=== PATIENT | female | born 1955 | race Caucasian/White ===

== ENCOUNTER 2019-10-11 15:05 | Emergency (ER) | payer MEDICARE, MEDICAID, SELFPAY ==
[2019-10-11 15:30] VITALS: BP 130/70; PULSE 63; RESP 16; TEMP 36.6; O2SAT 97; BMI 33.3
== END 2019-10-11 15:39 | disposition left against medical advice (07) ==
LOC: ER 15:37
PROVIDERS: Emergency Provider Emergency Medicine; Family Provider Family Medicine; PCP Family Medicine
DX: Z53.21 Procedure and treatment not carried out due to patient leaving prior to being seen by health care provider (principal)
CPT/HCPCS: 99281

== ENCOUNTER 2019-10-11 17:39 | Emergency (ER) | payer MEDICARE, MEDICAID, SELFPAY ==
[2019-10-11 19:25] VITALS: BP 112/66; PULSE 66; RESP 18; TEMP 36.5; O2SAT 97; BMI 33.3
[2019-10-11 19:31] VITALS: BP 79/54
[2019-10-11 20:50] LABS: Basophils % 0.7 %; Eosinophils # 0.2 10^3/uL (0.0-0.8); Eosinophils % 3.5 %; Hematocrit 41.9 % (37.0-47.0); Hemoglobin 14.1 g/dL (11.5-15.3); Lymphocytes # 1.4 10^3/uL (0.8-4.8); Lymphocytes % 23.9 %; Mean Corpuscular HGB Conc 33.7 g/dL (30.0-36.0); Mean Corpuscular Hemoglobin 30.9 pg (28.0-34.0); Mean Corpuscular Volume 91.7 fL (81-99); Mean Platelet Volume 10.7 fL (7.4-10.4); Monocytes # 0.6 10^3/uL (0.2-0.9); Monocytes % 10.8 %; Neutrophils # 3.4 10^3/uL (1.8-7.7); Neutrophils % 60.6 %; Nucleated Red Blood Cells % 0 %; Platelet Count 109 10^3/cmm (130-400); Red Blood Count 4.57 10^6/uL (4.1-5.3); Red Cell Distribution Width 13.4 % (12.1-15.1); White Blood Count 5.7 10^3/uL (4.0-10.0)
[2019-10-11 21:32] LABS: Alanine Aminotransferase 30 U/L (0-33); Alkaline Phosphatase 126 IU/L (35-105); Anion Gap 15.5 (5-19); Aspartate Amino Transferase 49 U/L (0-32); Blood Urea Nitrogen 13 mg/dL (8-23); Calcium 9.8 mg/Dl (8.8-10.2); Carbon Dioxide 28 mmol/L (22-29); Chloride 98 mmol/L (98-107); Globulin 3.3 g/dL (1.3-4.6); Glucose 139 mg/dL (74-106); Potassium 3.5 mmol/L (3.5-5.1); Sodium 138 mmol/L (136-145); Total Bilirubin 0.3 mg/dL (0.15-1.2); Total Protein 7.3 g/dL (6.6-8.7)
--- NOTE | 2019-10-11 21:42 | W.ED.GENADLT ---
HPI - General Adult General: Chief complaint: General Medical Stated complaint: low bp Time Seen by Provider: 10/11/19 21:37 History of Present Illness: HPI narrative: Patient is a 64-year-old female comes into the ED with varying blood pressures throughout the day. She states that her physical therapist came to her house today and her blood pressure was around 80/40. She states she felt lightheaded during that time. She states her blood pressure then went up later that day and was back to normal. She called her doctor in the doctor told her to come into the ED to check blood pressure. Patient does describe feeling lightheaded and dizzy when she stands up. No symptoms at all while she is lying down. Patient states she drinks a lot of water throughout the day and states that this fluctuation in blood pressure is never in the past. Denies any chest pain, shortness of breath, headache, abdominal pain, dysuria, hematuria, nausea, vomiting, constipation, diarrhea, blood in the stool, numbness or tingling or weakness to extremities. Review of Systems General: Reports: 10 or more systems reviewed and unremarkable except in HPI and below PFSH ED PFSH: Statuses (acute, chronic, etc) shown below reflect problem list status as previously entered and may not be historically accurate Social History Smoking and tobacco status: former smoker Alcohol intake: never Physical Exam Narrative: EXAM NARRATIVE: Patient was sitting comfortably in bed upon examination and show no signs of acute pain or distress. Const: COMMON NORMALS: oriented x3 HENMT: COMMON NORMALS: normocephalic HEAD & SCALP: normocephalic MOUTH: oral and palatal mucosa normal THROAT: posterior oropharynx normal and uvula midline Neck/C-Spine: COMMON NORMALS: supple GENERAL: Yes normal visual inspection Resp: COMMON NORMALS: normal respiratory effort, no retractions, no use of accessory muscles and clear to auscultation bilaterally AUSCULTATION: clear to auscultation bilaterally Cardio: COMMON NORMALS: regular rate, regular rhythm, S1 normal heart sound, S2 normal heart sound, no gallops, no clicks, no murmurs and peripheral pulses 2+ throughout RATE: regular rate RHYTHM: regular rhythm HEART SOUNDS: S1 normal and S2 normal PERIPHERAL PULSES: pulses 2+ throughout GI: COMMON NORMALS: normal to inspection, nondistended, normoactive bowel sounds, soft to palpation, non-tender and no masses PALPATION: Yes soft : COMMON NORMALS: Yes no CVA tenderness BLADDER/KIDNEY EXAM: Yes no CVA tenderness Back/Pelvis: COMMON NORMALS: no CVA tenderness Extremity: NARRATIVE EXTREMITY EXAM: Patient was wearing an arm sling for her right arm. This was a previous problem that had been treated and is not a current or acute issue. Neuro: COMMON NORMALS: oriented x3 and moves all extremities Course ED course: Patient's vitals in triage showed showed a sitting bp of 112/66 with hr of 81bpm, standing bp of 79/54 and hr of 62 bpm. After IV fluids patient orthostatics improved- laying 131/97 70bpm, sitting 159/93 79 bpm, and standing bp 144/79 hr 75bpm. Vital Signs: Vital signs: Vital Signs Temperature 98.3 F 10/12/19 01:09 Pulse Rate 76 10/12/19 01:09 Respiratory Rate 16 10/12/19 01:09 Blood Pressure 138/71 10/12/19 01:09 Pulse Oximetry 97 10/12/19 01:09 [facility] - General Adult Lab Data: Attestation: I reviewed the patient's lab results. Labs: Lab Results 10/11/19 10/11/19 10/11/19 Range/Units 20:36 20:36 23:12 WBC 5.7 (4.0-10.0) 10^3/ uL RBC 4.57 (4.1-5.3) 10^6/u L Hgb 14.1 (11.5-15.3) g/dL Hct 41.9 (37.0-47.0) % MCV 91.7 (81-99) fL MCH 30.9 (28.0-34.0) pg MCHC 33.7 (30.0-36.0) g/dL RDW 13.4 (12.1-15.1) % Plt Count 109 L (130-400) 10^3/c mm MPV 10.7 H (7.4-10.4) fL Neut % (Auto) 60.6 % Lymph % (Auto) 23.9 % [place] % (Auto) 10.8 % Eos % (Auto) 3.5 % Baso % (Auto) 0.7 % Neut # (Auto) 3.4 (1.8-7.7) 10^3/u L Lymph # (Auto) 1.4 (0.8-4.8) 10^3/u L [place] # (Auto) 0.6 (0.2-0.9) 10^3/u L Eos # (Auto) 0.2 (0.0-0.8) 10^3/u L Baso # (Auto) 0.0 (0.0-0.1) 10^3/u L Nucleated RBC % (a uto) 0 % Nucleated RBCs # 0.0 /100WBC Sodium 138 (136-145) mmol/L Potassium 3.5 (3.5-5.1) mmol/L Chloride 98 (98-107) mmol/L Carbon Dioxide 28 (22-29) mmol/L Anion Gap 15.5 (5-19) BUN 13 (8-23) mg/dL Creatinine 0.9 (0.5-0.9) mg/dL GFR Calculation 63.0 L (90-130) mL/min Glucose 139 H (74-106) mg/dL Calcium 9.8 (8.8-10.2) mg/Dl Total Bilirubin 0.3 (0.15-1.2) mg/dL AST 49 H (0-32) U/L ALT 30 (0-33) U/L Alkaline Phosphata se 126 H (35-105) IU/L Total Protein 7.3 (6.6-8.7) g/dL Albumin 4.0 (3.5-5.2) g/dL Globulin 3.3 (1.3-4.6) g/dL Urine Color Yellow (Yellow) Urine Appearance Clear (CLEAR) Urine pH 6.5 (5-7) Ur Specific Gravit y 1.005 (1.005-1.030) Urine Protein Neg (Negative) Urine Glucose (UA) Norm (Normal) Urine Ketones Negative (Negative) Urine Occult Blood Neg (Negative) Urine Nitrate Negative (Negative) Urine Bilirubin Neg (NEGATIVE) Urine Urobilinogen Norm (Negative) mg/dL Ur Leukocyte Chasity ase Negative (Negative) EKG Data^: EKG 1: Attestation: I personally reviewed and interpreted this EKG as follows: EKG interpretation date: 10/12/19 Interpretation: Normal sinus rhythm with rate of 63 bpm. No signs of ST elevation or depression. Computer generated interpretation: Normal sinus rhythm Discharge Plan Discharge Patient Disposition: Home, Self-Care Clinical Impression: Orthostatic hypotension Condition: Stable Prescriptions: No Action tizanidine 4 mg capsule 4 mg PO Q8H PRN (Reason: Muscle Spasm) RF: 0 triamterene-hydrochlorothiazid 37.5-25 mg capsule 1 cap PO QAM RF: 0 atenolol 25 mg tablet 25 mg PO BID RF: 0 amitriptyline 25 mg tablet 25 mg PO ONCE RF: 0 tramadol 50 mg tablet 50 mg PO Q6H PRN (Reason: Pain) RF: 0 gabapentin 300 mg capsule 300 mg PO TID RF: 0 omeprazole 40 mg capsule,delayed release(DR/EC) 40 mg PO ONCE RF: 0 levothyroxine 50 mcg capsule 50 mcg PO ONCE RF: 0 lorazepam 0.5 mg tablet 0.5 mg PO TID PRN (Reason: Anxiety) RF: 0 allopurinol 300 mg tablet 150 mg PO ONCE RF: 0 amoxicillin-pot clavulanate [Augmentin] 875-125 mg tablet 1 tab PO BID 10 Days Qty: 20 RF: 0 benzonatate [Tessalon Perles] 100 mg capsule 100 mg PO TID PRN (Reason: cough) Qty: 15 RF: 0 Discharge Orders: Discharge Order (Routine); Ordered 10/12/19 Ordered By: Joshua Woods Referrals: Samantha Wylie MD [Primary Care Provider] - Discharge Diet: Regular Discharge Activity: Resume usual activity Activity Restrictions/Additional Instructions: Follow-up with her primary care doctor in 7 days for reevaluation. Patient to drink plenty of fluids daily. Also make sure we're getting from a sitting position or from laying to get up slowly and hold on to something initially when standing up. Discharge Date/Time: 10/12/19 01:10 Coding Level of Care Code ED Photo Cartographer for Heide Batista
--- NOTE | 2019-10-11 22:52 | ECG_ITS ---
Measurements Intervals [place] Rate: 63 P: 66 ID: [id number] QRS: 52 QRSD: 85 T: 44 QT: 405 QTc: 417 SINUS RHYTHM Compared to ECG 09/28/2017 05:20:01 Sinus bradycardia no longer present Electronically Signed On 10-12-2019 22:27:02 NET SOFTWARE DEVELOPER by Kristine Sommer M.D. [email or web address]
[2019-10-11 23:19] LABS: Add Urine Microscopic? NO
[2019-10-11 23:25] LABS: Bilirubin Urine Neg (NEGATIVE); Blood Urine Neg (Negative); Glucose Urine UA Norm (Normal); Ketones Urine Negative (Negative); Leukocyte Esterase Urine Negative (Negative); Nitrate Urine Negative (Negative); Protein Urine Neg (Negative); Specific Gravity, Urine 1.005 (1.005-1.030); Urine Appearance Clear (CLEAR); Urine Color Yellow (Yellow); Urobilinogen Urine Norm (Negative); pH Urine 6.5 (5-7)
[2019-10-11] MEDS: HYDROcodone-acetaminophen 5-325 mg Tablet 1 TAB PO (23:42)
[2019-10-11] MEDS: sodium chloride 0.9% 1,000 ML 999 ML IV (23:43)
[2019-10-12] VITALS: BP 127/89; PULSE 76; RESP 16; O2SAT 97
[2019-10-12 00:40] VITALS: BP 131/97; BP 144/79; BP 159/93; PULSE 70; PULSE 75; PULSE 79
[2019-10-12 01:09] VITALS: BP 138/71; PULSE 76; RESP 16; TEMP 36.8; O2SAT 97
== END 2019-10-12 01:10 | disposition home or self-care (01) ==
PROVIDERS: Emergency Medicine; Emergency Provider Physician Assistant; Family Provider Family Medicine; PCP Family Medicine
DX: I95.1 Orthostatic hypotension (principal); Z87.891 Personal history of nicotine dependence
CPT/HCPCS: 36415; 80053; 81003; 85025; 93005; 96360; 99283; J7030

== ENCOUNTER 2019-11-15 23:09 | Emergency (ER) | payer MEDICARE, MEDICAID, SELFPAY ==
[2019-11-15 23:13] VITALS: BP 164/99; PULSE 120; RESP 18; TEMP 36.4; O2SAT 97; BMI 33.3
--- NOTE | 2019-11-15 23:40 | ED_ITS ---
HPI - General Adult General: Chief complaint: General Medical Stated complaint: n/v, high hr and bp, fever Time Seen by Provider: 11/15/19 23:25 Source: patient Mode of arrival: ambulatory Limitations: no limitations History of Present Illness: HPI narrative: Patient comes in today with complaints of 24-hour history of nausea vomiting. Patient reports feeling unwell. Patient reports fever. Patient appears mildly unwell. Patient appears in no pain. Associated symptoms: Reports malaise, nausea and vomiting Review of Systems General: Reports: 10 or more systems reviewed and unremarkable except in HPI and below Const: Reports: fever and malaise GI: Reports: nausea and vomiting PFS ED PFSH: Social History Smoking and tobacco status: never smoked Alcohol intake: never Physical Exam Const: COMMON NORMALS: no apparent distress and oriented x3 GENERAL APPEARANCE: cooperative HENMT: COMMON NORMALS: normocephalic, external ears normal, EAC's normal and TM's normal bilaterally HEAD & SCALP: normal to inspection and normocephalic FACE & SINUS: normal facial exam NOSE: nasal discharge GENERAL EAR: hearing not grossly impaired EXTERNAL EAR: Yes external ears normal EXTERNAL AUDITORY CANAL: EAC's normal TYMPANIC MEMBRANE: TM's normal bilaterally MOUTH: oral and palatal mucosa normal THROAT: posterior oropharynx normal Eye: COMMON NORMALS: PERRL and EOMs intact bilaterally PUPIL: Yes PERRL Neck/C-Spine: COMMON NORMALS: full ROM and no lymphadenopathy Lymph: LYMPHATIC: no lymphedema noted Chest: COMMONS NORMALS: inspection of chest normal and palpation of chest normal Resp: COMMON NORMALS: normal respiratory effort and clear to auscultation bilaterally AUSCULTATION: clear to auscultation bilaterally Cardio: COMMON NORMALS: regular rate and regular rhythm RATE: regular rate RHYTHM: regular rhythm GI: COMMON NORMALS: normal to inspection, nondistended, normoactive bowel sounds and non-tender : COMMON NORMALS: Yes no CVA tenderness BLADDER/KIDNEY EXAM: Yes no CVA tenderness Back/Pelvis: COMMON NORMALS: no CVA tenderness and thoracic and lumbar spine normal to inspection Extremity: COMMON NORMALS: normal to inspection GENERAL: No edema Neuro: COMMON NORMALS: oriented x3, moves all extremities and no focal motor deficits Psych: COMMON NORMALS: mental status grossly normal and cooperative Skin: COMMON NORMALS: no rashes or lesions noted GENERAL SKIN EXAM: no rashes or lesions noted Course Vital Signs: Vital signs: Vital Signs Temperature 98.6 F 11/16/19 00:57 Pulse Rate 120 H 11/15/19 23:13 Respiratory Rate 18 11/15/19 23:13 Blood Pressure 164/99 11/15/19 23:13 Pulse Oximetry 97 11/15/19 23:13 MDM - General Adult MDM Narrative: Medical decision making narrative: Patient comes in today for complaints of nausea vomiting diarrhea since last night. Patient is also had some chills and possible fever. Patient appears mildly unwell. Exam notes abdomen soft nontender. Bowel sounds are hyperactive. Skin is warm and dry. [place] is mildly dry. Differential diagnosis includes gastroenteritis, cholecystitis, gastritis, colitis, esophageal reflux. Laboratory values worse significant for some mild elevation in liver enzymes but very similar to previous labs. White blood cell count was normal. Patient was given IV fluids with 1 L and medications for nausea. Patient had improvement in overall symptoms and felt better. Reviewed exam with patient recommended treatment for gastroenteritis with supportive care. Patient reported understanding agreed to plan. Lab Data: Labs: Lab Results 11/15/19 11/16/19 11/16/19 Range/Units 23:54 00:01 00:33 WBC 6.4 (4.0-10.0) 10^3/ uL RBC 5.00 (4.1-5.3) 10^6/u L Hgb 14.6 (11.5-15.3) g/dL Hct 43.6 (37.0-47.0) % MCV 87.2 (81-99) fL MCH 29.2 (28.0-34.0) pg MCHC 33.5 (30.0-36.0) g/dL RDW 13.3 (12.1-15.1) % Plt Count 80 L (130-400) 10^3/c mm MPV 10.8 H (7.4-10.4) fL Neut % (Auto) 83.7 % Lymph % (Auto) 9.4 % [place] % (Auto) 5.8 % Eos % (Auto) 0.6 % Baso % (Auto) 0.3 % Neut # (Auto) 5.3 (1.8-7.7) 10^3/u L Lymph # (Auto) 0.6 L (0.8-4.8) 10^3/u L [place] # (Auto) 0.4 (0.2-0.9) 10^3/u L Eos # (Auto) 0.0 (0.0-0.8) 10^3/u L Baso # (Auto) 0.0 (0.0-0.1) 10^3/u L Nucleated RBC % (a uto) 0 % Nucleated RBCs # 0.0 /100WBC Sodium 137 (136-145) mmol/L Potassium 4.2 (3.5-5.1) mmol/L Chloride 99 (98-107) mmol/L Carbon Dioxide 22 (22-29) mmol/L Anion Gap 20.2 H (5-19) BUN 15 (8-23) mg/dL Creatinine 0.7 (0.5-0.9) mg/dL GFR Calculation 84.2 L (90-130) mL/min Glucose 126 H (65-115) mg/dL Calcium 9.5 (8.5-10.5) mg/dL Total Bilirubin 1.0 (0.15-1.2) mg/dL AST 48 H (0-32) U/L ALT 29 (0-33) U/L Alkaline Phosphata se 113 H (35-105) IU/L Total Protein 7.9 (6.6-8.7) g/dL Albumin 3.9 (3.5-5.2) g/dL Globulin 4.0 (1.3-4.6) g/dL Urine Color Yellow (Yellow) Urine Appearance Clear (CLEAR) Urine pH 6 (5-7) Ur Specific Gravit y 1.010 (1.005-1.030) Urine Protein Neg (Negative) Urine Glucose (UA) Norm (Normal) Urine Ketones 1+ H (Negative) Urine Blood 2+ H (Negative) Urine Nitrate Negative (Negative) Urine Bilirubin Neg (NEGATIVE) Urine Urobilinogen Norm (Negative) mg/dL Ur Leukocyte Chasity ase Negative (Negative) Urine RBC 5-10 H (0-2) /hpf Urine WBC 0-4 H (0-5) /hpf Ur Squamous Epith Cells None (0-5) Urine Bacteria Trace (NONE) Urine Yeast None Influenza Type A A g (Negative) POC Influenza B Ag (Negative) 11/16/19 Range/Units 01:19 WBC (4.0-10.0) 10^3/ uL RBC (4.1-5.3) 10^6/u L Hgb (11.5-15.3) g/dL Hct (37.0-47.0) % MCV (81-99) fL MCH (28.0-34.0) pg MCHC (30.0-36.0) g/dL RDW (12.1-15.1) % Plt Count (130-400) 10^3/c mm MPV (7.4-10.4) fL Neut % (Auto) % Lymph % (Auto) % [place] % (Auto) % Eos % (Auto) % Baso % (Auto) % Neut # (Auto) (1.8-7.7) 10^3/u L Lymph # (Auto) (0.8-4.8) 10^3/u L [place] # (Auto) (0.2-0.9) 10^3/u L Eos # (Auto) (0.0-0.8) 10^3/u L Baso # (Auto) (0.0-0.1) 10^3/u L Nucleated RBC % (a uto) % Nucleated RBCs # /100WBC Sodium (136-145) mmol/L Potassium (3.5-5.1) mmol/L Chloride (98-107) mmol/L Carbon Dioxide (22-29) mmol/L Anion Gap (5-19) BUN (8-23) mg/dL Creatinine (0.5-0.9) mg/dL GFR Calculation (90-130) mL/min Glucose (65-115) mg/dL Calcium (8.5-10.5) mg/dL Total Bilirubin (0.15-1.2) mg/dL AST (0-32) U/L ALT (0-33) U/L Alkaline Phosphata se (35-105) IU/L Total Protein (6.6-8.7) g/dL Albumin (3.5-5.2) g/dL Globulin (1.3-4.6) g/dL Urine Color (Yellow) Urine Appearance (CLEAR) Urine pH (5-7) Ur Specific Gravit y (1.005-1.030) Urine Protein (Negative) Urine Glucose (UA) (Normal) Urine Ketones (Negative) Urine Blood (Negative) Urine Nitrate (Negative) Urine Bilirubin (NEGATIVE) Urine Urobilinogen (Negative) mg/dL Ur Leukocyte Chasity ase (Negative) Urine RBC (0-2) /hpf Urine WBC (0-5) /hpf Ur Squamous Epith Cells (0-5) Urine Bacteria (NONE) Urine Yeast Influenza Type A A g Negative (Negative) POC Influenza B Ag Negative (Negative) Discharge Plan Discharge Patient Disposition: Home, Self-Care Clinical Impression: Gastroenteritis Condition: Stable Prescriptions: New promethazine 12.5 mg tablet 12.5 mg PO Q6H PRN (Reason: nausea and vomiting) Qty: 20 RF: 0 No Action tizanidine 4 mg capsule 4 mg PO Q8H PRN (Reason: Muscle Spasm) RF: 0 triamterene-hydrochlorothiazid 37.5-25 mg capsule 1 cap PO QAM RF: 0 atenolol 25 mg tablet 25 mg PO BID RF: 0 amitriptyline 25 mg tablet 25 mg PO ONCE RF: 0 tramadol 50 mg tablet 50 mg PO Q6H PRN (Reason: Pain) RF: 0 gabapentin 300 mg capsule 300 mg PO TID RF: 0 omeprazole 40 mg capsule,delayed release(DR/EC) 40 mg PO ONCE RF: 0 levothyroxine 50 mcg capsule 50 mcg PO ONCE RF: 0 lorazepam 0.5 mg tablet 0.5 mg PO TID PRN (Reason: Anxiety) RF: 0 allopurinol 300 mg tablet 150 mg PO ONCE RF: 0 benzonatate [Tessalon Perles] 100 mg capsule 100 mg PO TID PRN (Reason: cough) Qty: 15 RF: 0 Discharge Orders: Discharge Order (Routine); Ordered 11/16/19 Ordered By: René Vora Referrals: Samantha Wylie MD [Primary Care Provider] - Discharge Diet: Clear Liquid Discharge Activity: Increase activity as tolerated Patient Instructions: Gastroenteritis (ED) Activity Restrictions/Additional Instructions: Drink plenty of fluids Start with clear liquid diet for the next 12-24 hours, then increase slowly to a bland diet of bananas, apples, toast, boiled chicken, and rice Return to ER for persistent vomiting, or blood in stool or vomit Follow-up with primary care in three days for persistent symptoms Coding Level of Care Code ED Diesel Trailer Mechanic for Chg Fwd Exam Comprehensive
[2019-11-16] MEDS: ondansetron 2 mg/ML SDV 2 mL 4 MG IVP (00:01)
[2019-11-16] MEDS: sodium chloride 0.9% 1,000 ML 999 ML IV (00:01)
[2019-11-16 00:02] LABS: Basophils % 0.3 %; Eosinophils % 0.6 %; Hematocrit 43.6 % (37.0-47.0); Hemoglobin 14.6 g/dL (11.5-15.3); Lymphocytes # 0.6 10^3/uL (0.8-4.8); Lymphocytes % 9.4 %; Mean Corpuscular HGB Conc 33.5 g/dL (30.0-36.0); Mean Corpuscular Hemoglobin 29.2 pg (28.0-34.0); Mean Corpuscular Volume 87.2 fL (81-99); Mean Platelet Volume 10.8 fL (7.4-10.4); Monocytes # 0.4 10^3/uL (0.2-0.9); Monocytes % 5.8 %; Neutrophils # 5.3 10^3/uL (1.8-7.7); Neutrophils % 83.7 %; Nucleated Red Blood Cells % 0 %; Platelet Count 80 10^3/cmm (130-400); Red Cell Distribution Width 13.3 % (12.1-15.1); White Blood Count 6.4 10^3/uL (4.0-10.0)
[2019-11-16 00:29] LABS: Alanine Aminotransferase 29 U/L (0-33); Albumin Level 3.9 g/dL (3.5-5.2); Alkaline Phosphatase 113 IU/L (35-105); Anion Gap 20.2 (5-19); Aspartate Amino Transferase 48 U/L (0-32); Blood Urea Nitrogen 15 mg/dL (8-23); Calcium 9.5 mg/dL (8.5-10.5); Carbon Dioxide 22 mmol/L (22-29); Chloride 99 mmol/L (98-107); Glomerular Filtration Rate 84.2 mL/min (90-130); Glucose 126 mg/dL (65-115); Potassium 4.2 mmol/L (3.5-5.1); Sodium 137 mmol/L (136-145); Total Protein 7.9 g/dL (6.6-8.7)
[2019-11-16 00:57] VITALS: TEMP 37
--- NOTE | 2019-11-16 01:22 | PC.NURSE ---
flu swab recollected at this time due to first collection in wrong color tube. MMorgan RN
[2019-11-16] MEDS: diphenhydrAMINE 50 mg/mL SDV 1mL 25 MG IVP (01:31)
[2019-11-16] MEDS: metoclopramide 5 mg/mL SDV 2 mL 10 MG IVP (01:31)
[2019-11-16 01:53] LABS: Influenza A by IFA Negative (Negative)
[2019-11-16 01:54] LABS: Influenza B by IFA Negative (Negative)
[2019-11-16 01:54] LABS: Add Urine Microscopic? YES; Bilirubin Urine Neg (NEGATIVE); Blood Urine 2+ (Negative); Glucose Urine UA Norm (Normal); Ketones Urine 1+ (Negative); Leukocyte Esterase Urine Negative (Negative); Nitrate Urine Negative (Negative); Protein Urine Neg (Negative); Urine Appearance Clear (CLEAR); Urine Color Yellow (Yellow); Urobilinogen Urine Norm (Negative); pH Urine 6 (5-7)
[2019-11-16 01:57] LABS: Add Urine Culture? Yes; Bacteria Urine TRACE; WBC Urine 0-4 /hpf (0-5)
[2019-11-16 02:25] VITALS: BP 152/96; PULSE 106; RESP 18; TEMP 37; O2SAT 98
== END 2019-11-16 02:37 | disposition home or self-care (01) ==
PROVIDERS: Emergency Provider Nurse Practitioner Family; Family Provider Family Medicine; PCP Family Medicine
DX: K52.9 Noninfective gastroenteritis and colitis, unspecified (principal)
CPT/HCPCS: 36415; 80053; 81001; 85025; 87086; 87804; 96361; 96374; 96375; 99283; A9270; J1200; J2405; J2765; J7030

== ENCOUNTER 2019-12-18 14:09 | Outpatient (CLI) | payer MEDICARE, MEDICAID, SELFPAY ==
--- NOTE | 2019-12-18 14:21 | XRR_ITS ---
PROCEDURE INFORMATION: Exam: XR Chest, 2 Views Exam date and time: 12/18/2019 2:29 PM Age: 64 years old Clinical indication: Cough TECHNIQUE: Imaging protocol: XR of the chest Views: Frontal and lateral upright views. COMPARISON: CR Chest 1 [place] [id number] 09/27/2017 9:02 PM FINDINGS: Lungs: The lungs are clear bilaterally. The pulmonary vasculature is normal. Pleural space: No pleural effusion. No pneumothorax. Heart/Mediastinum: The heart is normal in size and contour. Mediastinum: Stable. Bones/joints: . Mild rightward thoracolumbar spinal curvature, stable XR/XR chest 2V* [id number] IMPRESSION: No acute cardiopulmonary abnormality identified.
== END 2019-12-18 14:10 | disposition home or self-care (01) ==
LOC: RAD 14:15
PROVIDERS: Family Provider Family Medicine; PCP Family Medicine; Visit Provider Family Medicine
DX: R05 Cough (principal)
CPT/HCPCS: 71046

== ENCOUNTER 2020-02-06 14:30 | Outpatient (RCR) | payer MEDICARE, MEDICAID, SELFPAY | END 2020-02-25 23:59 | disposition home or self-care (01) | LOC: SPT 14:30 | PROVIDERS: PCP Family Medicine; Visit Provider Family Medicine | DX: Z47.89 Encounter for other orthopedic aftercare (principal) | CPT/HCPCS: 97110; 97162 ==

== ENCOUNTER 2020-02-11 22:37 | Emergency (ER) | payer MEDICARE, MEDICAID, SELFPAY ==
[2020-02-11 22:43] VITALS: BP 146/85; PULSE 107; RESP 16; TEMP 37.4; O2SAT 95; BMI 33.3
--- NOTE | 2020-02-11 22:55 | CTR_ITS ---
PROCEDURE INFORMATION: Exam: CT Abdomen And Pelvis Without And With Contrast Exam date and time: 02/11/2020 10:59 PM Age: 64 years old Clinical indication: Abdominal pain; Generalized; Additional info: Pain, fever TECHNIQUE: Imaging protocol: Computed tomography of the abdomen and pelvis without and with intravenous contrast. Radiation optimization: All CT scans at this facility use at least one of these dose optimization techniques: automated exposure control; mA and/or kV adjustment per patient size (includes targeted exams where dose is matched to clinical indication); or iterative reconstruction. Contrast material: OMNI 300; Contrast volume: 95 ml; Contrast route: IV; COMPARISON: No relevant prior studies available. RADIATION DOSE METRICS: Total DLP: 2451.53 mGy-cm FINDINGS: Liver: Normal. No mass. Gallbladder and bile ducts: Status post cholecystectomy. Pancreas: Normal. No ductal dilation. Spleen: The spleen is mildly prominent measuring 16.2 cm craniocaudal dimension. Adrenals: Normal. No mass. Kidneys and ureters: Some strandy opacities are seen in the perinephric fascia on the left. Mild inflammatory changes and pyelonephritis cannot be entirely excluded. Stomach and bowel: Unremarkable. No obstruction. No mucosal thickening. Appendix: The appendix is visualized and is normal in configuration. Intraperitoneal space: Unremarkable. No free air. No significant fluid collection. Vasculature: Unremarkable. No abdominal aortic aneurysm. Lymph nodes: Small retroperitoneal lymph nodes are seen that are below CT criteria for lymphadenopathy. Bladder: Unremarkable as visualized. Reproductive: There is a 2.1 x 2.6 x 2.6 cm hypoattenuation cystic mass seen within the left ovary compatible with a benign ovarian cyst. Status post hysterectomy. Bones/joints: Unremarkable. No acute fracture. Soft tissues: Unremarkable. CT/CT abdomen pelvis wo/w [id number] IMPRESSION: 1. Strandy opacities are seen in the left perinephric fascia possibly representing chronic scarring although mild inflammatory changes and pyelonephritis cannot be entirely excluded. 2. Probable benign left ovarian cyst measuring up to 2.6 cm. Follow-up with pelvic sonography is suggested. 3. Mild splenomegaly Radiation Dose CTDIVOL = (mGy): DLP = 2451.53 (mGy-cm)
--- NOTE | 2020-02-11 22:57 | W.ED.ABDPA2 ---
HPI - Abdominal Pain General: Chief Complaint: Abdominal Pain Stated Complaint: FEVER; ABD PAIN/CRAMPS Time Seen by Provider: 02/11/20 22:48 History of Present Illness: HPI narrative: Ana Paula is a 64-year-old female who comes in complaining of abdominal pain. She states that he has bilateral flank pain and she is had blood in her urine and she believes that she is passed a kidney stone. She also states that she has bilateral lower abdominal cramping and has had diarrhea. She is had a fever at home today's was as high as 103.6. She is nauseous but has not vomited. She denies cough, shortness of breath, chest pain or palpitations. Associated Symptoms: Reports dysuria, hematuria, nausea and vomiting; Denies chills, coffee ground emesis, constipation, GI cramping, diarrhea, fever(s), heartburn, hematochezia, hematemesis, melena and syncope Review of Systems Const: Denies: fever(s), chills, body aches, fatigue, malaise, night sweats or diaphoresis Eyes: Denies: change in vision, blurry vision or blind spots ENMT: Denies: throat pain, odynophagia, hoarseness, ear or mastoid pain, ear discharge, change in hearing or nasal discharge Card: Denies: chest pain, palpitations, irregular heart rhythm, lightheadedness, syncope, pre-syncope, dyspnea on exertion or orthopnea Resp: Denies: dyspnea, productive cough, non-productive cough, wheezing, hemoptysis or chest congestion GI: Reports: abdominal pain, nausea and vomiting; Denies: hematemesis, coffee ground emesis, heartburn, diarrhea, constipation, GI cramping, hematochezia or melena : Reports: flank pain, dysuria, urinary frequency, urinary urgency and hematuria; Denies: oliguria or urinary incontinence Musc: Denies: neck pain, back pain, extremity pain, extremity swelling, joint pain, joint swelling, joint redness, joint warmth or joint stiffness Skin/Breast: Denies: rash, pruritus, erythema, skin tenderness or jaundice Neuro: Denies: headache(s), numbness in extremities, weakness in extremities, sensory changes, lack of coordination, difficulty walking, dizziness, vertigo, confusion or Slurred speech present Endo: Denies: polyuria, polydipsia, tired all the time, cold intolerance, excessive sweating, flushing, hot flashes or heat intolerance Jackson/Lymph: Denies: easy bruising, easy bleeding, petechiae, purpura or enlarged lymph nodes All/Imm: Denies: urticaria, throat swelling, tongue swelling, facial swelling or acute wheezing PFSH ED PFSH: Medical History (Updated 02/12/20 @ 01:41 by Sarita Robbins) Chronic back pain COPD (chronic obstructive pulmonary disease) Hypertension Kidney stones Surgical History (Updated 02/11/20 @ 23:12 by Sarita Robbins) H/O right wrist surgery Previous back surgery Previous section S/P cholecystectomy Social History Smoking and tobacco status: never smoked Alcohol intake: never Physical Exam Const: COMMON NORMALS: no acute distress, patient oriented x3, no limitations, healthy appearing and well nourished EXAM LIMITATIONS: no altered mental status GENERAL APPEARANCE: cooperative, well kempt and well developed HENMT: COMMON NORMALS: normocephalic, atraumatic, hearing grossly normal bilaterally, external ears normal, EAC's normal, Normal external nose present and moist oral mucous membranes HEAD & SCALP: normal to inspection, normocephalic and atraumatic FACE & SINUS: normal facial exam and face symmetric NOSE: Normal external nose present and Normal nares present EXTERNAL EAR: Yes external ears normal EXTERNAL AUDITORY CANAL: EAC's normal MOUTH: Normal oral and palatal mucosa present, lip normal and tongue normal Eye: COMMON NORMALS: Equal, round and reactive pupils present, EOMs intact bilaterally, conjunctivae normal and no scleral icterus GENERAL EYE: appearance normal, both eyes and all related structures ALIGNMENT: Yes alignment normal PERIORBITAL: periorbital findings normal EYELID: eyelids normal CONJUNCTIVA: Yes conjunctivae normal SCLERA: sclerae normal PUPIL: Yes Equal, round and reactive pupils present Neck/C-Spine: COMMON NORMALS: full ROM, no lymphadenopathy, supple, no meningeal signs and no JVD GENERAL: Yes normal visual inspection and Yes trachea midline CERVICAL SPINE: Yes cervical ROM normal Chest: COMMONS NORMALS: normal inspection of the chest and normal palpation of entire chest wall Resp: COMMON NORMALS: normal respiratory effort, No retractions, No use of accessory muscles and clear to auscultation bilaterally EFFORT & INSPECTION: Yes able to speak in complete sentences AUSCULTATION: clear to auscultation bilaterally, no crackles, no rales, no rhonchi and no wheezes Cardio: COMMON NORMALS: no JVD, regular rate, regular rhythm, S1 normal heart sound present, S2 normal heart sound present, No gallops present (Cardio), No clicks present (Cardio), No murmurs present (Cardio) and No rub (Cardio) RATE: regular rate RHYTHM: regular rhythm HEART SOUNDS: S1 normal heart sound present, S2 normal heart sound present, no click, no gallops, no murmurs and no rubs GI: COMMON NORMALS: Soft to palpation, No hepatosplenomegaly present and no masses PALPATION: Yes Soft to palpation, Yes Tenderness to palpation present (GI) (Moderate diffusely), No Guarding due to palpation present (GI), No Rigid due to palpation, Yes No hepatosplenomegaly present, No Hernia present, No Palpable mass present and No Pulsatile mass present : BLADDER/KIDNEY EXAM: Yes CVA tenderness EXTERNAL FEMALE EXAM: No Hernia present Back/Pelvis: COMMON NORMALS: thoracic and lumbar spine normal to inspection, no thoracic nor lumbar tenderness and thoraco-lumbar ROM normal GENERAL BACK: Yes CVA tenderness CVA tenderness: bilateral Extremity: COMMON NORMALS: normal to inspection, full ROM, capillary refill normal, no joint enlargement, no clubbing, cyanosis or edema and no calf tenderness Neuro: COMMON NORMALS: patient oriented x3, CN's II-XII intact bilaterally, moves all extremities, no focal motor deficits and no sensory deficits noted MENINGEAL SIGNS: Yes no meningeal signs SPEECH: speech normal Psych: COMMON NORMALS: mental status grossly normal, Normal thought process present, cooperative, normal affect, speech normal and activity/motor behavior normal APPEARANCE: Yes well kempt SPEECH: Yes normal speech THOUGHT PROCESS: Normal thought process present Skin: COMMON NORMALS: no rashes or lesions noted, turgor normal, no jaundice, no petechiae and no mottling GENERAL SKIN EXAM: no rashes or lesions noted and turgor normal Course Vital Signs: Vital signs: Vital Signs Temperature 100.2 F H 02/12/20 01:56 Pulse Rate 88 02/12/20 01:56 Respiratory Rate 16 02/12/20 01:56 Blood Pressure 152/86 02/12/20 01:56 Pulse Oximetry 98 02/12/20 01:56 MDM - Abdominal Pain MDM Narrative: Medical decision making narrative: Ana Paula is a nice 64-year-old female who comes in complaining of flank pain left greater than right. CT scan is consistent with a pyelonephritis. I did discuss the CT with the radiologist he sees no evidence of kidney stone. The patient has been nauseated but not vomited. I have recommended and offered to place her in the hospital for IV fluids and further treatment but she declines. As she is able to keep down her medicines and her pain is controlled she would like to go home. She agrees to return should her symptoms change or worsen but at this time she is adamant she would like to go home. Lab Data: Attestation: I reviewed the patient's lab results. Labs: Lab Results 02/11/20 02/11/20 02/11/20 Range/Units 23:30 23:30 23:30 WBC 8.7 (4.0-10.0) 10^3/ uL RBC 4.72 (4.1-5.3) 10^6/u L Hgb 13.8 (11.5-15.3) g/dL Hct 42.4 (37.0-47.0) % MCV 89.8 (81-99) fL MCH 29.2 (28.0-34.0) pg MCHC 32.5 (30.0-36.0) g/dL RDW 14.1 (12.1-15.1) % Plt Count 98 L (130-400) 10^3/c mm MPV 11.4 H (7.4-10.4) fL Neut % (Auto) 77.8 % Lymph % (Auto) 15.1 % Mitchell % (Auto) 5.5 % Eos % (Auto) 0.9 % Baso % (Auto) 0.5 % Neut # (Auto) 6.8 (1.8-7.7) 10^3/u L Lymph # (Auto) 1.3 (0.8-4.8) 10^3/u L Mitchell # (Auto) 0.5 (0.2-0.9) 10^3/u L Eos # (Auto) 0.1 (0.0-0.8) 10^3/u L Baso # (Auto) 0.0 (0.0-0.1) 10^3/u L Nucleated RBC % (a uto) 0 % Nucleated RBCs # 0.0 /100WBC Sodium (136-145) mmol/L Potassium (3.5-5.1) mmol/L Chloride (98-107) mmol/L Carbon Dioxide (22-29) mmol/L Anion Gap (5-19) BUN (8-23) mg/dL Creatinine (0.5-0.9) mg/dL GFR Calculation (90-130) mL/min Glucose (65-115) mg/dL Calculated Osmolal ity (285-295) mOsm/k g Lactic Acid 1.4 (0.5-2.2) mmol/L Calcium (8.5-10.5) mg/dL Magnesium (1.7-2.3) mg/dL Total Bilirubin (0.15-1.2) mg/dL AST (0-32) U/L ALT (0-33) U/L Alkaline Phosphata se (35-105) IU/L Total Protein (6.6-8.7) g/dL Albumin (3.5-5.2) g/dL Globulin (1.3-4.6) g/dL Lipase (13-60) U/L Urine Color Straw (Yellow) Urine Appearance Hazy A (CLEAR) Urine pH 6 (5-7) Ur Specific Gravit y 1.000 L (1.005-1.030) Urine Protein 1+ H (Negative) Urine Glucose (UA) Norm (Normal) Urine Ketones Negative (Negative) Urine Blood 3+ H (Negative) Urine Nitrate Negative (Negative) Urine Bilirubin Neg (NEGATIVE) Urine Urobilinogen Norm (Negative) mg/dL Ur Leukocyte Chasity ase 2+ H (Negative) Urine RBC 5-10 H (0-2) /hpf Urine WBC >100 H (0-5) /hpf Ur Squamous Epith Cells 5-10 H (0-5) Urine Bacteria 1+ H (NONE) 05/17/20 Range/Units 23:50 WBC (4.0-10.0) 10^3/ uL RBC (4.1-5.3) 10^6/u L Hgb (11.5-15.3) g/dL Hct (37.0-47.0) % MCV (81-99) fL MCH (28.0-34.0) pg MCHC (30.0-36.0) g/dL RDW (12.1-15.1) % Plt Count (130-400) 10^3/c mm MPV (7.4-10.4) fL Neut % (Auto) % Lymph % (Auto) % Mitchell % (Auto) % Eos % (Auto) % Baso % (Auto) % Neut # (Auto) (1.8-7.7) 10^3/u L Lymph # (Auto) (0.8-4.8) 10^3/u L Mitchell # (Auto) (0.2-0.9) 10^3/u L Eos # (Auto) (0.0-0.8) 10^3/u L Baso # (Auto) (0.0-0.1) 10^3/u L Nucleated RBC % (a uto) % Nucleated RBCs # /100WBC Sodium 131 L (136-145) mmol/L Potassium 3.7 (3.5-5.1) mmol/L Chloride 92 L (98-107) mmol/L Carbon Dioxide 28 (22-29) mmol/L Anion Gap 14.7 (5-19) BUN 9 (8-23) mg/dL Creatinine 0.8 (0.5-0.9) mg/dL GFR Calculation 72.2 L (90-130) mL/min Glucose 127 H (65-115) mg/dL Calculated Osmolal ity 270 L (285-295) mOsm/k g Lactic Acid (0.5-2.2) mmol/L Calcium 9.6 (8.5-10.5) mg/dL Magnesium 1.8 (1.7-2.3) mg/dL Total Bilirubin 1.0 (0.15-1.2) mg/dL AST 40 H (0-32) U/L ALT 32 (0-33) U/L Alkaline Phosphata se 123 H (35-105) IU/L Total Protein 8.1 (6.6-8.7) g/dL Albumin 3.9 (3.5-5.2) g/dL Globulin 4.2 (1.3-4.6) g/dL Lipase 24 (13-60) U/L Urine Color (Yellow) Urine Appearance (CLEAR) Urine pH (5-7) Ur Specific Gravit y (1.005-1.030) Urine Protein (Negative) Urine Glucose (UA) (Normal) Urine Ketones (Negative) Urine Blood (Negative) Urine Nitrate (Negative) Urine Bilirubin (NEGATIVE) Urine Urobilinogen (Negative) mg/dL Ur Leukocyte Chasity ase (Negative) Urine RBC (0-2) /hpf Urine WBC (0-5) /hpf Ur Squamous Epith Cells (0-5) Urine Bacteria (NONE) Discharge Plan Discharge Patient Disposition: Home, Self-Care Clinical Impression: Pyelonephritis Condition: Stable Prescriptions: [place] 5-325 mg tablet 1 tab PO Q6H PRN (Reason: pain) 5 Days Qty: 12 RF: 0 promethazine 25 mg tablet 25 mg PO Q4H PRN (Reason: nausea and vomiting) Qty: 20 RF: 0 Levaquin 750 mg tablet 750 mg PO DAILY 7 Days RF: 0 No Action tizanidine 4 mg capsule 4 mg PO Q8H PRN (Reason: Muscle Spasm) RF: 0 triamterene-hydrochlorothiazid 37.5-25 mg capsule 1 cap PO QAM RF: 0 atenolol 25 mg tablet 25 mg PO BID RF: 0 amitriptyline 25 mg tablet 25 mg PO ONCE RF: 0 tramadol 50 mg tablet 50 mg PO Q6H PRN (Reason: Pain) RF: 0 gabapentin 300 mg capsule 300 mg PO TID RF: 0 omeprazole 40 mg capsule,delayed release(DR/EC) 40 mg PO ONCE RF: 0 levothyroxine 50 mcg capsule 50 mcg PO ONCE RF: 0 lorazepam 0.5 mg tablet 0.5 mg PO TID PRN (Reason: Anxiety) RF: 0 allopurinol 300 mg tablet 150 mg PO ONCE RF: 0 benzonatate [Tessalon Perles] 100 mg capsule 100 mg PO TID PRN (Reason: cough) Qty: 15 RF: 0 promethazine 12.5 mg tablet 12.5 mg PO Q6H PRN (Reason: nausea and vomiting) Qty: 20 RF: 0 Discharge Orders: Discharge Order (Routine); Ordered 02/12/20 Ordered By: Sarita Robbins Referrals: Samantha Wylie MD [Primary Care Provider] - 1-3 days Discharge Diet: Advance as tolerated Discharge Activity: Increase activity as tolerated Patient Instructions: Acute Pyelonephritis (ED) Activity Restrictions/Additional Instructions: Please return to the ER immediately for any of the signs or symptoms listed on your discharge instruction sheets, worsening/changing of your symptoms, you are not getting better as quickly as expected, or for ANY other cause or concerns. Return to the ER for uncontrolled fever, vomiting, uncontrolled pain, or for any other cause for concern. 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
[2020-02-11 23:11] VITALS: BP 146/84; PULSE 92; RESP 16; O2SAT 98
[2020-02-11 23:43] LABS: Basophils % 0.5 %; Eosinophils # 0.1 10^3/uL (0.0-0.8); Eosinophils % 0.9 %; Hematocrit 42.4 % (37.0-47.0); Hemoglobin 13.8 g/dL (11.5-15.3); Lymphocytes # 1.3 10^3/uL (0.8-4.8); Lymphocytes % 15.1 %; Mean Corpuscular HGB Conc 32.5 g/dL (30.0-36.0); Mean Corpuscular Hemoglobin 29.2 pg (28.0-34.0); Mean Corpuscular Volume 89.8 fL (81-99); Mean Platelet Volume 11.4 fL (7.4-10.4); Monocytes # 0.5 10^3/uL (0.2-0.9); Monocytes % 5.5 %; Neutrophils # 6.8 10^3/uL (1.8-7.7); Neutrophils % 77.8 %; Nucleated Red Blood Cells % 0 %; Platelet Count 98 10^3/cmm (130-400); Red Blood Count 4.72 10^6/uL (4.1-5.3); Red Cell Distribution Width 14.1 % (12.1-15.1); White Blood Count 8.7 10^3/uL (4.0-10.0)
[2020-02-11] MEDS: sodium chloride 0.9% 1,000 ML 999 ML IV (23:43)
[2020-02-11] MEDS: ondansetron 2 mg/ML SDV 2 mL 4 MG IVP (23:43)
[2020-02-11] MEDS: morphine 4 mg/mL SDV 1 mL IVP (23:43)
[2020-02-11 23:58] LABS: Blood Urine 3+ (Negative); Glucose Urine UA Norm (Normal); Ketones Urine Negative (Negative); Nitrate Urine Negative (Negative); Protein Urine 1+ (Negative); Urine Appearance Hazy (CLEAR); Urine Color Straw (Yellow); pH Urine 6 (5-7)
[2020-02-11 23:59] LABS: Bilirubin Urine Neg (NEGATIVE); Leukocyte Esterase Urine 2+ (Negative); Urobilinogen Urine Norm (Negative)
[2020-02-12 00:01] LABS: WBC Urine >100 /hpf (0-5)
[2020-02-12 00:02] LABS: Add Urine Culture? Yes; Bacteria Urine 1+
[2020-02-12 00:12] LABS: Alanine Aminotransferase 32 U/L (0-33); Albumin Level 3.9 g/dL (3.5-5.2); Alkaline Phosphatase 123 IU/L (35-105); Anion Gap 14.7 (5-19); Aspartate Amino Transferase 40 U/L (0-32); Blood Urea Nitrogen 9 mg/dL (8-23); Calcium 9.6 mg/dL (8.5-10.5); Carbon Dioxide 28 mmol/L (22-29); Chloride 92 mmol/L (98-107); Globulin 4.2 g/dL (1.3-4.6); Glomerular Filtration Rate 72.2 mL/min (90-130); Glucose 127 mg/dL (65-115); Lipase 24 U/L (13-60); Magnesium 1.8 mg/dL (1.7-2.3); Osmolality Calculated 270 mOsm/kg (285-295); Potassium 3.7 mmol/L (3.5-5.1); Sodium 131 mmol/L (136-145); Total Protein 8.1 g/dL (6.6-8.7)
[2020-02-12] MEDS: cefTRIAXone 1,000 MG in sodium chloride 0.9% (plus) 50 ML 100 MG IV (00:35)
[2020-02-12 00:41] VITALS: BP 152/86; PULSE 84; RESP 16; TEMP 39.5; O2SAT 96
--- NOTE | 2020-02-12 00:47 | PC.NURSE ---
Patient to ct in stable condition.
[2020-02-12] MEDS: iohexol 300 mg/mL 100 mL Btl IV (00:48)
[2020-02-12 01:16] LABS: Lactic Sepsis W/Reflex 1.4 mmol/L (0.5-2.2)
[2020-02-12 01:56] VITALS: BP 152/86; PULSE 88; RESP 16; TEMP 37.9; O2SAT 98
== END 2020-02-12 01:59 | disposition home or self-care (01) ==
PROVIDERS: Emergency Provider Emergency Medicine; PCP Family Medicine
DX: N12 Tubulo-interstitial nephritis, not specified as acute or chronic (principal); J44.9 Chronic obstructive pulmonary disease, unspecified; I10 Essential (primary) hypertension
CPT/HCPCS: 12345; 74178; 80053; 81001; 83605; 83690; 83735; 85025; 87040; 87077; 87086; 87186; 87205; 96361; 96365; 96375; 99282; 99284; J0131; J0696; J2270; J2405; J7030; Q9967

== ENCOUNTER 2020-02-26 06:00 | Outpatient (RCR) | payer MEDICARE, MEDICAID, SELFPAY | END 2020-03-26 23:59 | disposition home or self-care (01) | LOC: SPT 06:00 | PROVIDERS: PCP Family Medicine; Visit Provider Family Medicine | DX: Z47.89 Encounter for other orthopedic aftercare (principal) | CPT/HCPCS: 97110 ==

== ENCOUNTER 2020-05-31 20:32 | Emergency (ER) | payer MEDICARE, MEDICAID, SELFPAY ==
[2020-05-31 20:52] VITALS: BP 118/65; PULSE 76; RESP 20; TEMP 36.5; O2SAT 95
--- NOTE | 2020-05-31 20:56 | PC.NURSE ---
right thoracic pain 10/10 worse with breathing and movement
--- NOTE | 2020-05-31 21:02 | ED_ITS ---
HPI - Fall General: Chief Complaint: Fall Stated Complaint: side pain/scuff knee/ prev hip and back inj Time Seen by Provider: 05/31/20 21:02 Source: patient Mode of arrival: ambulatory Limitations: no limitations History of Present Illness: HPI Narrative: 65-year-old female tripped over a basket at home landing on her right side. Patient reports anterior right rib pain. Patient appears in moderate pain holding her right anterior ribs. Abdomen soft nontender. Patient also has an abrasion to the right knee that she manipulates and bends without difficulty. Patient denies loss of consciousness or hitting her head. Review of Systems General: Reports: 10 or more systems reviewed and unremarkable except in HPI and below Musc: Reports: other (right rib pain, right knee abrasion) PFSH ED PFSH: Medical History (Updated 05/31/20 @ 21:46 by JAYNE Russell) Chronic back pain COPD (chronic obstructive pulmonary disease) Hypertension Kidney stones Surgical History H/O right wrist surgery Previous back surgery Previous section S/P cholecystectomy Social History Smoking and tobacco status: former smoker Alcohol intake: never Physical Exam Const: COMMON NORMALS: no acute distress and patient oriented x3 GENERAL APPEARANCE: cooperative HENMT: COMMON NORMALS: normocephalic, TM's normal bilaterally and Normal external nose present HEAD & SCALP: normal to inspection and normocephalic NOSE: Normal external nose present TYMPANIC MEMBRANE: TM's normal bilaterally MOUTH: Normal oral and palatal mucosa present THROAT: posterior oropharynx normal Eye: GENERAL EYE: appearance normal, both eyes and all related structures Neck/C-Spine: COMMON NORMALS: full ROM Chest: CHEST: Yes tenderness (right anterior ribs, no crepitus noted or s ubcut. emphysema) Resp: COMMON NORMALS: normal respiratory effort EFFORT & INSPECTION: Yes able to speak in complete sentences Cardio: COMMON NORMALS: regular rate and regular rhythm RATE: regular rate RHYTHM: regular rhythm GI: COMMON NORMALS: non-tender : COMMON NORMALS: Yes no CVA tenderness BLADDER/KIDNEY EXAM: Yes no CVA tenderness Back/Pelvis: COMMON NORMALS: no CVA tenderness and thoracic and lumbar spine normal to inspection Extremity: COMMON NORMALS: normal to inspection Neuro: COMMON NORMALS: patient oriented x3 and moves all extremities Psych: COMMON NORMALS: mental status grossly normal and cooperative Skin: COMMON NORMALS: no rashes or lesions noted GENERAL SKIN EXAM: no rashes or lesions noted Course Vital Signs: Vital signs: Vital Signs Temperature 97.7 F 05/31/20 20:52 Pulse Rate 96 05/31/20 22:05 Respiratory Rate 18 05/31/20 22:05 Blood Pressure 105/54 05/31/20 22:05 Pulse Oximetry 96 05/31/20 22:05 MDM - Fall MDM Narrative: Medical decision making narrative: 65-year-old female comes in today with injury to the right anterior ribs and the right knee after falling over a basket at home. On exam tenderness was noted in the right anterior rib area on palpation. No crepitus or subcutaneous emphysema is noted to the area. Abdomen soft nontender. Respirations were even lungs were clear to auscultation. Knee had an abrasion to the patella region. Differential diagnosis includes but not limited to contusion, abrasion, fracture, dislocation. X-rays of the rib, chest, and knee noted no acute fracture or dislocation. Lung bender are clear. Reviewed exam with patient with recommendations for treatment and follow-up. Patient reported understanding and agreed to plan. Discharge Plan Discharge Patient Disposition: Home Clinical Impression: Rib pain on right side Contusion of knee, right Qualifiers: Encounter type: initial encounter Qualified Code(s): S80.01XA - Contusion of right knee, initial encounter Condition: Stable Prescriptions: New hydrocodone-acetaminophen 5-325 mg tablet 1 tab PO Q6H PRN (Reason: pain (scale score 7-10)) Qty: 7 RF: 0 No Action methylprednisolone [Medrol (Dylon)] 4 mg tablets,dose pack See Rx Instructions PO PER PKG DIR Qty: 21 RF: 0 tizanidine 4 mg capsule 4 mg PO Q8H PRN (Reason: Muscle Spasm) RF: 0 triamterene-hydrochlorothiazid 37.5-25 mg capsule 1 cap PO QAM RF: 0 atenolol 25 mg tablet 25 mg PO BID RF: 0 amitriptyline 25 mg tablet 25 mg PO ONCE RF: 0 tramadol 50 mg tablet 50 mg PO Q6H PRN (Reason: Pain) RF: 0 gabapentin 300 mg capsule 300 mg PO TID RF: 0 omeprazole 40 mg capsule,delayed release(DR/EC) 40 mg PO ONCE RF: 0 levothyroxine 50 mcg capsule 50 mcg PO ONCE RF: 0 lorazepam 0.5 mg tablet 0.5 mg PO TID PRN (Reason: Anxiety) RF: 0 allopurinol 300 mg tablet 150 mg PO ONCE RF: 0 benzonatate [Tessalon Perles] 100 mg capsule 100 mg PO TID PRN (Reason: cough) Qty: 15 RF: 0 promethazine 12.5 mg tablet 12.5 mg PO Q6H PRN (Reason: nausea and vomiting) Qty: 20 RF: 0 promethazine 25 mg tablet 25 mg PO Q4H PRN (Reason: nausea and vomiting) Qty: 20 RF: 0 Discharge Orders: Discharge Order (Routine); Ordered 05/31/20 Ordered By: René Vora Referrals: Samantha Wylie MD [Primary Care Provider] - Discharge Diet: Usual diet Patient Instructions: Contusion in Adults (ED) Activity Restrictions/Additional Instructions: Home and rest. Activity as tolerated. Gentle stretching and range of motion exercises. Use acetaminophen and ibuprofen as needed to control pain. Use hydrocodone for breakthrough pain. Use ice and heat for further pain relief. Follow-up with primary care as needed. 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
--- NOTE | 2020-05-31 21:05 | XRR_ITS ---
PROCEDURE INFORMATION: Exam: XR Right Knee Exam date and time: 05/31/2020 9:29 PM Age: 65 years old Clinical indication: Injury or trauma; Fall; Initial encounter; Blunt trauma; Knee; Bilateral TECHNIQUE: Imaging protocol: XR Right knee. Views: 3 views. COMPARISON: No relevant prior studies available. FINDINGS: Bones/joints: Normal. Soft tissues: Normal. XR/XR knee RT 3V* [id number] IMPRESSION: No acute findings.
--- NOTE | 2020-05-31 21:05 | XRR_ITS ---
PROCEDURE INFORMATION: Exam: XR Right Ribs with PA Chest, 3 Views Exam date and time: 05/31/2020 9:38 PM Age: 65 years old Clinical indication: Injury or trauma; Fall; Initial encounter; Rib area; Blunt trauma (contusions or hematomas); Additional info: Chest pain TECHNIQUE: Imaging protocol: XR Right ribs 3 views with PA chest. COMPARISON: CR XR chest 2V* [id number] 12/18/2019 2:27 PM FINDINGS: Lungs: Unremarkable. No consolidation. Pleural space: Unremarkable. No pleural effusion. No pneumothorax. Heart/Mediastinum: Unremarkable. No cardiomegaly. Bones/joints: Unremarkable. XR/XR ribs RT mn 3V w CXR1V [id number] IMPRESSION: No acute findings.
[2020-05-31 21:20] VITALS: RESP 22; O2SAT 97
[2020-05-31] MEDS: morphine 4 mg/mL SDV 1 mL IM (21:20)
[2020-05-31] MEDS: ketorolac 30 mg/mL INJ IM (21:25)
[2020-05-31 22:05] VITALS: BP 105/54; PULSE 96; RESP 18; O2SAT 96
== END 2020-05-31 22:06 | disposition home or self-care (01) ==
PROVIDERS: Emergency Provider Nurse Practitioner Family; PCP Family Medicine
DX: R07.81 Pleurodynia (principal); S80.01XA Contusion of right knee, initial encounter; W18.09XA Striking against other object with subsequent fall, initial encounter; J44.9 Chronic obstructive pulmonary disease, unspecified; I10 Essential (primary) hypertension; Z87.891 Personal history of nicotine dependence
CPT/HCPCS: 12345; 71101; 73562; 96372; 99282; 99283; J1885; J2270

== ENCOUNTER 2020-07-13 21:37 | Emergency (ER) | payer MEDICARE, MEDICAID, SELFPAY ==
[2020-07-13 21:46] VITALS: BP 125/63; PULSE 69; RESP 18; TEMP 36.3; O2SAT 96; BMI 33.3
--- NOTE | 2020-07-13 21:54 | ECG_ITS ---
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 Measurements Intervals [place] Rate: 65 P: 68 NV: 171 QRS: 62 QRSD: 81 T: 57 QT: 408 QTc: 425 Interpretive Statements SINUS RHYTHM Compared to ECG 10/12/2019 00:53:06 No significant changes Electronically Signed On 07-14-2020 19:42:36 CDT by Kristine Sommer M.D. [id number]
--- NOTE | 2020-07-13 22:00 | W.ED.NAVMDI ---
Documented by User: Sarita Robbins 07/13/20 22:34 HPI - Nausea/Vomiting/Diarrhea General: Chief complaint: Nausea/Vomiting/Diarrhea Stated complaint: N/V/D Time Seen by Provider: 07/13/20 21:49 Source: patient Mode of arrival: ambulatory Limitations: no limitations History of Present Illness: HPI Narrative: Ana Paula is a nice 65-year-old female who comes in complaining of nausea, vomiting and diarrhea for the past 7 days. She also complains of chest discomfort and left-sided neck pain. She has abdominal cramping as well. She had a subjective fever but nothing ever measured that was above 100.0. Patient states that she has no appetite and eating and drinking make her symptoms worse. Her symptoms have waxed and waned over the past 7 days. She had no known ill exposure. She denies any blood in her stools or blood in her vomit. She is unaware of any other exacerbating or alleviating factors. Associated nausea: Yes Associated symtoms: Reports chest pain, fatigue, malaise and nausea; Denies change in vision, diaphoresis, dizziness, dysuria, headache(s), palpitations or syncope Review of Systems Const: Reports: fever(s), chills, body aches, fatigue and malaise; Denies: diaphoresis Eyes: Denies: change in vision, blurry vision, photophobia, eye discomfort, eye discharge, eye redness or yellow eyes ENMT: Denies: throat pain, odynophagia, hoarseness, swelling of lips/tongue, ear or mastoid pain, ear discharge, change in hearing or nasal discharge Card: Reports: chest pain; Denies: palpitations, irregular heart rhythm, edema, lightheadedness, syncope, pre-syncope, dyspnea on exertion or orthopnea Resp: Denies: dyspnea, productive cough, non-productive cough, wheezing, hemoptysis or chest congestion GI: Reports: abdominal pain, nausea and vomiting; Denies: hematemesis, coffee ground emesis, heartburn, constipation, GI cramping, hematochezia or melena : Denies: flank pain, dysuria, urinary frequency, urinary urgency or hematuria Musc: Denies: neck pain, back pain, extremity pain, extremity swelling, joint pain, joint swelling, joint redness, joint warmth or joint stiffness Skin/Breast: Denies: rash, pruritus, erythema, skin pain or skin tenderness Neuro: Denies: headache(s), numbness in extremities, weakness in extremities, sensory changes, lack of coordination, difficulty walking, dizziness, vertigo, confusion, Slurred speech present or seizure-like activity Jackson/Lymph: Denies: easy bruising, easy bleeding, petechiae, purpura or enlarged lymph nodes All/Imm: Denies: urticaria, throat swelling, tongue swelling, facial swelling or acute wheezing PFSH ED PFSH: Medical History (Updated 07/14/20 @ 01:34 by Alan Cheung DO) Chronic back pain COPD (chronic obstructive pulmonary disease) Hypertension Kidney stones Surgical History H/O right wrist surgery Previous back surgery Previous section S/P cholecystectomy Social History Smoking and tobacco status: former smoker Alcohol intake: never Physical Exam Const: COMMON NORMALS: no acute distress, patient oriented x3, no limitations and alert GENERAL APPEARANCE: cooperative HENMT: COMMON NORMALS: normocephalic, atraumatic, external ears normal, EAC's normal and Normal external nose present HEAD & SCALP: normal to inspection, normocephalic and atraumatic FACE & SINUS: normal facial exam and face symmetric NOSE: Normal external nose present and Normal nares present EXTERNAL EAR: Yes external ears normal EXTERNAL AUDITORY CANAL: EAC's normal MOUTH: Normal oral and palatal mucosa present, lip normal and tongue normal Eye: COMMON NORMALS: Equal, round and reactive pupils present and conjunctivae normal GENERAL EYE: appearance normal, both eyes and all related structures ALIGNMENT: Yes alignment normal PERIORBITAL: periorbital findings normal EYELID: eyelids normal CONJUNCTIVA: Yes conjunctivae normal SCLERA: sclerae normal PUPIL: Yes Equal, round and reactive pupils present Neck/C-Spine: COMMON NORMALS: full ROM, no lymphadenopathy, supple, no meningeal signs and no JVD GENERAL: Yes normal visual inspection and Yes trachea midline Chest: COMMONS NORMALS: normal inspection of the chest and normal palpation of entire chest wall Resp: COMMON NORMALS: normal respiratory effort, No retractions, No use of accessory muscles and clear to auscultation bilaterally EFFORT & INSPECTION: Yes able to speak in complete sentences and Yes symmetric chest movement AUSCULTATION: clear to auscultation bilaterally, no crackles, no rales, no rhonchi and no wheezes Cardio: COMMON NORMALS: no JVD, regular rate, regular rhythm, S1 normal heart sound present and S2 normal heart sound present RATE: regular rate RHYTHM: regular rhythm HEART SOUNDS: S1 normal heart sound present, S2 normal heart sound present, no click, no gallops, no murmurs and no rubs GI: COMMON NORMALS: Soft to palpation and No hepatosplenomegaly present PALPATION: Yes Soft to palpation, No Tenderness to palpation present (GI), No Guarding due to palpation present (GI), No Rigid due to palpation, Yes No hepatosplenomegaly present, No Hernia present, No Palpable mass present and No Pulsatile mass present : COMMON NORMALS: Yes no CVA tenderness BLADDER/KIDNEY EXAM: Yes no CVA tenderness EXTERNAL FEMALE EXAM: No Hernia present Back/Pelvis: COMMON NORMALS: no CVA tenderness, thoracic and lumbar spine normal to inspection, no thoracic nor lumbar tenderness and thoraco-lumbar ROM normal Extremity: COMMON NORMALS: normal to inspection, full ROM, capillary refill normal, no joint enlargement, no clubbing, cyanosis or edema and no calf tenderness Neuro: COMMON NORMALS: patient oriented x3, CN's II-XII intact bilaterally, moves all extremities, no focal motor deficits and no sensory deficits noted SENSORIUM/ORIENTATION: Yes alert MENINGEAL SIGNS: Yes no meningeal signs SPEECH: speech normal Psych: COMMON NORMALS: mental status grossly normal, Normal thought process present, cooperative, normal affect, speech normal and activity/motor behavior normal SPEECH: Yes normal speech THOUGHT PROCESS: Normal thought process present Skin: COMMON NORMALS: no rashes or lesions noted, turgor normal, no jaundice, no petechiae and no mottling GENERAL SKIN EXAM: no rashes or lesions noted and turgor normal Course Vital Signs: Vital signs: Vital Signs Temperature 97.3 F L 07/13/20 21:46 Pulse Rate 64 07/14/20 01:40 Respiratory Rate 17 07/14/20 01:40 Blood Pressure 138/78 07/14/20 01:40 Pulse Oximetry 96 07/14/20 01:40 MDM - Nausea/Vomiting/Diarrhea Lab Data: Labs: Lab Results 07/13/20 07/13/2020 Range/Units 22:00 22:00 22:00 WBC 6.2 (4.0-10.0) 10^3/ uL RBC 4.61 (4.1-5.3) 10^6/u L Hgb 14.4 (11.5-15.3) g/dL Hct 42.8 (37.0-47.0) % MCV 92.8 (81-99) fL MCH 31.2 (28.0-34.0) pg MCHC 33.6 (30.0-36.0) g/dL RDW 14.5 (12.1-15.1) % Plt Count 98 L (130-400) 10^3/c mm MPV 10.5 H (7.4-10.4) fL Neut % (Auto) 61.9 % Lymph % (Auto) 25.3 % Ramsey % (Auto) 9.0 % Eos % (Auto) 3.1 % Baso % (Auto) 0.5 % Neut # (Auto) 3.85 (1.8-7.7) 10^3/u L Lymph # (Auto) 1.6 (0.8-4.8) 10^3/u L Ramsey # (Auto) 0.6 (0.2-0.9) 10^3/u L Eos # (Auto) 0.2 (0.0-0.8) 10^3/u L Baso # (Auto) 0.0 (0.0-0.1) 10^3/u L Nucleated RBC % (a uto) 0 % Nucleated RBCs # 0.0 /100WBC Sodium 135 L (136-145) mmol/L Potassium 3.7 (3.5-5.1) mmol/L Chloride 100 (98-107) mmol/L Carbon Dioxide 25 (22-29) mmol/L Anion Gap 13.7 (5-19) BUN 12 (8-23) mg/dL Creatinine 0.7 (0.5-0.9) mg/dL GFR Calculation 84.0 L (90-130) mL/min Glucose 132 H (65-115) mg/dL Calculated Osmolal ity 282 L (285-295) mOsm/k g Calcium 9.2 (8.5-10.5) mg/dL Total Bilirubin 0.7 (0.15-1.2) mg/dL AST 78 H (0-32) U/L ALT 54 H (0-33) U/L Alkaline Phosphata se 128 H (35-105) IU/L Troponin T Baselin e 6 (0-10) ng/L Troponin T 120 [address] [place] (0-10) ng/L Delta Troponin T (0-10) ABS# Total Protein 6.8 (6.6-8.7) g/dL Albumin 3.8 (3.5-5.2) g/dL Globulin 3.0 (1.3-4.6) g/dL Lipase 39 (13-60) U/L Urine Color (Yellow) Urine Appearance (CLEAR) Urine pH (5-7) Ur Specific Gravit y (1.005-1.030) Urine Protein (Negative) Urine Glucose (UA) (Normal) Urine Ketones (Negative) Urine Blood (Negative) Urine Nitrate (Negative) Urine Bilirubin (Negative) Urine Urobilinogen (Negative) mg/dL Ur Leukocyte Chasity ase (Negative) SARS-CoV-2 Ag (Rap id) (Negative) 07/13/20 07/13/20 07/13/20 Range/Units 22:04 22:12 23:53 WBC (4.0-10.0) 10^3/ uL RBC (4.1-5.3) 10^6/u L Hgb (11.5-15.3) g/dL Hct (37.0-47.0) % MCV (81-99) fL MCH (28.0-34.0) pg MCHC (30.0-36.0) g/dL RDW (12.1-15.1) % Plt Count (130-400) 10^3/c mm MPV (7.4-10.4) fL Neut % (Auto) % Lymph % (Auto) % Ramsey % (Auto) % Eos % (Auto) % Baso % (Auto) % Neut # (Auto) (1.8-7.7) 10^3/u L Lymph # (Auto) (0.8-4.8) 10^3/u L Ramsey # (Auto) (0.2-0.9) 10^3/u L Eos # (Auto) (0.0-0.8) 10^3/u L Baso # (Auto) (0.0-0.1) 10^3/u L Nucleated RBC % (a uto) % Nucleated RBCs # /100WBC Sodium (136-145) mmol/L Potassium (3.5-5.1) mmol/L Chloride (98-107) mmol/L Carbon Dioxide (22-29) mmol/L Anion Gap (5-19) BUN (8-23) mg/dL Creatinine (0.5-0.9) mg/dL GFR Calculation (90-130) mL/min Glucose (65-115) mg/dL Calculated Osmolal ity (285-295) mOsm/k g Calcium (8.5-10.5) mg/dL Total Bilirubin (0.15-1.2) mg/dL AST (0-32) U/L ALT (0-33) U/L Alkaline Phosphata se (35-105) IU/L Troponin T Baselin e (0-10) ng/L Troponin T 120 [address] [place] 6.00 (0-10) ng/L Delta Troponin T 0 (0-10) ABS# Total Protein (6.6-8.7) g/dL Albumin (3.5-5.2) g/dL Globulin (1.3-4.6) g/dL Lipase (13-60) U/L Urine Color Yellow (Yellow) Urine Appearance Clear (CLEAR) Urine pH 7 (5-7) Ur Specific Gravit y 1.005 (1.005-1.030) Urine Protein Neg (Negative) Urine Glucose (UA) Norm (Normal) Urine Ketones Negative (Negative) Urine Blood Neg (Negative) Urine Nitrate Negative (Negative) Urine Bilirubin Neg (Negative) Urine Urobilinogen 1 H (Negative) mg/dL Ur Leukocyte Chasity ase Negative (Negative) SARS-CoV-2 Ag (Rap id) Negative (Negative) EKG Data^: EKG 1: Attestation: I personally reviewed and interpreted this EKG as follows: EKG interpretation date: 07/13/20 EKG interpretation time: 22:09 Interpretation: Normal sinus rhythm at 65 beats a minute, normal axis, no blocks, normal intervals, no other acute ST-T wave changes. Discharge Plan Discharge Patient Disposition: Home Clinical Impression: Gastroenteritis Condition: Stable Prescriptions: New Zofran 4 mg tablet 4 mg PO Q6H PRN (Reason: nausea and vomiting) Qty: 10 RF: 0 No Action methylprednisolone [Medrol (Dylon)] 4 mg tablets,dose pack See Rx Instructions PO PER PKG DIR Qty: 21 RF: 0 tizanidine 4 mg capsule 4 mg PO Q8H PRN (Reason: Muscle Spasm) RF: 0 triamterene-hydrochlorothiazid 37.5-25 mg capsule 1 cap PO QAM RF: 0 atenolol 25 mg tablet 25 mg PO BID RF: 0 amitriptyline 25 mg tablet 25 mg PO ONCE RF: 0 tramadol 50 mg tablet 50 mg PO Q6H PRN (Reason: Pain) RF: 0 gabapentin 300 mg capsule 300 mg PO TID RF: 0 omeprazole 40 mg capsule,delayed release(DR/EC) 40 mg PO ONCE RF: 0 levothyroxine 50 mcg capsule 50 mcg PO ONCE RF: 0 lorazepam 0.5 mg tablet 0.5 mg PO TID PRN (Reason: Anxiety) RF: 0 allopurinol 300 mg tablet 150 mg PO ONCE RF: 0 benzonatate [Tessalon Perles] 100 mg capsule 100 mg PO TID PRN (Reason: cough) Qty: 15 RF: 0 hydrocodone-acetaminophen 5-325 mg tablet 1 tab PO Q6H PRN (Reason: pain (scale score 7-10)) Qty: 7 RF: 0 promethazine 12.5 mg tablet 12.5 mg PO Q6H PRN (Reason: nausea and vomiting) Qty: 20 RF: 0 promethazine 25 mg tablet 25 mg PO Q4H PRN (Reason: nausea and vomiting) Qty: 20 RF: 0 Discharge Orders: Discharge Order (Routine); Ordered 07/14/20 Ordered By: Alan Cheung Referrals: Samantha Wylie MD [Primary Care Provider] - 4-7 days Discharge Diet: Advance as tolerated Discharge Activity: Increase activity as tolerated Patient Instructions: Gastroenteritis (ED) Activity Restrictions/Additional Instructions: Take the medication scheduled for the next 24 hours, then as needed for nausea, vomiting, and diarrhea. You may also take an antidiarrheal agent such as Imodium at appropriate doses. 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 Comprehensive Documented by User: Alan Cheung DO 07/14/20 03:39 HPI - Nausea/Vomiting/Diarrhea General: Chief complaint: Nausea/Vomiting/Diarrhea Stated complaint: N/V/D Time Seen by Provider: 07/13/20 21:49 PFSH ED PFSH: Medical History (Updated 07/14/20 @ 01:34 by Alan Cheung DO) Chronic back pain COPD (chronic obstructive pulmonary disease) Hypertension Kidney stones Surgical History H/O right wrist surgery Previous back surgery Previous section S/P cholecystectomy Social History Smoking and tobacco status: former smoker Alcohol intake: never Course Vital Signs: Vital signs: Vital Signs Temperature 97.3 F L 07/13/20 21:46 Pulse Rate 64 07/14/20 01:40 Respiratory Rate 17 07/14/20 01:40 Blood Pressure 138/78 07/14/20 01:40 Pulse Oximetry 96 07/14/20 01:40 MDM - Nausea/Vomiting/Diarrhea Lab Data: Labs: Lab Results 07/13/20 07/13/20 07/13/20 Range/Units 22:00 22:00 22:00 WBC 6.2 (4.0-10.0) 10^3/ uL RBC 4.61 (4.1-5.3) 10^6/u L Hgb 14.4 (11.5-15.3) g/dL Hct 42.8 (37.0-47.0) % MCV 92.8 (81-99) fL MCH 31.2 (28.0-34.0) pg MCHC 33.6 (30.0-36.0) g/dL RDW 14.5 (12.1-15.1) % Plt Count 98 L (130-400) 10^3/c mm MPV 10.5 H (7.4-10.4) fL Neut % (Auto) 61.9 % Lymph % (Auto) 25.3 % Ramsey % (Auto) 9.0 % Eos % (Auto) 3.1 % Baso % (Auto) 0.5 % Neut # (Auto) 3.85 (1.8-7.7) 10^3/u L Lymph # (Auto) 1.6 (0.8-4.8) 10^3/u L Ramsey # (Auto) 0.6 (0.2-0.9) 10^3/u L Eos # (Auto) 0.2 (0.0-0.8) 10^3/u L Baso # (Auto) 0.0 (0.0-0.1) 10^3/u L Nucleated RBC % (a uto) 0 % Nucleated RBCs # 0.0 /100WBC Sodium 135 L (136-145) mmol/L Potassium 3.7 (3.5-5.1) mmol/L Chloride 100 (98-107) mmol/L Carbon Dioxide 25 (22-29) mmol/L Anion Gap 13.7 (5-19) BUN 12 (8-23) mg/dL Creatinine 0.7 (0.5-0.9) mg/dL GFR Calculation 84.0 L (90-130) mL/min Glucose 132 H (65-115) mg/dL Calculated Osmolal ity 282 L (285-295) mOsm/k g Calcium 9.2 (8.5-10.5) mg/dL Total Bilirubin 0.7 (0.15-1.2) mg/dL AST 78 H (0-32) U/L ALT 54 H (0-33) U/L Alkaline Phosphata se 128 H (35-105) IU/L Troponin T Baselin e 6 (0-10) ng/L Troponin T 120 [address] [place] (0-10) ng/L Delta Troponin T (0-10) ABS# Total Protein 6.8 (6.6-8.7) g/dL Albumin 3.8 (3.5-5.2) g/dL Globulin 3.0 (1.3-4.6) g/dL Lipase 39 (13-60) U/L Urine Color (Yellow) Urine Appearance (CLEAR) Urine pH (5-7) Ur Specific Gravit y (1.005-1.030) Urine Protein (Negative) Urine Glucose (UA) (Normal) Urine Ketones (Negative) Urine Blood (Negative) Urine Nitrate (Negative) Urine Bilirubin (Negative) Urine Urobilinogen (Negative) mg/dL Ur Leukocyte Chasity ase (Negative) SARS-CoV-2 Ag (Rap id) (Negative) 07/13/20 07/13/20 07/13/20 Range/Units 22:04 22:12 23:53 WBC (4.0-10.0) 10^3/ uL RBC (4.1-5.3) 10^6/u L Hgb (11.5-15.3) g/dL Hct (37.0-47.0) % MCV (81-99) fL MCH (28.0-34.0) pg MCHC (30.0-36.0) g/dL RDW (12.1-15.1) % Plt Count (130-400) 10^3/c mm MPV (7.4-10.4) fL Neut % (Auto) % Lymph % (Auto) % Ramsey % (Auto) % Eos % (Auto) % Baso % (Auto) % Neut # (Auto) (1.8-7.7) 10^3/u L Lymph # (Auto) (0.8-4.8) 10^3/u L Ramsey # (Auto) (0.2-0.9) 10^3/u L Eos # (Auto) (0.0-0.8) 10^3/u L Baso # (Auto) (0.0-0.1) 10^3/u L Nucleated RBC % (a uto) % Nucleated RBCs # /100WBC Sodium (136-145) mmol/L Potassium (3.5-5.1) mmol/L Chloride (98-107) mmol/L Carbon Dioxide (22-29) mmol/L Anion Gap (5-19) BUN (8-23) mg/dL Creatinine (0.5-0.9) mg/dL GFR Calculation (90-130) mL/min Glucose (65-115) mg/dL Calculated Osmolal ity (285-295) mOsm/k g Calcium (8.5-10.5) mg/dL Total Bilirubin (0.15-1.2) mg/dL AST (0-32) U/L ALT (0-33) U/L Alkaline Phosphata se (35-105) IU/L Troponin T Baselin e (0-10) ng/L Troponin T [address] [place] 6.00 (0-10) ng/L Delta Troponin T 0 (0-10) ABS# Total Protein (6.6-8.7) g/dL Albumin (3.5-5.2) g/dL Globulin (1.3-4.6) g/dL Lipase (13-60) U/L Urine Color Yellow (Yellow) Urine Appearance Clear (CLEAR) Urine pH 7 (5-7) Ur Specific Gravit y 1.005 (1.005-1.030) Urine Protein Neg (Negative) Urine Glucose (UA) Norm (Normal) Urine Ketones Negative (Negative) Urine Blood Neg (Negative) Urine Nitrate Negative (Negative) Urine Bilirubin Neg (Negative) Urine Urobilinogen 1 H (Negative) mg/dL Ur Leukocyte Chasity ase Negative (Negative) SARS-CoV-2 Ag (Rap id) Negative (Negative) Discharge Plan Discharge Patient Disposition: Home Clinical Impression: Gastroenteritis Condition: Stable Prescriptions: New Zofran 4 mg tablet 4 mg PO Q6H PRN (Reason: nausea and vomiting) Qty: 10 RF: 0 No Action methylprednisolone [Medrol (Dylon)] 4 mg tablets,dose pack See Rx Instructions PO PER PKG DIR Qty: 21 RF: 0 tizanidine 4 mg capsule 4 mg PO Q8H PRN (Reason: Muscle Spasm) RF: 0 triamterene-hydrochlorothiazid 37.5-25 mg capsule 1 cap PO QAM RF: 0 atenolol 25 mg tablet 25 mg PO BID RF: 0 amitriptyline 25 mg tablet 25 mg PO ONCE RF: 0 tramadol 50 mg tablet 50 mg PO Q6H PRN (Reason: Pain) RF: 0 gabapentin 300 mg capsule 300 mg PO TID RF: 0 omeprazole 40 mg capsule,delayed release(DR/EC) 40 mg PO ONCE RF: 0 levothyroxine 50 mcg capsule 50 mcg PO ONCE RF: 0 lorazepam 0.5 mg tablet 0.5 mg PO TID PRN (Reason: Anxiety) RF: 0 allopurinol 300 mg tablet 150 mg PO ONCE RF: 0 benzonatate [Tessalon Perles] 100 mg capsule 100 mg PO TID PRN (Reason: cough) Qty: 15 RF: 0 hydrocodone-acetaminophen 5-325 mg tablet 1 tab PO Q6H PRN (Reason: pain (scale score 7-10)) Qty: 7 RF: 0 promethazine 12.5 mg tablet 12.5 mg PO Q6H PRN (Reason: nausea and vomiting) Qty: 20 RF: 0 promethazine 25 mg tablet 25 mg PO Q4H PRN (Reason: nausea and vomiting) Qty: 20 RF: 0 Discharge Orders: Discharge Order (Routine); Ordered 07/14/20 Ordered By: Alan Cheung Referrals: Samantha Wylie MD [Primary Care Provider] - 4-7 days Discharge Diet: Advance as tolerated Discharge Activity: Increase activity as tolerated Patient Instructions: Gastroenteritis (ED) Activity Restrictions/Additional Instructions: Take the medication scheduled for the next 24 hours, then as needed for nausea, vomiting, and diarrhea. You may also take an antidiarrheal agent such as Imodium at appropriate doses. 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 Operator for Heide Fwd Exam Comprehensive
[2020-07-13 22:08] LABS: Basophils % 0.5 %; Eosinophils # 0.2 10^3/uL (0.0-0.8); Eosinophils % 3.1 %; Hematocrit 42.8 % (37.0-47.0); Hemoglobin 14.4 g/dL (11.5-15.3); Lymphocytes # 1.6 10^3/uL (0.8-4.8); Lymphocytes % 25.3 %; Mean Corpuscular HGB Conc 33.6 g/dL (30.0-36.0); Mean Corpuscular Hemoglobin 31.2 pg (28.0-34.0); Mean Corpuscular Volume 92.8 fL (81-99); Mean Platelet Volume 10.5 fL (7.4-10.4); Monocytes # 0.6 10^3/uL (0.2-0.9); Neutrophils # 3.85 10^3/uL (1.8-7.7); Neutrophils % 61.9 %; Nucleated Red Blood Cells % 0 %; Platelet Count 98 10^3/cmm (130-400); Red Blood Count 4.61 10^6/uL (4.1-5.3); Red Cell Distribution Width 14.5 % (12.1-15.1); White Blood Count 6.2 10^3/uL (4.0-10.0)
[2020-07-13] MEDS: ondansetron 2 mg/ML SDV 2 mL 4 MG IVP (22:08)
[2020-07-13] MEDS: sodium chloride 0.9% 1,000 ML 999 ML IV (22:09)
[2020-07-13 22:19] VITALS: RESP 18; O2SAT 95
[2020-07-13] MEDS: morphine 4 mg/mL SDV 1 mL IVP (22:19)
[2020-07-13 22:23] LABS: Add Urine Microscopic? NO
[2020-07-13 22:24] LABS: Alanine Aminotransferase 54 U/L (0-33); Albumin Level 3.8 g/dL (3.5-5.2); Alkaline Phosphatase 128 IU/L (35-105); Anion Gap 13.7 (5-19); Aspartate Amino Transferase 78 U/L (0-32); Blood Urea Nitrogen 12 mg/dL (8-23); Calcium 9.2 mg/dL (8.5-10.5); Carbon Dioxide 25 mmol/L (22-29); Chloride 100 mmol/L (98-107); Creatinine Clr Calc Pharmacy 78.0132; Glucose 132 mg/dL (65-115); Lipase 39 U/L (13-60); Osmolality Calculated 282 mOsm/kg (285-295); Potassium 3.7 mmol/L (3.5-5.1); Sodium 135 mmol/L (136-145); Total Bilirubin 0.7 mg/dL (0.15-1.2); Total Protein 6.8 g/dL (6.6-8.7)
[2020-07-13 22:26] LABS: Troponin(5th) Baseline 6 ng/L (0-10)
[2020-07-13 22:38] LABS: Bilirubin Urine Neg (Negative); Blood Urine Neg (Negative); Glucose Urine UA Norm (Normal); Ketones Urine Negative (Negative); Leukocyte Esterase Urine Negative (Negative); Nitrate Urine Negative (Negative); Protein Urine Neg (Negative); Specific Gravity, Urine 1.005 (1.005-1.030); Urine Appearance Clear (CLEAR); Urine Color Yellow (Yellow); Urobilinogen Urine 1 mg/dL (Negative); pH Urine 7 (5-7)
[2020-07-13 22:45] LABS: SARS Covid-2 Antigen Negative (Negative)
--- NOTE | 2020-07-13 23:00 | CTR_ITS ---
PROCEDURE INFORMATION: Exam: CT Abdomen And Pelvis With Contrast Exam date and time: 07/13/2020 11:12 PM Age: 65 years old Clinical indication: Abdominal pain; Generalized; Prior surgery; Surgery date: 6+ months; Surgery type: Back, gb, c-sect; Patient HX: C/O abd cramping w v/v/d and fever x 1 week TECHNIQUE: Imaging protocol: Computed tomography of the abdomen and pelvis with intravenous contrast. Radiation optimization: All CT scans at this facility use at least one of these dose optimization techniques: automated exposure control; mA and/or kV adjustment per patient size (includes targeted exams where dose is matched to clinical indication); or iterative reconstruction. Contrast material: OMNI 300; Contrast volume: 95 ml; Contrast route: INTRAVENOUS (IV); COMPARISON: CT abdomen pelvis wo/w [id number] 02/12/2020 12:40 AM RADIATION DOSE METRICS: Total DLP (mGy-cm): 1274.48 FINDINGS: Liver: Normal. No mass. Gallbladder and bile ducts: Status post cholecystectomy. The common bile duct is prominent measuring 10.9 mm in its midportion tapering to normal caliber within the pancreas. Pancreas: Normal. No ductal dilation. Spleen: The spleen is mildly prominent measuring 14.9 cm craniocaudal dimension. Adrenals: Normal. No mass. Kidneys and ureters: Normal. No hydronephrosis. Stomach and bowel: Unremarkable. No obstruction. No mucosal thickening. Appendix: See Reproductive finding. Intraperitoneal space: Unremarkable. No free air. No significant fluid collection. Vasculature: Unremarkable. No abdominal aortic aneurysm. Lymph nodes: Unremarkable. No enlarged lymph nodes. Urinary bladder: Unremarkable as visualized. Reproductive: Status post hysterectomy. There is a cystic mass again seen within the left ovary, today measuring 2.9 x 2.9 x 2.2 cm representing a slight increase in size compared with 02/12/2020. The appendix is visualized and is normal in configuration. Bones/joints: Unremarkable. No acute fracture. Soft tissues: Unremarkable. CT/CT abdomen pelvis w con* [id number] IMPRESSION: 1. The left ovarian cyst has enlarged slightly compared with 02/12/2020 now measuring up to 2.9 cm. No further imaging is recommended. (Reference: Laith) 2. Mild splenomegaly REFERENCES: Laith et al. Management of Incidental Adnexal Findings on CT and MRI: A White Paper of the ACR Incidental Findings Committee, J Am Fiordaliza Radiol. 2019;17(2):248-254. Radiation Dose CTDIVOL = (mGy): DLP = 1274.48 (mGy-cm)
[2020-07-13] MEDS: iohexol 300 mg/mL 100 mL Btl IV (23:23)
[2020-07-13 23:45] VITALS: BP 136/61; RESP 18; O2SAT 95
--- NOTE | 2020-07-13 23:54 | ECG_ITS ---
[facility] Test Date: 2020-07-14 Pat Name: Ana Paula Higuera Department: Room: Gender: Female [employer]: : 1955 Requested By: Sarita Holly Order Number: [id number] Mac MD: Kristine Sommer M.D. Measurements Intervals [place] Rate: 57 P: 63 LA: 188 QRS: 45 QRSD: 90 T: 46 QT: 441 QTc: 431 Interpretive Statements SINUS BRADYCARDIA Compared to ECG 07/13/2020 22:09:07 Sinus rhythm no longer present Electronically Signed On 07-14-2020 19:53:40 CDT by Kristine Sommer M.D. [id number]
[2020-07-14 00:14] VITALS: BP 143/74; PULSE 63; O2SAT 97
[2020-07-14 00:24] LABS: Troponin 5 2HR Delta 0 ABS# (0-10)
[2020-07-14 01:09] VITALS: BP 134/64; PULSE 58; RESP 17; O2SAT 96
[2020-07-14 01:40] VITALS: BP 138/78; PULSE 64; RESP 17; O2SAT 96
== END 2020-07-14 01:44 | disposition home or self-care (01) ==
PROVIDERS: Emergency Medicine; Emergency Provider Emergency Medicine; PCP Family Medicine
DX: K52.9 Noninfective gastroenteritis and colitis, unspecified (principal); J44.9 Chronic obstructive pulmonary disease, unspecified; I10 Essential (primary) hypertension; Z87.891 Personal history of nicotine dependence
CPT/HCPCS: 12345; 74177; 80053; 81003; 83690; 84484; 85025; 87426; 93005; 96361; 96374; 96375; 99284; J2270; J2405; J7030; Q9967

== ENCOUNTER 2020-09-09 07:30 | Emergency (ER) | payer MEDICARE, MEDICAID, SELFPAY ==
[2020-09-09 07:34] VITALS: BP 137/88; PULSE 64; RESP 16; TEMP 36.8; O2SAT 97; BMI 33.3
--- NOTE | 2020-09-09 07:36 | CT_ITS ---
WS: [id number] CT cervical spin wo con* [id number] REASON FOR EXAM: fall IV CONTRAST ADMINISTERED: Noncontrast TOTAL EXAM DLP: 723.[address] scans at [facility] use at least one of these dose optimization techniques: automat ed exposure control; mA and/or kV adjustment per patient size (includes targeted exams where dose is matched to clinical indication); or iterative reconstruction. FINDINGS: Straightening of the normal lordosis of the cervical spine. Normal odontoid. No significant vertebral body compression deformity or focal lesion. Narrowing of the intervertebral disc spaces C4-C7. Large osteophytes C5-C6 and C6-C7. Normal alignment of the facet joints with minimal degenerative change C4-C7. No soft tissue abnormality. CT/CT cervical spin wo con* [id number] IMPRESSION: No acute abnormality of the cervical spine. Degenerative spondylosis as above.
--- NOTE | 2020-09-09 07:36 | XR_ITS ---
WS: [id number] XR knee RT 3V* [id number] REASON FOR EXAM: pain FINDINGS: Joint spaces of the right knee are intact. No fracture or other focal bony abnormality No soft tissue abnormality Enthesophyte at the insertion of the quadriceps tendon on the patella. XR/XR knee RT 3V* [id number] IMPRESSION: No acute abnormality.
--- NOTE | 2020-09-09 07:36 | CT_ITS ---
WS: [id number] CT head wo con* [id number] REASON FOR EXAM: fall IV CONTRAST ADMINISTERED: Noncontrast TOTAL EXAM DLP: 850.[address] scans at [facility] use at least one of these dose optimization techniques: automat ed exposure control; mA and/or kV adjustment per patient size (includes targeted exams where dose is matched to clinical indication); or iterative reconstruction. FINDINGS: The bony calvarium is intact. There is no midline shift or other significant mass effect. No findings of intracranial hemorrhage. No extra-axial fluid collection. No focal brain parenchymal abnormality. CT/CT head wo con* [id number] IMPRESSION: No acute calvarial or intracranial abnormality.
--- NOTE | 2020-09-09 07:37 | XR_ITS ---
WS: [id number] XR elbow LT min 3V* [id number] REASON FOR EXAM: pain FINDINGS: The frontal views of the left elbow appear relatively normal. Normal radial head and radial humeral a rticulation. On the lateral view there is significant deformity of the humerus, presumably the trochlear region. T here is bony overgrowth of the olecranon. XR/XR elbow LT min 3V* [id number] IMPRESSION: Lateral view of the left elbow is distinctive from the frontal views. Presumabl y the deformity that is identified on the lateral view relates to previous old healed fracture of the trochlear region on the humerus and the olecranon proce ss of the ulna.
--- NOTE | 2020-09-09 07:38 | ED_ITS ---
HPI - Fall General: Chief Complaint: Fall Stated Complaint: PAIN AFTER FALL Time Seen by Provider: 09/09/20 07:31 History of Present Illness: HPI Narrative: 65-year-old female presents emergency room via EMS from home with complaint of a fall at home. History of head neck pain as well as some pain on her right elbow where she has a significant abrasion. There is no loss of consciousness. MD complaint: fall Onset (ago): minute(s) Fall from: standing and down stairs (#) Fall witnessed: yes, by family Place fall occurred: home Loss of consciousness: None Prolonged down time: no Symptoms prior to fall: none Context: tripped/slipped Location of injury: neck Location of injury - extremities: Left: elbow Severity: moderate Quality: sharp Associated symptoms-after fall: Denies abdominal pain, chest pain, confusion, difficulty walking, headache(s), hematuria, lightheadedness, neck pain, numbness, short of breath, vertigo or weakness Review of Systems Const: Denies: fever(s), chills, body aches, change in appetite, fatigue or malaise ENMT: Denies: throat pain, ear or mastoid pain, nasal discharge or nasal congestion Card: Denies: chest pain or lightheadedness Resp: Denies: dyspnea, productive cough or non-productive cough GI: Denies: abdominal pain : Denies: hematuria Musc: Denies: neck pain Skin/Breast: Denies: rash or pruritus Neuro: Denies: headache(s), difficulty walking, vertigo or confusion PFSH ED PFSH: Medical History (Updated 09/09/20 @ 09:24 by Charles Kaufman DO) Chronic back pain COPD (chronic obstructive pulmonary disease) Hypertension Kidney stones Surgical History (Updated 09/09/20 @ 09:24 by Charles Kaufman DO) H/O right wrist surgery Previous back surgery Previous section S/P cholecystectomy Social History Smoking and tobacco status: former smoker Alcohol intake: never Physical Exam Const: COMMON NORMALS: no acute distress GENERAL APPEARANCE: cooperative and comfortable ORIENTATION/CONSCIOUSNESS: Yes awake, Yes oriented to person, Yes oriented to place and Yes oriented to time HENMT: COMMON NORMALS: normocephalic, atraumatic and hearing grossly normal bilaterally HEAD & SCALP: normocephalic and atraumatic Eye: COMMON NORMALS: Equal, round and reactive pupils present, EOMs intact bilaterally, conjunctivae normal and no scleral icterus CONJUNCTIVA: Yes conjunctivae normal PUPIL: Yes Equal, round and reactive pupils present Neck/C-Spine: COMMON NORMALS: full ROM, no lymphadenopathy, supple and no JVD Resp: COMMON NORMALS: normal respiratory effort, No retractions, No use of accessory muscles and clear to auscultation bilaterally AUSCULTATION: clear to auscultation bilaterally Cardio: COMMON NORMALS: no JVD, regular rate, regular rhythm and No murmurs present (Cardio) RATE: regular rate RHYTHM: regular rhythm GI: COMMON NORMALS: Soft to palpation and No hepatosplenomegaly present AUSCULTATION: Yes normoactive bowel sounds PALPATION: Yes Soft to palpation, No Tenderness to palpation present (GI), No Guarding due to palpation present (GI) and Yes No hepatosplenomegaly present Extremity: COMMON NORMALS: normal to inspection, capillary refill normal, no clubbing, cyanosis or edema, no calf tenderness and no pedal edema NARRATIVE EXTREMITY EXAM: Superficial abrasion over the olecranon of the left elbow Neuro: SENSORIUM/ORIENTATION: Yes oriented to person, Yes oriented to place and Yes oriented to time Skin: COMMON NORMALS: no rashes or lesions noted GENERAL SKIN EXAM: no rashes or lesions noted Course Vital Signs: Vital signs: Vital Signs Temperature 98.2 F 09/09/20 07:34 Pulse Rate 70 09/09/20 09:45 Respiratory Rate 15 09/09/20 09:45 Blood Pressure 128/74 09/09/20 09:45 Pulse Oximetry 97 09/09/20 09:45 MDM - Fall MDM Narrative: Medical decision making narrative: Labs and imaging unremarkable discussed with the patient. We will discharge her home topical antibiotic for the abrasion on the left elbow follow-up as needed Lab Data: Labs: Lab Results 09/09/20 09/09/20 09/09/20 Range/Units 06:55 06:55 08:21 WBC 3.8 L (4.0-10.0) 10^3/ uL RBC 4.67 (4.1-5.3) 10^6/u L Hgb 14.9 (11.5-15.3) g/dL Hct 44.9 (37.0-47.0) % MCV 96.1 (81-99) fL MCH 31.9 (28.0-34.0) pg MCHC 33.2 (30.0-36.0) g/dL RDW 14.2 (12.1-15.1) % Plt Count 99 L (130-400) 10^3/c mm MPV 12.2 H (7.4-10.4) fL Neut % (Auto) 44.0 % Lymph % (Auto) 41.2 % Hart % (Auto) 11.1 % Eos % (Auto) 2.6 % Baso % (Auto) 0.8 % Neut # (Auto) 1.67 L (1.8-7.7) 10^3/u L Lymph # (Auto) 1.6 (0.8-4.8) 10^3/u L Hart # (Auto) 0.4 (0.2-0.9) 10^3/u L Eos # (Auto) 0.1 (0.0-0.8) 10^3/u L Baso # (Auto) 0.0 (0.0-0.1) 10^3/u L Nucleated RBC % (a uto) 0 % Nucleated RBCs # 0.0 /100WBC Sodium Cancelled 137 Potassium Cancelled 3.9 Chloride Cancelled 103 Carbon Dioxide Cancelled 27 Anion Gap Cancelled 10.9 BUN Cancelled 12 Creatinine Cancelled 0.6 GFR Calculation Cancelled 100.3 Glucose Cancelled 106 Calculated Osmolal ity Cancelled 284 L Calcium Cancelled 8.5 Discharge Plan Discharge Patient Disposition: Home Clinical Impression: Fall, Chronic back pain, Hypertension, COPD (chronic obstructive pulmonary disease), Previous back surgery Condition: Stable Prescriptions: New tizanidine 4 mg capsule 2 - 4 mg PO Q8H PRN (Reason: muscle spasticity) Qty: 20 RF: 0 No Action methylprednisolone [Medrol (Dylon)] 4 mg tablets,dose pack See Rx Instructions PO PER PKG DIR Qty: 21 RF: 0 tizanidine 4 mg capsule 4 mg PO Q8H PRN (Reason: Muscle Spasm) RF: 0 triamterene-hydrochlorothiazid 37.5-25 mg capsule 1 cap PO QAM RF: 0 atenolol 25 mg tablet 25 mg PO BID RF: 0 amitriptyline 25 mg tablet 25 mg PO ONCE RF: 0 tramadol 50 mg tablet 50 mg PO Q6H PRN (Reason: Pain) RF: 0 gabapentin 300 mg capsule 300 mg PO TID RF: 0 omeprazole 40 mg capsule,delayed release(DR/EC) 40 mg PO ONCE RF: 0 levothyroxine 50 mcg capsule 50 mcg PO ONCE RF: 0 lorazepam 0.5 mg tablet 0.5 mg PO TID PRN (Reason: Anxiety) RF: 0 allopurinol 300 mg tablet 150 mg PO ONCE RF: 0 benzonatate [Tessalon Perles] 100 mg capsule 100 mg PO TID PRN (Reason: cough) Qty: 15 RF: 0 hydrocodone-acetaminophen 5-325 mg tablet 1 tab PO Q6H PRN (Reason: pain (scale score 7-10)) Qty: 7 RF: 0 Zofran 4 mg tablet 4 mg PO Q6H PRN (Reason: nausea and vomiting) Qty: 10 RF: 0 promethazine 12.5 mg tablet 12.5 mg PO Q6H PRN (Reason: nausea and vomiting) Qty: 20 RF: 0 promethazine 25 mg tablet 25 mg PO Q4H PRN (Reason: nausea and vomiting) Qty: 20 RF: 0 Discharge Orders: Discharge ED (Routine); Ordered 09/09/20 Ordered By: Charles Kaufman Referrals: Samantha Wylie MD [Primary Care Provider] - Discharge Diet: Usual diet Discharge Activity: Increase activity as tolerated Activity Restrictions/Additional Instructions: Use previously prescribed pain medications as needed as well as the tizanidine given today for muscle tension you can also use ibuprofen or Aleve as tolerated. Follow-up with primary care doctor. 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
[2020-09-09 08:10] LABS: Basophils % 0.8 %; Eosinophils # 0.1 10^3/uL (0.0-0.8); Eosinophils % 2.6 %; Hematocrit 44.9 % (37.0-47.0); Hemoglobin 14.9 g/dL (11.5-15.3); Lymphocytes # 1.6 10^3/uL (0.8-4.8); Lymphocytes % 41.2 %; Mean Corpuscular HGB Conc 33.2 g/dL (30.0-36.0); Mean Corpuscular Hemoglobin 31.9 pg (28.0-34.0); Mean Corpuscular Volume 96.1 fL (81-99); Mean Platelet Volume 12.2 fL (7.4-10.4); Monocytes # 0.4 10^3/uL (0.2-0.9); Monocytes % 11.1 %; Neutrophils # 1.67 10^3/uL (1.8-7.7); Nucleated Red Blood Cells % 0 %; Platelet Count 99 10^3/cmm (130-400); Red Blood Count 4.67 10^6/uL (4.1-5.3); Red Cell Distribution Width 14.2 % (12.1-15.1); White Blood Count 3.8 10^3/uL (4.0-10.0)
--- NOTE | 2020-09-09 08:23 | PC.NURSE ---
Lab has called and reported the blood samples collected by EMS have hemolyzed. Blood recollected.
[2020-09-09 08:52] LABS: Blood Urea Nitrogen 12 mg/dL (8-23); Calcium 8.5 mg/dL (8.5-10.5); Carbon Dioxide 27 mmol/L (22-29); Chloride 103 mmol/L (98-107); Creatinine Clr Calc Pharmacy 78.0132; Glomerular Filtration Rate 100.3 mL/min (90-130); Glucose 106 mg/dL (65-115); Osmolality Calculated 284 mOsm/kg (285-295); Sodium 137 mmol/L (136-145)
[2020-09-09 08:54] LABS: Anion Gap 10.9 (5-19); Potassium 3.9 mmol/L (3.5-5.1)
[2020-09-09 09:45] VITALS: BP 128/74; PULSE 70; RESP 15; O2SAT 97
== END 2020-09-09 09:46 | disposition home or self-care (01) ==
PROVIDERS: Emergency Provider Family Medicine; PCP Family Medicine
DX: G89.29 Other chronic pain (principal); M54.9 Dorsalgia, unspecified; I10 Essential (primary) hypertension; J44.9 Chronic obstructive pulmonary disease, unspecified; Z87.891 Personal history of nicotine dependence
CPT/HCPCS: 12345; 70450; 72125; 73080; 73562; 80048; 85025; 99282; 99283

== ENCOUNTER 2020-10-23 18:41 | Observation (INO) | payer MEDICARE, MEDICAID, SELFPAY ==
[2020-10-23] VITALS (13 sets, daily range): BP systolic 103–130; BP diastolic 53–87; PULSE 59–68; RESP 12–20; TEMP 36.6; O2SAT 92–96; BMI 33.3
--- NOTE | 2020-10-23 18:54 | XRR_ITS ---
PROCEDURE INFORMATION: Exam: XR Chest, 1 View Exam date and time: 10/23/2020 6:58 PM Age: 65 years old Clinical indication: Cough and shortness of breath TECHNIQUE: Imaging protocol: XR of the chest Views: 1 view. COMPARISON: CR XR ribs RT mn 3V w CXR1V [id number] 05/31/2020 9:21 PM FINDINGS: Lungs: Unremarkable. No consolidation. Pleural spaces: Unremarkable. No pleural effusion. No pneumothorax. Heart/Mediastinum: Unremarkable. No cardiomegaly. Bones/joints: Unremarkable. XR/XR chest 1V portable [id number] IMPRESSION: No change, unremarkable
--- NOTE | 2020-10-23 18:55 | ECG_ITS ---
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 Measurements Intervals [place] Rate: 60 P: 60 HI: 172 QRS: 43 QRSD: 78 T: 55 QT: 392 QTc: 392 Interpretive Statements SINUS RHYTHM Compared to ECG 07/14/2020 00:26:25 Sinus bradycardia no longer present Electronically Signed On 10-24-2020 18:00:31 EXCHANGE TROUBLE [employer]ER by Kristine Sommer M.D. [email or web address]
--- NOTE | 2020-10-23 18:56 | ED_ITS ---
Documented by User: AMADOR Amaya 10/24/20 01:28 HPI - COVID General: Chief Complaint: COVID symptoms Stated Complaint: covid symptoms Time Seen by Provider: 10/23/20 18:53 Triage information: Has fever, cough or shortness of breath . Exposure to COVID + person last 14 days History of Present Illness: HPI Narrative: Patient is a 65-year-old female comes to the ED with Covid symptoms. Patient has a past medical history of GERD, hypothyroidism, hypertension and COPD. She started having symptoms approximately 3 days ago. She is currently having diarrhea, cough, shortness of breath, muscle aches, fever and headache. Patient endorses having some nausea as well. She describes her shortness of breath as a weight on her chest. Her cough is dry nonproductive. Patient says she has been taking some Tylenol at home for the past couple days to help with headache and body aches. Denies any chest pain, abdominal pain, dysuria or hematuria. COVID 19 common symptoms: positive fever(s), non-productive cough, dyspnea, body aches, headache(s), nausea and diarrhea; negative chills, productive cough, fatigue, throat pain, nasal congestion or vomiting COVID 19 other sytmptoms: negative chest pain COVID Results: SARS-CoV-2 Antigen (Rapid) Positive (Negative) H 10/23/20 19:35 10/23/20 Nasal/Oral Coronavirus 2019 PCR Pending 10/23/20 19:35 10/23/20 Review of Systems Const: Reports: fever(s) and body aches; Denies: chills or fatigue Eyes: Denies: change in vision or eye discomfort ENMT: Denies: throat pain, odynophagia, nasal discharge or nasal congestion Card: Denies: chest pain, palpitations, edema, swelling of feet/ankles, dyspnea on exertion or orthopnea Resp: Reports: dyspnea and non-productive cough; Denies: productive cough GI: Reports: nausea and diarrhea; Denies: abdominal pain, vomiting, constipation or hematochezia : Denies: flank pain, dysuria or hematuria Musc: Denies: neck pain, back pain or extremity swelling Skin/Breast: Denies: rash or new lesions Neuro: Reports: headache(s); Denies: numbness in extremities or weakness in extremities PFSH ED PFSH: Medical History Chronic back pain COPD (chronic obstructive pulmonary disease) Hypertension Kidney stones Surgical History H/O right wrist surgery Previous back surgery Previous section S/P cholecystectomy Family History Other Family history non-contributory Social History Smoking and tobacco status: former smoker Alcohol intake: never Substance/Drug Use: never Physical Exam Const: COMMON NORMALS: no acute distress, patient oriented x3 and alert GENERAL APPEARANCE: cooperative and comfortable HENMT: COMMON NORMALS: normocephalic HEAD & SCALP: normocephalic MOUTH: Normal oral and palatal mucosa present and moist mucous membranes abnormal (mild dehydration) Details: parched THROAT: posterior oropharynx normal and uvula midline Neck/C-Spine: COMMON NORMALS: supple GENERAL: Yes normal visual inspection Resp: COMMON NORMALS: normal respiratory effort, No retractions, No use of accessory muscles and clear to auscultation bilaterally EFFORT & INSPECTION: Yes able to speak in complete sentences, No tachypneic, No respiratory distress, No labored and Yes Actively coughing non-productive (Patient had multiple coughing fits throughout history and physical exam.) AUSCULTATION: clear to auscultation bilaterally and wheezes expiratory wheezes (faint and mild in right lung.) Cardio: COMMON NORMALS: regular rate, regular rhythm, S1 normal heart sound present, S2 normal heart sound present, No gallops present (Cardio), No clicks present (Cardio), No murmurs present (Cardio) and Peripheral pulses 2+ throughout RATE: regular rate RHYTHM: regular rhythm HEART SOUNDS: S1 normal heart sound present and S2 normal heart sound present PERIPHERAL PULSES: Peripheral pulses 2+ throughout GI: COMMON NORMALS: Normal to inspection, nondistended, normoactive bowel sounds present, Soft to palpation, non-tender and no masses PALPATION: Yes Soft to palpation : COMMON NORMALS: Yes no CVA tenderness BLADDER/KIDNEY EXAM: Yes no CVA tenderness Back/Pelvis: COMMON NORMALS: no CVA tenderness Extremity: COMMON NORMALS: normal to inspection Neuro: COMMON NORMALS: patient oriented x3 and moves all extremities SENSORIUM/ORIENTATION: Yes alert Skin: GENERAL SKIN EXAM: dry skin Course ED course: I spoke with Dr. Melgoza here in the ED and told him about patient's case and she tested positive for Covid and her sodium is 125. He recommended that we bring patient in for observations. He contacted the hospitalist director of institutional giving and had patient admitted. Vital Signs: Vital signs: Vital Signs Temperature 97.9 F 10/23/20 18:47 Pulse Rate 63 10/24/20 09:20 Respiratory Rate 16 10/24/20 09:20 Blood Pressure 129/75 10/24/20 04:30 Pulse Oximetry 95 10/24/20 09:20 MDM - COVID MDM Narrative: Medical decision making narrative: Patient is a 65-year-old female comes to the ED with Covid symptoms. Patient has a past medical history of COPD, GERD, hypothyroidism and hypertension. Patient sodium was 125 the rest of her CBC and CMP were unremarkable. Her rapid Covid test was positive. Chest x-ray showed no acute findings. Patient was given 1.5 L of IV fluids while here in the ED. I spoke with Dr. Melgoza here in the ED and told him about patient's case and she tested positive for Covid and her sodium is 125. He recommended that we bring patient in for observations. He contacted the hospitalist director of institutional giving and had patient admitted. Lab Data: Attestation: I reviewed the patient's lab results. Labs: Lab Results 10/23/20 10/23/20 10/23/20 Range/Units 19:35 19:35 19:35 WBC 3.3 L (4.0-10.0) 10^3/ uL RBC 4.70 (4.1-5.3) 10^6/u L Hgb 15.1 (11.5-15.3) g/dL Hct 44.0 (37.0-47.0) % MCV 93.6 (81-99) fL MCH 32.1 (28.0-34.0) pg MCHC 34.3 (30.0-36.0) g/dL RDW 13.2 (12.1-15.1) % Plt Count 81 L (130-400) 10^3/c mm MPV 10.7 H (7.4-10.4) fL Neut % (Auto) 49.6 % Lymph % (Auto) 29.1 % [place] % (Auto) 19.5 % Eos % (Auto) 0.9 % Baso % (Auto) 0.6 % Neut # (Auto) 1.65 L (1.8-7.7) 10^3/u L Lymph # (Auto) 1.0 (0.8-4.8) 10^3/u L [place] # (Auto) 0.7 (0.2-0.9) 10^3/u L Eos # (Auto) 0.0 (0.0-0.8) 10^3/u L Baso # (Auto) 0.0 (0.0-0.1) 10^3/u L Nucleated RBC % (a uto) 0 % Nucleated RBCs # 0.0 /100WBC Sodium 125 L (136-145) mmol/L Potassium 4.1 (3.5-5.1) mmol/L Chloride 89 L (98-107) mmol/L Carbon Dioxide 28 (22-29) mmol/L Anion Gap 12.1 (5-19) BUN 18 (8-23) mg/dL Creatinine 1.0 H (0.5-0.9) mg/dL GFR Calculation 55.6 L (90-130) mL/min Glucose 77 (65-115) mg/dL Calculated Osmolal ity 261 L (285-295) mOsm/k g Calcium 8.7 (8.5-10.5) mg/dL Total Bilirubin 0.7 (0.15-1.2) mg/dL AST 185 H (0-32) U/L ALT 115 H (0-33) U/L Alkaline Phosphata se 113 H (35-105) IU/L Troponin T Baselin e 7 (0-10) ng/L Troponin T 120 Min [place] (0-10) ng/L Delta Troponin T (0-10) ABS# Total Protein 7.2 (6.6-8.7) g/dL Albumin 3.8 (3.5-5.2) g/dL Globulin 3.4 (1.3-4.6) g/dL TSH (0.27-4.20) uIU/ mL Hepatitis A IgM Ab (Nonreactive) Hep Bs Antigen (Nonreactive) Hep Bs Antibody (0-8.5) Hep B Core Total A b (Nonreactive) Hepatitis C Antibo dy (Nonreactive) Influenza Type A A g (Negative) Influenza Type B A g (Negative) SARS-CoV-2 Ag (Rap id) (Negative) 10/23/20 10/23/20 10/23/20 Range/Units 19:35 19:35 19:35 WBC (4.0-10.0) 10^3/ uL RBC (4.1-5.3) 10^6/u L Hgb (11.5-15.3) g/dL Hct (37.0-47.0) % MCV (81-99) fL MCH (28.0-34.0) pg MCHC (30.0-36.0) g/dL RDW (12.1-15.1) % Plt Count (130-400) 10^3/c mm MPV (7.4-10.4) fL Neut % (Auto) % Lymph % (Auto) % [place] % (Auto) % Eos % (Auto) % Baso % (Auto) % Neut # (Auto) (1.8-7.7) 10^3/u L Lymph # (Auto) (0.8-4.8) 10^3/u L [place] # (Auto) (0.2-0.9) 10^3/u L Eos # (Auto) (0.0-0.8) 10^3/u L Baso # (Auto) (0.0-0.1) 10^3/u L Nucleated RBC % (a uto) % Nucleated RBCs # /100WBC Sodium (136-145) mmol/L Potassium (3.5-5.1) mmol/L Chloride (98-107) mmol/L Carbon Dioxide (22-29) mmol/L Anion Gap (5-19) BUN (8-23) mg/dL Creatinine (0.5-0.9) mg/dL GFR Calculation (90-130) mL/min Glucose (65-115) mg/dL Calculated Osmolal ity (285-295) mOsm/k g Calcium (8.5-10.5) mg/dL Total Bilirubin (0.15-1.2) mg/dL AST (0-32) U/L ALT (0-33) U/L Alkaline Phosphata se (35-105) IU/L Troponin T Baselin e (0-10) ng/L Troponin T 120 Min [place] (0-10) ng/L Delta Troponin T (0-10) ABS# Total Protein (6.6-8.7) g/dL Albumin (3.5-5.2) g/dL Globulin (1.3-4.6) g/dL TSH (0.27-4.20) uIU/ mL Hepatitis A IgM Ab Non-reactive (Nonreactive) Hep Bs Antigen Non-reactive (Nonreactive) Hep Bs Antibody 11.0 H (0-8.5) Hep B Core Total A b Non-reactive (Nonreactive) Hepatitis C Antibo dy Non-reactive (Nonreactive) Influenza Type A A g Negative (Negative) Influenza Type B A g Negative (Negative) SARS-CoV-2 Ag (Rap id) Positive H (Negative) 10/23/20 10/23/20 10/23/20 Range/Units 21:22 21:22 21:22 WBC (4.0-10.0) 10^3/ uL RBC (4.1-5.3) 10^6/u L Hgb (11.5-15.3) g/dL Hct (37.0-47.0) % MCV (81-99) fL MCH (28.0-34.0) pg MCHC (30.0-36.0) g/dL RDW (12.1-15.1) % Plt Count (130-400) 10^3/c mm MPV (7.4-10.4) fL Neut % (Auto) % Lymph % (Auto) % [place] % (Auto) % Eos % (Auto) % Baso % (Auto) % Neut # (Auto) (1.8-7.7) 10^3/u L Lymph # (Auto) (0.8-4.8) 10^3/u L [place] # (Auto) (0.2-0.9) 10^3/u L Eos # (Auto) (0.0-0.8) 10^3/u L Baso # (Auto) (0.0-0.1) 10^3/u L Nucleated RBC % (a uto) % Nucleated RBCs # /100WBC Sodium 125 L (136-145) mmol/L Potassium 4.0 (3.5-5.1) mmol/L Chloride 91 L (98-107) mmol/L Carbon Dioxide 23 (22-29) mmol/L Anion Gap 15.0 (5-19) BUN 18 (8-23) mg/dL Creatinine 0.9 (0.5-0.9) mg/dL GFR Calculation 62.8 L (90-130) mL/min Glucose 90 (65-115) mg/dL Calculated Osmolal ity 261 L (285-295) mOsm/k g Calcium 8.1 L (8.5-10.5) mg/dL Total Bilirubin (0.15-1.2) mg/dL AST (0-32) U/L ALT (0-33) U/L Alkaline Phosphata se (35-105) IU/L Troponin T Baselin e (0-10) ng/L Troponin T 120 Min [place] 6.10 (0-10) ng/L Delta Troponin T -0.90 L (0-10) ABS# Total Protein (6.6-8.7) g/dL Albumin (3.5-5.2) g/dL Globulin (1.3-4.6) g/dL TSH 3.57 (0.27-4.20) uIU/ mL Hepatitis A IgM Ab (Nonreactive) Hep Bs Antigen (Nonreactive) Hep Bs Antibody (0-8.5) Hep B Core Total A b (Nonreactive) Hepatitis C Antibo dy (Nonreactive) Influenza Type A A g (Negative) Influenza Type B A g (Negative) SARS-CoV-2 Ag (Rap id) (Negative) Imaging Data: CXR: Attestation: I personally reviewed and interpreted this imaging study as follows: Radiologist's impression: [address] [address] XRay Report Signed Patient: Ana Paula Higuera Unit #: [id number] : 1955 Age/Sex: 65 / F ADM Date: 10/23/20 Loc: ER Room/Bed: Attending Dr: Ordering Provider/Ordering MD: Joshua Woods Date of Service: 10/23/20 Procedure(s): XR chest 1V portable [id number] Accession Number(s): [id number] Report Number: [id number] PROCEDURE INFORMATION: Exam: XR Chest, 1 View Exam date and time: 10/23/2020 6:58 PM Age: 65 years old Clinical indication: Cough and shortness of breath TECHNIQUE: Imaging protocol: XR of the chest Views: 1 view. COMPARISON: CR XR ribs RT mn 3V w CXR1V [id number] 05/31/2020 9:21 PM FINDINGS: Lungs: Unremarkable. No consolidation. Pleural spaces: Unremarkable. No pleural effusion. No pneumothorax. Heart/Mediastinum: Unremarkable. No cardiomegaly. Bones/joints: Unremarkable. XR/XR chest 1V portable [id number] IMPRESSION: No change, unremarkable Dictated By: Luis Felipe Carranza MD Signed By: Luis Felipe Carranza MD Signed Date/Time: 10/23/202114 DD/ 13 EKG Data: EKG 1: Attestation: I personally reviewed and interpreted this EKG as follows: EKG interpretation date: 10/23/20 Interpretation: Normal sinus rhythm, 60 bpm, possible ST segment elevation in lead II and V3.-possibly due to early repolarization. COVID Results: SARS-CoV-2 Antigen (Rapid) Positive (Negative) 10/23/20 19:35 10/23/20 Nasal/Oral Coronavirus 2019 PCR Pending 10/23/20 19:35 10/23/20 Discharge Plan Discharge Patient Disposition: Admitted As Inpatient Admit Provider: Thomas White Coding Level of Care Code ED Behavioral Sciences Instructor for [facility] Fwd Exam Comprehensive Documented by User: Carlos Lewis MD 10/24/20 10:59 HPI - COVID General: Chief Complaint: COVID symptoms Stated Complaint: covid symptoms Time Seen by Provider: 10/23/20 18:53 COVID Results: SARS-CoV-2 Antigen (Rapid) Positive (Negative) 10/23/20 19:35 10/23/20 Nasal/Oral Coronavirus 2019 PCR Pending 10/23/20 19:35 10/23/20 PFSH ED PFSH: Medical History Chronic back pain COPD (chronic obstructive pulmonary disease) Hypertension Kidney stones Surgical History H/O right wrist surgery Previous back surgery Previous section S/P cholecystectomy Family History Other Family history non-contributory Social History Smoking and tobacco status: former smoker Alcohol intake: never Substance/Drug Use: never Course Vital Signs: Vital signs: Vital Signs Temperature 97.9 F 10/23/20 18:47 Pulse Rate 63 10/24/20 09:20 Respiratory Rate 16 10/24/20 09:20 Blood Pressure 129/75 10/24/20 04:30 Pulse Oximetry 95 10/24/20 09:20 MDM - COVID MDM Narrative: Medical decision making narrative: Repeat sodium was still 125 after hydration. Kept her observation with Dr. White who accepts care. Lab Data: Labs: Lab Results 10/23/20 10/23/20 10/23/20 Range/Units 19:35 19:35 19:35 WBC 3.3 L (4.0-10.0) 10^3/ uL RBC 4.70 (4.1-5.3) 10^6/u L Hgb 15.1 (11.5-15.3) g/dL Hct 44.0 (37.0-47.0) % MCV 93.6 (81-99) fL MCH 32.1 (28.0-34.0) pg MCHC 34.3 (30.0-36.0) g/dL RDW 13.2 (12.1-15.1) % Plt Count 81 L (130-400) 10^3/c mm MPV 10.7 H (7.4-10.4) fL Neut % (Auto) 49.6 % Lymph % (Auto) 29.1 % [place] % (Auto) 19.5 % Eos % (Auto) 0.9 % Baso % (Auto) 0.6 % Neut # (Auto) 1.65 L (1.8-7.7) 10^3/u L Lymph # (Auto) 1.0 (0.8-4.8) 10^3/u L [place] # (Auto) 0.7 (0.2-0.9) 10^3/u L Eos # (Auto) 0.0 (0.0-0.8) 10^3/u L Baso # (Auto) 0.0 (0.0-0.1) 10^3/u L Nucleated RBC % (a uto) 0 % Nucleated RBCs # 0.0 /100WBC Sodium 125 L (136-145) mmol/L Potassium 4.1 (3.5-5.1) mmol/L Chloride 89 L (98-107) mmol/L Carbon Dioxide 28 (22-29) mmol/L Anion Gap 12.1 (5-19) BUN 18 (8-23) mg/dL Creatinine 1.0 H (0.5-0.9) mg/dL GFR Calculation 55.6 L (90-130) mL/min Glucose 77 (65-115) mg/dL Calculated Osmolal ity 261 L (285-295) mOsm/k g Calcium 8.7 (8.5-10.5) mg/dL Total Bilirubin 0.7 (0.15-1.2) mg/dL AST 185 H (0-32) U/L ALT 115 H (0-33) U/L Alkaline Phosphata se 113 H (35-105) IU/L Troponin T Baselin e 7 (0-10) ng/L Troponin T 120 Min [place] (0-10) ng/L Delta Troponin T (0-10) ABS# Total Protein 7.2 (6.6-8.7) g/dL Albumin 3.8 (3.5-5.2) g/dL Globulin 3.4 (1.3-4.6) g/dL TSH (0.27-4.20) uIU/ mL Hepatitis A IgM Ab (Nonreactive) Hep Bs Antigen (Nonreactive) Hep Bs Antibody (0-8.5) Hep B Core Total A b (Nonreactive) Hepatitis C Antibo dy (Nonreactive) Influenza Type A A g (Negative) Influenza Type B A g (Negative) SARS-CoV-2 Ag (Rap id) (Negative) 10/23/20 10/23/20 10/23/20 Range/Units 19:35 19:35 19:35 WBC (4.0-10.0) 10^3/ uL RBC (4.1-5.3) 10^6/u L Hgb (11.5-15.3) g/dL Hct (37.0-47.0) % MCV (81-99) fL MCH (28.0-34.0) pg MCHC (30.0-36.0) g/dL RDW (12.1-15.1) % Plt Count (130-400) 10^3/c mm MPV (7.4-10.4) fL Neut % (Auto) % Lymph % (Auto) % [place] % (Auto) % Eos % (Auto) % Baso % (Auto) % Neut # (Auto) (1.8-7.7) 10^3/u L Lymph # (Auto) (0.8-4.8) 10^3/u L [place] # (Auto) (0.2-0.9) 10^3/u L Eos # (Auto) (0.0-0.8) 10^3/u L Baso # (Auto) (0.0-0.1) 10^3/u L Nucleated RBC % (a uto) % Nucleated RBCs # /100WBC Sodium (136-145) mmol/L Potassium (3.5-5.1) mmol/L Chloride (98-107) mmol/L Carbon Dioxide (22-29) mmol/L Anion Gap (5-19) BUN (8-23) mg/dL Creatinine (0.5-0.9) mg/dL GFR Calculation (90-130) mL/min Glucose (65-115) mg/dL Calculated Osmolal ity (285-295) mOsm/k g Calcium (8.5-10.5) mg/dL Total Bilirubin (0.15-1.2) mg/dL AST (0-32) U/L ALT (0-33) U/L Alkaline Phosphata se (35-105) IU/L Troponin T Baselin e (0-10) ng/L Troponin T 120 Min [place] (0-10) ng/L Delta Troponin T (0-10) ABS# Total Protein (6.6-8.7) g/dL Albumin (3.5-5.2) g/dL Globulin (1.3-4.6) g/dL TSH (0.27-4.20) uIU/ mL Hepatitis A IgM Ab Non-reactive (Nonreactive) Hep Bs Antigen Non-reactive (Nonreactive) Hep Bs Antibody 11.0 H (0-8.5) Hep B Core Total A b Non-reactive (Nonreactive) Hepatitis C Antibo dy Non-reactive (Nonreactive) Influenza Type A A g Negative (Negative) Influenza Type B A g Negative (Negative) SARS-CoV-2 Ag (Rap id) Positive H (Negative) 10/23/20 10/23/20 10/23/20 Range/Units 21:22 21:22 21:22 WBC (4.0-10.0) 10^3/ uL RBC (4.1-5.3) 10^6/u L Hgb (11.5-15.3) g/dL Hct (37.0-47.0) % MCV (81-99) fL MCH (28.0-34.0) pg MCHC (30.0-36.0) g/dL RDW (12.1-15.1) % Plt Count (130-400) 10^3/c mm MPV (7.4-10.4) fL Neut % (Auto) % Lymph % (Auto) % [place] % (Auto) % Eos % (Auto) % Baso % (Auto) % Neut # (Auto) (1.8-7.7) 10^3/u L Lymph # (Auto) (0.8-4.8) 10^3/u L [place] # (Auto) (0.2-0.9) 10^3/u L Eos # (Auto) (0.0-0.8) 10^3/u L Baso # (Auto) (0.0-0.1) 10^3/u L Nucleated RBC % (a uto) % Nucleated RBCs # /100WBC Sodium 125 L (136-145) mmol/L Potassium 4.0 (3.5-5.1) mmol/L Chloride 91 L (98-107) mmol/L Carbon Dioxide 23 (22-29) mmol/L Anion Gap 15.0 (5-19) BUN 18 (8-23) mg/dL Creatinine 0.9 (0.5-0.9) mg/dL GFR Calculation 62.8 L (90-130) mL/min Glucose 90 (65-115) mg/dL Calculated Osmolal ity 261 L (285-295) mOsm/k g Calcium 8.1 L (8.5-10.5) mg/dL Total Bilirubin (0.15-1.2) mg/dL AST (0-32) U/L ALT (0-33) U/L Alkaline Phosphata se (35-105) IU/L Troponin T Baselin e (0-10) ng/L Troponin T 120 Min [place] 6.10 (0-10) ng/L Delta Troponin T -0.90 L (0-10) ABS# Total Protein (6.6-8.7) g/dL Albumin (3.5-5.2) g/dL Globulin (1.3-4.6) g/dL TSH 3.57 (0.27-4.20) uIU/ mL Hepatitis A IgM Ab (Nonreactive) Hep Bs Antigen (Nonreactive) Hep Bs Antibody (0-8.5) Hep B Core Total A b (Nonreactive) Hepatitis C Antibo dy (Nonreactive) Influenza Type A A g (Negative) Influenza Type B A g (Negative) SARS-CoV-2 Ag (Rap id) (Negative) COVID Results: SARS-CoV-2 Antigen (Rapid) Positive (Negative) H 10/23/20 19:35 10/23/20 Nasal/Oral Coronavirus 2019 PCR Pending 10/23/20 19:35 10/23/20 Discharge Plan Discharge Patient Disposition: Admitted As Inpatient Admit Provider: Thomas White Coding Level of Care Code ED Behavioral Sciences Instructor for g Fwd Exam Comprehensive
[2020-10-23] MEDS: acetaminophen 500 mg Tablet 1000 MG PO (19:18)
[2020-10-23] MEDS: ondansetron 2 mg/ML SDV 2 mL 4 MG IVP (19:39)
[2020-10-23] MEDS: sodium chloride 0.9% 1,000 ML 999 ML IV (19:39)
[2020-10-23 19:48] LABS: Basophils % 0.6 %; Eosinophils % 0.9 %; Hemoglobin 15.1 g/dL (11.5-15.3); Lymphocytes % 29.1 %; Mean Corpuscular HGB Conc 34.3 g/dL (30.0-36.0); Mean Corpuscular Hemoglobin 32.1 pg (28.0-34.0); Mean Corpuscular Volume 93.6 fL (81-99); Mean Platelet Volume 10.7 fL (7.4-10.4); Monocytes # 0.7 10^3/uL (0.2-0.9); Monocytes % 19.5 %; Neutrophils # 1.65 10^3/uL (1.8-7.7); Neutrophils % 49.6 %; Nucleated Red Blood Cells % 0 %; Platelet Count 81 10^3/cmm (130-400); Red Cell Distribution Width 13.2 % (12.1-15.1); White Blood Count 3.3 10^3/uL (4.0-10.0)
[2020-10-23] MEDS: albuterol 8 gm MDI 2 PUFF INHALATION (19:55)
[2020-10-23 20:09] LABS: Alanine Aminotransferase 115 U/L (0-33); Albumin Level 3.8 g/dL (3.5-5.2); Alkaline Phosphatase 113 IU/L (35-105); Aspartate Amino Transferase 185 U/L (0-32); Blood Urea Nitrogen 18 mg/dL (8-23); Calcium 8.7 mg/dL (8.5-10.5); Carbon Dioxide 28 mmol/L (22-29); Chloride 89 mmol/L (98-107); Globulin 3.4 g/dL (1.3-4.6); Glomerular Filtration Rate 55.6 mL/min (90-130); Glucose 77 mg/dL (65-115); Osmolality Calculated 261 mOsm/kg (285-295); Sodium 125 mmol/L (136-145); Total Bilirubin 0.7 mg/dL (0.15-1.2); Total Protein 7.2 g/dL (6.6-8.7)
[2020-10-23 20:15] LABS: Anion Gap 12.1 (5-19); Potassium 4.1 mmol/L (3.5-5.1)
[2020-10-23 20:18] LABS: Troponin(5th) Baseline 7 ng/L (0-10)
[2020-10-23 20:21] LABS: Influenza A by IFA Negative (Negative); Influenza B by IFA Negative (Negative); SARS Covid-2 Antigen Positive (Negative)
--- NOTE | 2020-10-23 20:55 | ECG_ITS ---
[facility] Test Date: 2020-10-23 Pat Name: Ana Paula Higuera Department: Room: Gender: Female [employer] Tender: : 1955 Requested By: Joshua Woods Order Number: [id number] Estefania MD: Kristine Sommer M.D. Measurements Intervals [place] Rate: 60 P: 67 WA: 170 QRS: 51 QRSD: 84 T: 51 QT: 419 QTc: 419 Interpretive Statements SINUS RHYTHM WITH SINUS ARRHYTHMIA Compared to ECG 10/23/2020 19:10:40 No significant changes Electronically Signed On 10-24-2020 18:10:54 QC TECH by Kristine Sommer M.D. [id number]
--- NOTE | 2020-10-23 21:23 | PC.NURSE ---
EKG done at 2119 and shown to ER doctor
[2020-10-23 21:25] LABS: Hepatitis A Antibody IgM Non-Reactive (Nonreactive); Hepatitis B Core AB, Total Non-Reactive (Nonreactive); Hepatitis B Surface Antigen Non-Reactive (Nonreactive); Hepatitis C Virus Antibody Non-Reactive (Nonreactive)
[2020-10-23] MEDS: sodium chloride 0.9% 500 ML 999 ML IV (21:27)
[2020-10-23] MEDS: morphine 4 mg/mL SDV 1 mL 2 MG IVP (21:27)
[2020-10-23 22:07] LABS: Blood Urea Nitrogen 18 mg/dL (8-23); Calcium 8.1 mg/dL (8.5-10.5); Carbon Dioxide 23 mmol/L (22-29); Chloride 91 mmol/L (98-107); Glomerular Filtration Rate 62.8 mL/min (90-130); Glucose 90 mg/dL (65-115); Osmolality Calculated 261 mOsm/kg (285-295); Sodium 125 mmol/L (136-145)
--- NOTE | 2020-10-23 22:30 | P.HP_ITS ---
Providers/Chief Complaint Primary Care Provider: Samantha Wylie MD Chief Complaint: COVID symptoms, cough, sob, nausea History of Present Illness Ana Paula Higuera is a 65 year old female who presented today with chief complaint of worsening shortness of breath and cough. Patient is stating that her symptoms started on Wednesday with myalgias, fatigue and diarrhea, her diarrhea resolved on Wednesday but her shortness of breath and fatigue has been gradually getting worse, she has not become hypoxic at home but her bouts of cough are g etting extremely worse and increasing in frequency, on Wednesday she experienced most of her symptoms such as fever myalgia cough and shortness of breath. She decided to come to the hospital today because of worsening of cough and myalgias. She also noticed headache on Wednesday, her headache is intermittent, not associated with any muscle weakness slurred speech vision changes or recent falls, patient is endorsing that she is feeling extremely weak and lethargic she feels like she would fall because of lack of energy in her legs. Of note, she has been taking atenolol, triamterene hydrochlorothiazide combination. Diagnostics in the ER revealed Covid 19 pneumonia, EKG showing early repolarization in inferior lateral leads patient is not complaining of active chest pain, troponins unremarkable, abnormal transaminases noted, hepatitis panel negative hypocalcemia hyponatremia 125 she was given 1 L normal saline for her low blood pressure and hyponatremia her blood pressure systolic is ranging between 103 -105mmhg She is afebrile not requiring any supplemental oxygenation Repeat sodium level 125 Review of Systems Const: Reports: chills, body aches, change in appetite, change in weight, fatigue and malaise Eyes: Denies: change in vision ENMT: Denies: throat pain Card: Reports: lightheadedness; Denies: chest pain Resp: Reports: dyspnea, non-productive cough and pain on inspiration GI: Reports: diarrhea; Denies: abdominal pain : Denies: flank pain Musc: Denies: neck pain Skin/Breast: Denies: rash Neuro: Reports: headache(s) and numbness in extremities Psych: Denies: anxiety Endo: Denies: polyuria Jackson/Lymph: Denies: easy bruising All/Imm: Denies: urticaria Medications/Allergies Home Medications Medication Instructions Recorded Confirmed Last Taken Type allopurinol 300 mg tablet 150 mg PO ONCE tab 10/08/19 03/11/20 10/11/19 History amitriptyline 25 mg tablet 25 mg PO ONCE 10/08/19 03/11/20 10/11/19 History atenolol 25 mg tablet 25 mg PO BID 10/08/19 03/11/20 10/11/19 History benzonatate 100 mg capsule 100 mg PO TID PRN #15 cap 10/08/19 03/11/20 10/11/19 Rx gabapentin 300 mg capsule 300 mg PO TID 10/08/19 03/11/20 10/11/19 History levothyroxine 50 mcg capsule 50 mcg PO ONCE 10/08/19 03/11/20 10/11/19 History lorazepam 0.5 mg tablet 0.5 mg PO TID PRN 10/08/19 03/11/20 10/11/19 History omeprazole 40 mg capsule,delayed 40 mg PO ONCE cap 10/08/19 03/11/20 10/11/19 History release tizanidine 4 mg capsule 4 mg PO Q8H PRN 10/08/19 03/11/20 10/11/19 History tramadol 50 mg tablet 50 mg PO Q6H PRN 10/08/19 03/11/20 10/11/19 History triamterene 37.5 1 cap PO QAM 10/08/19 03/11/20 10/11/19 History mg-hydrochlorothiazide 25 mg capsule promethazine 12.5 mg PO Q6H PRN #20 tab 11/16/19 03/11/20 Unknown Rx promethazine 25 mg PO Q4H PRN #20 tab 02/12/20 03/11/20 Unknown Rx methylprednisolone 4 mg tablets in See Rx Instructions PO PER PKG DIR 02/20/20 03/11/20 Unknown Rx a dose pack #21 each hydrocodone-acetaminophen 1 tab PO Q6H PRN #7 tab 05/31/20 Unknown Rx ondansetron HCl [Zofran] 4 mg PO Q6H PRN #10 tab 07/14/20 Unknown Rx tizanidine 2 - 4 mg PO Q8H PRN #20 cap 09/09/20 Unknown Rx Allergies Allergy/AdvReac Type Severity Reaction Status Date / Time aspirin Allergy ALGY-Rash Verified 03/11/20 13:41 PFSH Acute PFSH: Medical History (Updated 10/23/20 @ 23:16 by Thomas White MD) Chronic back pain COPD (chronic obstructive pulmonary disease) Hypertension Kidney stones Surgical History H/O right wrist surgery Previous back surgery Previous section S/P cholecystectomy Family History (Updated 10/23/20 @ 23:13 by Thomas White MD) Other Family history non-contributory Social History Smoking and tobacco status: former smoker Alcohol intake: never Substance/Drug Use: never Vitals/I&O/Wt Last Vital Signs Temp 97.9 F 10/23/20 18:47 Pulse 65 10/23/20 21:26 Resp 18 10/23/20 21:26 BP 103/53 10/23/20 21:26 Pulse Ox 93 10/23/20 21:26 10/23/20 10/23/20 10/23/20 06:59 14:59 22:59 Intake Total 1000 / 1000 Balance 1000 / 1000 Weight last 48 hrs Weight 90.718 kg Physical Exam Narrative: EXAM NARRATIVE: Middle-age female currently saturating well on room air however has been experiencing excessive bouts of cough No active neurological signs or symptoms of hyponatremia noted, she is complaining of headache Awake alert oriented x3 GCS 15 No gaze preference no signs of stroke S1, S2 sinus rhythm Excessive bouts of cough however no acute respite distress or use of respiratory accessory muscles Abdomen nontender no active abdominal pain Lower extremity nonpitting edema No signs of heart failure clinically patient is euvolemic Appropriate mood and affect No joint swelling or skin lacerations or gangrene Data : 10/23/20 19:35 10/23/20 21:22 A&P Assessment and plan (1) Hyponatremia: Status: Acute (2) Pneumonia due to COVID-19 virus: Status: Acute Additional A&P Information COVID-19 pneumonia Patient symptoms started on Wednesday, currently saturating well on room air I would avoid remdesivir for now and use Decadron only along vitamin C and zinc No signs of consolidation No signs of sepsis Atrovent ipratropium puffs every 4 as needed Monitor inflammatory markers every 48 hours Mild abnormal transaminases most likely due to COVID-19 syndrome Acute hyponatremia Current sodium 125 at home patient has been taking hydrochlorothiazide and triamterene, she experienced diarrhea on Wednesday clinically she is slightly de hydrated, systolic blood pressure soft,,would obtain urine/serum osmolarity, urine sodium level TSH I do believe her sodium is low because of hydrochlorothiazide, she had received 1 L normal saline in the ER repeat sodium level 125, I will keep her on normal saline at 30 cc/h, target sodium correction 6 to 7 mEq per 24 hours however considering use of hydrochlorothiazide I do suspect her sodium will correct rather quickly currently she is complaining of myalgias and headache which could be secondary to COVID-19, will monitor closely for now Hypothyroidism: Continue levothyroxine 50 mcg daily Hypertension: Hold hydrochlorothiazide, triamterene and atenolol for now Early repolarization on EKG without chest pain or any pain delta troponin Full code Cardiac diet DVT prophylaxis Lovenox Attestations Medical Necessity Statement*: Anticipating discharge in less than 48 hours continued overnight monitoring because of hyponatremia along COVID-19 pneumonia Time Spent in Patient Care: (>than 50% of time spent in counselling and/or direct pt care on unit) . 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
[2020-10-23 22:53] LABS: Add Urine Microscopic? NO
--- NOTE | 2020-10-23 22:53 | PC.NURSE ---
Report called to Manish BRAY on 2A
[2020-10-23 22:58] LABS: Bilirubin Urine Neg (Negative); Blood Urine Neg (Negative); Glucose Urine UA Norm (Normal); Ketones Urine Negative (Negative); Leukocyte Esterase Urine Negative (Negative); Nitrate Urine Negative (Negative); Protein Urine Neg (Negative); Urine Appearance Clear (CLEAR); Urine Color Yellow (Yellow); Urobilinogen Urine Norm (Negative)
[2020-10-23 23:11] LABS: Thyroid Stimulating Hormone 3.57 uIU/mL (0.27-4.20)
[2020-10-23 23:40] LABS: Urine Random Sodium 69 mmol/L
--- NOTE | 2020-10-23 23:56 | PC.NURSE ---
Patient arrived to room 208 via wheelchair. Pt is alert and oriented and appears to be in no acute distress at this time. Pt is assisted to the bed and is placed on cardiac monitoring. Pt requested a chocolate pudding and some ice water. Pt is assessed and the admission completed.
[2020-10-24] VITALS (170 sets, daily range): BP systolic 111–152; BP diastolic 75–87; PULSE 53–82; RESP 7–27; TEMP 36.4–36.8; O2SAT 89–98
[2020-10-24] MEDS: sodium chloride 0.9% 1,000 ML 30 ML IV (00:21)
[2020-10-24] MEDS: ketorolac 30 mg/mL INJ 15 MG IVP (00:21)
[2020-10-24 04:24] LABS: Hematocrit 41.1 % (37.0-47.0); Hemoglobin 14.1 g/dL (11.5-15.3); Lymphocytes # 0.3 10^3/uL (0.8-4.8); Lymphocytes % 22.6 %; Mean Corpuscular HGB Conc 34.3 g/dL (30.0-36.0); Mean Corpuscular Hemoglobin 31.9 pg (28.0-34.0); Mean Platelet Volume 11.1 fL (7.4-10.4); Monocytes # 0.1 10^3/uL (0.2-0.9); Monocytes % 4.1 %; Neutrophils # 1.06 10^3/uL (1.8-7.7); Neutrophils % 72.6 %; Nucleated Red Blood Cells % 0 %; Platelet Count 59 10^3/cmm (130-400); Red Blood Count 4.42 10^6/uL (4.1-5.3); Red Cell Distribution Width 12.9 % (12.1-15.1); White Blood Count 1.5 10^3/uL (4.0-10.0)
--- NOTE | 2020-10-24 04:49 | PC.NURSE ---
Messaged Dr. White via [facility] about this patient's morning WBC of 1.5.
[2020-10-24 05:03] LABS: Alanine Aminotransferase 96 U/L (0-33); Albumin Level 3.3 g/dL (3.5-5.2); Alkaline Phosphatase 104 IU/L (35-105); Anion Gap 14.2 (5-19); Aspartate Amino Transferase 144 U/L (0-32); Blood Urea Nitrogen 18 mg/dL (8-23); Calcium 8.3 mg/dL (8.5-10.5); Carbon Dioxide 24 mmol/L (22-29); Chloride 94 mmol/L (98-107); Globulin 3.7 g/dL (1.3-4.6); Glomerular Filtration Rate 62.8 mL/min (90-130); Glucose 170 mg/dL (65-115); Osmolality Calculated 272 mOsm/kg (285-295); Potassium 4.2 mmol/L (3.5-5.1); Sodium 128 mmol/L (136-145); Total Bilirubin 0.7 mg/dL (0.15-1.2)
[2020-10-24] MEDS: dexamethasone 4 mg Tablet 6 MG PO (08:57)
[2020-10-24] MEDS: pantoprazole DR 40 mg Tablet PO (08:58)
[2020-10-24] MEDS: allopurinol 300 mg Tablet 150 MG PO (08:58)
[2020-10-24] MEDS: levothyroxine 50 mcg Tablet PO (08:58)
--- NOTE | 2020-10-24 13:21 | PC.PHAR ---
pt states her and a nurse from [employer] helps her with her meds-called and left message for [employer] for a med list-pt states she takes the medications entered-
[2020-10-24 15:18] LABS: Coronavirus Test Green County DETECTED
--- NOTE | 2020-10-24 16:15 | PM.DCS ---
Discharge Providers Date of Admission: 10/23/20 22:34 Date of Discharge: October 25, 2020 Attending Provider at Admission: Thomas White MD Attending Provider at Discharge: Jennifer Diez Primary Care Provider: Samantha Wylie MD Diagnoses at Discharge Discharge Diagnosis (1) Hyponatremia: Status: Acute (2) Pneumonia due to COVID-19 virus: Status: Acute Reason for Visit Reason for Visit: COVID symptoms, cough, sob, nausea Hospital Course Hospital Course 65 year old female who presented today with chief complaint of worsening shortness of breath and cough. Patient is stating that her symptoms started on Wednesday with myalgias, fatigue and diarrhea, her diarrhea resolved on Wednesday but her shortness of breath and fatigue has been gradually getting worse, she has not become hypoxic at home but her bouts of cough are getting extremely worse and increasing in frequency, on Wednesday she experienced most of her symptoms such as fever myalgia cough and shortness of breath. She decided to come to the hospital today because of worsening of cough and myalgias. She also noticed headache on Wednesday, her headache is intermittent, not associated with any muscle weakness slurred speech vision changes or recent falls, patient is endorsing that she is feeling extremely weak and lethargic she feels like she would fall because of lack of energy in her legs. Of note, she has been taking atenolol, triamterene hydrochlorothiazide combination. Diagnostics in the ER revealed Covid 19 pneumonia, EKG showing early repolarization in inferior lateral leads patient is not complaining of active chest pain, troponins unremarkable, abnormal transaminases noted, hepatitis panel negative hypocalcemia hyponatremia 125 she was given 1 L normal saline for her low blood pressure and hyponatremia her blood pressure systolic is ranging between 103 -105mmhg She is afebrile not requiring any supplemental oxygenation Patient was admitted with hyponatremia. Was continued on IV fluids at a low rate throughout hospitalization. This was likely due to patients hydrochlorothiazide reviewed at the time I assumed care of the patient she was not requiring any supplemental oxygen. She was started on Decadron which she was tolerating. Discussed with her regarding low sodium levels. Did she was wanting to be discharged home and stated she would follow up with her primary care physician. Understanding risk versus benefit of continued hospitalization. home O2 eval was obtained after which patient did not qualify for oxygen. Repeat BMP was ordered for outpatient. Advised to return to hospital if any new or worsening of symptoms. Verbalized understanding. Physical Exam Narrative: EXAM NARRATIVE: General- alert awake and oriented x3 no apparent distress mild cough Awake alert oriented x3 GCS 15 No gaze preference no signs of stroke S1, S2 sinus rhythm Coarse breath sounds bilaterally Abdomen nontender no active abdominal pain Lower extremity nonpitting edema Neurological - initial dizziness had resolved Resp: COMMON NORMALS: normal respiratory effort, No retractions, No use of accessory muscles and clear to auscultation bilaterally EFFORT & INSPECTION: Yes able to speak in complete sentences, No tachypneic, No respiratory distress, No labored and Yes Actively coughing strong AUSCULTATION: clear to auscultation bilaterally and wheezes expiratory wheezes (faint and mild in right lung.) Cardio: COMMON NORMALS: regular rate, regular rhythm, S1 normal heart sound present, S2 normal heart sound present, No gallops present (Cardio), No clicks present (Cardio), No murmurs present (Cardio) and Peripheral pulses 2+ throughout RATE: regular rate RHYTHM: regular rhythm HEART SOUNDS: S1 normal heart sound present and S2 normal heart sound present PERIPHERAL PULSES: Peripheral pulses 2+ throughout GI: COMMON NORMALS: Normal to inspection, nondistended, normoactive bowel sounds present, Soft to palpation, non-tender and no masses PALPATION: Yes Soft to palpation : COMMON NORMALS: Yes no CVA tenderness BLADDER/KIDNEY EXAM: Yes no CVA tenderness Back/Pelvis: COMMON NORMALS: no CVA tenderness Extremity: COMMON NORMALS: normal to inspection Neuro: COMMON NORMALS: moves all extremities Skin: GENERAL SKIN EXAM: dry skin Discharge Data Data Completed and Pending: Completed Studies During Hospitalization Category Date Time Status XR chest 1V hector ble [id number] Stat Exams 10/23/20 18:54 Completed Labs from last 24 hours 10/23/20 10/23/20 22:50 19:35 Serum Osmolality 275 L Urine Osmolality 388 Vitals: Last Vital Signs Temp 98.2 F 10/24/20 16:50 Pulse 67 10/24/20 16:50 Resp 18 10/24/20 16:50 BP 152/79 10/24/20 16:55 Pulse Ox 97 10/24/20 16:50 Discharge Plan Discharge Patient Disposition: Home Condition: Stable Prescriptions: New dexamethasone 4 mg Tablet 6 mg PO DAILY Qty: 9 RF: 0 Continued tizanidine 4 mg capsule 4 mg PO QID PRN (Reason: Muscle Spasm) RF: 0 atenolol 25 mg tablet 25 mg PO BID RF: 0 amitriptyline 25 mg tablet 25 mg PO BEDTIME RF: 0 tramadol 50 mg tablet 50 mg PO Q6H PRN (Reason: Pain) RF: 0 gabapentin 300 mg capsule 300 mg PO TID RF: 0 omeprazole 40 mg capsule,delayed release(DR/EC) 40 mg PO DAILY RF: 0 levothyroxine 50 mcg capsule 50 mcg PO DAILY RF: 0 lorazepam 0.5 mg tablet 0.5 mg PO TID PRN (Reason: Anxiety) RF: 0 allopurinol 300 mg tablet 300 mg PO DAILY@12 RF: 0 benzonatate [Tessalon Perles] 100 mg capsule 100 mg PO TID PRN (Reason: cough) Qty: 15 RF: 0 Tylenol Extra Strength 500 mg Tablet 1,000 mg PO PRN RF: 0 Ventolin HFA 90 mcg/actuation HFA aerosol inhaler 2 puff INHALATION QID PRN (Reason: Shortness Of Breath) RF: 0 Centrum Women 18-400 mg-mcg Tablet 1 tab PO DAILY RF: 0 Discontinued triamterene-hydrochlorothiazid 37.5-25 mg capsule 1 cap PO QAM RF: 0 Discharge Orders: Discharge Order (Routine); Ordered 10/24/20 Ordered By: Jennifer Diez Other Ambulatory Orders: Basic Metabolic Panel (Routine) Timeframe: 2 Days Facility: [facility] - Location: Lab - Main Lab Ordered By: Jennifer Diez Liver Panel (Routine) Timeframe: 2 Days Facility: [facility] - Location: Lab - Main Lab Ordered By: Jennifer Diez Referrals: Samantha Wylie MD [Primary Care Provider] - 1-3 days Discharge Diet: Usual diet Discharge Activity: Increase activity as tolerated Patient Instructions: Dexamethasone (By mouth) Activity Restrictions/Additional Instructions: Return to emergency room if worsening respiratory distress or new symptoms. Discharge Attestations Time Spent in Discharge Care*: greater than 30 min Specific Discharge Activities: educating patient, discussing with social work case manager/social workers/dc planners, documenting/other paperwork and evaluating patient/reviewing data Status at Discharge: Cognitive status at discharge: cognitively intact, Behavioral status at discharge: cooperative, Functional status at discharge: independent ambulation Overall status at discharge: patient is progressing back to baseline Quality Metrics Clinical Quality Measures During this hospital stay, did patient experience: None Coding Level of Care Code Acute [employer] for [employer] Fwd Diagnoses Hyponatremia E87.1 Pneumonia due to COVID-19 virus U07.1; J12.89
--- NOTE | 2020-10-24 16:52 | PC.NURSE ---
Pt discharged home. IV removed no redness or swelling noted. Pts follow up appointment given along with prescriptions and discharge instructions. Pt had no c/o pain or discomfort at the time of discharge. Pt transferred out via wheelchair accompanied by staff.
[2020-10-25 14:59] LABS: Osmolality Serum 275 mOsm/kg (278-305)
[2020-10-25 14:59] LABS: Osmolality Urine 388 mOsm/kg (50-1200)
--- NOTE | 2020-10-25 15:24 | PC.RESP ---
Pulmonary Rehab information sent to patient.
--- NOTE | 2020-10-25 15:26 | PC.RESP ---
Pulmonary Rehab information sent to patient.
== END 2020-10-24 16:51 | disposition home or self-care (01) ==
LOC: ER 22:34 → MS 2A 10-24 04:50
PROVIDERS: Physician Assistant; Admitting Provider Internal Medicine; Emergency Provider Family Medicine; PCP Family Medicine; Visit Provider Hospitalist
DX: U07.1 COVID-19 (principal); J12.89 Other viral pneumonia; E87.1 Hypo-osmolality and hyponatremia; R94.5 Abnormal results of liver function studies
CPT/HCPCS: 12345; 36415; 71045; 80048; 80053; 81003; 83930; 83935; 84300; 84443; 84484; 85025; 86705; 86706; 86709; 86803; 87340; 87426; 87635; 87804; 93005; 94640; 99283; G0378; J1885; J2270; J2405; J2930; J3535; J7030; J7040; J8540

== ENCOUNTER 2020-10-30 17:32 | Inpatient (IN) | payer MEDICARE, MEDICAID, SELFPAY ==
[2020-10-30] VITALS (8 sets, daily range): BP systolic 104–122; BP diastolic 54–76; PULSE 65–87; RESP 17–24; TEMP 36.9; O2SAT 92–98; BMI 33.1
--- NOTE | 2020-10-30 18:04 | XR_ITS ---
WS: [id number] Portable AP upright chest, 10/30/2020 Clinical Data: SOB, COVID+ Comparison: Portable chest, 10/23/2020. Findings: No nodules, masses or effusions are seen. The heart is normal. The pulmonary vascularity is not increased. No pneumonia or pneumothorax is seen. The aortic arch and descending aorta are tortuo us. Monitor leads are on the chest wall. XR/XR chest 1V portable [id number] Impression: Atherosclerosis.
--- NOTE | 2020-10-30 18:06 | ECG_ITS ---
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 Measurements Intervals Armstrong Rate: 67 P: 35 GA: 150 QRS: 35 QRSD: 81 T: 59 QT: 382 QTc: 404 Interpretive Statements SINUS RHYTHM Compared to ECG 10/23/2020 21:17:48 Sinus arrhythmia no longer present Electronically Signed On 10-30-2020 20:14:35 SESSIONS CLERK by Kristine Sommer M.D. [id number]
[2020-10-30 18:30] LABS: ABG PCO2 28.9 mmHg (35-45); ABG PH Result 7.52 (7.35-7.45); Arterial Blood Gas Hematocrit 55.3 % (37-47); Base Excess ABG 2.3 mmol/L (-2.0-2.0); Blood Gas Allen Test Pos; Blood Gas Operator Identificat MONRO; Blood Gas Sample Site Radial, right; Blood Gas Sample Type Arterial; HCO3 ABG 23.7 mmol/L (22-26); Oxygen Device ROOM AIR; PO2 ABG 55.2 mmHg (80.0-100.0)
--- NOTE | 2020-10-30 18:40 | ED_ITS ---
HPI - Weakness General: Chief complaint: Weakness Stated complaint: COVID+, CONFUSION Time Seen by Provider: 10/30/20 17:49 Source: patient Mode of arrival: ambulatory Limitations: no limitations History of Present Illness: HPI Narrative: Patient is a 65-year-old female who was recently diagnosed with COVID-19. She is admitted to the hospital from October 23 to October 24, 2020 for hyponatremia on Covid infection. Patient states that since discharge she has continued to feel really weak with increasing shortness of breath. She feels she has a severe loss of energy at this time and so return to the emergency department for further evaluation. According to the nurse when the patient was just moving from wheelchair to the bed she desaturated to the mid 80s on room air. Complaint: generalized weakness Duration: constant and progressively worsening Location: generalized Relieving factors: none Associated symptoms: Reports decreased appetite and short of breath; Denies chest pain, chills, confusion, melena, diaphoresis, dysuria, easy bruising, fever(s), headache(s), myalgias, nausea, rash, syncope or vomiting Review of Systems General: Reports: 10 or more systems reviewed and unremarkable except in HPI and below Const: Denies: fever(s), chills or diaphoresis Eyes: Denies: change in vision or blurry vision ENMT: Denies: throat pain, enlarged tonsils, odynophagia, hoarseness, mouth pain or swelling of lips/tongue Card: Denies: chest pain or syncope Resp: Denies: dyspnea, productive cough or non-productive cough GI: Denies: nausea, vomiting or melena : Denies: dysuria Musc: Denies: neck pain, back pain or extremity swelling Skin/Breast: Denies: rash, pruritus or erythema Neuro: Denies: headache(s) or confusion Endo: Denies: polyuria, polydipsia or tired all the time Jackson/Lymph: Denies: easy bruising PFSH ED PFSH: Medical History (Reviewed 10/31/20 @ 01:05 by Prisca Marc MD, [facility] [place] Chronic back pain COPD (chronic obstructive pulmonary disease) Hypertension Kidney stones Surgical History (Reviewed 10/31/20 @ 01:05 by Prisca Marc MD, [facility] [place] H/O right wrist surgery Previous back surgery Previous section S/P cholecystectomy Family History (Reviewed 10/31/20 @ 01:05 by Prisca Marc MD, [facility] [place] Other Family history non-contributory Social History (Reviewed 10/31/20 @ 01:05 by Prisca Marc MD, [facility] [place] Smoking and tobacco status: former smoker Alcohol intake: never Physical Exam Const: COMMON NORMALS: no acute distress, average body habitus, patient oriented x3, no limitations, healthy appearing, alert and well nourished HENMT: COMMON NORMALS: normocephalic, atraumatic and moist oral mucous membranes HEAD & SCALP: normocephalic and atraumatic Neck/C-Spine: COMMON NORMALS: full ROM, supple, no meningeal signs, no JVD and No carotid bruits Chest: COMMONS NORMALS: normal inspection of the chest and normal palpation of entire chest wall Resp: COMMON NORMALS: normal respiratory effort, No retractions, No use of accessory muscles, clear to auscultation bilaterally and percussion normal AUSCULTATION: clear to auscultation bilaterally PERCUSSION: percussion normal Cardio: COMMON NORMALS: no JVD, regular rate, regular rhythm, S1 normal heart sound present, S2 normal heart sound present, No gallops present (Cardio), No clicks present (Cardio), No murmurs present (Cardio), No rub (Cardio) and Peripheral pulses 2+ throughout RATE: regular rate RHYTHM: regular rhythm HEART SOUNDS: S1 normal heart sound present and S2 normal heart sound present PERIPHERAL PULSES: Peripheral pulses 2+ throughout GI: COMMON NORMALS: Normal to inspection, nondistended, normoactive bowel sounds present, Soft to palpation, non-tender, No hepatosplenomegaly present, no masses and no bruits PALPATION: Yes Soft to palpation and Yes No hepatosplenomegaly present Extremity: COMMON NORMALS: normal to inspection, full ROM, capillary refill normal, no calf tenderness and no pedal edema Neuro: COMMON NORMALS: patient oriented x3 SENSORIUM/ORIENTATION: Yes alert MENINGEAL SIGNS: Yes no meningeal signs Skin: COMMON NORMALS: no rashes or lesions noted, no wounds, turgor normal, no jaundice, no petechiae and no mottling GENERAL SKIN EXAM: no rashes or lesions noted and turgor normal Course Consultations: Consultation #1: Discussed the patient with amy Gonzales and he kindly accepted the patient to his service. Vital Signs: Vital signs: Vital Signs Temperature 98.3 F 10/31/20 00:10 Pulse Rate 64 10/31/20 00:25 Respiratory Rate 20 H 10/31/20 00:25 Blood Pressure 110/68 10/31/20 00:25 Pulse Oximetry 95 10/31/20 00:25 MDM - Weakness MDM Narrative: Medical decision making narrative: This pleasant 65-year-old female patient came to the emergency department due to extreme weakness. She was recently diagnosed with COVID-19 and has been progressively getting weaker and weaker. The patient had significant hypoxemia on her blood gas and hypoxia with any activity. I believe she is too high risk to be discharged back home and so she is admitted to the hospital for further management. She was requiring 6 liters of oxygen per minute to maintain saturations. Lab Data: Labs: Lab Results 10/30/20 10/30/20 10/30/20 Range/Units 18:06 18:06 18:06 WBC 10.3 H (4.0-10.0) 10^3/ uL RBC 5.73 H (4.1-5.3) 10^6/u L Hgb 18.4 H (11.5-15.3) g/dL Hct 52.4 H (37.0-47.0) % MCV 91.4 (81-99) fL MCH 32.1 (28.0-34.0) pg MCHC 35.1 (30.0-36.0) g/dL RDW 13.2 (12.1-15.1) % Plt Count 126 L (130-400) 10^3/c mm MPV 11.1 H (7.4-10.4) fL Neut % (Auto) 75.9 % Lymph % (Auto) 9.4 % Elmore % (Auto) 13.0 % Eos % (Auto) 0.0 % Baso % (Auto) 0.2 % Neut # (Auto) 7.79 H (1.8-7.7) 10^3/u L Lymph # (Auto) 1.0 (0.8-4.8) 10^3/u L Elmore # (Auto) 1.3 H (0.2-0.9) 10^3/u L Eos # (Auto) 0.0 (0.0-0.8) 10^3/u L Baso # (Auto) 0.0 (0.0-0.1) 10^3/u L Nucleated RBC % (a uto) 0 % Nucleated RBCs # 0.0 /100WBC PT 13.40 (12.1-14.9) SECO NDS INR 0.99 (0.8-1.2) Fibrinogen 385 (174-498) mg/dL D-Dimer 1.39 H (0-0.59) ug/mIFE U Specimen Type Sample Site ABG pH (7.35-7.45) ABG pCO2 (35-45) mmHg ABG pO2 (80.0-100.0) mmH g ABG HCO3 (22-26) mmol/L ABG Base Excess (-2.0-2.0) mmol/ L Arik Test Hematocrit (37-47) % O2 Delivery Device FiO2 % Staff Electronic Warfare Officer ID Sodium 133 L (136-145) mmol/L Potassium 3.8 (3.5-5.1) mmol/L Chloride 96 L (98-107) mmol/L Carbon Dioxide 26 (22-29) mmol/L Anion Gap 14.8 (5-19) BUN 17 (8-23) mg/dL Creatinine 0.6 (0.5-0.9) mg/dL GFR Calculation 100.3 (90-130) mL/min Glucose 75 (65-115) mg/dL Calculated Osmolal ity 276 L (285-295) mOsm/k g Lactic Acid (0.5-2.2) mmol/L Calcium 8.5 (8.5-10.5) mg/dL Ferritin 381 H (15-150) ng/mL Total Bilirubin 1.0 (0.15-1.2) mg/dL AST 83 H (0-32) U/L ALT 85 H (0-33) U/L Alkaline Phosphata se 112 H (35-105) IU/L Troponin T Baselin e (0-10) ng/L Troponin T 120 Min campo (0-10) ng/L Delta Troponin T (0-10) ABS# C-Reactive Protein 9.3 H (0.0-4.9) mg/L NT-Pro-B Natriuret Pep 111 (0-125) pg/mL Total Protein 7.1 (6.6-8.7) g/dL Albumin 3.5 (3.5-5.2) g/dL Globulin 3.6 (1.3-4.6) g/dL Procalcitonin 0.07 (0-0.5) ng/mL 10/30/20 10/30/20 10/30/20 Range/Units 18:06 18:06 18:16 WBC (4.0-10.0) 10^3/ uL RBC (4.1-5.3) 10^6/u L Hgb (11.5-15.3) g/dL Hct (37.0-47.0) % MCV (81-99) fL MCH (28.0-34.0) pg MCHC (30.0-36.0) g/dL RDW (12.1-15.1) % Plt Count (130-400) 10^3/c mm MPV (7.4-10.4) fL Neut % (Auto) % Lymph % (Auto) % Elmore % (Auto) % Eos % (Auto) % Baso % (Auto) % Neut # (Auto) (1.8-7.7) 10^3/u L Lymph # (Auto) (0.8-4.8) 10^3/u L Elmore # (Auto) (0.2-0.9) 10^3/u L Eos # (Auto) (0.0-0.8) 10^3/u L Baso # (Auto) (0.0-0.1) 10^3/u L Nucleated RBC % (a uto) % Nucleated RBCs # /100WBC PT (12.1-14.9) SECO NDS INR (0.8-1.2) Fibrinogen (174-498) mg/dL D-Dimer (0-0.59) ug/mIFE U Specimen Type Arterial Sample Site Radial, right ABG pH 7.52 H (7.35-7.45) ABG pCO2 28.9 L (35-45) mmHg ABG pO2 55.2 L (80.0-100.0) mmH g ABG HCO3 23.7 (22-26) mmol/L ABG Base Excess 2.3 H (-2.0-2.0) mmol/ L Arik Test Pos Hematocrit 55.3 H (37-47) % O2 Delivery Device Room air FiO2 21.0 % Staff Electronic Warfare Officer ID [place] Sodium (136-145) mmol/L Potassium (3.5-5.1) mmol/L Chloride (98-107) mmol/L Carbon Dioxide (22-29) mmol/L Anion Gap (5-19) BUN (8-23) mg/dL Creatinine (0.5-0.9) mg/dL GFR Calculation (90-130) mL/min Glucose (65-115) mg/dL Calculated Osmolal ity (285-295) mOsm/k g Lactic Acid 1.5 (0.5-2.2) mmol/L Calcium (8.5-10.5) mg/dL Ferritin (15-150) ng/mL Total Bilirubin (0.15-1.2) mg/dL AST (0-32) U/L ALT (0-33) U/L Alkaline Phosphata se (35-105) IU/L Troponin T Baselin e 6 (0-10) ng/L Troponin T 120 Min campo (0-10) ng/L Delta Troponin T (0-10) ABS# C-Reactive Protein (0.0-4.9) mg/L NT-Pro-B Natriuret Pep (0-125) pg/mL Total Protein (6.6-8.7) g/dL Albumin (3.5-5.2) g/dL Globulin (1.3-4.6) g/dL Procalcitonin (0-0.5) ng/mL 10/30/20 Range/Units 19:46 WBC (4.0-10.0) 10^3/ uL RBC (4.1-5.3) 10^6/u L Hgb (11.5-15.3) g/dL Hct (37.0-47.0) % MCV (81-99) fL MCH (28.0-34.0) pg MCHC (30.0-36.0) g/dL RDW (12.1-15.1) % Plt Count (130-400) 10^3/c mm MPV (7.4-10.4) fL Neut % (Auto) % Lymph % (Auto) % Elmore % (Auto) % Eos % (Auto) % Baso % (Auto) % Neut # (Auto) (1.8-7.7) 10^3/u L Lymph # (Auto) (0.8-4.8) 10^3/u L Elmore # (Auto) (0.2-0.9) 10^3/u L Eos # (Auto) (0.0-0.8) 10^3/u L Baso # (Auto) (0.0-0.1) 10^3/u L Nucleated RBC % (a uto) % Nucleated RBCs # /100WBC PT (12.1-14.9) SECO NDS INR (0.8-1.2) Fibrinogen (174-498) mg/dL D-Dimer (0-0.59) ug/mIFE U Specimen Type Sample Site ABG pH (7.35-7.45) ABG pCO2 (35-45) mmHg ABG pO2 (80.0-100.0) mmH g ABG HCO3 (22-26) mmol/L ABG Base Excess (-2.0-2.0) mmol/ L Arik Test Hematocrit (37-47) % O2 Delivery Device FiO2 % Staff Electronic Warfare Officer ID Sodium (136-145) mmol/L Potassium (3.5-5.1) mmol/L Chloride (98-107) mmol/L Carbon Dioxide (22-29) mmol/L Anion Gap (5-19) BUN (8-23) mg/dL Creatinine (0.5-0.9) mg/dL GFR Calculation (90-130) mL/min Glucose (65-115) mg/dL Calculated Osmolal ity (285-295) mOsm/k g Lactic Acid (0.5-2.2) mmol/L Calcium (8.5-10.5) mg/dL Ferritin (15-150) ng/mL Total Bilirubin (0.15-1.2) mg/dL AST (0-32) U/L ALT (0-33) U/L Alkaline Phosphata se (35-105) IU/L Troponin T Baselin e (0-10) ng/L Troponin T 120 Min campo 6.00 (0-10) ng/L Delta Troponin T 0 (0-10) ABS# C-Reactive Protein (0.0-4.9) mg/L NT-Pro-B Natriuret Pep (0-125) pg/mL Total Protein (6.6-8.7) g/dL Albumin (3.5-5.2) g/dL Globulin (1.3-4.6) g/dL Procalcitonin (0-0.5) ng/mL Imaging Data^: CTA Chest: Attestation: I personally reviewed and interpreted this imaging study as follows: Radiologist's impression: [employer] [address] [address] Scan Report Signed Patient: Ana Paula Higuera #: [id number] : 5Acms#:[id number] Age/Sex: 65 / FADM Date: 10/30/20 Loc: ERRoom/Bed: Attending Dr: Ordering Provider/Ordering MD: Prisca Marc MD, [facility] [place] Date of Service: 10/30/20 Procedure(s): CT angio chest [facility] [id number] Accession Number(s): [id number] Report Number: [id number] PROCEDURE INFORMATION: Exam: CT Angiography Chest With Contrast Exam date and time: 10/30/2020 7:45 PM Age: 65 years old Clinical indication: Shortness of breath; Additional info: SOB, covid+ TECHNIQUE: Imaging protocol: Computed tomographic angiography of the chest with contrast. 3D rendering (Not supervised by radiologist): MIP and/or 3D reconstructed images were created by the technologist. Radiation optimization: All CT scans at this facility use at least one of these dose optimization techniques: automated exposure control; mA and/or kV adjustment per patient size (includes targeted exams where dose is matched to clinical indication); or iterative reconstruction. Contrast material: VISI; Contrast volume: 92 ml; Contrast route: INTRAVENOUS (IV); COMPARISON: CR XR chest 1V portable [id number] 10/30/2020 6:25 PM RADIATION DOSE METRICS: Total DLP (mGy-cm): 621.94 FINDINGS: Pulmonary arteries: Normal. No pulmonary emboli. Aorta: Unremarkable. No aortic aneurysm. No aortic dissection. Lungs: Centrilobular emphysematous changes. Patchy bilateral atelectasis versus minimal infiltrate. Pleural spaces: Unremarkable. No pneumothorax. No pleural effusion. Heart: Unremarkable. No cardiomegaly. No pericardial effusion. Lymph nodes: Unremarkable. No enlarged lymph nodes. Bones/joints: Unremarkable. No acute fracture. Soft tissues: Unremarkable. CT/CT angio chest PE protcl [id number] IMPRESSION: 1. Negative for pulmonary embolus. 2. Centrilobular emphysematous changes. 3. Patchy bilateral atelectasis versus minimal infiltrate. Radiation Dose CTDIVOL = (mGy): DLP = 621.94 (mGy-cm) Dictated By:Db Richard MD Signed By:Db Richard MDSigned Date/Time:10/30/202019 DD/ 18 EKG Data^: EKG 1: Attestation: I personally reviewed and interpreted this EKG as follows: EKG interpretation date: 10/30/20 EKG interpretation time: 18:36 Prior EKG tracings: not available for review Interpretation: Normal sinus rhythm. Heart rate is 67 bpm. Normal axis. No ST changes. EKG 2: Attestation: I personally reviewed and interpreted this EKG as follows: EKG interpretation date: 10/30/20 EKG interpretation time: 20:23 Prior EKG tracings: available for review Interpretation: Normal sinus rhythm. Heart rate [address] changes. Normal axis. No significant change from earlier Critical Care Time Critical Care Time: Critical Care Time: Yes Total Critical Care Time: 60 Attestation: This case had a high probability of a clinically significant, sudden, or life threatening deterioration of this patient's condition which required my full and direct attention, intervention and personal management. Discharge Plan Discharge Patient Disposition: Admitted As Inpatient Admit Provider: Ranjeet Huggins Clinical Impression: Pneumonia due to COVID-19 virus, Acute respiratory failure with hypoxia Condition: Stable Coding Level of Care Code ED Education And Outreach Coordinator for [facility]
[2020-10-30 18:47] LABS: Basophils % 0.2 %; Hematocrit 52.4 % (37.0-47.0); Hemoglobin 18.4 g/dL (11.5-15.3); Lymphocytes % 9.4 %; Mean Corpuscular HGB Conc 35.1 g/dL (30.0-36.0); Mean Corpuscular Hemoglobin 32.1 pg (28.0-34.0); Mean Corpuscular Volume 91.4 fL (81-99); Mean Platelet Volume 11.1 fL (7.4-10.4); Monocytes # 1.3 10^3/uL (0.2-0.9); Neutrophils # 7.79 10^3/uL (1.8-7.7); Neutrophils % 75.9 %; Nucleated Red Blood Cells % 0 %; Platelet Count 126 10^3/cmm (130-400); Red Blood Count 5.73 10^6/uL (4.1-5.3); Red Cell Distribution Width 13.2 % (12.1-15.1); White Blood Count 10.3 10^3/uL (4.0-10.0)
[2020-10-30 18:57] LABS: Fibrinogen 385 mg/dL (174-498); INR 0.99 (0.8-1.2)
[2020-10-30 19:00] LABS: D Dimer 1.39 ug/mIFEU (0-0.59)
[2020-10-30 19:01] LABS: Lactic Sepsis W/Reflex 1.5 mmol/L (0.5-2.2)
[2020-10-30 19:05] LABS: Troponin(5th) Baseline 6 ng/L (0-10)
--- NOTE | 2020-10-30 19:09 | CTR_ITS ---
PROCEDURE INFORMATION: Exam: CT Angiography Chest With Contrast Exam date and time: 10/30/2020 7:45 PM Age: 65 years old Clinical indication: Shortness of breath; Additional info: SOB, covid+ TECHNIQUE: Imaging protocol: Computed tomographic angiography of the chest with contrast. 3D rendering (Not supervised by radiologist): MIP and/or 3D reconstructed images were created by the technologist. Radiation optimization: All CT scans at this facility use at least one of these dose optimization techniques: automated exposure control; mA and/or kV adjustment per patient size (includes targeted exams where dose is matched to clinical indication); or iterative reconstruction. Contrast material: VISI; Contrast volume: 92 ml; Contrast route: INTRAVENOUS (IV); COMPARISON: CR XR chest 1V portable [id number] 10/30/2020 6:25 PM RADIATION DOSE METRICS: Total DLP (mGy-cm): 621.94 FINDINGS: Pulmonary arteries: Normal. No pulmonary emboli. Aorta: Unremarkable. No aortic aneurysm. No aortic dissection. Lungs: Centrilobular emphysematous changes. Patchy bilateral atelectasis versus minimal infiltrate. Pleural spaces: Unremarkable. No pneumothorax. No pleural effusion. Heart: Unremarkable. No cardiomegaly. No pericardial effusion. Lymph nodes: Unremarkable. No enlarged lymph nodes. Bones/joints: Unremarkable. No acute fracture. Soft tissues: Unremarkable. CT/CT angio chest PE protcl [id number] IMPRESSION: 1. Negative for pulmonary embolus. 2. Centrilobular emphysematous changes. 3. Patchy bilateral atelectasis versus minimal infiltrate. Radiation Dose CTDIVOL = (mGy): DLP = 621.94 (mGy-cm)
[2020-10-30 19:12] LABS: NT Pro B Type Natriuretic Pept 111 pg/mL (0-125); Procalcitonin 0.07 ng/mL (0-0.5)
[2020-10-30 19:23] LABS: Alanine Aminotransferase 85 U/L (0-33); Albumin Level 3.5 g/dL (3.5-5.2); Alkaline Phosphatase 112 IU/L (35-105); Anion Gap 14.8 (5-19); Aspartate Amino Transferase 83 U/L (0-32); Blood Urea Nitrogen 17 mg/dL (8-23); C Reactive Protein 9.3 mg/L (0.0-4.9); Calcium 8.5 mg/dL (8.5-10.5); Carbon Dioxide 26 mmol/L (22-29); Chloride 96 mmol/L (98-107); Globulin 3.6 g/dL (1.3-4.6); Glomerular Filtration Rate 100.3 mL/min (90-130); Glucose 75 mg/dL (65-115); Osmolality Calculated 276 mOsm/kg (285-295); Potassium 3.8 mmol/L (3.5-5.1); Sodium 133 mmol/L (136-145); Total Protein 7.1 g/dL (6.6-8.7)
[2020-10-30] MEDS: iohexol 350 mg/mL 100 mL Btl IV (19:51)
--- NOTE | 2020-10-30 20:06 | ECG_ITS ---
[facility] Test Date: 2020-10-30 Pat Name: Ana Paula Higuera Department: Room: Gender: Female Side Framer: : 1955 Requested By: Prisca Marc I Order Number: [id number] Estefania MD: Lyubov Alonso M.D. Measurements Intervals [place] Rate: 60 P: 56 MI: 165 QRS: 45 QRSD: 80 T: 60 QT: 398 QTc: 400 Interpretive Statements SINUS RHYTHM Compared to ECG 10/30/2020 18:36:45 No significant changes Electronically Signed On 10-31-2020 20:32:51 AMBULANCE OFFICER by Lyubov Alonso M.D. [id number]
[2020-10-30 20:26] LABS: Troponin 5 2HR Delta 0 ABS# (0-10)
--- NOTE | 2020-10-30 22:48 | PM.HP ---
Providers/Chief Complaint Admitting Physician: Ranjeet Huggins Primary Care Provider: Samantha Wylie MD Chief Complaint: COVID+, CONFUSION History of Present Illness Ana Paula Higuera is a 65 year old female with a history of COPD, hypertension and hypothyroidism recently hospitalized for Covid pneumonia about a week ago. Patient was discharged with oral dexamethasone therapy. Patient stated she started getting worse 2 days after discharge. She reports progressive shortness of breath and cough, as well as generalized weakness. Patient now requiring oxygen in the ED. her arterial blood gas showed hypoxia. Patient placed on 6 L oxygen by nasal cannula with SaO2 of 95%. CT chest done in the emergency department showed diffuse patchy infiltrate consistent with Covid pneumonia. She is afebrile, and does not meet criteria for sepsis. Patient is admitted for worsening Covid pneumonia with hypoxia. Review of Systems Narrative: Except as documented, all other systems reviewed and negative. Medications/Allergies Home Medications Medication Instructions Recorded Confirmed Last Taken Type allopurinol 300 mg tablet 300 mg PO DAILY@12 tab 10/08/19 10/30/20 10/30/20 History amitriptyline 25 mg tablet 25 mg PO BEDTIME@0 10/08/19 10/30/20 10/29/20 History atenolol 25 mg tablet 25 mg PO BID@10/08/19 10/30/20 10/30/20 History benzonatate 100 mg capsule 100 mg PO TID PRN #15 cap 10/08/19 10/30/20 10/11/19 Rx gabapentin 300 mg capsule 300 mg PO TID@08,12,10/08/19 10/30/20 10/30/20 History levothyroxine 50 mcg capsule 50 mcg PO DAILY@08 10/08/19 10/30/20 10/30/20 History lorazepam 0.5 mg tablet 0.5 mg PO TID PRN 10/08/19 10/30/20 10/11/19 History omeprazole 40 mg capsule,delayed 40 mg PO DAILY@08 cap 10/08/19 10/30/20 10/30/20 History release tizanidine 4 mg capsule 4 mg PO QID PRN 10/08/19 10/30/20 10/11/19 History tramadol 50 mg tablet 50 mg PO Q6H PRN 10/08/19 10/30/20 10/11/19 History Centrum Women 1 tab PO DAILY@08 10/24/20 10/30/20 10/30/20 History acetaminophen [Tylenol Extra 1,000 mg PO PRN 10/24/20 10/30/20 Unknown History Strength] albuterol sulfate [Ventolin HFA] 2 puff INHALATION QID PRN 10/24/20 10/30/20 Unknown History dexamethasone 6 mg PO DAILY #9 tab 10/24/20 10/30/20 10/30/20 Rx triamterene-hydrochlorothiazid 1 cap PO DAILY@08 10/30/20 10/30/20 10/30/20 History Allergies Allergy/AdvReac Type Severity Reaction Status Date / Time aspirin Allergy ALGY-Rash Verified 10/24/20 13:21 PFSH Acute PFSH: Medical History Chronic back pain COPD (chronic obstructive pulmonary disease) Hypertension Kidney stones Surgical History H/O right wrist surgery Previous back surgery Previous section S/P cholecystectomy Family History Other Family history non-contributory Social History Smoking and tobacco status: former smoker Alcohol intake: never Vitals/I&O/Wt Last Vital Signs Temp 98.4 F 10/30/20 17:41 Pulse 77 10/30/20 18:48 Resp 17 10/30/20 18:43 BP 112/74 10/30/20 18:43 Pulse Ox 93 10/30/20 18:48 Weight last 48 hrs Weight 90.265 kg Physical Exam Const: COMMON NORMALS: patient oriented x3 and alert GENERAL APPEARANCE: in distress (Mild) HENMT: COMMON NORMALS: normocephalic and atraumatic MOUTH: Normal oral and palatal mucosa present and moist mucous membranes abnormal Eye: COMMON NORMALS: Equal, round and reactive pupils present, EOMs intact bilaterally, conjunctivae normal and no scleral icterus Neck/C-Spine: COMMON NORMALS: no lymphadenopathy, supple and no JVD Lymph: LYMPHATIC: no lymphadenopathy noted Chest: COMMONS NORMALS: normal inspection of the chest and normal palpation of entire chest wall CHEST: Yes Symmetrical chest wall rise Resp: COMMON NORMALS: No use of accessory muscles AUSCULTATION: rales (Mild bibasilar Rales) Cardio: COMMON NORMALS: regular rate, regular rhythm, S1 normal heart sound present and S2 normal heart sound present GI: COMMON NORMALS: Normal to inspection, nondistended, normoactive bowel sounds present, Soft to palpation, non-tender and No hepatosplenomegaly present : COMMON NORMALS: Yes no CVA tenderness Back/Pelvis: COMMON NORMALS: thoraco-lumbar ROM normal Extremity: COMMON NORMALS: no clubbing, cyanosis or edema and no calf tenderness Neuro: COMMON NORMALS: patient oriented x3, CN's II-XII intact bilaterally and no focal motor deficits Psych: COMMON NORMALS: mental status grossly normal, Normal thought process present and speech normal Skin: COMMON NORMALS: no rashes or lesions noted and no jaundice Data : 10/31/20 01:25 10/31/20 01:25 Micro: Microbiology 10/30/20 19:46 Blood Culture - Preliminary Blood SPECIMEN COLLECTED 10/30/20 18:06 Blood Culture - Preliminary Blood SPECIMEN COLLECTED A&P Assessment and plan (1) Pneumonia due to COVID-19 virus: Status: Acute (2) Acute respiratory failure with hypoxia: Status: Acute (3) COPD (chronic obstructive pulmonary disease): Status: Acute (4) Hypertension: Status: Acute Additional A&P Information Admit patient to the medical floor. Droplet isolation Start IV dexamethasone. Patient agrees to convalescent plasma transfusion. We will give 1 unit. Vitamin D and C supplementation. Bronchodilators as needed Titrate oxygen. Would also recommend IV remdesivir. Continue antihypertensives Attestations Medical Necessity Statement*: Patient will need hospitalization for management of progressive Covid pneumonia with hypoxia. She is expected to spend more than 2 midnights. Time Spent in Patient Care: (>than 50% of time spent in counselling and/or direct pt care on unit). 62 minutes. 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
[2020-10-31] VITALS (28 sets, daily range): BP systolic 110–153; BP diastolic 68–92; PULSE 57–126; RESP 7–26; TEMP 36.3–37.1; O2SAT 92–98
[2020-10-31 00:15] LABS: Ferritin 381 ng/mL (15-150)
[2020-10-31] MEDS: famotidine 20 mg/2 mL INJ IVP ×2 (01:07→13:35)
[2020-10-31] MEDS: dexamethasone 4 mg/mL INJ 6 MG IVP ×2 (01:08→13:35)
[2020-10-31] MEDS: enoxaparin 40 mg/0.4 mL Syringe SUBCUT (01:08)
[2020-10-31] MEDS: benzonatate 100 mg Capsule PO (01:10)
[2020-10-31] MEDS: TRAMadol 50 mg Tablet PO ×3 (01:10→22:24)
[2020-10-31] MEDS: remdesivir 200 MG in sodium chloride 0.9% (100 ml) 100 ML 100 MG IV (01:31)
[2020-10-31 02:00] LABS: Basophils % 0.3 %; Hematocrit 50.9 % (37.0-47.0); Hemoglobin 17.8 g/dL (11.5-15.3); Lymphocytes # 1.1 10^3/uL (0.8-4.8); Lymphocytes % 11.6 %; Mean Corpuscular Hemoglobin 32.1 pg (28.0-34.0); Mean Corpuscular Volume 91.9 fL (81-99); Mean Platelet Volume 10.6 fL (7.4-10.4); Monocytes # 1.3 10^3/uL (0.2-0.9); Monocytes % 13.5 %; Neutrophils % 73.2 %; Nucleated Red Blood Cells % 0 %; Platelet Count 126 10^3/cmm (130-400); Red Blood Count 5.54 10^6/uL (4.1-5.3); Red Cell Distribution Width 13.2 % (12.1-15.1); White Blood Count 9.6 10^3/uL (4.0-10.0)
[2020-10-31 02:17] LABS: Alanine Aminotransferase 88 U/L (0-33); Albumin Level 3.4 g/dL (3.5-5.2); Alkaline Phosphatase 109 IU/L (35-105); Anion Gap 15.7 (5-19); Aspartate Amino Transferase 83 U/L (0-32); Blood Urea Nitrogen 19 mg/dL (8-23); Calcium 8.6 mg/dL (8.5-10.5); Carbon Dioxide 26 mmol/L (22-29); Chloride 94 mmol/L (98-107); Globulin 3.5 g/dL (1.3-4.6); Glucose 82 mg/dL (65-115); Magnesium 1.9 mg/dL (1.7-2.3); Osmolality Calculated 275 mOsm/kg (285-295); Phosphorus 3.5 mg/dL (2.5-4.5); Potassium 3.7 mmol/L (3.5-5.1); Sodium 132 mmol/L (136-145); Total Bilirubin 1.1 mg/dL (0.15-1.2); Total Protein 6.9 g/dL (6.6-8.7)
[2020-10-31 02:18] LABS: C Reactive Protein 10.9 mg/L (0.0-4.9); Troponin 5 6HR Delta 0 ng/L (0-12)
[2020-10-31 02:27] LABS: Procalcitonin 0.11 ng/mL (0-0.5)
[2020-10-31] MEDS: ascorbic acid 500 mg Tablet 2000 MG PO ×2 (08:17→16:55)
[2020-10-31] MEDS: cholecalciferol (vitamin D3) 1,000 unit Tablet 4000 UNIT PO (08:18)
[2020-10-31] MEDS: atenolol 50 mg Tablet 25 MG PO ×2 (08:18→21:10)
[2020-10-31] MEDS: pantoprazole DR 40 mg Tablet PO (08:18)
[2020-10-31] MEDS: gabapentin 300 mg Capsule PO ×3 (08:18→21:10)
[2020-10-31] MEDS: levothyroxine 50 mcg Tablet PO (08:18)
[2020-10-31] MEDS: albuterol 8 gm MDI 2 PUFF INHALATION ×3 (08:28→20:28)
[2020-10-31] MEDS: allopurinol 300 mg Tablet PO (13:36)
[2020-10-31] MEDS: ondansetron 2 mg/ML SDV 2 mL 4 MG IVP (13:46)
--- NOTE | 2020-10-31 15:17 | P.PN_ITS ---
Subjective Subjective: Interval history: Patient reports feeling slightly better. Continues to be diaphoretic. Reports phlegm productive cough and difficulty with urination. Vitals/I&O/Wt Last Vital Signs Temp 97.8 F 10/31/20 14:14 Pulse 69 10/31/20 14:14 Resp 18 10/31/20 14:14 BP 123/74 10/31/20 14:14 Pulse Ox 92 10/31/20 14:14 10/31/20 10/31/20 10/31/20 06:59 14:59 22:59 Intake Total 820 / 820 600 / 600 Output Total 500 / 500 600 / 600 Balance 320 / 320 0 / 0 Weight last 48 hrs Weight 90.265 kg Physical Exam Narrative: EXAM NARRATIVE: Exam shows coarse breath sounds throughout. Heart is regular and lower extremities show no edema. Abdomen is soft and nontender. Data : 10/31/20 01:25 10/31/20 01:25 Micro: Microbiology 10/30/20 19:46 Blood Culture - Preliminary Blood SPECIMEN COLLECTED 10/30/20 18:06 Blood Culture - Preliminary Blood SPECIMEN COLLECTED A&P Assessment and plan (1) Pneumonia due to COVID-19 virus: Status: Acute (2) Acute respiratory failure with hypoxia: Status: Acute (3) COPD (chronic obstructive pulmonary disease): Status: Acute (4) Hypertension: Status: Acute Additional A&P Information PLAN: Continue remdesivir and dexamethasone. Awaiting urinalysis. We will add ceftriaxone and azithromycin as bacterial infection cannot be ruled out Continue Protonix for GI protection. Attestations Medical Necessity Statement*: Patient with acute hypoxic respiratory failure and pneumonia requires close viral ICU monitoring and treatment. 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
[2020-10-31 15:33] LABS: Add Urine Microscopic? NO
[2020-10-31 15:48] LABS: Bilirubin Urine Neg (Negative); Blood Urine Neg (Negative); Glucose Urine UA 2+ (Normal); Ketones Urine 1+ (Negative); Leukocyte Esterase Urine Negative (Negative); Nitrate Urine Negative (Negative); Protein Urine Neg (Negative); Urine Appearance Clear (CLEAR); Urine Color Yellow (Yellow); Urobilinogen Urine 4 mg/dL (Negative); pH Urine 6 (5-7)
[2020-10-31] MEDS: cefTRIAXone 1,000 MG in sodium chloride 0.9% (plus) 50 ML 100 MG IV (16:39)
[2020-10-31] MEDS: azithromycin 500 MG in sodium chloride 0.9% 250 ML 250 MG IV (17:30)
--- NOTE | 2020-10-31 19:00 | PC.NURSE ---
Report received, care assumed. Monitor alarms, plan of care et previous orders reviewed. Please see physical assessment et vital sign flowsheet for details.
[2020-10-31] MEDS: amitriptyline 25 mg Tablet PO (21:10)
[2020-10-31] MEDS: LORazepam 1 mg Tablet PO (22:25)
[2020-11-01] VITALS (27 sets, daily range): BP systolic 110–147; BP diastolic 57–84; PULSE 49–75; RESP 12–23; TEMP 36.4–36.5; O2SAT 91–96
[2020-11-01] MEDS: dexamethasone 4 mg/mL INJ 6 MG IVP ×2 (00:22→12:33)
[2020-11-01] MEDS: famotidine 20 mg/2 mL INJ IVP ×2 (00:22→12:33)
[2020-11-01] MEDS: enoxaparin 40 mg/0.4 mL Syringe SUBCUT (00:22)
[2020-11-01] MEDS: remdesivir 100 MG in sodium chloride 0.9% (100 ml) 100 ML IV (06:15)
[2020-11-01 06:26] LABS: Basophils % 0.2 %; Hematocrit 47.4 % (37.0-47.0); Hemoglobin 16.4 g/dL (11.5-15.3); Lymphocytes # 0.6 10^3/uL (0.8-4.8); Lymphocytes % 12.7 %; Mean Corpuscular HGB Conc 34.6 g/dL (30.0-36.0); Mean Corpuscular Volume 92.6 fL (81-99); Mean Platelet Volume 10.8 fL (7.4-10.4); Monocytes # 0.4 10^3/uL (0.2-0.9); Neutrophils # 3.51 10^3/uL (1.8-7.7); Neutrophils % 78.2 %; Nucleated Red Blood Cells % 0 %; Platelet Count 105 10^3/cmm (130-400); Red Blood Count 5.12 10^6/uL (4.1-5.3); Red Cell Distribution Width 13.2 % (12.1-15.1); White Blood Count 4.5 10^3/uL (4.0-10.0)
[2020-11-01 06:56] LABS: Alanine Aminotransferase 62 U/L (0-33); Albumin Level 3.3 g/dL (3.5-5.2); Alkaline Phosphatase 103 IU/L (35-105); Anion Gap 12.3 (5-19); Aspartate Amino Transferase 44 U/L (0-32); Blood Urea Nitrogen 19 mg/dL (8-23); C Reactive Protein 17.9 mg/L (0.0-4.9); Calcium 8.7 mg/dL (8.5-10.5); Carbon Dioxide 27 mmol/L (22-29); Chloride 96 mmol/L (98-107); Globulin 3.8 g/dL (1.3-4.6); Glomerular Filtration Rate 100.3 mL/min (90-130); Glucose 218 mg/dL (65-115); Osmolality Calculated 281 mOsm/kg (285-295); Potassium 4.3 mmol/L (3.5-5.1); Sodium 131 mmol/L (136-145); Total Bilirubin 0.8 mg/dL (0.15-1.2); Total Protein 7.1 g/dL (6.6-8.7)
[2020-11-01] MEDS: ascorbic acid 500 mg Tablet 2000 MG PO ×2 (08:26→17:53)
[2020-11-01] MEDS: gabapentin 300 mg Capsule PO ×3 (08:26→21:48)
[2020-11-01] MEDS: pantoprazole DR 40 mg Tablet PO (08:26)
[2020-11-01] MEDS: levothyroxine 50 mcg Tablet PO (08:26)
[2020-11-01] MEDS: cholecalciferol (vitamin D3) 1,000 unit Tablet 4000 UNIT PO (08:27)
[2020-11-01] MEDS: TRAMadol 50 mg Tablet PO ×2 (09:12→21:48)
[2020-11-01] MEDS: albuterol 8 gm MDI 2 PUFF INHALATION ×2 (09:21→21:35)
[2020-11-01] MEDS: LORazepam 1 mg Tablet PO (11:00)
[2020-11-01] MEDS: allopurinol 300 mg Tablet PO (11:03)
--- NOTE | 2020-11-01 11:39 | P.PN_ITS ---
Subjective Subjective: Interval history: Patient reports feeling slightly better. She has much more energy and denies shortness of breath or chest pain this morning. She is asking if we can restart her Ativan for anxiety. Vitals/I&O/Wt Last Vital Signs Temp 97.6 F 11/01/20 04:00 Pulse 63 11/01/20 09:24 Resp 20 H 11/01/20 09:24 BP 117/75 11/01/20 04:00 Pulse Ox 93 11/01/20 09:24 10/31/20 11/01/20 11/01/20 22:59 06:59 14:59 Intake Total 747 / 1347 340 / 340 Output Total 400 / 1000 650 / 1650 200 / 200 Balance 347 / 347 -650 / -303 140 / 140 Weight last 48 hrs Weight 90.265 kg Physical Exam Narrative: EXAM NARRATIVE: Improved air movement throughout.. Heart is regular and lower extremities show no edema. Abdomen is soft and nontender. Data : 11/01/20 05:15 11/01/20 05:15 Micro: Microbiology 10/30/20 19:46 Blood Culture - Preliminary Blood NEGATIVE TO DATE 10/30/20 18:06 Blood Culture - Preliminary Blood NEGATIVE TO DATE A&P Assessment and plan (1) Pneumonia due to COVID-19 virus: Status: Acute (2) Acute respiratory failure with hypoxia: Status: Acute (3) COPD (chronic obstructive pulmonary disease): Status: Acute (4) Hypertension: Status: Acute Additional A&P Information PLAN: Continue current monitoring and treatment. Continue physical therapy. Attestations Medical Necessity Statement*: Patient with COVID-19 pneumonia requires close viral ICU monitoring and treatment until deemed safe for discharge. 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
--- NOTE | 2020-11-01 15:56 | PC.RESP ---
Pulmonary Rehab information sent to patient.
--- NOTE | 2020-11-01 15:58 | PC.RESP ---
Smoking Cessation information sent to patient.
[2020-11-01] MEDS: cefTRIAXone 1,000 MG in sodium chloride 0.9% (plus) 50 ML 100 MG IV (16:07)
[2020-11-01] MEDS: azithromycin 500 MG in sodium chloride 0.9% 250 ML 250 MG IV (16:08)
[2020-11-01] MEDS: LORazepam 0.5 mg Tablet PO ×2 (16:09→21:48)
[2020-11-01] MEDS: atenolol 50 mg Tablet 25 MG PO (21:49)
[2020-11-01] MEDS: amitriptyline 25 mg Tablet PO (21:49)
[2020-11-02] VITALS (31 sets, daily range): BP systolic 93–139; BP diastolic 57–86; PULSE 50–76; RESP 12–28; TEMP 36.3–36.9; O2SAT 81–95
[2020-11-02] MEDS: famotidine 20 mg/2 mL INJ IVP (01:11)
[2020-11-02] MEDS: enoxaparin 40 mg/0.4 mL Syringe SUBCUT (01:11)
[2020-11-02] MEDS: dexamethasone 4 mg/mL INJ 6 MG IVP ×2 (01:11→11:12)
[2020-11-02 05:49] LABS: Basophils % 0.2 %; Hematocrit 42.8 % (37.0-47.0); Hemoglobin 14.6 g/dL (11.5-15.3); Lymphocytes # 0.5 10^3/uL (0.8-4.8); Mean Corpuscular HGB Conc 34.1 g/dL (30.0-36.0); Mean Corpuscular Hemoglobin 31.7 pg (28.0-34.0); Mean Corpuscular Volume 92.8 fL (81-99); Mean Platelet Volume 11.5 fL (7.4-10.4); Monocytes # 0.3 10^3/uL (0.2-0.9); Monocytes % 5.9 %; Neutrophils # 4.57 10^3/uL (1.8-7.7); Neutrophils % 84.3 %; Nucleated Red Blood Cells % 0 %; Platelet Count 93 10^3/cmm (130-400); Red Blood Count 4.61 10^6/uL (4.1-5.3); Red Cell Distribution Width 13.3 % (12.1-15.1); White Blood Count 5.4 10^3/uL (4.0-10.0)
[2020-11-02] MEDS: remdesivir 100 MG in sodium chloride 0.9% (100 ml) 100 ML IV (06:52)
[2020-11-02] MEDS: gabapentin 300 mg Capsule PO ×3 (07:45→19:32)
[2020-11-02] MEDS: levothyroxine 50 mcg Tablet PO (07:45)
[2020-11-02] MEDS: pantoprazole DR 40 mg Tablet PO (07:46)
[2020-11-02] MEDS: albuterol 8 gm MDI 2 PUFF INHALATION ×4 (07:48→19:57)
[2020-11-02 08:10] LABS: Alanine Aminotransferase 48 U/L (0-33); Albumin Level 2.9 g/dL (3.5-5.2); Alkaline Phosphatase 92 IU/L (35-105); Anion Gap 14.7 (5-19); Aspartate Amino Transferase 34 U/L (0-32); Blood Urea Nitrogen 23 mg/dL (8-23); C Reactive Protein 6.9 mg/L (0.0-4.9); Calcium 8.5 mg/dL (8.5-10.5); Carbon Dioxide 25 mmol/L (22-29); Chloride 101 mmol/L (98-107); Globulin 3.4 g/dL (1.3-4.6); Glomerular Filtration Rate 123.8 mL/min (90-130); Glucose 210 mg/dL (65-115); Osmolality Calculated 292 mOsm/kg (285-295); Potassium 4.7 mmol/L (3.5-5.1); Sodium 136 mmol/L (136-145); Total Bilirubin 0.6 mg/dL (0.15-1.2); Total Protein 6.3 g/dL (6.6-8.7)
--- NOTE | 2020-11-02 09:34 | PC.NURSE ---
Nurse Held morning dose of atenolol due to bradycardia. HR was 55. Current systolic BP is 114.
[2020-11-02] MEDS: ascorbic acid 500 mg Tablet 2000 MG PO (09:39)
[2020-11-02] MEDS: cholecalciferol (vitamin D3) 1,000 unit Tablet 4000 UNIT PO (09:40)
[2020-11-02] MEDS: tizanidine 4 mg Tablet PO ×2 (09:45→19:32)
--- NOTE | 2020-11-02 09:45 | PC.NURSE ---
Patient report's pain on a scale of 5/10. Describes it as more of a muscles spasm pain related to past back surgeries. Nurse administered PRN zanaflex.
--- NOTE | 2020-11-02 10:14 | PM.PN ---
Subjective Subjective: Interval history: Patient reports further improvement. Her breathing is getting better. She denies chest pain or abdominal pain. She continues to require 5 L of oxygen saturating in the low 90s. Energy level appears to be getting better. Vitals/I&O/Wt Last Vital Signs Temp 98.4 F 11/02/20 04:00 Pulse 55 L 11/02/20 07:50 Resp 20 H 11/02/20 07:50 BP 115/68 11/02/20 04:00 Pulse Ox 93 11/02/20 07:50 11/01/20 11/02/20 11/02/20 22:59 06:59 14:59 Intake Total 540 / 1120 480 / 1600 100 / 100 Output Total 600 / 1000 Balance -60 / 120 480 / 600 100 / 100 Physical Exam Narrative: EXAM NARRATIVE: Improved air movement throughout with very minimal bibasilar Rales. Heart is regular and lower extremities show no edema. Abdomen is soft and nontender. Data : 11/02/20 04:20 11/02/20 07:15 A&P Assessment and plan (1) Pneumonia due to COVID-19 virus: Status: Acute (2) Acute respiratory failure with hypoxia: Status: Acute (3) COPD (chronic obstructive pulmonary disease): Status: Acute (4) Hypertension: Status: Acute (5) Thrombocytopenia: This appears to be chronic and likely secondary to hypersplenism noted on imaging Status: Acute Additional A&P Information PLAN: Continue current monitoring and treatment. We will start Pepcid as patient is also on Protonix. Continue physical therapy. Attestations Medical Necessity Statement*: Patient with COVID-19 pneumonia requires close viral ICU monitoring and treatment as she still has significant oxygen demand. 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
[2020-11-02] MEDS: allopurinol 300 mg Tablet PO (11:02)
--- NOTE | 2020-11-02 13:53 | PC.NURSE ---
Nurse Ambulated patient in the hallway. Approximately 75 feet. Patient maintained an oxygen saturation of 93% on 4L NC, but reported some slight dizziness near the end. Nurse sat patient in chair when returning to the room and changed linens.
[2020-11-02] MEDS: TRAMadol 50 mg Tablet PO ×2 (15:24→19:32)
[2020-11-02] MEDS: lanolin oint 7 gm 1 APPLIC TOPICAL (15:40)
--- NOTE | 2020-11-02 16:40 | DCPLANNER ---
Attempted to call the room to discuss the IM, she doesn't answer. Will try again and note that she is not being d/c'd today.
[2020-11-02] MEDS: cefTRIAXone 1,000 MG in sodium chloride 0.9% (plus) 50 ML 100 MG IV (16:59)
[2020-11-02] MEDS: azithromycin 500 MG in sodium chloride 0.9% 250 ML 250 MG IV (17:00)
[2020-11-02] MEDS: efferdent effervescent 1 EACH DENTAL (18:46)
--- NOTE | 2020-11-02 18:54 | PC.NURSE ---
Shift summary: uneventful shift. Patient o2 requirements have decreaed form 5 L nc to 4 L NC. patient ambulated for the first time today and went about 75 feet. Maintained saturation of 93%, but reported slight weakness and dizziness near the end of the walk.
--- NOTE | 2020-11-02 18:55 | PC.NURSE ---
late note: nurse oserved patient using a petroleum based chapstick borught form home. Nurse explained risks of petroleum product use with oxygen and got an order for a non petroleum based lip balm.
[2020-11-02] MEDS: sennosides 8.6 mg Tablet 17.2 MG PO (19:31)
[2020-11-02] MEDS: LORazepam 0.5 mg Tablet PO (19:32)
[2020-11-02] MEDS: amitriptyline 25 mg Tablet PO (19:35)
--- NOTE | 2020-11-02 19:45 | PC.NURSE ---
Received report from off going nurse. Pt's plan of care reviewed. Pt resting in bed watching tv. Respirations are even and unlabored. No s/sx of distress noted. Pt is alert and oriented and able to make her own decisions. Pt complains of lower back pain that is chronic in nature from prior surgeries. Pt denies any other pains or concerns at this time. Pt is very pleasant and cooperative with care. Off going nurse stated that he had to hold the atenolol due to pt's HR dropping. Pt's HR at this time is 60. Will hold due to low HR. Pt is requesting her medications early tonight. Pt stated she was up all day and is wanting some rest tonight. Bed in lowest and locked position, call light and water within reach, x's 2 rails up. Will continue to monitor pt.
[2020-11-02] MEDS: ondansetron 2 mg/ML SDV 2 mL 4 MG IVP (19:59)
[2020-11-03] VITALS (19 sets, daily range): BP systolic 87–137; BP diastolic 56–79; PULSE 52–94; RESP 5–25; TEMP 36.4–36.7; O2SAT 90–96
[2020-11-03] MEDS: dexamethasone 4 mg/mL INJ 6 MG IVP ×2 (00:54→12:12)
[2020-11-03] MEDS: enoxaparin 40 mg/0.4 mL Syringe SUBCUT (00:54)
[2020-11-03 03:55] LABS: Hematocrit 42.1 % (37.0-47.0); Hemoglobin 14.5 g/dL (11.5-15.3); Lymphocytes # 0.5 10^3/uL (0.8-4.8); Lymphocytes % 11.6 %; Mean Corpuscular HGB Conc 34.4 g/dL (30.0-36.0); Mean Corpuscular Hemoglobin 32.2 pg (28.0-34.0); Mean Corpuscular Volume 93.3 fL (81-99); Mean Platelet Volume 10.7 fL (7.4-10.4); Monocytes # 0.3 10^3/uL (0.2-0.9); Monocytes % 6.3 %; Neutrophils # 3.23 10^3/uL (1.8-7.7); Neutrophils % 81.3 %; Nucleated Red Blood Cells % 0 %; Platelet Count 86 10^3/cmm (130-400); Red Blood Count 4.51 10^6/uL (4.1-5.3)
[2020-11-03 04:10] LABS: Alanine Aminotransferase 46 U/L (0-33); Albumin Level 2.8 g/dL (3.5-5.2); Alkaline Phosphatase 94 IU/L (35-105); Anion Gap 13.9 (5-19); Aspartate Amino Transferase 28 U/L (0-32); Blood Urea Nitrogen 23 mg/dL (8-23); Calcium 8.2 mg/dL (8.5-10.5); Carbon Dioxide 25 mmol/L (22-29); Chloride 98 mmol/L (98-107); Globulin 3.3 g/dL (1.3-4.6); Glomerular Filtration Rate 100.3 mL/min (90-130); Glucose 246 mg/dL (65-115); Osmolality Calculated 286 mOsm/kg (285-295); Potassium 4.9 mmol/L (3.5-5.1); Sodium 132 mmol/L (136-145); Total Bilirubin 0.5 mg/dL (0.15-1.2); Total Protein 6.1 g/dL (6.6-8.7)
[2020-11-03] MEDS: remdesivir 100 MG in sodium chloride 0.9% (100 ml) 100 ML IV (06:18)
[2020-11-03] MEDS: TRAMadol 50 mg Tablet PO ×3 (06:19→19:49)
[2020-11-03] MEDS: tizanidine 4 mg Tablet PO (06:19)
[2020-11-03] MEDS: albuterol 8 gm MDI 2 PUFF INHALATION ×3 (08:10→19:49)
[2020-11-03] MEDS: levothyroxine 50 mcg Tablet PO (08:45)
[2020-11-03] MEDS: cholecalciferol (vitamin D3) 1,000 unit Tablet 4000 UNIT PO (08:45)
[2020-11-03] MEDS: gabapentin 300 mg Capsule PO ×3 (08:45→21:39)
[2020-11-03] MEDS: LORazepam 0.5 mg Tablet PO ×2 (08:45→19:49)
[2020-11-03] MEDS: benzonatate 100 mg Capsule PO ×2 (08:45→15:28)
[2020-11-03] MEDS: pantoprazole DR 40 mg Tablet PO (08:46)
--- NOTE | 2020-11-03 11:08 | PM.PN ---
Subjective Subjective: Interval history: Patient reports further improvement. She is now requiring 4 L to saturate in the mid 90s. She denies chest pain. Her appetite and oral intake are improving. Vitals/I&O/Wt Last Vital Signs Temp 98.0 F 11/03/20 05:00 Pulse 55 L 11/03/20 10:00 Resp 17 11/03/20 10:00 BP 115/59 11/03/20 10:00 Pulse Ox 95 11/03/20 10:00 11/02/20 11/03/20 11/03/20 22:59 06:59 14:59 Intake Total 540 / 1120 340 / 340 Output Total 600 / 800 Balance -60 / 320 340 / 340 Physical Exam Narrative: EXAM NARRATIVE: Very minimal bibasilar Rales.. Heart is regular and lower extremities show no edema. Abdomen is soft and nontender. Data : 11/03/20 03:05 11/03/20 03:05 A&P Assessment and plan (1) Pneumonia due to COVID-19 virus: Status: Acute (2) Acute respiratory failure with hypoxia: Status: Acute (3) COPD (chronic obstructive pulmonary disease): Status: Acute (4) Hypertension: Status: Acute (5) Thrombocytopenia: This appears to be chronic and likely secondary to hypersplenism noted on imaging Status: Acute Additional A&P Information PLAN: Continue current monitoring and treatment including physical therapy. If patient continues to improve we will likely be able to dismiss her home in couple of days. Hopefully patient's oxygen requirement improves Attestations Medical Necessity Statement*: Patient with acute hypoxic respiratory failure and COVID-19 pneumonia requires close vital ICU monitoring and treatment. 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
[2020-11-03] MEDS: allopurinol 300 mg Tablet PO (12:13)
[2020-11-03] MEDS: cefTRIAXone 1,000 MG in sodium chloride 0.9% (plus) 50 ML 100 MG IV (15:28)
[2020-11-03] MEDS: azithromycin 500 MG in sodium chloride 0.9% 250 ML 250 MG IV (16:23)
[2020-11-03] MEDS: ondansetron 2 mg/ML SDV 2 mL 4 MG IVP (21:39)
[2020-11-03] MEDS: atenolol 50 mg Tablet 25 MG PO (21:40)
[2020-11-03] MEDS: amitriptyline 25 mg Tablet PO (21:41)
[2020-11-04] VITALS (17 sets, daily range): BP systolic 114–134; BP diastolic 58–75; PULSE 50–74; RESP 15–28; TEMP 36.4–36.7; O2SAT 89–95
[2020-11-04] MEDS: enoxaparin 40 mg/0.4 mL Syringe SUBCUT ×2 (00:25→23:50)
[2020-11-04] MEDS: dexamethasone 4 mg/mL INJ 6 MG IVP (00:25)
[2020-11-04] MEDS: remdesivir 100 MG in sodium chloride 0.9% (100 ml) 100 ML IV (05:29)
[2020-11-04] MEDS: albuterol 8 gm MDI 2 PUFF INHALATION ×4 (07:56→19:49)
[2020-11-04] MEDS: cholecalciferol (vitamin D3) 1,000 unit Tablet 4000 UNIT PO (08:56)
[2020-11-04] MEDS: atenolol 50 mg Tablet 25 MG PO ×2 (08:56→21:41)
[2020-11-04] MEDS: levothyroxine 50 mcg Tablet PO (08:57)
[2020-11-04] MEDS: pantoprazole DR 40 mg Tablet PO (08:57)
[2020-11-04] MEDS: gabapentin 300 mg Capsule PO ×3 (08:57→21:41)
[2020-11-04] MEDS: tizanidine 4 mg Tablet PO ×2 (08:57→15:14)
--- NOTE | 2020-11-04 12:57 | P.PN_ITS ---
Subjective Subjective: Interval history: Patient reports feeling better. She is now saturating in the low 90s on 2 L by nasal cannula. She denies chest pain or abdominal pain. Platelets are further down and given overall clinical improvement appear to be lagging behind. Vitals/I&O/Wt Last Vital Signs Temp 98.1 F 11/04/20 05:36 Pulse 65 11/04/20 12:00 Resp 18 11/04/20 12:00 BP 115/75 11/04/20 10:00 Pulse Ox 92 11/04/20 12:00 11/03/20 11/04/20 11/04/20 22:59 06:59 14:59 Intake Total 660 / 1240 340 / 1580 940 / 940 Output Total 350 / 550 400 / 950 350 / 350 Balance 310 / 690 -60 / 630 590 / 590 Physical Exam Narrative: EXAM NARRATIVE: Clear lungs. Heart is regular and lower extremities show no edema. Abdomen is soft and nontender. Data : 11/03/20 03:05 11/03/20 03:05 A&P Assessment and plan (1) Pneumonia due to COVID-19 virus: Status: Acute (2) Acute respiratory failure with hypoxia: Status: Acute (3) COPD (chronic obstructive pulmonary disease): Status: Acute (4) Hypertension: Status: Acute (5) Thrombocytopenia: This appears to be chronic and likely secondary to hypersplenism noted on imaging Status: Acute Additional A&P Information PLAN: Patient does not feel strong enough to be dismissed home today. We will continue current monitoring and treatment. Attestations Medical Necessity Statement*: Patient with COVID-19 pneumonia and hypoxic respiratory failure requires close inpatient monitoring and treatment until deemed safe for discharge. 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
[2020-11-04] MEDS: allopurinol 300 mg Tablet PO (13:51)
[2020-11-04] MEDS: acetaminophen 325 mg Tablet 650 MG PO ×2 (15:14→21:40)
[2020-11-04] MEDS: cefTRIAXone 1,000 MG in sodium chloride 0.9% (plus) 50 ML 100 MG IV (15:14)
[2020-11-04] MEDS: azithromycin 500 MG in sodium chloride 0.9% 250 ML 250 MG IV (15:50)
[2020-11-04] MEDS: LORazepam 0.5 mg Tablet PO ×2 (15:56→21:41)
--- NOTE | 2020-11-04 19:22 | PC.NURSE ---
Report given to ASA Singleton.
[2020-11-04] MEDS: amitriptyline 25 mg Tablet PO (21:41)
[2020-11-05] VITALS (8 sets, daily range): BP systolic 122–146; BP diastolic 62–72; PULSE 57–86; RESP 18–26; TEMP 36.6–36.9; O2SAT 90–93
[2020-11-05] MEDS: levothyroxine 50 mcg Tablet PO (07:55)
[2020-11-05] MEDS: pantoprazole DR 40 mg Tablet PO (07:55)
[2020-11-05] MEDS: gabapentin 300 mg Capsule PO ×2 (07:55→11:32)
[2020-11-05] MEDS: LORazepam 0.5 mg Tablet PO (07:55)
[2020-11-05] MEDS: atenolol 50 mg Tablet 25 MG PO (07:55)
[2020-11-05] MEDS: cholecalciferol (vitamin D3) 1,000 unit Tablet 4000 UNIT PO (07:56)
[2020-11-05] MEDS: albuterol 8 gm MDI 2 PUFF INHALATION (08:18)
--- NOTE | 2020-11-05 09:36 | P.DS_ITS ---
Discharge Providers Date of Admission: 10/30/20 22:26 Date of Discharge: November 05, 2020 Attending Provider at Admission: Ranjeet Huggins Attending Provider at Discharge: Gunner Mccann MD Primary Care Provider: Samantha Wylie MD Diagnoses at Discharge Discharge Diagnosis (1) Pneumonia due to COVID-19 virus: Status: Acute (2) Acute respiratory failure with hypoxia: Status: Acute (3) COPD (chronic obstructive pulmonary disease): Status: Acute (4) Hypertension: Status: Acute (5) Thrombocytopenia: Status: Acute Reason for Visit Reason for Visit: COVID+, CONFUSION Hospital Course Hospital Course Patient presented with acute hypoxic respite failure secondary to COVID-19 pneumonia. She was treated with antibiotics in addition to antiviral medication and steroids. She gradually improved and this morning reports feeling much better and strong enough to be dismissed home. She is saturating 93% on room air at rest. We will walk her and evaluate patient for home O2. She denies chest pain or abdominal pain. She had adequate amount of antibiotics therefore I will not continue any additional after she is discharged. Physical Exam Narrative: EXAM NARRATIVE: Lungs are clear and heart is regular. No lower extremity edema. Abdomen is soft and nontender with positive bowel sounds. Discharge Data Data Completed and Pending: Completed Studies During Hospitalization Category Date Time Status CT angio chest PE protcl [id number] Stat Cat Scan 10/30/20 19:09 Completed XR chest 1V hector ble [id number] Stat Exams 10/30/20 18:04 Completed Pending at discharge Category Date Time Status Complete Blood Co unt w/Auto Stat Lab 11/05/20 07:43 Ordered Comprehensive Met abolic Panel Stat Lab 11/05/20 07:43 Ordered Vitals: Last Vital Signs Temp 98.4 F 11/05/20 08:00 Pulse 86 11/05/20 08:19 Resp 18 11/05/20 08:19 BP 146/72 11/05/20 08:00 Pulse Ox 93 11/05/20 08:19 Discharge Plan Discharge Patient Disposition: Home Condition: Stable Prescriptions: New cholecalciferol (vitamin D3) 25 mcg (1,000 unit) Tablet 4,000 unit PO DAILY Qty: 30 RF: 0 sennosides [Senna Lax] 8.6 mg Tablet 17.2 mg PO BEDTIME PRN (Reason: Constipation) Qty: 10 RF: 0 Continued tizanidine 4 mg capsule 4 mg PO QID PRN (Reason: Muscle Spasm) RF: 0 atenolol 25 mg tablet 25 mg PO BID@ RF: 0 amitriptyline 25 mg tablet 25 mg PO BEDTIME@2199 RF: 0 tramadol 50 mg tablet 50 mg PO Q6H PRN (Reason: Pain) RF: 0 gabapentin 300 mg capsule 300 mg PO TID@08,, RF: 0 omeprazole 40 mg capsule,delayed release(DR/EC) 40 mg PO DAILY@08 RF: 0 levothyroxine 50 mcg capsule 50 mcg PO DAILY@08 RF: 0 lorazepam 0.5 mg tablet 0.5 mg PO TID PRN (Reason: Anxiety) RF: 0 allopurinol 300 mg tablet 300 mg PO DAILY@12 RF: 0 acetaminophen [Tylenol Extra Strength] 500 mg Tablet 1,000 mg PO PRN RF: 0 albuterol sulfate [Ventolin HFA] 90 mcg/actuation HFA aerosol inhaler 2 puff INHALATION QID PRN (Reason: Shortness Of Breath) RF: 0 Centrum Women 18-400 mg-mcg Tablet 1 tab PO DAILY@08 RF: 0 triamterene-hydrochlorothiazid 37.5-25 mg Capsule 1 cap PO DAILY@08 RF: 0 Discontinued benzonatate [Tessalon Perles] 100 mg capsule 100 mg PO TID PRN (Reason: cough) Qty: 15 RF: 0 dexamethasone 4 mg Tablet 6 mg PO DAILY Qty: 9 RF: 0 Referrals: Samantha Wylie MD [Primary Care Provider] - 4-7 days Discharge Diet: Usual diet Discharge Activity: Increase activity as tolerated Activity Restrictions/Additional Instructions: Please call your doctor or present to emergency department if your condition worsens or you develop diarrhea, lightheadedness, fatigue or see blood in your stool or black stool. 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
[2020-11-05 10:02] LABS: Basophils % 0.1 %; Eosinophils % 0.3 %; Lymphocytes # 0.6 10^3/uL (0.8-4.8); Lymphocytes % 6.4 %; Mean Corpuscular Hemoglobin 31.9 pg (28.0-34.0); Mean Corpuscular Volume 93.8 fL (81-99); Monocytes # 0.5 10^3/uL (0.2-0.9); Monocytes % 5.5 %; Neutrophils # 8.08 10^3/uL (1.8-7.7); Neutrophils % 86.9 %; Nucleated Red Blood Cells % 0 %; Platelet Count 92 10^3/cmm (130-400); Red Blood Count 5.01 10^6/uL (4.1-5.3); Red Cell Distribution Width 12.8 % (12.1-15.1); White Blood Count 9.3 10^3/uL (4.0-10.0)
[2020-11-05 10:30] LABS: Alanine Aminotransferase 61 U/L (0-33); Albumin Level 2.9 g/dL (3.5-5.2); Alkaline Phosphatase 105 IU/L (35-105); Anion Gap 12.3 (5-19); Aspartate Amino Transferase 44 U/L (0-32); Blood Urea Nitrogen 19 mg/dL (8-23); Calcium 8.2 mg/dL (8.5-10.5); Carbon Dioxide 26 mmol/L (22-29); Chloride 99 mmol/L (98-107); Globulin 3.3 g/dL (1.3-4.6); Glomerular Filtration Rate 100.3 mL/min (90-130); Glucose 215 mg/dL (65-115); Osmolality Calculated 285 mOsm/kg (285-295); Potassium 4.3 mmol/L (3.5-5.1); Sodium 133 mmol/L (136-145); Total Bilirubin 1.1 mg/dL (0.15-1.2); Total Protein 6.2 g/dL (6.6-8.7)
--- NOTE | 2020-11-05 10:45 | DCPLANNER ---
Yesterday, this conventional mortgage underwriter discussed the IM with this pt. failed to enter a note.
[2020-11-05] MEDS: allopurinol 300 mg Tablet PO (11:32)
== END 2020-11-05 11:50 | disposition home or self-care (01) | DRG 177 ==
LOC: ER 17:49 → MS 2A 22:41
PROVIDERS: Admitting Provider Internal Medicine; Emergency Provider Family Medicine; PCP Family Medicine; Visit Provider Internal Medicine
DX: U07.1 COVID-19 (principal); J12.82 Pneumonia due to coronavirus disease 2019; J96.01 Acute respiratory failure with hypoxia; J44.0 Chronic obstructive pulmonary disease with (acute) lower respiratory infection; E03.9 Hypothyroidism, unspecified; G89.29 Other chronic pain; M54.9 Dorsalgia, unspecified; Z87.442 Personal history of urinary calculi; Z87.891 Personal history of nicotine dependence; D69.6 Thrombocytopenia, unspecified; Z79.51 Long term (current) use of inhaled steroids
CPT/HCPCS: 12345; 36415; 36430; 36600; 71045; 71275; 80053; 81003; 82728; 82803; 83605; 83735; 83880; 84100; 84145; 84484; 85025; 85378; 85384; 85610; 86140; 86900; 86927; 87040; 93005; 94640; 96372; 97110; 97162; 99282; J0456; J0696; J1100; J1650; J2405; J3490; J3535; J7050; P9017; Q9967

== ENCOUNTER → 2021-08-06 15:28 | Outpatient (BNVA) | payer MEDICARE, MEDICAID, SELFPAY | PROVIDERS: PCP Family Medicine; Visit Provider Nurse Practitioner | DX: R06.2 Wheezing (principal); Z20.822 Contact with and (suspected) exposure to COVID-19 | CPT/HCPCS: 71046; 87635 ==

== ENCOUNTER 2021-12-16 12:46 | Emergency (ER) | payer MEDICARE, MEDICAID, SELFPAY ==
[2021-12-16] VITALS (10 sets, daily range): BP systolic 156–184; BP diastolic 94–110; PULSE 68–83; RESP 13–22; TEMP 36.8; O2SAT 91–95; BMI 33.3
--- NOTE | 2021-12-16 12:59 | W.ED.SOB ---
HPI - SOB/Dyspnea General: Chief Complaint: Shortness of Breath/Dyspnea Stated Complaint: Couging up blood, SOB, Chest Pain Time Seen by Provider: 12/16/21 12:59 History of Present Illness: HPI Narrative: Ms. Higuera is a 66-year-old lady with history of COPD, hypertension, hyperlipidemia who presents to the emergency department due to concern over cough with blood in sputum. She reports approximately 2 weeks gradual onset symptoms. She initially just shortness of breath and mild chest discomfort in the left chest. She has subsequently had increased chest discomfort as well as coughing up blood and bloody sinus drainage. She has had near syncope after coughing fits. Intensity symptoms is moderate to severe. Course of been worsening. She denies history of COPD exacerbation this bad in the past. No other specific changes in health, exacerbating, or alleviating factors identified. Pertinent past history: COPD Onset (ago): week(s) Timing: progressively worsening Severity: moderate Exacerbating factors: exertion and coughing Review of Systems General: Reports: 10 or more systems reviewed and unremarkable except in HPI and below PFSH ED PFSH: Medical History Chronic back pain COPD (chronic obstructive pulmonary disease) Hypertension Kidney stones Surgical History H/O right wrist surgery Previous back surgery Previous section S/P cholecystectomy Family History Other Family history non-contributory Social History Smoking and tobacco status: former smoker Alcohol intake: never Physical Exam Const: COMMON NORMALS: alert GENERAL APPEARANCE: cooperative and well developed HENMT: COMMON NORMALS: normocephalic and atraumatic HEAD & SCALP: normocephalic and atraumatic Eye: COMMON NORMALS: conjunctivae normal CONJUNCTIVA: Yes conjunctivae normal SCLERA: sclerae normal Neck/C-Spine: COMMON NORMALS: supple GENERAL: Yes trachea midline Resp: EFFORT & INSPECTION: Yes tachypneic AUSCULTATION: diminished lung sounds Cardio: COMMON NORMALS: regular rate and regular rhythm RATE: regular rate RHYTHM: regular rhythm GI: COMMON NORMALS: Soft to palpation PALPATION: Yes Soft to palpation and No Tenderness to palpation present (GI) PERCUSSION: normal to percussion Extremity: GENERAL: Yes normal exam except as noted and No edema Neuro: COMMON NORMALS: moves all extremities SENSORIUM/ORIENTATION: Yes alert and No Orientation impaired Psych: COMMON NORMALS: mental status grossly normal and Normal thought process present THOUGHT PROCESS: Normal thought process present Course ED course: - Patient was seen and evaluated by me at bedside - Patient placed on cardiac monitors, IV access obtained - Initial evaluation notable for exam as above - Labs and xrays personally interpreted by me - Fluids, COPD treatment, and RT treatments - Labs notable for no leukocytosis, hemoconcentration, thrombocytopenia which appears chronic of unclear etiology. No acute metabolic derangement. D-dimer is elevated. Elevated AST as previously noted as well. Viral studies positive for entero-/rhino virus. Negative delta troponin - Imaging notable for no lobar consolidation or pneumothorax. Given hemoptysis D-dimer was clinically warranted and given outpatient CTA was ordered. CTA without large pulmonary lesion or acute finding to explain symptoms. I did discuss the limited examination with the patient. Given that the patient is not requiring oxygen and not tachycardic I believe that overall combination of factors leads to reasonable decision not to evaluate further. Additionally patient has no leg pain or asymmetric edema. - Upon serial reexamination after treatment the patient was improved - Based on patient history, evaluation, and testing as interpreted the most likely cause of the patient's condition is viral exacerbation of COPD with likely bronchitis leading to hemoptysis - The results of ED evaluation were discussed with the patient including prescriptions and/or symptomatic cares (if applicable) including appropriate and responsible use, followup plan, and return precautions. The patient verbalized understanding and felt safe for discharge. - Patient discharged in satisfactory condition. Note: Click bubbles or prepopulated bender in note writing are used for assistance with data collection and billing and are inherently more limited than narrative and other text portions of this note. Please use narrative for additional clinical history and defer to narrative/free test for any case of contradictory information. If information appears in only free text or click bubble it should be considered present or absent as reported. Please contact note filing writer for clarifications of clinical information or contradictory information. MDM is a brief summary, contradictory or erroneous seeming information should be clarified and full note should be reviewed. Vital Signs: Vital signs: Vital Signs Temperature 98.3 F 12/16/21 12:51 Pulse Rate 78 12/16/21 17:06 Respiratory Rate 18 12/16/21 17:06 Blood Pressure 162/99 12/16/21 17:06 Pulse Oximetry 94 12/16/21 17:06 MDM - SOB/Dyspnea Medical Decision Making 66-year-old lady with history of COPD presenting with worsening cough and bloody sputum. ED evaluation with positive viral testing for rhinovirus, CTA negative for proximal pulmonary embolism with limited further evaluation. Patient not requiring oxygen and improved with treatment. Satisfactory for outpatient treatment and management for COPD exacerbation. Medical Records I reviewed the patient's medical records. Lab Data I reviewed the patient's lab results. : 12/16/21 13:25 12/16/21 13:25 Labs/Radiology: Radiology Impressions Chest X-Ray 12/16/21 13:16 IMPRESSION: No acute cardiopulmonary abnormality identified. Chest CTA 12/16/21 13:59 IMPRESSION: 1. Proximal main pulmonary arteries are normal. No evidence of pulmonary embolus. 2. No acute pulmonary infiltrates. Slight hazy subsegmental atelectasis RIGHT upper lobe. 3. No additional findings. Laboratory Results WBC 5.6 10^3/uL (4.0-10.0) 12/16/21 13:25 RBC 5.14 10^6/uL (4.1-5.3) 12/16/21 13:25 Hgb 16.0 g/dL (11.5-15.3) H 12/16/21 13:25 Hct 48.1 % (37.0-47.0) H 12/16/21 13:25 MCV 93.6 fl (81-99) 12/16/21 13:25 MCH 31.1 pg (28.0-34.0) 12/16/21 13:25 MCHC 33.3 g/dL (30.0-36.0) 12/16/21 13:25 RDW 13.5 % (12.1-15.1) 12/16/21 13:25 Plt Count 56 10^3/cmm (130-400) L 12/16/21 13:25 MPV 10.9 fL (7.4-10.4) H 12/16/21 13:25 Neut % (Auto) 66.4 % 12/16/21 13:25 Lymph % (Auto) 18.5 % 12/16/21 13:25 Dyer % (Auto) 7.7 % 12/16/21 13:25 Eos % (Auto) 6.1 % 12/16/21 13:25 Baso % (Auto) 0.9 % 12/16/21 13:25 Neut # (Auto) 3.73 10^3/uL (1.8-7.7) 12/16/21 13:25 Lymph # (Auto) 1.0 10^3/uL (0.8-4.8) 12/16/21 13:25 [place]yer # (Auto) 0.4 10^3/uL (0.2-0.9) 12/16/21 13:25 Eos # (Auto) 0.3 10^3/uL (0.0-0.8) 12/16/21 13:25 Baso # (Auto) 0.1 10^3/uL (0.0-0.1) 12/16/21 13:25 Nucleated RBC % (auto) 0 % 12/16/21 13:25 Nucleated RBCs # 0.0 /100WBC 12/16/21 13:25 D-Dimer 1.34 ug/mIFEU (0-0.59) H 12/16/21 13:25 Sodium 139 mmol/L (136-145) 12/16/21 13:25 Potassium 4.2 mmol/L (3.5-5.1) 12/16/21 13:25 Chloride 104 mmol/L (98-107) 12/16/21 13:25 Carbon Dioxide 22 mmol/L (22-29) 12/16/21 13:25 Anion Gap 17.2 (5-19) 12/16/21 13:25 BUN 15 mg/dL (8-23) 12/16/21 13:25 Creatinine 0.6 mg/dL (0.5-0.9) 12/16/21 13:25 GFR Calculation 100.0 mL/min (90-130) 12/16/21 13:25 Glucose 139 mg/dL (65-115) H 12/16/21 13:25 Calculated Osmolality 291 mOsm/kg (285-295) 12/16/21 13:25 Calcium 9.7 mg/dL (8.5-10.5) 12/16/21 13:25 Total Bilirubin 1.0 mg/dL (0.15-1.2) 12/16/21 13:25 AST 43 U/L (0-32) H 12/16/21 13:25 ALT 29 U/L (0-33) 12/16/21 13:25 Alkaline Phosphatase 112 IU/L (35-105) H 12/16/21 13:25 Troponin T Baseline 6 ng/L (0-10) 12/16/21 13:25 Troponin T 120 Minute 6.00 ng/L (0-10) 12/16/21 15:46 Delta Troponin T 6 ABS# (0-10) 12/16/21 15:46 NT-Pro-B Natriuret Pep 119 pg/mL (0-125) 12/16/21 13:25 Total Protein 7.2 g/dL (6.6-8.7) 12/16/21 13:25 Albumin 4.3 g/dL (3.5-5.2) 12/16/21 13:25 Globulin 2.9 g/dL (1.3-4.6) 12/16/21 13:25 Coronavirus 229E (PCR) Not detected (NOT DETECT) 12/16/21 13:25 Human Metapneumovir PCR Not detected (NOT DETECT) 12/16/21 16:04 Entero/Rhino (PCR) Detected (NOT DETECT) A 12/16/21 16:04 SARS-CoV-2 (PCR) Not detected (NOT DETECT) 12/16/21 13:25 EKG Data EKG 1: I personally reviewed and interpreted this EKG as follows: EKG Interpretation Date: 12/16/21 Interpretation: Twelve-lead EKG shows a regular rhythm at a rate of 73. CA interval 172, QRS duration 71, QTc 390. Normal axis. Interpretation: Sinus rhythm. Discharge Plan Discharge Patient Disposition: Home Clinical Impression: Acute bronchitis due to Rhinovirus, Acute exacerbation of chronic obstructive pulmonary disease Condition: Stable Prescriptions: New albuterol sulfate 90 mcg/actuation HFA aerosol inhaler 2 inh inhalation Q8H PRN (Reason: shortness of breath or wheezing) Qty: 8.5 0RF doxycycline hyclate 100 mg tablet 100 mg PO Q12H 10 Days Qty: 20 0RF No Action tizanidine 4 mg capsule 4 mg PO QID PRN (Reason: Muscle Spasm) 0RF atenolol 25 mg tablet 25 mg PO BID@ 0RF amitriptyline 25 mg tablet 25 mg PO BEDTIME@2199 0RF tramadol 50 mg tablet 50 mg PO Q6H PRN (Reason: Pain) 0RF gabapentin 300 mg capsule 300 mg PO TID@08,, 0RF omeprazole 40 mg capsule,delayed release(DR/EC) 40 mg PO DAILY@08 0RF levothyroxine 50 mcg capsule 50 mcg PO DAILY@08 0RF lorazepam 0.5 mg tablet 0.5 mg PO TID PRN (Reason: Anxiety) 0RF allopurinol 300 mg tablet 300 mg PO DAILY@12 0RF acetaminophen [Tylenol Extra Strength] 500 mg Tablet 1,000 mg PO PRN 0RF albuterol sulfate [Ventolin HFA] 90 mcg/actuation HFA aerosol inhaler 2 puff INHALATION QID PRN (Reason: Shortness Of Breath) 0RF Centrum Women 18-400 mg-mcg Tablet 1 tab PO DAILY@08 0RF sennosides [Senna Lax] 8.6 mg Tablet 17.2 mg PO BEDTIME PRN (Reason: Constipation) Qty: 10 0RF cholecalciferol (vitamin D3) 25 mcg (1,000 unit) Tablet 4,000 unit PO DAILY Qty: 30 0RF losartan 25 mg tablet 25 mg PO DAILY 0RF Discharge Orders: Discharge ED (Routine); Ordered 12/16/21 Ordered By: Stevie Coe Referrals: Samantha Wylie MD [Primary Care Provider] - Discharge Diet: Usual diet Discharge Activity: Resume usual activity Patient Instructions: COPD (Chronic Obstructive Pulmonary Disease) (ED), Coughing Up Blood (Hemoptysis) (ED), Viral Syndrome (ED) Activity Restrictions/Additional Instructions: Thank you for visiting the emergency department. You were seen and evaluated for cough and shortness of breath as well as coughing blood. The exact cause of your symptoms is unclear though likely related to rhino/entero virus exacerbating your underlying COPD and causing bronchitis. I will give you a prescription for steroids, antibiotics, and please continue your albuterol inhalers as discussed. I would expect improvement in the next few days. Please follow-up with your primary care provider. Please return to the emergency department for worsening symptoms or anything else that you are concerned about and feel needs emergency department evaluation. 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
--- NOTE | 2021-12-16 13:16 | XRR_ITS ---
PROCEDURE INFORMATION: Exam: XR Chest Exam date and time: 12/16/2021 12:30 PM Age: 66 years old Clinical indication: Cough and shortness of breath. Shortness of breath since Wednesday. Cough for 3-4 weeks. Coughing up blood (irritation?) and yellow phlegm. Nausea and vomiting. TECHNIQUE: Imaging protocol: XR of the chest. Views: 1 view. COMPARISON: CR XR chest 2V* [id number] 08/06/2021 3:31 PM FINDINGS: Lungs: No pulmonary consolidation. Pleural spaces: No pleural effusion. No pneumothorax. Heart/Mediastinum: The cardiac silhouette is unchanged. No gross evidence of pneumomediastinum. Bones/joints: No gross fracture. XR/XR chest 1V portable [id number] IMPRESSION: No acute cardiopulmonary abnormality identified.
--- NOTE | 2021-12-16 13:17 | ECG_ITS ---
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 Measurements Intervals [place] Rate: 73 P: 75 ND: 172 QRS: 66 QRSD: 71 T: 62 QT: 365 QTc: 403 Interpretive Statements SINUS RHYTHM Compared to ECG 10/30/2020 20:23:19 No significant changes Electronically Signed On 12-16-2021 16:39:46 CDT by Lyubov Alonso M.D. [id number] f
[2021-12-16 13:37] LABS: Basophils # 0.1 10^3/uL (0.0-0.1); Basophils % 0.9 %; Eosinophils # 0.3 10^3/uL (0.0-0.8); Eosinophils % 6.1 %; Hematocrit 48.1 % (37.0-47.0); Lymphocytes % 18.5 %; Mean Corpuscular HGB Conc 33.3 g/dL (30.0-36.0); Mean Corpuscular Hemoglobin 31.1 pg (28.0-34.0); Mean Corpuscular Volume 93.6 fl (81-99); Mean Platelet Volume 10.9 fL (7.4-10.4); Monocytes # 0.4 10^3/uL (0.2-0.9); Monocytes % 7.7 %; Neutrophils # 3.73 10^3/uL (1.8-7.7); Neutrophils % 66.4 %; Nucleated Red Blood Cells % 0 %; Platelet Count 56 10^3/cmm (130-400); Red Blood Count 5.14 10^6/uL (4.1-5.3); Red Cell Distribution Width 13.5 % (12.1-15.1); White Blood Count 5.6 10^3/uL (4.0-10.0)
[2021-12-16] MEDS: ipratropium-albuterol 3 mL Neb INHALATION (13:38)
[2021-12-16 13:50] LABS: D Dimer 1.34 ug/mIFEU (0-0.59)
--- NOTE | 2021-12-16 13:57 | PC.NURSE ---
PT TO ER WITH C/O COUGH FOR THE LAST 2-3 WEEKS. PT HAS HX OF COPD AND HTN. PT HAD COVID LAST YEAR, IS NOT VACCINATED FOR COVID. PT C/O PAIN IN HER HEAD, BACK AND CHEST FROM COUGHING. PT A&OX4. NAD. VSS.
--- NOTE | 2021-12-16 13:59 | CT_ITS ---
WS: [id number] CTA OF THE CHEST WITH PULMONARY EMBOLISM PROTOCOL TECHNIQUE: High-resolution contrast enhanced CTA of the chest with coronal and sagittal reformatted i mages with pulmonary embolism protocol. MIP images are also reviewed. CLINICAL INFORMATION: cough, hemoptysis, sob COMPARISON: October 30, 2020 DLP: 621.[address] scans at [facility] use at least one of these dose optimization techniques: automated e xposure control; mA and/or kV adjustment per patient size (includes targeted exams where dose is matc hed to clinical indication); or iterative reconstruction. FINDINGS: Proximal main pulmonary arteries are normal. Normal segmental and subsegmental pulmonary arteries. No evidence for pulmonary embolus. Normal caliber thoracic aorta. Mild aortic calcification. No mediast inal or hilar lymphadenopathy. No subcarinal lymphadenopathy. Both lungs are well aerated. No acute pulmonary infiltrates. No focal consolidation or pleural fluid. Slight hazy subsegmental atelectasis RIGHT upper lobe. Adrenal glands are normal. Small esophageal hiatal hernia CT/CT angio chest PE protcl [id number] IMPRESSION: 1. Proximal main pulmonary arteries are normal. No evidence of pulmonary embol us. 2. No acute pulmonary infiltrates. Slight hazy subsegmental atelectasis RIGHT upper lobe. 3. No additional findings.
[2021-12-16 14:14] LABS: Troponin(5th) Baseline 6 ng/L (0-10)
[2021-12-16 14:16] LABS: Alanine Aminotransferase 29 U/L (0-33); Albumin Level 4.3 g/dL (3.5-5.2); Alkaline Phosphatase 112 IU/L (35-105); Aspartate Amino Transferase 43 U/L (0-32); Blood Urea Nitrogen 15 mg/dL (8-23); Calcium 9.7 mg/dL (8.5-10.5); Carbon Dioxide 22 mmol/L (22-29); Chloride 104 mmol/L (98-107); Globulin 2.9 g/dL (1.3-4.6); Glucose 139 mg/dL (65-115); NT Pro B Type Natriuretic Pept 119 pg/mL (0-125); Osmolality Calculated 291 mOsm/kg (285-295); Sodium 139 mmol/L (136-145); Total Protein 7.2 g/dL (6.6-8.7)
[2021-12-16] MEDS: lactated ringers 1,000 ML 999 ML IV (14:18)
[2021-12-16 14:19] LABS: Anion Gap 17.2 (5-19); Potassium 4.2 mmol/L (3.5-5.1)
[2021-12-16] MEDS: iohexol 350 mg/mL 100 mL Btl IV (14:55)
[2021-12-16 15:28] LABS: Adenovirus Not Detected (NOT DETECT); Chlamydia Pneumoniae Not Detected (NOT DETECT); Coronavirus 229E,HKU1,NL63,OC4 Not Detected (NOT DETECT); Human Metapneumovirus Not Detected (NOT DETECT); Human Rhinovirus/Enterovirus Detected (NOT DETECT); Influenza A Not Detected (NOT DETECT); Influenza A H1 Not Detected (NOT DETECT); Influenza A H1-2009 Not Detected (NOT DETECT); Influenza A H3 Not Detected (NOT DETECT); Influenza B Not Detected (NOT DETECT); Mycoplasma Pneumoniae Not Detected (NOT DETECT); Parainfluenza Virus Type 1 Not Detected (NOT DETECT); Parainfluenza Virus Type 2 Not Detected (NOT DETECT); Parainfluenza Virus Type 3 Not Detected (NOT DETECT); Parainfluenza Virus Type 4 Not Detected (NOT DETECT); Respiratory Syncytial Virus A Not Detected (NOT DETECT); Respiratory Syncytial Virus B Not Detected (NOT DETECT); SARS-COV-2 Not Detected (NOT DETECT)
[2021-12-16 16:04] LABS: Human Metapneumovirus Not Detected (NOT DETECT); Human Rhinovirus/Enterovirus Detected (NOT DETECT); Results from GE
[2021-12-16 16:33] LABS: Troponin 5 2HR Delta 6 ABS# (0-10)
[2021-12-16] MEDS: predniSONE 20 mg Tablet 40 MG PO (17:04)
== END 2021-12-16 17:11 | disposition home or self-care (01) ==
PROVIDERS: Emergency Provider Emergency Medicine; PCP Family Medicine
DX: J44.0 Chronic obstructive pulmonary disease with (acute) lower respiratory infection (principal); J20.6 Acute bronchitis due to rhinovirus; J44.1 Chronic obstructive pulmonary disease with (acute) exacerbation; I10 Essential (primary) hypertension; Z87.891 Personal history of nicotine dependence; Z20.822 Contact with and (suspected) exposure to COVID-19
CPT/HCPCS: 71045; 71275; 80053; 83880; 84484; 85025; 85378; 87635; 87801; 93005; 94640; 96360; 99284; J7512; J7611; Q9967

== ENCOUNTER → 2022-01-05 13:12 | Outpatient (BNVA) | payer MEDICARE, MEDICAID, SELFPAY | PROVIDERS: PCP Family Medicine; Visit Provider Podiatrist Foot & Ankle Surgery | DX: M72.2 Plantar fascial fibromatosis (principal); M20.41 Other hammer toe(s) (acquired), right foot; Z87.891 Personal history of nicotine dependence | CPT/HCPCS: 20550; 73630; 99213 ==

== ENCOUNTER 2022-01-22 13:08 | Outpatient (CLI) | payer MEDICARE, MEDICAID, SELFPAY ==
[2022-01-22 14:10] LABS: Basophils % 0.6 %; Eosinophils # 0.1 10^3/uL (0.0-0.8); Eosinophils % 2.4 %; Hematocrit 46.2 % (37.0-47.0); Hemoglobin 15.5 g/dL (11.5-15.3); Lymphocytes # 1.2 10^3/uL (0.8-4.8); Lymphocytes % 23.3 %; Mean Corpuscular HGB Conc 33.5 g/dL (30.0-36.0); Mean Corpuscular Hemoglobin 31.1 pg (28.0-34.0); Mean Corpuscular Volume 92.8 fl (81-99); Mean Platelet Volume 11.1 fL (7.4-10.4); Monocytes # 0.5 10^3/uL (0.2-0.9); Monocytes % 9.1 %; Neutrophils # 3.26 10^3/uL (1.8-7.7); Neutrophils % 64.2 %; Nucleated Red Blood Cells % 0 %; Platelet Count 54 10^3/cmm (130-400); Red Blood Count 4.98 10^6/uL (4.1-5.3); Red Cell Distribution Width 13.5 % (12.1-15.1); White Blood Count 5.1 10^3/uL (4.0-10.0)
--- NOTE | 2022-01-22 15:42 | ONC CON_ITS ---
Dr. Bowden New Patient Note Patient: Ana Paula Higuera Unit #: [id number]: 1955 Dicatated By: Dima Bowden M.D.Date of Visit: Jan 22, 2022 Onc MED New Patient/Consult Referring Physician: Dr. Samantha Cox M.D. History of Present Illness: Ms. Ana Paula Higuera, is a 66-year-old female with a history of gout,, chronic lower back pain essential hypertension, hypothyroidism lumbosacral neuritis, nonalcoholic fatty liver disease. Went to [facility] on December 16, 2021 with cough, progressive shortness of breath, she was diagnosed with upper respiratory infection treated with antibiotics and her lab work-up done on that day showed white blood count 5.6 hemoglobin 16 hematocrit 48.1 platelets 56,000 with a normal differential CMP was within normal limits except AST was 43 alk phos was 112. As per patient her PMD did repeat her platelet count and it was still normal, that was the reason she was referred to hematology clinic. Patient denies any history of thrombocytopenia or pancytopenia in the past, denies any history of night sweats, or recurrent fever, or night sweats or peripheral lymphadenopathy or abdominal fullness but she has history of COVID infection diagnosed in October 2020.Denies alcohol use or smoking Patient denies any jaundice, denies any hematuria or dysuria, denies any melena or hematochezia mops or hematemesis, denies any nosebleed or gum bleed, denies any petechia or ecchymosis denies any taking new medication but upper respiratory infection for which she went to [facility] ER on December 16, 2021, and there was the first time she was told about low platelet count. Past Medical History: Ms. Higuera's medical history consists of anxiety, chronic gastritis, gout, hypertension, hypothyroidism, low back pain, nonalcoholic fatty liver disease, and right shoulder rotator cuff syndrome. Past Surgical History: There is no documented surgical history. Medications: Allopurinol 1 Tablet (of 300 mg) Oral daily, Amitriptyline HCl 1 Tablet (of 25 mg) Oral at bedtime, Atenolol 1 Tablet (of 25 mg) Oral b.i.d., Centrum Women 1 Tablet Oral daily, Gabapentin 1 Capsule (of 300 mg) Oral t.i.d., Levothyroxine Sodium 1 Tablet (of 75 mcg) Oral daily, LORazepam 1 Tablet (of 0.5 mg) Oral t.i.d. PRN, Losartan Potassium 1 Tablet (of 100 mg) Oral daily, Omeprazole 1 Capsule (of 40 mg) Capsule Delayed Release Oral daily, Sertraline HCl 1 Tablet (of 50 mg) Oral daily, tiZANidine HCl 1 Tablet (of 4 mg) Oral four times a day PRN, traMADol HCl 1 Tablet (of 50 mg) Oral q 6 hours PRN, Ventolin HFA 2 Puff(s) (of 108 (90 base) mcg/act) Aerosol, solution Inhalation q 4 hours PRN Allergies: Aspirin and Lorcet. Social History: Ms. Higuera is single. Ms. Higuera no longer smokes. She is a former drinker. Family History: There is no documented family history. Review Of Symptoms: Review of Systems is not available for this patient. Vital Signs: Performed on Jan 22, 2022 14:53: 3, 4, 33.75 (HIGH), 1.99 sq.m, 65 in, 95 % (LOW), 66 /min, 18 /min, 161/91 mm(hg) (HIGH), 97.1 F (LOW), and 202.8 lbs (HIGH). Performance Status: 0 - Fully active, able to carry on all predisease activities without restrictions. (ECOG) Physical Examination: ENMT - No mouth sores, no thrush, no jaundice, no cervical lymphadenopathy, Respiratory - Poor air entry otherwise clear, Cardiovascular - Regular rate and rhythm of heart, Abdomen - Soft, bowel sounds present, Extremities - No visible edema. Lab/Imaging: Most recent lab results are not available for this patient. Impression: Isolated, moderate thrombocytopenia, etiology could be multifactorial including low-grade ITP triggered by recent upper respiratory infection or pseudothrombocytopenia due to platelet clumping or medications like allopurinol or SOUTH inhibitor or Underlying bone marrow disorder but less likely History of gout, on allopurinol Hypertension, on losartan Chronic gastritis hypothyroidism Nonalcoholic fatty liver disease Plan: Discussed with patient regarding her labs white blood count 5.1 hemoglobin 15.5 hematocrit 46.2 platelets 54,000 with normal differential Clinically, patient is doing well with no new signs symptoms history of gross bleeding her CBC shows persistent but isolated, moderate thrombocytopenia and remaining CBC within normal range. Etiology of her moderate, isolated thrombocytopenia could be multifactorial including but not limited to low-grade ITP, or medications like allopurinol or SOUTH inhibitor, or splenic sequestration hepatosplenomegaly, or pseudothrombocytopenia due to platelet clumping or transient thrombocytopenia due to recent infection or underlying bone marrow disorder but less likely. At this point, we will review her peripheral blood smear to rule out any platelet clumping and consider repeating CBC using heparinized tube to collect sample. And also hold allopurinol for 1 week and patient return to clinic in a week with CBC, patient was advised in case there is evidence of gross bleeding she need to call us or go to hospital otherwise we will see her back in a week with CBC, if there is no improvement in her blood counts, will proceed with further work-up which include abdominal sonogram to rule out splenomegaly and may consider bone marrow evaluation to rule out ITP Signed By: Dima Bowden M.D. <<Signature on File>>
[2022-01-22 15:56] LABS: LAB Peripheral Smear Sent for Review
== END 2022-01-22 13:09 | disposition home or self-care (01) ==
LOC: ONCMED 13:14
PROVIDERS: PCP Family Medicine; Visit Provider Internal Medicine Hematology & Oncology
DX: D69.6 Thrombocytopenia, unspecified (principal); M10.9 Gout, unspecified; I10 Essential (primary) hypertension; Z79.899 Other long term (current) drug therapy
CPT/HCPCS: 36415; 80503; 85025; 99204

== ENCOUNTER 2022-01-30 07:15 | Outpatient (CLI) | payer MEDICARE, MEDICAID, SELFPAY ==
--- NOTE | 2022-01-30 08:00 | US_ITS ---
WS: [id number] ULTRASOUND ABDOMEN LIMITED CLINICAL INFORMATION: Thrombocytopenia COMPARISON: None. FINDINGS: Spleen Splenomegaly: None. 14.9 x 5.6 x 5.6 cm LEFT kidney: Normal. Hydronephrosis: None. Size: 10.6 cm x 2.9 cm x 5.5 cm. US/US abdomen limited [id number] IMPRESSION: 1. LEFT kidney and spleen are normal in appearance. 2. No hydronephrosis in LEFT kidney.
== END 2022-01-30 07:16 | disposition home or self-care (01) ==
LOC: RAD 07:17
PROVIDERS: PCP Family Medicine; Visit Provider Internal Medicine Hematology & Oncology
DX: D69.6 Thrombocytopenia, unspecified (principal)
CPT/HCPCS: 76705

== ENCOUNTER 2022-02-13 07:45 | Outpatient (CLI) | payer MEDICARE, MEDICAID, SELFPAY ==
[2022-02-13 08:28] LABS: Basophils % 0.4 %; Eosinophils # 0.1 10^3/uL (0.0-0.8); Eosinophils % 2.4 %; Hematocrit 44.1 % (37.0-47.0); Hemoglobin 14.6 g/dL (11.5-15.3); Lymphocytes # 1.3 10^3/uL (0.8-4.8); Mean Corpuscular HGB Conc 33.1 g/dL (30.0-36.0); Mean Corpuscular Hemoglobin 31.5 pg (28.0-34.0); Mean Corpuscular Volume 95.2 fl (81-99); Mean Platelet Volume 10.5 fL (7.4-10.4); Monocytes # 0.6 10^3/uL (0.2-0.9); Monocytes % 11.2 %; Neutrophils # 2.89 10^3/uL (1.8-7.7); Neutrophils % 58.6 %; Nucleated Red Blood Cells % 0 %; Platelet Count 65 10^3/cmm (130-400); Red Blood Count 4.63 10^6/uL (4.1-5.3); Red Cell Distribution Width 13.3 % (12.1-15.1); White Blood Count 4.9 10^3/uL (4.0-10.0)
== END 2022-02-13 07:46 | disposition home or self-care (01) ==
LOC: LAB 07:53
PROVIDERS: PCP Family Medicine; Visit Provider Internal Medicine Hematology & Oncology
DX: Z47.89 Encounter for other orthopedic aftercare (principal); D69.6 Thrombocytopenia, unspecified
CPT/HCPCS: 85025; 99999

== ENCOUNTER 2022-02-19 08:50 | Outpatient (CLI) | payer MEDICARE, MEDICAID, SELFPAY ==
[2022-02-19 09:16] LABS: Basophils % 0.7 %; Eosinophils # 0.1 10^3/uL (0.0-0.8); Eosinophils % 2.5 %; Hematocrit 45.1 % (37.0-47.0); Hemoglobin 14.7 g/dL (11.5-15.3); Lymphocytes # 1.1 10^3/uL (0.8-4.8); Lymphocytes % 24.4 %; Mean Corpuscular HGB Conc 32.6 g/dL (30.0-36.0); Mean Corpuscular Volume 95.1 fl (81-99); Mean Platelet Volume 10.7 fL (7.4-10.4); Monocytes # 0.6 10^3/uL (0.2-0.9); Monocytes % 13.1 %; Neutrophils # 2.62 10^3/uL (1.8-7.7); Neutrophils % 59.1 %; Nucleated Red Blood Cells % 0 %; Platelet Count 72 10^3/cmm (130-400); Red Blood Count 4.74 10^6/uL (4.1-5.3); Red Cell Distribution Width 13.2 % (12.1-15.1); White Blood Count 4.4 10^3/uL (4.0-10.0)
== END 2022-02-19 08:51 | disposition home or self-care (01) ==
LOC: LAB 08:56
PROVIDERS: PCP Family Medicine; Visit Provider Internal Medicine Hematology & Oncology
DX: D69.6 Thrombocytopenia, unspecified (principal)
CPT/HCPCS: 85025

== ENCOUNTER 2022-02-24 07:30 | Oncology outpatient (recurring) (ONCR) | payer MEDICARE, MEDICAID, SELFPAY | END 2022-02-24 23:59 | disposition home or self-care (01) | PROVIDERS: PCP Family Medicine; Referring Provider Family Medicine; Visit Provider Internal Medicine Hematology & Oncology | DX: D69.6 Thrombocytopenia, unspecified (principal); R94.5 Abnormal results of liver function studies; J44.9 Chronic obstructive pulmonary disease, unspecified; Z79.52 Long term (current) use of systemic steroids; Z79.899 Other long term (current) drug therapy; Z87.891 Personal history of nicotine dependence | CPT/HCPCS: 36415; 85025; 99214; 99999 ==

== ENCOUNTER 2022-02-24 07:32 | Outpatient (CLI) | payer MEDICARE, MEDICAID, SELFPAY ==
[2022-02-24 08:06] LABS: Basophils % 0.2 %; Hematocrit 43.3 % (37.0-47.0); Hemoglobin 14.9 g/dL (11.5-15.3); Lymphocytes # 0.5 10^3/uL (0.8-4.8); Lymphocytes % 8.8 %; Mean Corpuscular HGB Conc 34.4 g/dL (30.0-36.0); Mean Corpuscular Hemoglobin 31.6 pg (28.0-34.0); Mean Corpuscular Volume 91.9 fl (81-99); Mean Platelet Volume 10.3 fL (7.4-10.4); Monocytes # 0.2 10^3/uL (0.2-0.9); Monocytes % 4.5 %; Neutrophils % 85.7 %; Nucleated Red Blood Cells % 0 %; Platelet Count 92 10^3/cmm (130-400); Red Blood Count 4.71 10^6/uL (4.1-5.3); Red Cell Distribution Width 13.2 % (12.1-15.1); White Blood Count 5.1 10^3/uL (4.0-10.0)
== END 2022-02-24 07:33 | disposition home or self-care (01) ==
LOC: LAB 07:33
PROVIDERS: PCP Family Medicine; Visit Provider Internal Medicine Hematology & Oncology
DX: D69.6 Thrombocytopenia, unspecified (principal)
CPT/HCPCS: 85025; 99999

== ENCOUNTER 2022-03-05 10:45 | Outpatient (CLI) | payer MEDICARE, MEDICAID, SELFPAY ==
--- NOTE | 2022-03-05 10:55 | MM_ITS ---
WS: [id number] VIEWS: MLO and CC views both breasts. 3D digital tomosynthesis is also included in this exam. Comparison made with prior exam of 05/17/2018,. Findings: There was no sign of mass, architectural distortion or suspicious calcification in either breast. Sc attered fibroglandular densities MM/[place] [id number] Impression: BI-RADS: 2-Benign FOLLOW-UP: 1 Year Follow-up This mammogram was also analyzed by the Computer Aided Detection System R2 Imag e Graduate Teaching Associate.
== END 2022-03-05 10:46 | disposition home or self-care (01) ==
LOC: RAD 10:49
PROVIDERS: PCP Family Medicine; Visit Provider Family Medicine
DX: Z12.31 Encounter for screening mammogram for malignant neoplasm of breast (principal)
CPT/HCPCS: 77063; 77067

== ENCOUNTER → 2022-03-25 12:48 | Outpatient (BNVA) | payer MEDICARE, MEDICAID, SELFPAY | PROVIDERS: PCP Family Medicine; Visit Provider Podiatrist Foot & Ankle Surgery | DX: M72.2 Plantar fascial fibromatosis (principal); M79.671 Pain in right foot; M20.41 Other hammer toe(s) (acquired), right foot | CPT/HCPCS: 99213 ==

== ENCOUNTER 2022-04-07 13:13 | Oncology outpatient (recurring) (ONCR) | payer MEDICARE, MEDICAID, SELFPAY ==
[2022-04-07 13:44] LABS: Basophils % 0.7 %; Eosinophils # 0.2 10^3/uL (0.0-0.8); Hematocrit 41.5 % (37.0-47.0); Hemoglobin 14.3 g/dL (11.5-15.3); Lymphocytes # 0.9 10^3/uL (0.8-4.8); Lymphocytes % 15.6 %; Mean Corpuscular HGB Conc 34.5 g/dL (30.0-36.0); Mean Corpuscular Volume 89.8 fl (81-99); Monocytes # 0.5 10^3/uL (0.2-0.9); Monocytes % 8.6 %; Neutrophils # 4.02 10^3/uL (1.8-7.7); Neutrophils % 70.6 %; Nucleated Red Blood Cells % 0 %; Platelet Count 92 10^3/cmm (130-400); Red Blood Count 4.62 10^6/uL (4.1-5.3); Red Cell Distribution Width 13.2 % (12.1-15.1); White Blood Count 5.7 10^3/uL (4.0-10.0)
== END 2022-04-26 23:59 | disposition home or self-care (01) ==
PROVIDERS: PCP Family Medicine; Referring Provider Family Medicine; Visit Provider Internal Medicine Hematology & Oncology
DX: D69.6 Thrombocytopenia, unspecified (principal); Z79.899 Other long term (current) drug therapy
CPT/HCPCS: 85025; 99214

== ENCOUNTER 2022-05-15 23:53 | Emergency (ER) | payer MEDICARE, MEDICAID, SELFPAY ==
[2022-05-16 00:16] VITALS: BP 134/74; PULSE 76; RESP 20; TEMP 36.8; O2SAT 92; BMI 33.3
--- NOTE | 2022-05-16 01:27 | XRR_ITS ---
PROCEDURE INFORMATION: Exam: XR Chest Exam date and time: 05/16/2022 1:34 AM Age: 66 years old Clinical indication: Shortness of breath; Additional info: Sob/cough TECHNIQUE: Imaging protocol: Radiologic exam of the chest. Views: 1 view. COMPARISON: CR XR chest 1V portable [id number] 12/16/2021 12:30 PM FINDINGS: Lungs: Unremarkable. No consolidation. Pleural spaces: Unremarkable. No pleural effusion. No pneumothorax. Heart/Mediastinum: Unremarkable. No cardiomegaly. Bones/joints: Unremarkable. XR/XR chest 1V portable [id number] IMPRESSION: No acute findings. Stable appearance of the chest compared with 12/16/2021.
--- NOTE | 2022-05-16 01:31 | ECG_ITS ---
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 Measurements Intervals [place] Rate: 69 P: 78 [place]: 166 QRS: 59 QRSD: 73 T: 68 QT: 379 QTc: 407 Interpretive Statements SINUS RHYTHM Compared to ECG 12/16/2021 12:56:05 No significant changes Electronically Signed On 05-16-2022 13:34:33 CDT by Lyubov Alonso M.D. [id number] f
[2022-05-16 01:44] LABS: Basophils % 0.4 %; Eosinophils # 0.2 10^3/uL (0.0-0.8); Eosinophils % 2.2 %; Hematocrit 42.6 % (37.0-47.0); Hemoglobin 14.4 g/dL (11.5-15.3); Lymphocytes % 13.3 %; Mean Corpuscular HGB Conc 33.8 g/dL (30.0-36.0); Mean Corpuscular Hemoglobin 30.6 pg (28.0-34.0); Mean Corpuscular Volume 90.4 fl (81-99); Monocytes # 0.8 10^3/uL (0.2-0.9); Neutrophils # 5.34 10^3/uL (1.8-7.7); Neutrophils % 72.6 %; Nucleated Red Blood Cells % 0 %; Platelet Count 89 10^3/cmm (130-400); Red Blood Count 4.71 10^6/uL (4.1-5.3); Red Cell Distribution Width 13.3 % (12.1-15.1); White Blood Count 7.4 10^3/uL (4.0-10.0)
[2022-05-16 02:03] LABS: Alanine Aminotransferase 25 U/L (0-33); Albumin Level 3.6 g/dL (3.5-5.2); Alkaline Phosphatase 110 U/L (35-105); Anion Gap 11.7 (5-19); Aspartate Amino Transferase 31 U/L (0-32); Blood Urea Nitrogen 10 mg/dL (8-23); Calcium 9.1 mg/dL (8.5-10.5); Carbon Dioxide 31 mmol/L (22-29); Chloride 99 mmol/L (98-107); Glomerular Filtration Rate 83.7 mL/min (90-130); Glucose 132 mg/dL (65-115); Osmolality Calculated 287 mOsm/kg (285-295); Potassium 3.7 mmol/L (3.5-5.1); Sodium 138 mmol/L (136-145); Total Protein 7.6 g/dL (6.6-8.7)
[2022-05-16] MEDS: doxycycline 100 mg Tablet PO (02:50)
[2022-05-16] MEDS: ipratropium-albuterol 3 mL Neb INHALATION (03:54)
[2022-05-16 03:56] VITALS: PULSE 64; RESP 19; O2SAT 93
[2022-05-16 03:59] VITALS: PULSE 74; O2SAT 95
--- NOTE | 2022-05-16 04:08 | PC.NURSE ---
Pt. left ER before I was able to swab her for covid. Pt. states that she took home covid test that was negative. Reported to physician that patient left before test.
--- NOTE | 2022-05-18 01:02 | ED_ITS ---
HPI - SOB/Dyspnea General: Chief Complaint: Shortness of Breath/Dyspnea Stated Complaint: SOB Time Seen by Provider: 05/16/22 02:00 Source: patient History of Present Illness: HPI Narrative: 66-year-old female. She presents with cough and shortness of breath progressively worsening over the past couple of weeks. She denies significant chest discomfort she has been taking Coricidin for the cough. She does not have bronchodilators at home. Cough is minimally productive. No fever. MD elicited complaint: shortness of breath and cough Pertinent past history: other Onset (ago): week(s) Timing: intermittent and progressively worsening Severity: moderate Exacerbating factors: lying flat, exertion and coughing Relieving factors: nothing Associated symptoms: Reports chest congestion, cough and lightheadedness; Deny abdominal pain, chest pain, diaphoresis, dizziness, fever(s), syncope or vomiting Treatment prior to arrival: none Review of Systems Const: Denies: fever(s) or diaphoresis Eyes: Denies: change in vision Card: Reports: lightheadedness; Denies: chest pain or syncope Resp: Reports: chest congestion GI: Denies: abdominal pain or vomiting Musc: Denies: neck pain Skin/Breast: Denies: rash Neuro: Reports: headache(s); Denies: dizziness PFSH ED PFSH: Medical History Abnormal LFTs Chronic back pain COPD (chronic obstructive pulmonary disease) Hypertension Hyponatremia Kidney stones Surgical History H/O right wrist surgery Previous back surgery Previous section S/P cholecystectomy Family History Sister Cancer Bone marrow cancer in remission Grandmother Diabetes Mother Diabetes Other Family history non-contributory Hypertension Denies family history of CAD (coronary artery disease) Clotting disorder Dementia Hyperlipidemia Psychiatric illness Chronic kidney disease (CKD) Suicide Anesthesia complication Bleeding disorder Lung disease Stroke Social History Smoking and tobacco status: former smoker Alcohol intake: never Physical Exam Const: GENERAL APPEARANCE: cooperative; not frail appearing HENMT: COMMON NORMALS: normocephalic, atraumatic and Normal external nose present HEAD & SCALP: normocephalic and atraumatic FACE & SINUS: normal facial exam and face symmetric NOSE: Normal external nose present and Normal nares present Eye: COMMON NORMALS: Equal, round and reactive pupils present and EOMs intact bilaterally PUPIL: Yes Equal, round and reactive pupils present Chest: CHEST: Yes Symmetrical chest wall rise Resp: COMMON NORMALS: normal respiratory effort and No use of accessory muscles AUSCULTATION: wheezes (slight) Cardio: COMMON NORMALS: regular rate and regular rhythm RATE: regular rate RHYTHM: regular rhythm GI: COMMON NORMALS: Normal to inspection, nondistended, normoactive bowel sounds present, Soft to palpation and non-tender PALPATION: Yes Soft to palpation Extremity: COMMON NORMALS: no pedal edema Neuro: YA COMA SCALE: document GCS findings Ya coma scale eye opening: Spontaneous Ya coma scale verbal response: Orientated [place] coma scale motor response: Obey commands Ya coma scale total score: 15 Course Vital Signs: Vital signs: Vital Signs Temperature 98.3 F 05/16/22 00:16 Pulse Rate 74 05/16/22 03:59 Respiratory Rate 19 H 05/16/22 03:56 Blood Pressure 134/74 05/16/22 00:16 Pulse Oximetry 95 05/16/22 03:59 Oxygen Delivery Me thod 05/16/22 03:56 MDM - SOB/Dyspnea Medical Decision Making Patient is afebrile. Mild thrombocytopenia present on CBC. Other laboratory is benign. Chest x-ray shows no acute findings. She is maintaining saturations here. She is better after nebulizer treatment. She will go home on albuterol, benzonatate, and doxycycline for acute bronchitis. COVID swab was ordered, but the patient left prior to being completed. Lab Data : 05/16/22 01:39 05/16/22 01:39 Labs/Radiology: Radiology Impressions Chest X-Ray 05/16/22 01:27 IMPRESSION: No acute findings. Stable appearance of the chest compared with 12/16/2021. Laboratory Results WBC 7.4 10^3/uL (4.0-10.0) 05/16/22 01:39 RBC 4.71 10^6/uL (4.1-5.3) 05/16/22 01:39 Hgb 14.4 g/dL (11.5-15.3) 05/16/22 01:39 Hct 42.6 % (37.0-47.0) 05/16/22 01:39 MCV 90.4 fl (81-99) 05/16/22 01:39 MCH 30.6 pg (28.0-34.0) 05/16/22 01:39 MCHC 33.8 g/dL (30.0-36.0) 05/16/22 01:39 RDW 13.3 % (12.1-15.1) 05/16/22 01:39 Plt Count 89 10^3/cmm (130-400) L 05/16/22 01:39 MPV 10.0 fL (7.4-10.4) 05/16/22 01:39 Neut % (Auto) 72.6 % 05/16/22 01:39 Lymph % (Auto) 13.3 % 05/16/22 01:39 [place] % (Auto) 11.0 % 05/16/22 01:39 Eos % (Auto) 2.2 % 05/16/22 01:39 Baso % (Auto) 0.4 % 05/16/22 01:39 Neut # (Auto) 5.34 10^3/uL (1.8-7.7) 05/16/22 01:39 Lymph # (Auto) 1.0 10^3/uL (0.8-4.8) 05/16/22 01:39 [place] # (Auto) 0.8 10^3/uL (0.2-0.9) 05/16/22 01:39 Eos # (Auto) 0.2 10^3/uL (0.0-0.8) 05/16/22 01:39 Baso # (Auto) 0.0 10^3/uL (0.0-0.1) 05/16/22 01:39 Nucleated RBC % (auto) 0 % 05/16/22 01:39 Nucleated RBCs # 0.0 /100WBC 05/16/22 01:39 Sodium 138 mmol/L (136-145) 05/16/22 01:39 Potassium 3.7 mmol/L (3.5-5.1) 05/16/22 01:39 Chloride 99 mmol/L (98-107) 05/16/22 01:39 Carbon Dioxide 31 mmol/L (22-29) H 05/16/22 01:39 Anion Gap 11.7 (5-19) 05/16/22 01:39 BUN 10 mg/dL (8-23) 05/16/22 01:39 Creatinine 0.7 mg/dL (0.5-0.9) 05/16/22 01:39 GFR Calculation 83.7 mL/min (90-130) L 05/16/22 01:39 Glucose 132 mg/dL (65-115) H 05/16/22 01:39 Calculated Osmolality 287 mOsm/kg (285-295) 05/16/22 01:39 Calcium 9.1 mg/dL (8.5-10.5) 05/16/22 01:39 Total Bilirubin 1.0 mg/dL (0.15-1.2) 05/16/22 01:39 AST 31 U/L (0-32) 05/16/22 01:39 ALT 25 U/L (0-33) 05/16/22 01:39 Alkaline Phosphatase 110 U/L (35-105) H 05/16/22 01:39 Total Protein 7.6 g/dL (6.6-8.7) 05/16/22 01:39 Albumin 3.6 g/dL (3.5-5.2) 05/16/22 01:39 Globulin 4.0 g/dL (1.3-4.6) 05/16/22 01:39 Discharge Plan Discharge Patient Disposition: Home Clinical Impression: Acute bronchitis Condition: Stable Prescriptions: New prednisone 20 mg tablet 40 mg PO DAILY 5 Days Qty: 10 0RF Rx Instructions: days 11-21 of therapy doxycycline hyclate 100 mg tablet 100 mg PO BID 7 Days Qty: 14 0RF benzonatate 200 mg capsule 200 mg PO TID PRN (Reason: cough) Qty: 30 0RF No Action tizanidine 4 mg capsule 4 mg PO QID PRN (Reason: Muscle Spasm) atenolol 25 mg tablet 25 mg PO BID@,2199 amitriptyline 25 mg tablet 25 mg PO BEDTIME@2199 tramadol 50 mg tablet 50 mg PO Q6H PRN (Reason: Pain) gabapentin 300 mg capsule 300 mg PO TID@,, omeprazole 40 mg capsule,delayed release(DR/EC) 40 mg PO DAILY@08 lorazepam 0.5 mg tablet 0.5 mg PO TID PRN (Reason: Anxiety) levothyroxine 50 mcg capsule 75 mcg PO DAILY@08 (DME) Night splint to right See Rx Instructions .Route .MEDSUPPLY Qty: 1 0RF Rx Instructions: As directed losartan 100 mg tablet 100 mg PO DAILY sertraline 50 mg tablet 50 mg PO DAILY nystatin 100,000 unit/mL suspension 5 ml PO QID Qty: 200 0RF Rx Instructions: swish and swallow albuterol sulfate [Ventolin HFA] 90 mcg/actuation HFA aerosol inhaler 2 puff INHALATION QID PRN (Reason: Shortness Of Breath) Centrum Women 18-400 mg-mcg Tablet 1 tab PO DAILY@08 Discharge Orders: Discharge ED (Routine); Ordered 05/16/22 Ordered By: Alan Cheung Referrals: Samantha Wylie MD [Primary Care Provider] - 1-3 days Patient Instructions: Acute Bronchitis (ED) Activity Restrictions/Additional Instructions: Use your inhaler every 4 hours while awake for the next 48 hours, then as needed. Other medications as directed. Return for worsening shortness of breath despite treatment, fever despite 2-3 doses of antibiotics, the amount of chest pain, vomiting liquids or medications, other concerning symptoms. Call later today for the results of your COVID-19 PCR test. Coding Level of Care Code ED Anthropology Instructor for Heide Batista
== END 2022-05-16 04:09 | disposition home or self-care (01) ==
PROVIDERS: Emergency Provider Emergency Medicine; PCP Family Medicine
DX: J20.9 Acute bronchitis, unspecified (principal); J44.9 Chronic obstructive pulmonary disease, unspecified; I10 Essential (primary) hypertension; Z87.891 Personal history of nicotine dependence
CPT/HCPCS: 71045; 80053; 85025; 93005; 94640; 96374; 99285; J2930

== ENCOUNTER → 2022-05-20 14:20 | Outpatient (BNVA) | payer MEDICARE, MEDICAID, SELFPAY | PROVIDERS: PCP Family Medicine; Visit Provider Podiatrist Foot & Ankle Surgery | DX: M20.41 Other hammer toe(s) (acquired), right foot (principal); M72.2 Plantar fascial fibromatosis | CPT/HCPCS: 20550; J1100; J3301; J3490 ==

== ENCOUNTER 2022-05-25 14:31 | Oncology outpatient (recurring) (ONCR) | payer MEDICARE, MEDICAID, SELFPAY ==
[2022-05-25 14:48] LABS: Basophils # 0.1 10^3/uL (0.0-0.1); Basophils % 0.5 %; Eosinophils # 0.1 10^3/uL (0.0-0.8); Hematocrit 46.8 % (37.0-47.0); Hemoglobin 15.7 g/dL (11.5-15.3); Lymphocytes # 1.4 10^3/uL (0.8-4.8); Lymphocytes % 12.3 %; Mean Corpuscular HGB Conc 33.5 g/dL (30.0-36.0); Mean Corpuscular Hemoglobin 30.6 pg (28.0-34.0); Mean Corpuscular Volume 91.2 fl (81-99); Mean Platelet Volume 9.9 fL (7.4-10.4); Monocytes # 0.9 10^3/uL (0.2-0.9); Neutrophils # 9.02 10^3/uL (1.8-7.7); Neutrophils % 77.5 %; Nucleated Red Blood Cells % 0 %; Platelet Count 121 10^3/cmm (130-400); Red Blood Count 5.13 10^6/uL (4.1-5.3); Red Cell Distribution Width 13.5 % (12.1-15.1); White Blood Count 11.6 10^3/uL (4.0-10.0)
== END 2022-05-27 23:59 | disposition home or self-care (01) ==
PROVIDERS: Nurse Practitioner; PCP Family Medicine; Referring Provider Family Medicine; Visit Provider Internal Medicine Hematology & Oncology
DX: D69.6 Thrombocytopenia, unspecified (principal); Z79.899 Other long term (current) drug therapy; R74.01 Elevation of levels of liver transaminase levels; M10.9 Gout, unspecified; Z79.52 Long term (current) use of systemic steroids
CPT/HCPCS: 36415; 85025; 99214

== ENCOUNTER 2022-06-17 12:25 | Oncology outpatient (recurring) (ONCR) | payer MEDICARE, MEDICAID, SELFPAY ==
[2022-06-17 13:03] LABS: Basophils % 0.5 %; Eosinophils # 0.2 10^3/uL (0.0-0.8); Eosinophils % 2.6 %; Hematocrit 43.6 % (37.0-47.0); Hemoglobin 14.8 g/dL (11.5-15.3); Lymphocytes # 0.9 10^3/uL (0.8-4.8); Mean Corpuscular HGB Conc 33.9 g/dL (30.0-36.0); Mean Corpuscular Hemoglobin 31.5 pg (28.0-34.0); Mean Corpuscular Volume 92.8 fl (81-99); Mean Platelet Volume 9.8 fL (7.4-10.4); Monocytes # 0.7 10^3/uL (0.2-0.9); Monocytes % 10.7 %; Neutrophils % 70.9 %; Nucleated Red Blood Cells % 0 %; Platelet Count 123 10^3/cmm (130-400); Red Cell Distribution Width 14.4 % (12.1-15.1); White Blood Count 6.1 10^3/uL (4.0-10.0)
== END 2022-06-26 23:59 | disposition home or self-care (01) ==
PROVIDERS: PCP Family Medicine; Referring Provider Family Medicine; Visit Provider Internal Medicine Hematology & Oncology
DX: D69.6 Thrombocytopenia, unspecified (principal); R79.89 Other specified abnormal findings of blood chemistry; Z79.52 Long term (current) use of systemic steroids; Z79.899 Other long term (current) drug therapy; Z87.891 Personal history of nicotine dependence
CPT/HCPCS: 36415; 85025; 99214

== ENCOUNTER 2022-07-01 15:26 | Outpatient (CLI) | payer MEDICARE, MEDICAID, SELFPAY | END 2022-07-01 15:27 | disposition home or self-care (01) | LOC: SPT 15:27 | PROVIDERS: PCP Family Medicine; Visit Provider Podiatrist Foot & Ankle Surgery | DX: Z46.89 Encounter for fitting and adjustment of other specified devices (principal); M72.2 Plantar fascial fibromatosis; M20.41 Other hammer toe(s) (acquired), right foot | CPT/HCPCS: 97760; 99214; L4397 ==

== ENCOUNTER → 2022-07-29 08:12 | Outpatient (BNVA) | payer MEDICARE, MEDICAID, SELFPAY | PROVIDERS: PCP Family Medicine; Visit Provider Podiatrist Foot & Ankle Surgery | DX: M72.2 Plantar fascial fibromatosis (principal); M20.41 Other hammer toe(s) (acquired), right foot | CPT/HCPCS: 99213 ==

== ENCOUNTER 2022-08-02 10:19 | Emergency (ER) | payer MEDICARE, MEDICAID, SELFPAY ==
[2022-08-02 10:20] VITALS: BP 124/88; PULSE 72; RESP 20; O2SAT 97
--- NOTE | 2022-08-02 10:37 | XRR_ITS ---
PROCEDURE INFORMATION: Exam: XR Right Ribs with PA Chest Exam date and time: 08/02/2022 12:21 PM Age: 67 years old Clinical indication: Fall with blunt trauma rib area. TECHNIQUE: Imaging protocol: Radiologic exam of the Right ribs with PA chest. Views: 3 views COMPARISON: CR XR chest 1V portable [id number] 05/16/2022 1:34 AM FINDINGS: Lungs: No pulmonary consolidation. Pleural spaces: No pleural effusion. No pneumothorax. Heart/Mediastinum: The cardiac silhouette is unchanged. No gross evidence of pneumomediastinum. Diaphragm: Mild elevation of the right hemidiaphragm. Bones/joints: No acute rib fracture is identified. XR/XR ribs RT mn 3V w CXR1V [id number] IMPRESSION: No acute rib fracture is identified. Consider CT if there is continued clinical concern.
--- NOTE | 2022-08-02 10:37 | XRR_ITS ---
PROCEDURE INFORMATION: Exam: XR Right Knee Exam date and time: 08/02/2022 12:17 PM Age: 67 years old Clinical indication: Fall with blunt right knee trauma. TECHNIQUE: Imaging protocol: Radiologic exam of the Right knee. Views: 3 views. COMPARISON: No relevant prior studies available. FINDINGS: Bones/joints: There is mild medial and lateral joint space narrowing. No knee joint effusion. No chondrocalcinosis is seen. No fracture, dislocation or subluxation. No periosteal reaction or supsicious bone lesion. Soft tissues: Ventral soft tissue swelling. The extensor mechanism is overall intact. XR/XR knee RT 4V [id number] IMPRESSION: 1. Ventral soft tissue swelling. 2. No acute fracture is identified. 3. Mild medial and lateral joint space narrowing.
--- NOTE | 2022-08-02 10:42 | ED_ITS ---
HPI - Fall General: Chief Complaint: Fall Stated Complaint: RIGHT KNEE AND RIB PAIN S/P FALL Time Seen by Provider: 08/02/22 10:34 History of Present Illness: 67-year-old female presents with right knee pain and right rib pain following a fall. Patient reports that she was walking on some wet leaves when she tripped she slipped and fell. Patient reports she hit her right knee on the curb and fell onto her right side is complaining of right- sided rib pain. She reports it hurts to take a deep breath. She did not hit her head. She did not lose consciousness. Patient denies any other injuries. Patient has a small abrasion on her right knee. Associated symptoms-after fall: Denies abdominal pain, headache(s) or lightheadedness Review of Systems Const: Denies: fever(s) or chills Eyes: Denies: change in vision or blurry vision Card: Denies: palpitations or lightheadedness Resp: Reports: pain on inspiration; Denies: dyspnea or productive cough GI: Denies: abdominal pain, nausea or vomiting : Denies: flank pain or difficulty voiding Musc: Reports: extremity pain and joint pain Skin/Breast: Reports: other (Abrasion right knee) Neuro: Denies: headache(s) or dizziness PFSH ED PFSH: Medical History Abnormal LFTs Chronic back pain COPD (chronic obstructive pulmonary disease) Hypertension Hyponatremia Kidney stones Surgical History H/O right wrist surgery Previous back surgery Previous section S/P cholecystectomy Family History Sister Cancer Bone marrow cancer in remission Grandmother Diabetes Mother Diabetes CAD (coronary artery disease) Father CAD (coronary artery disease) Other Family history non-contributory Hypertension Denies family history of Clotting disorder Dementia Hyperlipidemia Psychiatric illness Chronic kidney disease (CKD) Suicide Anesthesia complication Bleeding disorder Lung disease Stroke Social History Smoking and tobacco status: former smoker (smoked 20 years) Alcohol intake: never Physical Exam Const: COMMON NORMALS: patient oriented x3, no limitations and alert HENMT: COMMON NORMALS: normocephalic, atraumatic and hearing grossly normal bilaterally HEAD & SCALP: normocephalic and atraumatic Eye: COMMON NORMALS: Equal, round and reactive pupils present and EOMs intact bilaterally PUPIL: Yes Equal, round and reactive pupils present Neck/C-Spine: COMMON NORMALS: full ROM and supple Chest: CHEST: Yes Symmetrical chest wall rise, No crepitus, Yes localized rib tenderness with anteroposterior compression and No Sternal flail present Resp: COMMON NORMALS: normal respiratory effort, No retractions and No use of accessory muscles Cardio: COMMON NORMALS: regular rate and regular rhythm RATE: regular rate RHYTHM: regular rhythm GI: COMMON NORMALS: Soft to palpation and non-tender PALPATION: Yes Soft to palpation Extremity: RIGHT LOWER EXTREMITY: Yes knee joint (Tenderness, mild swelling with an abrasion) Neuro: COMMON NORMALS: patient oriented x3, moves all extremities, no focal motor deficits and no sensory deficits noted SENSORIUM/ORIENTATION: Yes alert Psych: COMMON NORMALS: mental status grossly normal, Normal thought process present and cooperative THOUGHT PROCESS: Normal thought process present Course Vital Signs: Vital signs: Vital Signs Pulse Rate 60 08/02/22 12:16 Respiratory Rate 20 H 08/02/22 10:20 Blood Pressure 124/70 08/02/22 12:16 Pulse Oximetry 95 08/02/22 12:16 Oxygen Delivery Me thod 08/02/22 10:20 MDM - Fall Medical Decision Making Patient's knee and rib x-ray shows no acute fracture. Discussed supportive care including topical lidocaine, topical Voltaren, Tylenol, ibuprofen and ice. Recommend she follow-up with her primary care provider in 1 week if symptoms have not improved or worsen. Patient stable and discharged home Lab Data Radiology Impressions Knee X-Ray 08/02/22 10:37 IMPRESSION: 1. Ventral soft tissue swelling. 2. No acute fracture is identified. 3. Mild medial and lateral joint space narrowing. Ribs X-Ray 08/02/22 10:37 IMPRESSION: No acute rib fracture is identified. Consider CT if there is continued clinical concern. Discharge Plan Discharge Patient Disposition: Home Clinical Impression: Contusion of right knee, Contusion of rib on right side, Fall Condition: Stable Prescriptions: No Action tizanidine 4 mg capsule 4 mg PO QID PRN (Reason: Muscle Spasm) atenolol 25 mg tablet 25 mg PO BID@08,2200 amitriptyline 25 mg tablet 25 mg PO BEDTIME@0 tramadol 50 mg tablet 50 mg PO Q6H PRN (Reason: Pain) gabapentin 300 mg capsule 300 mg PO TID@, omeprazole 40 mg capsule,delayed release(DR/EC) 40 mg PO DAILY@08 lorazepam 0.5 mg tablet 0.5 mg PO TID PRN (Reason: Anxiety) levothyroxine 50 mcg capsule 75 mcg PO DAILY@08 (DME) Night splint to right See Rx Instructions .Route .MEDSUPPLY Qty: 1 0RF Rx Instructions: As directed losartan 100 mg tablet 100 mg PO DAILY sertraline 50 mg tablet 50 mg PO DAILY (DME) Night Splint to the right foot See Rx Instructions .Route .MEDSUPPLY Qty: 1 0RF Rx Instructions: As directed allopurinol 300 mg tablet 300 mg PO DAILY nystatin 100,000 unit/mL suspension 5 ml PO QID Qty: 200 0RF Rx Instructions: swish and swallow albuterol sulfate [Ventolin HFA] 90 mcg/actuation HFA aerosol inhaler 2 puff INHALATION QID PRN (Reason: Shortness Of Breath) Centrum Women 18-400 mg-mcg Tablet 1 tab PO DAILY@08 benzonatate 200 mg capsule 200 mg PO TID PRN (Reason: cough) Qty: 30 0RF Discharge Orders: Discharge ED (Routine); Ordered 08/02/22 Ordered By: Duc Jones Referrals: Samantha Wylie MD [Primary Care Provider] - Discharge Diet: Usual diet Discharge Activity: Increase activity as tolerated Patient Instructions: Contusion, Knee Pain (ED), Rib Contusion (ED), Opioid Safety, Pain Management Activity Restrictions/Additional Instructions: 4% topical lidocaine with menthol cream gel or patch, use as directed on package, Voltaren/diclofenac cream, use as directed on package as needed for pain Tylenol or ibuprofen every 4-6 hours as needed for pain Ice to affected area for 24 hours then warm moist heat Follow-up with your primary care provider if symptoms or not improved over the next 5 to 6 days for repeat x-rays. Coding Level of Care Code ED Bullet Lubricating Machine Operator for Chg Fwd Exam Comprehensive
[2022-08-02] MEDS: ketorolac 30 mg/mL INJ IM (10:55)
[2022-08-02] MEDS: tetanus-dipt-pertussis 0.5 mL SDV IM (10:56)
[2022-08-02 12:00] VITALS: BP 124/70; PULSE 60; O2SAT 95
[2022-08-02 12:16] VITALS: BP 124/70; PULSE 60; O2SAT 95
== END 2022-08-02 12:12 | disposition home or self-care (01) ==
PROVIDERS: Emergency Provider Student in an Organized Health Care Education/Training Program; PCP Family Medicine
DX: S80.01XA Contusion of right knee, initial encounter (principal); S20.211A Contusion of right front wall of thorax, initial encounter; W01.0XXA Fall on same level from slipping, tripping and stumbling without subsequent striking against object, initial encounter; Y93.01 Activity, walking, marching and hiking
CPT/HCPCS: 71101; 73564; 90471; 90715; 96372; 99284; J1885

== ENCOUNTER 2022-08-17 10:26 | Outpatient (CLI) | payer MEDICARE, MEDICAID, SELFPAY ==
--- NOTE | 2022-08-17 11:00 | MR_ITS ---
WS: [id number] INDICATION: Stress fracture TECHNIQUE: Sagittal PD, sagittal STIR, axial T1, axial STIR, axial PD, axial T2, coronal PD, coronal T2 fat sat. FINDINGS: Normal ankle mortise. Subchondral cystic change with edema involving the medial aspect of t he talar dome. Talar neck is normal in appearance. Normal talocalcaneal articulation. Distal Achilles is normal in appearance. Normal peroneus longus and brevis. Normal visualized extensor and flexor co mpartment tendons. Plantar calcaneal spurring. Achilles enthesophyte. Normal plantar aponeurosis. Normal cuboid. Normal navicular. Tarsal bones appear normal. Normal metat arsals. Mild dorsal soft tissue edema. No acute fractures. MR/MR foot RT wo con* [id number] IMPRESSION: 1. Small amount of subchondral cystic change with edema involving the medial a spect of the talar dome. 2. No acute fractures. 3. Visualized tendons and distal Achilles are normal in appearance. 4. Achilles insertion enthesophyte. Small plantar calcaneal spur. 5. No acute fractures. 6. No other remarkable findings.
== END 2022-08-17 10:27 | disposition home or self-care (01) ==
LOC: RAD 10:27
PROVIDERS: PCP Family Medicine; Visit Provider Podiatrist Foot & Ankle Surgery
DX: M79.671 Pain in right foot (principal); M77.31 Calcaneal spur, right foot
CPT/HCPCS: 73718

== ENCOUNTER 2022-08-18 14:34 | Oncology outpatient (recurring) (ONCR) | payer MEDICARE, MEDICAID, SELFPAY ==
[2022-08-18 15:13] LABS: Basophils % 0.9 %; Eosinophils # 0.2 10^3/uL (0.0-0.8); Eosinophils % 4.8 %; Hematocrit 42.7 % (37.0-47.0); Hemoglobin 14.8 g/dL (11.5-15.3); Lymphocytes # 0.8 10^3/uL (0.8-4.8); Lymphocytes % 17.1 %; Mean Corpuscular HGB Conc 34.7 g/dL (30.0-36.0); Mean Corpuscular Hemoglobin 31.7 pg (28.0-34.0); Mean Corpuscular Volume 91.4 fl (81-99); Mean Platelet Volume 9.8 fL (7.4-10.4); Monocytes # 0.4 10^3/uL (0.2-0.9); Monocytes % 8.4 %; Neutrophils # 3.01 10^3/uL (1.8-7.7); Neutrophils % 68.6 %; Nucleated Red Blood Cells % 0 %; Platelet Count 83 10^3/cmm (130-400); Red Blood Count 4.67 10^6/uL (4.1-5.3); Red Cell Distribution Width 14.2 % (12.1-15.1); White Blood Count 4.4 10^3/uL (4.0-10.0)
== END 2022-08-26 23:59 | disposition home or self-care (01) ==
PROVIDERS: PCP Family Medicine; Referring Provider Family Medicine; Visit Provider Internal Medicine Hematology & Oncology
DX: D69.6 Thrombocytopenia, unspecified (principal); R79.89 Other specified abnormal findings of blood chemistry; Z79.52 Long term (current) use of systemic steroids; Z79.899 Other long term (current) drug therapy; Z87.891 Personal history of nicotine dependence
CPT/HCPCS: 36415; 85025; 99214

== ENCOUNTER → 2022-08-31 15:12 | Outpatient (BNVA) | payer MEDICARE, MEDICAID, SELFPAY | PROVIDERS: PCP Family Medicine; Visit Provider Podiatrist Foot & Ankle Surgery | DX: M72.2 Plantar fascial fibromatosis (principal) | CPT/HCPCS: 99214 ==

== ENCOUNTER 2022-09-16 00:44 | Emergency (ER) | payer MEDICARE, MEDICAID, SELFPAY ==
[2022-09-16 00:50] VITALS: BP 106/81; PULSE 84; RESP 27; TEMP 37.3; O2SAT 96; BMI 33.3
--- NOTE | 2022-09-16 00:52 | XRR_ITS ---
PROCEDURE INFORMATION: Exam: XR Chest Exam date and time: 09/16/2022 12:55 AM Age: 67 years old Clinical indication: Shortness of breath; Patient HX: Cough with SOB and fever TECHNIQUE: Imaging protocol: Radiologic exam of the chest. Views: 1 view. COMPARISON: CR (CHEST, ) 08/02/2022 12:21 PM FINDINGS: Lungs: Subtle left mid lung field and right perihilar opacities most consistent with mild bilateral pneumonia. Pleural spaces: Unremarkable. No pleural effusion. No pneumothorax. Heart/Mediastinum: Unremarkable. No cardiomegaly. Bones/joints: Unremarkable. XR/XR chest 1V portable [id number] IMPRESSION: Subtle left mid lung field and right perihilar opacities most consistent with mild bilateral pneumonia.
--- NOTE | 2022-09-16 00:53 | W.ED.SOB ---
HPI - SOB/Dyspnea General: Chief Complaint: Shortness of Breath/Dyspnea Stated Complaint: Flu Not getting well Time Seen by Provider: 09/16/22 00:48 Source: patient Mode of arrival: ambulatory Limitations: no limitations History of Present Illness: HPI Narrative: 67-year-old female has a history of COPD she states over the last 2 weeks she has been having increasing cough wheezing shortness of breath along with fever. She denies any chest pain. She had no vomiting no diarrhea states highest temp she had is 101 she has had no improving or worsening factors denies any known sick contacts. Associated symptoms: Reports fever(s); Deny abdominal pain, chest pain, nausea or vomiting Review of Systems Const: Reports: fever(s) Eyes: Denies: blurry vision or eye discomfort ENMT: Denies: throat pain or dental pain Card: Denies: chest pain Resp: Reports: dyspnea, non-productive cough and wheezing GI: Denies: abdominal pain, nausea, vomiting or diarrhea : Denies: dysuria Musc: Denies: neck pain or back pain Skin/Breast: Denies: rash Neuro: Denies: headache(s) Psych: Denies: depression Jackson/Lymph: Denies: easy bruising All/Imm: Denies: urticaria PFSH ED PFSH: Medical History Abnormal LFTs Chronic back pain COPD (chronic obstructive pulmonary disease) Hypertension Hyponatremia Kidney stones Surgical History H/O right wrist surgery Previous back surgery Previous section S/P cholecystectomy Family History Sister Cancer Bone marrow cancer in remission Grandmother Diabetes Mother Diabetes CAD (coronary artery disease) Father CAD (coronary artery disease) Other Family history non-contributory Hypertension Denies family history of Clotting disorder Dementia Hyperlipidemia Psychiatric illness Chronic kidney disease (CKD) Suicide Anesthesia complication Bleeding disorder Lung disease Stroke Social History Smoking and tobacco status: former smoker (smoked 20 years) Alcohol intake: never Physical Exam Const: COMMON NORMALS: patient oriented x3 HENMT: COMMON NORMALS: normocephalic and atraumatic HEAD & SCALP: normocephalic and atraumatic Eye: COMMON NORMALS: Equal, round and reactive pupils present and EOMs intact bilaterally PUPIL: Yes Equal, round and reactive pupils present Neck/C-Spine: COMMON NORMALS: full ROM and supple Chest: COMMONS NORMALS: normal inspection of the chest and normal palpation of entire chest wall Resp: COMMON NORMALS: No retractions and No use of accessory muscles AUSCULTATION: wheezes Cardio: COMMON NORMALS: regular rate, regular rhythm and No murmurs present (Cardio) RATE: regular rate RHYTHM: regular rhythm GI: COMMON NORMALS: Normal to inspection, nondistended, normoactive bowel sounds present, Soft to palpation, non-tender and no masses PALPATION: Yes Soft to palpation Extremity: COMMON NORMALS: normal to inspection and full ROM Neuro: COMMON NORMALS: patient oriented x3, moves all extremities and no focal motor deficits Psych: COMMON NORMALS: mental status grossly normal, Normal thought process present and cooperative THOUGHT PROCESS: Normal thought process present Skin: COMMON NORMALS: no rashes or lesions noted and no wounds GENERAL SKIN EXAM: no rashes or lesions noted Course Vital Signs: Vital signs: Vital Signs Temperature 99.1 F 09/16/22 00:50 Pulse Rate 80 09/16/22 02:03 Respiratory Rate 18 09/16/22 02:03 Blood Pressure 111/78 09/16/22 02:03 Pulse Oximetry 96 09/16/22 02:03 Oxygen Delivery Me thod 09/16/22 01:15 MDM - SOB/Dyspnea Medical Decision Making Patient presents here with cough congestion likely COPD exacerbation with a bronchitis she feels improved would like to go home she is not hypoxic here we will start her on steroids along with antibiotics she is to follow-up with PCP and return if worsening she understands agrees to plan. Lab Data 09/16/22 00:58 09/16/22 00:58 Labs/Radiology: Radiology Impressions Chest X-Ray 09/16/22 00:52 IMPRESSION: Subtle left mid lung field and right perihilar opacities most consistent with mild bilateral pneumonia. Laboratory Results WBC 7.9 10^3/uL (4.0-10.0) 09/16/22 00:58 RBC 4.68 10^6/uL (4.1-5.3) 09/16/22 00:58 Hgb 14.5 g/dL (11.5-15.3) 09/16/22 00:58 Hct 42.6 % (37.0-47.0) 09/16/22 00:58 MCV 91.0 fl (81-99) 09/16/22 00:58 MCH 31.0 pg (28.0-34.0) 09/16/22 00:58 MCHC 34.0 g/dL (30.0-36.0) 09/16/22 00:58 RDW 13.9 % (12.1-15.1) 09/16/22 00:58 Plt Count 119 10^3/cmm (130-400) L 09/16/22 00:58 MPV 10.6 fL (7.4-10.4) H 09/16/22 00:58 Neut % (Auto) 68.8 % 09/16/22 00:58 Lymph % (Auto) 15.2 % 09/16/22 00:58 [place] % (Auto) 12.7 % 09/16/22 00:58 Eos % (Auto) 2.2 % 09/16/22 00:58 Baso % (Auto) 0.5 % 09/16/22 00:58 Neut # (Auto) 5.44 10^3/uL (1.8-7.7) 09/16/22 00:58 Lymph # (Auto) 1.2 10^3/uL (0.8-4.8) 09/16/22 00:58 [place] # (Auto) 1.0 10^3/uL (0.2-0.9) H 09/16/22 00:58 Eos # (Auto) 0.2 10^3/uL (0.0-0.8) 09/16/22 00:58 Baso # (Auto) 0.0 10^3/uL (0.0-0.1) 09/16/22 00:58 Nucleated RBC % (auto) 0 % 09/16/22 00:58 Nucleated RBCs # 0.0 /100WBC 09/16/22 00:58 Sodium 128 mmol/L (136-145) L 09/16/22 00:58 Potassium 3.8 mmol/L (3.5-5.1) 09/16/22 00:58 Chloride 93 mmol/L (98-107) L 09/16/22 00:58 Carbon Dioxide 24 mmol/L (22-29) 09/16/22 00:58 Anion Gap 14.8 (5-19) 09/16/22 00:58 BUN 15 mg/dL (8-23) 09/16/22 00:58 Creatinine 0.9 mg/dL (0.5-0.9) 09/16/22 00:58 GFR Calculation 62.5 mL/min (90-130) L 09/16/22 00:58 Glucose 90 mg/dL (65-115) 09/16/22 00:58 Calculated Osmolality 266 mOsm/kg (285-295) L 09/16/22 00:58 Calcium 8.7 mg/dL (8.5-10.5) 09/16/22 00:58 Total Bilirubin 0.7 mg/dL (0.15-1.2) 09/16/22 00:58 AST 34 U/L (0-32) H 09/16/22 00:58 ALT 18 U/L (0-33) 09/16/22 00:58 Alkaline Phosphatase 103 U/L (35-105) 09/16/22 00:58 NT-Pro-B Natriuret Pep 191 pg/mL (0-125) H 09/16/22 00:58 Total Protein 7.0 g/dL (6.6-8.7) 09/16/22 00:58 Albumin 3.2 g/dL (3.5-5.2) L 09/16/22 00:58 Globulin 3.8 g/dL (1.3-4.6) 09/16/22 00:58 Influenza Type A Ag negative (Negative) 09/16/22 00:55 Influenza Type B Ag negative (Negative) 09/16/22 00:55 SARS-CoV-2 Ag (Rapid) negative (Negative) 09/16/22 00:55 EKG Data EKG 1: I personally reviewed and interpreted this EKG as follows: EKG Interpretation Date: 09/16/22 EKG interpretation time: 01:09 Interpretation: nsr hr [address] or t wave abnormalities qrs 73 qtc 377 Discharge Plan Discharge Patient Disposition: Home Clinical Impression: Bronchitis Condition: Stable Prescriptions: New doxycycline hyclate 100 mg tablet 100 mg PO BID 7 Days Qty: 14 0RF prednisone 50 mg tablet 50 mg PO DAILY Qty: 5 0RF No Action tizanidine 4 mg capsule 4 mg PO QID PRN (Reason: Muscle Spasm) atenolol 25 mg tablet 25 mg PO BID@0 amitriptyline 25 mg tablet 25 mg PO BEDTIME@0 tramadol 50 mg tablet 50 mg PO Q6H PRN (Reason: Pain) gabapentin 300 mg capsule 300 mg PO TID@08,, omeprazole 40 mg capsule,delayed release(DR/EC) 40 mg PO DAILY@08 lorazepam 0.5 mg tablet 0.5 mg PO TID PRN (Reason: Anxiety) levothyroxine 50 mcg capsule 75 mcg PO DAILY@08 (DME) Night splint to right See Rx Instructions .Route .MEDSUPPLY Qty: 1 0RF Rx Instructions: As directed losartan 100 mg tablet 100 mg PO DAILY sertraline 50 mg tablet 50 mg PO DAILY (DME) Night Splint to the right foot See Rx Instructions .Route .MEDSUPPLY Qty: 1 0RF Rx Instructions: As directed allopurinol 300 mg tablet 300 mg PO DAILY nystatin 100,000 unit/mL suspension 5 ml PO QID Qty: 200 0RF Rx Instructions: swish and swallow albuterol sulfate [Ventolin HFA] 90 mcg/actuation HFA aerosol inhaler 2 puff INHALATION QID PRN (Reason: Shortness Of Breath) Centrum Women 18-400 mg-mcg Tablet 1 tab PO DAILY@08 benzonatate 200 mg capsule 200 mg PO TID PRN (Reason: cough) Qty: 30 0RF Discharge Orders: Discharge ED (Routine); Ordered 09/16/22 Ordered By: Nitin Winston Referrals: Samantha Wylie MD [Primary Care Provider] - 1-3 days Discharge Diet: Advance as tolerated Discharge Activity: Resume usual activity Patient Instructions: Acute Bronchitis (ED) Coding Level of Care Code ED Mobility Developer for [place] Fwd Exam Comprehensive
[2022-09-16 01:05] LABS: Basophils % 0.5 %; Eosinophils # 0.2 10^3/uL (0.0-0.8); Eosinophils % 2.2 %; Hematocrit 42.6 % (37.0-47.0); Hemoglobin 14.5 g/dL (11.5-15.3); Lymphocytes # 1.2 10^3/uL (0.8-4.8); Lymphocytes % 15.2 %; Mean Platelet Volume 10.6 fL (7.4-10.4); Monocytes % 12.7 %; Neutrophils # 5.44 10^3/uL (1.8-7.7); Neutrophils % 68.8 %; Nucleated Red Blood Cells % 0 %; Platelet Count 119 10^3/cmm (130-400); Red Blood Count 4.68 10^6/uL (4.1-5.3); Red Cell Distribution Width 13.9 % (12.1-15.1); White Blood Count 7.9 10^3/uL (4.0-10.0)
--- NOTE | 2022-09-16 01:09 | ECG_ITS ---
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 Measurements Intervals [place] Rate: 80 P: 74 PA: 166 QRS: 74 QRSD: 73 T: 73 QT: 341 QTc: 395 Interpretive Statements SINUS RHYTHM EARLY REPOLARIZATION [ST ELEVATION WITH NORMALLY INFLECTED T-WAVE] Compared to ECG 05/16/2022 01:31:57 Early repolarization now present Electronically Signed On 09-16-2022 10:12:26 TRIP FOLLOWER by Lyubov Alonso M.D. [id number]
[2022-09-16] MEDS: albuterol 2.5 mg/3 mL Neb INHALATION (01:14)
[2022-09-16] MEDS: ipratropium-albuterol 3 mL Neb INHALATION (01:14)
[2022-09-16 01:15] VITALS: PULSE 80; RESP 20; O2SAT 96
[2022-09-16 01:18] LABS: Influenza A by IFA negative (Negative); Influenza B by IFA negative (Negative); SARS Covid-2 Antigen negative (Negative)
[2022-09-16 01:32] LABS: Alanine Aminotransferase 18 U/L (0-33); Albumin Level 3.2 g/dL (3.5-5.2); Alkaline Phosphatase 103 U/L (35-105); Anion Gap 14.8 (5-19); Aspartate Amino Transferase 34 U/L (0-32); Blood Urea Nitrogen 15 mg/dL (8-23); Calcium 8.7 mg/dL (8.5-10.5); Carbon Dioxide 24 mmol/L (22-29); Chloride 93 mmol/L (98-107); Globulin 3.8 g/dL (1.3-4.6); Glomerular Filtration Rate 62.5 mL/min (90-130); Glucose 90 mg/dL (65-115); NT Pro B Type Natriuretic Pept 191 pg/mL (0-125); Osmolality Calculated 266 mOsm/kg (285-295); Potassium 3.8 mmol/L (3.5-5.1); Sodium 128 mmol/L (136-145); Total Bilirubin 0.7 mg/dL (0.15-1.2)
[2022-09-16] MEDS: doxycycline 100 mg Tablet PO (01:53)
[2022-09-16 02:03] VITALS: BP 111/78; PULSE 80; RESP 18; O2SAT 96
== END 2022-09-16 02:05 | disposition home or self-care (01) ==
PROVIDERS: Emergency Provider Emergency Medicine; PCP Family Medicine
DX: J40 Bronchitis, not specified as acute or chronic (principal); Z20.822 Contact with and (suspected) exposure to COVID-19; J44.9 Chronic obstructive pulmonary disease, unspecified; I10 Essential (primary) hypertension; Z87.891 Personal history of nicotine dependence
CPT/HCPCS: 71045; 80053; 83880; 85025; 87426; 87804; 93005; 94640; 96374; 99285; J2930; J7613

== ENCOUNTER → 2022-10-12 17:35 | Outpatient (BNVA) | payer MEDICARE, MEDICAID, SELFPAY | PROVIDERS: PCP Family Medicine; Visit Provider Nurse Practitioner Family | DX: R05.9 Cough, unspecified (principal) | CPT/HCPCS: 71046 ==

== ENCOUNTER 2022-10-23 21:47 | Inpatient (IN) | payer MEDICARE, MEDICAID, SELFPAY ==
[2022-10-23 21:52] VITALS: BP 123/75; PULSE 92; RESP 35; TEMP 37.1; O2SAT 86
--- NOTE | 2022-10-23 22:00 | XRR_ITS ---
PROCEDURE INFORMATION: Exam: XR Chest Exam date and time: 10/23/2022 10:04 PM Age: 67 years old Clinical indication: Cough and dyspnea and shortness of breath; Additional info: Dypnea TECHNIQUE: Imaging protocol: Radiologic exam of the chest. Views: 1 view. COMPARISON: CR XR chest 2V* [id number] 10/12/2022 5:41 PM FINDINGS: Lungs: Bibasilar right greater than left atelectasis versus infiltrate along with minimal right upper lobe infiltrate. Pleural spaces: Unremarkable. No pleural effusion. No pneumothorax. Heart/Mediastinum: Unremarkable. No cardiomegaly. Bones/joints: Unremarkable. XR/XR chest 1V portable [id number] IMPRESSION: Bibasilar right greater than left atelectasis versus infiltrate along with minimal right upper lobe infiltrate.
--- NOTE | 2022-10-23 22:01 | ECG_ITS ---
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 Measurements Intervals [place] Rate: 87 P: 73 TN: 165 QRS: 59 QRSD: 73 T: 69 QT: 343 QTc: 413 Interpretive Statements SINUS RHYTHM Compared to ECG 09/16/2022 01:09:51 Early repolarization no longer present Electronically Signed On 10-23-2022 22:18:06 POULTRY GRADER by Lyubov Alonso M.D. [id number]
[2022-10-23] MEDS: ipratropium-albuterol 3 mL Neb INHALATION (22:15)
[2022-10-23] MEDS: ipratropium 0.5 mg/2.5 mL Neb INHALATION (22:15)
[2022-10-23] MEDS: albuterol 2.5 mg/3 mL Neb INHALATION (22:15)
--- NOTE | 2022-10-23 22:17 | W.ED.SOB ---
Documented by User: Delio Rhoades DO 10/23/22 22:48 HPI - SOB/Dyspnea General: Chief Complaint: Shortness of Breath/Dyspnea Stated Complaint: SOB\Left Arm Numb, Both Legs Numb\Cough Time Seen by Provider: 10/23/22 22:12 History of Present Illness: HPI Narrative: 67-year-old female in with concerns multiple complaints. Her most pressing complaint is that of shortness of breath. The patient does have a history of COPD and has been sick most of this week. Patient reports a nonproductive cough she did have a fever today. She reports some chest discomfort that is worse when she coughs or takes a deep breath. The patient is chronically ill and has multiple other chronic medical problems. The patient has had symptoms like this previously but a little more severe today according to family who accompanies her she lives in [facility] specifically there is a lot of animal dander and cockroaches at place that she is living at now she is no longer smoking. The patient has not started any new or different medications. She reports nonproductive cough. She denies any other significant symptoms. Associated symptoms: Reports chest pain and fever(s); Deny palpitations Review of Systems General: Reports: 10 or more systems reviewed and unremarkable except in HPI and below Const: Reports: fever(s), body aches, change in appetite, fatigue and malaise; Denies: chills, change in weight or night sweats Card: Reports: chest pain and dyspnea on exertion; Denies: palpitations, irregular heart rhythm or edema Resp: Reports: dyspnea and non-productive cough; Denies: wheezing or pain on inspiration Skin/Breast: Denies: rash, pruritus or erythema PFSH ED PFSH: Medical History Abnormal LFTs Chronic back pain COPD (chronic obstructive pulmonary disease) Hypertension Hyponatremia Kidney stones Surgical History H/O right wrist surgery Previous back surgery Previous section S/P cholecystectomy Family History Sister Cancer Bone marrow cancer in remission Grandmother Diabetes Mother Diabetes CAD (coronary artery disease) Father CAD (coronary artery disease) Other Family history non-contributory Hypertension Denies family history of Clotting disorder Dementia Hyperlipidemia Psychiatric illness Chronic kidney disease (CKD) Suicide Anesthesia complication Bleeding disorder Lung disease Stroke Social History Smoking and tobacco status: former smoker (smoked 20 years) Alcohol intake: never Physical Exam Const: OTHER: Chronic ill appearance mild distress Chest: OTHER: Chest nontender Resp: OTHER: Tachypnea with wheezing and mild labored respirations Cardio: OTHER: Regular rate and rhythm, soft systolic murmur GI: OTHER: Abdomen soft and nontender without any other abnormal findings Extremity: OTHER: No pedal edema Skin: OTHER: No rashes Course Vital Signs: Vital signs: Vital Signs Temperature 98.7 F 10/23/22 21:52 Pulse Rate 93 10/23/22 23:40 Respiratory Rate 28 H 10/23/22 23:40 Blood Pressure 126/68 10/23/22 23:40 Pulse Oximetry 94 10/23/22 23:40 Oxygen Delivery Me thod 10/23/22 23:40 Oxygen Flow Rate 4 10/23/22 23:40 MDM - SOB/Dyspnea Medical Decision Making 67-year-old female in with shortness of breath and cough with a variety other nonspecific complaints. Differential is very broad but favors acute exacerbation of COPD however pneumonia and heart failure as well as other entities cannot be ruled out. We will order a battery of tests and evaluation. The patient is requiring a little bit of oxygen. COVID and influenza also possible. Patient's chest x-ray was reviewed and compared to previous and there appears to be a developing infiltrate in the right lower lobe. Patient will be empirically started on antibiotics. White blood cell count is elevated. Cultures and lactic have been obtained. Patient will be signed out to the overnight physician Dr. Cheung. Differential Diagnosis Likely acute exacerbation of chronic obstructive airways disease, congestive heart failure, community acquired pneumonia, asthma with exacerbation and pulmonary embolism Lab Data 10/23/22 22:08 10/23/22 22:08 Labs/Radiology: Radiology Impressions Chest X-Ray 10/23/22 22:00 IMPRESSION: Bibasilar right greater than left atelectasis versus infiltrate along with minimal right upper lobe infiltrate. Laboratory Results WBC 16.2 10^3/uL (4.0-10.0) H 10/23/22 22:08 RBC 4.71 10^6/uL (4.1-5.3) 10/23/22 22:08 Hgb 14.3 g/dL (11.5-15.3) 10/23/22 22:08 Hct 42.0 % (37.0-47.0) 10/23/22 22:08 MCV 89.2 fl (81-99) 10/23/22 22:08 MCH 30.4 pg (28.0-34.0) 10/23/22 22:08 MCHC 34.0 g/dL (30.0-36.0) 10/23/22 22:08 RDW 14.6 % (12.1-15.1) 10/23/22 22:08 Plt Count 103 10^3/cmm (130-400) L 10/23/22 22:08 MPV 10.9 fL (7.4-10.4) H 10/23/22 22:08 Neut % (Auto) 81.4 % 10/23/22 22:08 Lymph % (Auto) 10.8 % 10/23/22 22:08 [place] % (Auto) 6.5 % 10/23/22 22:08 Eos % (Auto) 0.1 % 10/23/22 22:08 Baso % (Auto) 0.3 % 10/23/22 22:08 Neut # (Auto) 13.19 10^3/uL (1.8-7.7) H 10/23/22 22:08 Lymph # (Auto) 1.8 10^3/uL (0.8-4.8) 10/23/22 22:08 [place] # (Auto) 1.1 10^3/uL (0.2-0.9) H 10/23/22 22:08 Eos # (Auto) 0.0 10^3/uL (0.0-0.8) 10/23/22 22:08 Baso # (Auto) 0.1 10^3/uL (0.0-0.1) 10/23/22 22:08 Nucleated RBC % (auto) 0 % 10/23/22 22:08 Nucleated RBCs # 0.0 /100WBC 10/23/22 22:08 PT 16.90 SECONDS (12.1-14.9) H 10/23/22 22:08 INR 1.34 (0.8-1.2) H 10/23/22 22:08 D-Dimer 3.87 ug/mIFEU (0-0.59) H 10/23/22 22:08 Specimen Type Arterial 10/23/22 22: Sample Site Radial, right 10/23/22 22:29 ABG pH 7.51 (7.35-7.45) H 10/23/22 22: ABG pCO2 29.1 mmHg (35-45) L 10/23/22 22: ABG pO2 55.6 mmHg (80.0-100.0) L 10/23/22 22: ABG HCO3 23.3 mmol/L (22-26) 10/23/22: ABG Base Excess 1.3 mmol/L (-2.0-2.0) 10/23/22 22: Arik Test Pos 10/23/22 22: Hematocrit 43.9 % (37-47) 10/23/22 22: Hgb O2 Saturation 90.6 % (95-100) L 10/23/22 22: Carboxyhemoglobin 2.0 %THgb (0.4-20.1) 10/23/22 22: Methemoglobin 0.5 % (0.4-1.5) 10/23/22: Total Hemoglobin 14.3 g/dL (12-16) 10/23/22 22: O2 Delivery Device Nc 10/23/22 22:29 O2 Liters/Min 2.0 % 10/23/22 22: Commutator V Ring Assembler ID John 10/23/22 22:29 Sodium 130 mmol/L (136-145) L 10/23/22 22:08 Potassium 3.9 mmol/L (3.5-5.1) 10/23/22 22: Chloride 95 mmol/L (98-107) L 10/23/22 22:08 Carbon Dioxide 23 mmol/L (22-29) 10/23/22 22: Anion Gap 15.9 (5-19) 10/23/22 22:08 BUN 13 mg/dL (8-23) 10/23/22 22:08 Creatinine 0.6 mg/dL (0.5-0.9) 10/23/22 22:08 GFR Calculation 99.7 mL/min (90-130) 10/23/22 22:08 Glucose 110 mg/dL (65-115) 10/23/22 22:08 Calculated Osmolality 271 mOsm/kg (285-295) L 10/23/22 22:08 Lactic Acid 1.5 mmol/L (0.5-2.2) 10/23/22 22:08 Calcium 8.5 mg/dL (8.5-10.5) 10/23/22 22:08 Total Bilirubin 2.0 mg/dL (0.15-1.2) H 10/23/22 22:08 AST 34 U/L (0-32) H 10/23/22 22:08 ALT 23 U/L (0-33) 10/23/22 22:08 Alkaline Phosphatase 106 U/L (35-105) H 10/23/22 22:08 Troponin T Baseline 10 ng/L (0-10) 10/23/22 22:08 NT-Pro-B Natriuret Pep 492 pg/mL (0-125) H 10/23/22 22:08 Total Protein 7.0 g/dL (6.6-8.7) 10/23/22 22:08 Albumin 3.7 g/dL (3.5-5.2) 10/23/22 22:08 Globulin 3.3 g/dL (1.3-4.6) 10/23/22 22:08 Influenza Type A Ag negative (Negative) 10/23/22 22:04 Influenza Type B Ag negative (Negative) 10/23/22 22:04 SARS-CoV-2 Ag (Rapid) negative (Negative) 10/23/22 22:20 Discharge Plan Discharge Patient Disposition: Admitted As Inpatient Clinical Impression: Community acquired pneumonia, Respiratory failure Condition: Fair Prescriptions: No Action tizanidine 4 mg capsule 4 mg PO QID PRN (Reason: Muscle Spasm) atenolol 25 mg tablet 25 mg PO BID@ amitriptyline 25 mg tablet 25 mg PO BEDTIME@2199 tramadol 50 mg tablet 50 mg PO Q6H PRN (Reason: Pain) gabapentin 300 mg capsule 300 mg PO TID@08,12,22 omeprazole 40 mg capsule,delayed release(DR/EC) 40 mg PO DAILY@08 lorazepam 0.5 mg tablet 0.5 mg PO TID PRN (Reason: Anxiety) levothyroxine 50 mcg capsule 75 mcg PO DAILY@08 (DME) Night splint to right See Rx Instructions .Route .MEDSUPPLY Qty: 1 0RF Rx Instructions: As directed losartan 100 mg tablet 100 mg PO DAILY sertraline 50 mg tablet 50 mg PO DAILY (DME) Night Splint to the right foot See Rx Instructions .Route .MEDSUPPLY Qty: 1 0RF Rx Instructions: As directed allopurinol 300 mg tablet 300 mg PO DAILY nystatin 100,000 unit/mL suspension 5 ml PO QID Qty: 200 0RF Rx Instructions: swish and swallow benzonatate 200 mg capsule 200 mg PO BID PRN (Reason: cough) Qty: 20 0RF albuterol sulfate [Ventolin HFA] 90 mcg/actuation HFA aerosol inhaler 2 puff INHALATION QID PRN (Reason: Shortness Of Breath) Centrum Women 18-400 mg-mcg Tablet 1 tab PO DAILY@08 Referrals: Samantha Wylie MD [Primary Care Provider] - Coding Level of Care Code ED Digital Forensic Analyst for Chg Fwd Documented by User: Alan Cheung DO 10/23/22 23:52 HPI - SOB/Dyspnea General: Chief Complaint: Shortness of Breath/Dyspnea Stated Complaint: SOB\Left Arm Numb, Both Legs Numb\Cough Time Seen by Provider: 10/23/22 22:12 PFS ED PFSH: Medical History Abnormal LFTs Chronic back pain COPD (chronic obstructive pulmonary disease) Hypertension Hyponatremia Kidney stones Surgical History H/O right wrist surgery Previous back surgery Previous section S/P cholecystectomy Family History Sister Cancer Bone marrow cancer in remission Grandmother Diabetes Mother Diabetes CAD (coronary artery disease) Father CAD (coronary artery disease) Other Family history non-contributory Hypertension Denies family history of Clotting disorder Dementia Hyperlipidemia Psychiatric illness Chronic kidney disease (CKD) Suicide Anesthesia complication Bleeding disorder Lung disease Stroke Social History Smoking and tobacco status: former smoker (smoked 20 years) Alcohol intake: never Course Vital Signs: Vital signs: Vital Signs Temperature 98.7 F 10/23/22 21:52 Pulse Rate 93 10/23/22 23:40 Respiratory Rate 28 H 10/23/22 23:40 Blood Pressure 126/68 10/23/22 23:40 Pulse Oximetry 94 10/23/22 23:40 Oxygen Delivery Me thod 10/23/22 23:40 Oxygen Flow Rate 4 10/23/22 23:40 MDM - SOB/Dyspnea Medical Decision Making 67-year-old female in with shortness of breath and cough with a variety other nonspecific complaints. Differential is very broad but favors acute exacerbation of COPD however pneumonia and heart failure as well as other entities cannot be ruled out. We will order a battery of tests and evaluation. The patient is requiring a little bit of oxygen. COVID and influenza also possible. Patient's chest x-ray was reviewed and compared to previous and there appears to be a developing infiltrate in the right lower lobe. Patient will be empirically started on antibiotics. White blood cell count is elevated. Cultures and lactic have been obtained. Patient will be signed out to the overnight physician Dr. Cheung. 67-year-old lady checked out to me at shift change. This lady is on oxygen now, as her initial oxygen saturation was in the low to mid 80s on room air. PO2 was 55 on 2 L on blood gas testing. Her D-dimer is elevated. Her white blood cell count is 16. She appears to have infiltrates as above. She is treated with Rocephin and Zithromax. Given her hypoxic respiratory failure, she will be admitted. CTA of the chest will be ordered given elevated D-dimer and slight elevation in BNP. Hospitalist has been contacted and will see the patient. Lab Data 10/23/22 22:08 10/23/22 22:08 Labs/Radiology: Radiology Impressions Chest X-Ray 10/23/22 22:00 IMPRESSION: Bibasilar right greater than left atelectasis versus infiltrate along with minimal right upper lobe infiltrate. Laboratory Results WBC 16.2 10^3/uL (4.0-10.0) H 10/23/22 22:08 RBC 4.71 10^6/uL (4.1-5.3) 10/23/22 22:08 Hgb 14.3 g/dL (11.5-15.3) 10/23/22 22:08 Hct 42.0 % (37.0-47.0) 10/23/22 22:08 MCV 89.2 fl (81-99) 10/23/22 22:08 MCH 30.4 pg (28.0-34.0) 10/23/22 22:08 MCHC 34.0 g/dL (30.0-36.0) 10/23/22 22:08 RDW 14.6 % (12.1-15.1) 10/23/22 22:08 Plt Count 103 10^3/cmm (130-400) L 10/23/22 22:08 MPV 10.9 fL (7.4-10.4) H 10/23/22 22:08 Neut % (Auto) 81.4 % 10/23/22 22:08 Lymph % (Auto) 10.8 % 10/23/22 22:08 [place] % (Auto) 6.5 % 10/23/22 22:08 Eos % (Auto) 0.1 % 10/23/22 22:08 Baso % (Auto) 0.3 % 10/23/22 22:08 Neut # (Auto) 13.19 10^3/uL (1.8-7.7) H 10/23/22 22:08 Lymph # (Auto) 1.8 10^3/uL (0.8-4.8) 10/23/22 22:08 [place] # (Auto) 1.1 10^3/uL (0.2-0.9) H 10/23/22 22:08 Eos # (Auto) 0.0 10^3/uL (0.0-0.8) 10/23/22 22:08 Baso # (Auto) 0.1 10^3/uL (0.0-0.1) 10/23/22 22:08 Nucleated RBC % (auto) 0 % 10/23/22 22:08 Nucleated RBCs # 0.0 /100WBC 10/23/22 22:08 PT 16.90 SECONDS (12.1-14.9) H 10/23/22 22:08 INR 1.34 (0.8-1.2) H 10/23/22 22:08 D-Dimer 3.87 ug/mIFEU (0-0.59) H 10/23/22 22:08 Specimen Type Arterial 10/23/22 22:29 Sample Site Radial, right 10/23/22 22:29 ABG pH 7.51 (7.35-7.45) H 10/23/22 22:29 ABG pCO2 29.1 mmHg (35-45) L 10/23/22 22: ABG pO2 55.6 mmHg (80.0-100.0) L 10/23/22 22: ABG HCO3 23.3 mmol/L (22-26) 10/23/22 22: ABG Base Excess 1.3 mmol/L (-2.0-2.0) 10/23/22 22:29 Arik Test Pos 10/23/22 22:29 Hematocrit 43.9 % (37-47) 10/23/22 22:29 Hgb O2 Saturation 90.6 % (95-100) L 10/23/22 22:29 Carboxyhemoglobin 2.0 %THgb (0.4-20.1) 10/23/22 22:29 Methemoglobin 0.5 % (0.4-1.5) 10/23/22 22:29 Total Hemoglobin 14.3 g/dL (12-16) 10/23/22 22:29 O2 Delivery Device Nc 10/23/22 22:29 O2 Liters/Min 2.0 % 10/23/22 22:29 Commutator V Ring Assembler ID John 10/23/22 22:29 Sodium 130 mmol/L (136-145) L 10/23/22 22:08 Potassium 3.9 mmol/L (3.5-5.1) 10/23/22 22:08 Chloride 95 mmol/L (98-107) L 10/23/22 22:08 Carbon Dioxide 23 mmol/L (22-29) 10/23/22 22:08 Anion Gap 15.9 (5-19) 10/23/22 22:08 BUN 13 mg/dL (8-23) 10/23/22 22:08 Creatinine 0.6 mg/dL (0.5-0.9) 10/23/22 22:08 GFR Calculation 99.7 mL/min (90-130) 10/23/22 22:08 Glucose 110 mg/dL (65-115) 10/23/22 22:08 Calculated Osmolality 271 mOsm/kg (285-295) L 10/23/22 22:08 Lactic Acid 1.5 mmol/L (0.5-2.2) 10/23/22 22:08 Calcium 8.5 mg/dL (8.5-10.5) 10/23/22 22:08 Total Bilirubin 2.0 mg/dL (0.15-1.2) H 10/23/22 22:08 AST 34 U/L (0-32) H 10/23/22 22:08 ALT 23 U/L (0-33) 10/23/22 22:08 Alkaline Phosphatase 106 U/L (35-105) H 10/23/22 22:08 Troponin T Baseline 10 ng/L (0-10) 10/23/22 22:08 NT-Pro-B Natriuret Pep 492 pg/mL (0-125) H 10/23/22 22:08 Total Protein 7.0 g/dL (6.6-8.7) 10/23/22 22:08 Albumin 3.7 g/dL (3.5-5.2) 10/23/22 22:08 Globulin 3.3 g/dL (1.3-4.6) 10/23/22 22:08 Influenza Type A Ag negative (Negative) 10/23/22 22:04 Influenza Type B Ag negative (Negative) 10/23/22 22:04 SARS-CoV-2 Ag (Rapid) negative (Negative) 10/23/22 22:20 Discharge Plan Discharge Patient Disposition: Admitted As Inpatient Clinical Impression: Community acquired pneumonia, Respiratory failure Condition: Fair Prescriptions: No Action tizanidine 4 mg capsule 4 mg PO QID PRN (Reason: Muscle Spasm) atenolol 25 mg tablet 25 mg PO BID@08,0 amitriptyline 25 mg tablet 25 mg PO BEDTIME@2200 tramadol 50 mg tablet 50 mg PO Q6H PRN (Reason: Pain) gabapentin 300 mg capsule 300 mg PO TID@08,12,22 omeprazole 40 mg capsule,delayed release(DR/EC) 40 mg PO DAILY@08 lorazepam 0.5 mg tablet 0.5 mg PO TID PRN (Reason: Anxiety) levothyroxine 50 mcg capsule 75 mcg PO DAILY@08 (DME) Night splint to right See Rx Instructions .Route .MEDSUPPLY Qty: 1 0RF Rx Instructions: As directed losartan 100 mg tablet 100 mg PO DAILY sertraline 50 mg tablet 50 mg PO DAILY (DME) Night Splint to the right foot See Rx Instructions .Route .MEDSUPPLY Qty: 1 0RF Rx Instructions: As directed allopurinol 300 mg tablet 300 mg PO DAILY nystatin 100,000 unit/mL suspension 5 ml PO QID Qty: 200 0RF Rx Instructions: swish and swallow benzonatate 200 mg capsule 200 mg PO BID PRN (Reason: cough) Qty: 20 0RF albuterol sulfate [Ventolin HFA] 90 mcg/actuation HFA aerosol inhaler 2 puff INHALATION QID PRN (Reason: Shortness Of Breath) Centrum Women 18-400 mg-mcg Tablet 1 tab PO DAILY@08 Referrals: Samantha Wylie MD [Primary Care Provider] - Coding Level of Care Code ED Digital Forensic Analyst for Heide Batista
[2022-10-23 22:20] LABS: Basophils # 0.1 10^3/uL (0.0-0.1); Basophils % 0.3 %; Eosinophils % 0.1 %; Hemoglobin 14.3 g/dL (11.5-15.3); Lymphocytes # 1.8 10^3/uL (0.8-4.8); Lymphocytes % 10.8 %; Mean Corpuscular Hemoglobin 30.4 pg (28.0-34.0); Mean Corpuscular Volume 89.2 fl (81-99); Mean Platelet Volume 10.9 fL (7.4-10.4); Monocytes # 1.1 10^3/uL (0.2-0.9); Monocytes % 6.5 %; Neutrophils # 13.19 10^3/uL (1.8-7.7); Neutrophils % 81.4 %; Nucleated Red Blood Cells % 0 %; Platelet Count 103 10^3/cmm (130-400); Red Blood Count 4.71 10^6/uL (4.1-5.3); Red Cell Distribution Width 14.6 % (12.1-15.1); White Blood Count 16.2 10^3/uL (4.0-10.0)
[2022-10-23 22:27] LABS: Influenza A by IFA negative (Negative); Influenza B by IFA negative (Negative)
[2022-10-23 22:29] VITALS: BP 125/98; PULSE 91; RESP 20; O2SAT 94
[2022-10-23 22:32] LABS: INR 1.34 (0.8-1.2)
[2022-10-23 22:35] LABS: ABG PCO2 29.1 mmHg (35-45); ABG PH Result 7.51 (7.35-7.45); Arterial Blood Gas Hematocrit 43.9 % (37-47); Base Excess ABG 1.3 mmol/L (-2.0-2.0); Blood Gas Allen Test Pos; Blood Gas Sample Site Radial, right; Blood Gas Sample Type Arterial; HCO3 ABG 23.3 mmol/L (22-26); HGB O2 Sat 90.6 % (95-100); Methemoglobin 0.5 % (0.4-1.5); PO2 ABG 55.6 mmHg (80.0-100.0); Total Hemoglobin 14.3 g/dL (12-16)
[2022-10-23 22:37] LABS: Oxygen Device NC
[2022-10-23 22:41] LABS: SARS Covid-2 Antigen negative (Negative)
[2022-10-23 22:42] LABS: D Dimer 3.87 ug/mIFEU (0-0.59)
[2022-10-23 22:43] LABS: Lactic Sepsis W/Reflex 1.5 mmol/L (0.5-2.2)
[2022-10-23 22:45] LABS: Troponin(5th) Baseline 10 ng/L (0-10)
[2022-10-23 22:53] LABS: Alanine Aminotransferase 23 U/L (0-33); Albumin Level 3.7 g/dL (3.5-5.2); Alkaline Phosphatase 106 U/L (35-105); Anion Gap 15.9 (5-19); Aspartate Amino Transferase 34 U/L (0-32); Blood Urea Nitrogen 13 mg/dL (8-23); Calcium 8.5 mg/dL (8.5-10.5); Carbon Dioxide 23 mmol/L (22-29); Chloride 95 mmol/L (98-107); Creatinine Clr Calc Pharmacy 71.2778; Globulin 3.3 g/dL (1.3-4.6); Glomerular Filtration Rate 99.7 mL/min (90-130); Glucose 110 mg/dL (65-115); NT Pro B Type Natriuretic Pept 492 pg/mL (0-125); Osmolality Calculated 271 mOsm/kg (285-295); Potassium 3.9 mmol/L (3.5-5.1); Sodium 130 mmol/L (136-145)
[2022-10-23] MEDS: cefTRIAXone 1,000 MG in sodium chloride 0.9% (plus) 50 ML 100 MG IV (22:56)
[2022-10-23] MEDS: azithromycin 500 MG in sodium chloride 0.9% 250 ML 250 MG IV (23:22)
[2022-10-23 23:40] VITALS: BP 126/68; PULSE 93; RESP 28; O2SAT 94
--- NOTE | 2022-10-23 23:47 | CTR_ITS ---
PROCEDURE INFORMATION: Exam: CTA Chest With Contrast Exam date and time: 10/24/2022 12:06 AM Age: 67 years old Clinical indication: Shortness of breath and other: Elevated d-dimer; Additional info: SOB elevated d dimer TECHNIQUE: Imaging protocol: Computed tomographic angiography of the chest with contrast. 3D rendering (Not supervised by radiologist): MIP and/or 3D reconstructed images were created by the technologist. Radiation optimization: All CT scans at this facility use at least one of these dose optimization techniques: automated exposure control; mA and/or kV adjustment per patient size (includes targeted exams where dose is matched to clinical indication); or iterative reconstruction. Contrast material: OMNI 350; Contrast volume: 100 ml; Contrast route: INTRAVENOUS (IV); Other protocol: This patient has received [address] and 0 known cardiac nuclear medicine studies in the 12 months prior to the current study. COMPARISON: CT angio chest PE protcl [id number] 12/16/2021 2:50 PM RADIATION DOSE METRICS: Total DLP (mGy-cm): 804.98 FINDINGS: Pulmonary arteries: Left lower lobe somewhat equivocal nonocclusive segmental to subsegmental branch pulmonary emboli, for instance on series 16, image 358. Mild right heart strain is also suspected with the RV to LV ratio of 1.2. Aorta: Unremarkable. No aortic aneurysm. No aortic dissection. Lungs: Bibasilar atelectasis versus minimal infiltrate. Emphysematous changes. Pleural spaces: Unremarkable. No pneumothorax. No pleural effusion. Heart: See Pulmonary arteries finding. Lymph nodes: Scattered prominent mediastinal lymph nodes measuring 10 mm, nonspecific. Liver: Hepatic steatosis. Spleen: Spleen borderline enlarged to nearly 13 cm. Bones/joints: Unremarkable. No acute fracture. Soft tissues: Unremarkable. CT/CT angio chest PE protcl [id number] IMPRESSION: 1. Left lower lobe somewhat equivocal nonocclusive segmental to subsegmental branch pulmonary emboli, for instance on series 16, image 358. Mild right heart strain is also suspected with the RV to LV ratio of 1.2. 2. Bibasilar atelectasis versus minimal infiltrate. 3. Hepatic steatosis. 4. Emphysematous changes. 5. Scattered prominent mediastinal lymph nodes measuring 10 mm, nonspecific. 6. Spleen borderline enlarged to nearly 13 cm. COMMENTS: In the absence of a history or active diagnosis of lung cancer, it is recommended that this patient with emphysema be evaluated for enrollment in a low dose CT lung cancer screening program.
[2022-10-24] VITALS (9 sets, daily range): BP systolic 95–133; BP diastolic 59–82; PULSE 66–89; RESP 15–21; TEMP 36.5–36.9; O2SAT 92–98; BMI 33.3
[2022-10-24] MEDS: iohexol 350 mg/mL 500 mL Btl (per mL) IV (00:02)
--- NOTE | 2022-10-24 00:33 | ECG_ITS ---
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 Measurements Intervals [place] Rate: 91 P: 78 KS: 167 QRS: 60 QRSD: 75 T: 63 QT: 357 QTc: 440 Interpretive Statements SINUS RHYTHM Compared to ECG 10/23/2022 22:14:59 No significant changes Electronically Signed On 10-25-2022 11:34:54 SENIOR ELECTRICAL ESTIMATOR by Sebas Nava M.D. [id number]
[2022-10-24] MEDS: ondansetron 2 mg/ML SDV 2 mL 4 MG IVP (00:34)
[2022-10-24] MEDS: morphine 4 mg/mL SDV 1 mL IVP (00:34)
--- NOTE | 2022-10-24 01:09 | PC.NURSE ---
Patient arrived on the med surg unit at 0100 with son at bedside.
--- NOTE | 2022-10-24 02:05 | USCV_ITS ---
Ana Paula Higuera Age: 67 Gender: F : 1955 Exam Date: 10/24/2022 10:44 Ordering Phys: Stephanie Molina MD Technologist: SIXTO Exam Location: [facility] [place] Indication: pe BP: / HR: 81 Rhythm: Sinus Technical Quality: Adequate MEASUREMENTS (Male / Female) Normal Values 2D ECHO LV Diastolic Diameter PLAX 4.7 cm 4.2 - 5.9 / 3.9 - 5.3 cm LV Systolic Diameter PLAX 2.4 cm IVS Diastolic Thickness 0.8 cm 0.6 - 1.0 / 0.6 - 0.9 cm IVS Systolic Thickness 1.1 cm LVPW Diastolic Thickness 0.8 cm 0.6 - 1.0 / 0.6 - 0.9 cm LVPW Systolic Thickness 1.0 cm LVOT Diameter 1.8 cm LV Ejection Fraction 2D Teich 79.7 % LV Ejection Fraction MOD 2C 55.6 % LV Ejection Fraction 2C AL 52.9 % LA Diameter 3.0 cm IVC Diameter 1.3 cm M-MODE Aortic Annulus Diameter 2.7 cm LA Ao Ratio MM 1.2 MV E Point Septal Separation 0.4 cm DOPPLER AV Peak Velocity 146.0 cm/s LVOT Peak Velocity 133.0 cm/s AV Area Cont Eq vti 2.2 cm squared AV Area Cont Eq pk 2.4 cm squared MV Area PHT 5.0 cm squared Mitral E to A Ratio 1.8 MV E' Velocity 54.5 cm/s Mitral E to MV E' Ratio 9.6 Mitral E to LV E' Lateral Ratio 10.4 Mitral E to LV E' Septal Ratio 9.0 TR Peak Velocity 187.0 cm/s TR Peak Gradient 14.0 mmHg TV Peak E Velocity 56.0 cm/s PV Peak Velocity 120.0 cm/s FINDINGS Left Ventricle Left ventricle is normal in size. LV systolic function is normal with EF of 55 to 60%. No regional wall motion abnormalities are seen. Right Ventricle Normal in size and function Right Atrium Normal in size Left Atrium Normal in size Mitral Valve Structurally normal mitral valve. Trace mitral regurgitation Aortic Valve Structurally normal aortic valve. No significant stenosis or regurgitation. Tricuspid Valve Mild tricuspid regurgitation. Insufficient TR jet to calculate RVSP Pulmonic Valve Not well visualized. Pericardium Normal Aorta Normal in size IVC Not well visualized CONCLUSIONS LV systolic function is normal with EF of 55 to 60% Trace mitral regurgitation Mild tricuspid regurgitation No comparison studies are available Sebas Nava MD (Electronically Signed) Final Date: 24 October 2022 11:55 S
--- NOTE | 2022-10-24 02:05 | USR_ITS ---
PROCEDURE INFORMATION: Exam: US Duplex Lower Extremity Veins, Bilateral Exam date and time: 10/24/2022 2:30 AM Age: 67 years old Clinical indication: Condition or disease; Other: P. E. ; Additional info: Known pe, evaluate for dvt TECHNIQUE: Imaging protocol: Real-time duplex ultrasound of the bilateral extremities with 2-D ribera scale, color Doppler flow and spectral waveform analysis including responses to compression and other maneuvers (when performed) with image documentation. Complete exam focused on the lower extremity veins. COMPARISON: MR foot RT wo con* [id number] 08/17/2022 10:59 AM FINDINGS: Right deep veins: The common femoral, femoral, popliteal and visualized calf/posterior tibial veins are patent without thrombus. Normal Doppler waveforms. Normal compressibility and/or augmentation response. Right superficial veins: Saphenofemoral junction is patent without thrombus. Left deep veins: The common femoral, femoral, popliteal and visualized calf/posterior tibial veins are patent without thrombus. Normal Doppler waveforms. Normal compressibility and/or augmentation response. Left superficial veins: Saphenofemoral junction is patent without thrombus. Soft tissues: Unremarkable. US/[place] [id number] IMPRESSION: No evidence of deep vein thrombosis.
--- NOTE | 2022-10-24 02:08 | P.HP_ITS ---
Providers/Chief Complaint Admitting Physician: Stephanie Molina MD Primary Care Provider: Samantha Wylie MD Chief Complaint: SOB\Left Arm Numb, Both Legs Numb\Cough History of Present Illness Ana Paula Higuera is a 67 year old female presenting today with shortness of breath. She carries a diagnosis of COPD, has been experiencing worsened cough over the past week alaong with subjective fever. She denies any chest pain or palpitations. ROS + generalized weakness, fatigue. Review of recent outpatient records show that she visited urgent care on 10/12 with left sided chest pain and cough. She received prescriptions for tessalon and had CXR which did not show any pneumonia. on 09/24 , she had been diagnosed with a right thigh cellulitis for which she received bactrim for 10 days. Review of Systems General: Reports: 10 or more systems reviewed and unremarkable except in HPI and below Const: Reports: body aches; Denies: fever(s) or chills Eyes: Denies: change in vision, blurry vision or photophobia ENMT: Denies: odynophagia or nasal congestion Card: Denies: chest pain, palpitations, irregular heart rhythm, edema, swelling of feet/ankles, lightheadedness, pre-syncope, dyspnea on exertion or orthopnea Resp: Denies: dyspnea, productive cough, non-productive cough, wheezing, stridor, pain on inspiration, change in phlegm color, hemoptysis or chest congestion GI: Denies: abdominal pain, nausea, vomiting, hematemesis, coffee ground emesis, dysphagia, heartburn, diarrhea, constipation, GI cramping, change in s tool character, hematochezia or melena : Denies: flank pain, difficulty voiding, dysuria, urinary frequency, urinary urgency, urinary hesitancy or hematuria Musc: Denies: neck pain, back pain, extremity pain, joint swelling, joint warmth or deformity Neuro: Denies: headache(s), numbness in extremities, weakness in extremities, sensory changes, difficulty walking, frequent falls, dizziness, vertigo, behavi oral changes, Slurred speech present or seizure-like activity Psych: Denies: anxiety, depression, suicidal ideation or homicidal ideation Endo: Denies: polyuria, polydipsia, tired all the time, cold intolerance or hot flashes Jackson/Lymph: Denies: easy bruising or easy bleeding Medications/Allergies Home Medications Medication Instructions Recorded Confirmed Last Taken Type amitriptyline 25 mg tablet 25 mg PO BEDTIME@219910/08/19 10/12/22 12/15/21 History atenolol 25 mg tablet 25 mg PO BID@0810/08/19 10/12/22 12/16/21 History gabapentin 300 mg capsule 300 mg PO TID@10/08/19 10/12/22 12/16/21 History lorazepam 0.5 mg tablet 0.5 mg PO TID PRN Anxiety 10/08/19 10/12/22 12/16/21 History omeprazole 40 mg capsule,delayed 40 mg PO DAILY@10/08/19 10/12/22 12/16/21 History release tizanidine 4 mg capsule 4 mg PO QID PRN Muscle Spasm 10/08/19 10/12/22 12/16/21 History tramadol 50 mg tablet 50 mg PO Q6H PRN Pain 10/08/19 10/12/22 12/16/21 History albuterol sulfate 90 mcg/actuation 2 puff inhalation QID PRN 10/24/20 10/12/22 12/16/21 History aerosol inhaler (Ventolin HFA) Shortness Of Breath multivitamin-ferrous 1 tab PO DAILY@10/24/20 10/12/22 12/16/21 History fumarate-folic acid 18 mg-400 mcg tablet (Centrum Women) Night splint to right #1 ea 01/05/22 10/12/22 Unknown Rx losartan 100 mg tablet 100 mg PO DAILY 01/29/22 10/12/22 Unknown History sertraline 50 mg tablet 50 mg PO DAILY 01/29/22 10/12/22 Unknown History levothyroxine 50 mcg capsule 75 mcg PO DAILY@08 02/13/22 10/12/22 Unknown History nystatin 100,000 unit/mL oral 5 ml PO QID for thrush #200 mL 02/28/22 10/12/22 Unknown Rx suspension allopurinol 300 mg tablet 300 mg PO DAILY 06/17/22 10/12/22 Unknown History Night Splint to the right foot #1 ea 07/01/22 10/12/22 Unknown Rx benzonatate 200 mg capsule 200 mg PO BID PRN cough #20 caps 10/12/22 10/12/22 Unknown Rx Allergies Allergy/AdvReac Type Severity Reaction Status Date / Time aspirin Allergy ALGY-Rash Verified 10/23/22 21:57 PFSH Acute PFSH: Medical History Abnormal LFTs Chronic back pain COPD (chronic obstructive pulmonary disease) Hypertension Hyponatremia Kidney stones Surgical History H/O right wrist surgery Previous back surgery Previous section S/P cholecystectomy Family History Sister Cancer Bone marrow cancer in remission Grandmother Diabetes Mother Diabetes CAD (coronary artery disease) Father CAD (coronary artery disease) Other Family history non-contributory Hypertension Denies family history of Clotting disorder Dementia Hyperlipidemia Psychiatric illness Chronic kidney disease (CKD) Suicide Anesthesia complication Bleeding disorder Lung disease Stroke Social History Smoking and tobacco status: former smoker (smoked 20 years) Alcohol intake: never Vitals/I&O/Wt Last Vital Signs Temp 98.7 F 10/23/22 21:52 Pulse 93 10/23/22 23:40 Resp 28 H 10/23/22 23:40 BP 126/68 10/23/22 23:40 Pulse Ox 94 10/23/22 23:40 O2 Del Method 10/24/22 01:08 O2 Flow Rate 4 10/23/22 23:40 Weight last 48 hrs Weight 90.265 kg Physical Exam Narrative: General: No acute distress, AO x3 HEENT: PERRLA, pupils bilaterally equal and reactive, pallors not present Chest: Normal vesicular breath sounds, no added sounds, equal good air entry bilaterally CVS: S1-S2 regular, no murmurs, no tachycardia, no gallops, no rubs Abdomen: Soft, nontender, no organomegaly, bowel sounds present Neuro: No focal deficits, no facial deformity, AO x3, power 5/5 in all limbs Data 10/23/22 22:08 10/23/22 22:08 Micro: Microbiology 10/23/22 23:18 Blood Culture - Preliminary Blood SPECIMEN COLLECTED 10/23/22 23:21 Blood Culture - Preliminary Blood SPECIMEN COLLECTED Other data: CT/CT angio chest PE protcl [id number] IMPRESSION: 1. Left lower lobe somewhat equivocal nonocclusive segmental to subsegmental branch pulmonary emboli, for instance on series 16, image 358. Mild right heart strain is also suspected with the RV to LV ratio of 1.2. 2. Bibasilar atelectasis versus minimal infiltrate. 3. Hepatic steatosis. 4. Emphysematous changes. 5. Scattered prominent mediastinal lymph nodes measuring 10 mm, nonspecific. 6. Spleen borderline enlarged to nearly 13 cm. A&P Assessment and plan (1) Pulmonary embolism: CTa as above start lovenox 1mg/kg q12h Patient has a h/o thrombocytopenia for which she followed with hematology. No clear cause had been ascertained at the time. 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 She had declined BM aspirate. Currently platelet count is at 103. Monitor closely while on A/c check LE duplex right heart strain noted on CT, check echo baseline trop 10, no significant delta at 2 hrs (2) Community acquired pneumonia: CTa showing B//L infiltrates Start Ceftriaxone 1g iv q24h and azithromycin 500mg daily x 3 days sputum cx and gram stain bacterial Ag panel MRSA screen negative covid and flu on rapid testing (3) Respiratory failure: currently needing 2-3 lpm supplemental 02 Attestations Medical Necessity Statement*: > 2midnight admission anticipated for above defined care Coding Level of Care Code Acute Code for Chg Fwd Diagnoses Pulmonary embolism I26.99 Community acquired pneumonia J18.9 Respiratory failure J96.90
[2022-10-24 02:42] LABS: Troponin 5 2HR 10.73 ng/L (0-10)
[2022-10-24 02:43] LABS: Troponin 5 2HR Delta 0.73 ABS# (0-10)
[2022-10-24] MEDS: enoxaparin 100 mg/mL Syringe 90 MG SUBCUT ×2 (02:43→14:35)
--- NOTE | 2022-10-24 03:53 | ECG_ITS ---
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 Measurements Intervals [place] Rate: 80 P: 58 NE: 166 QRS: 38 QRSD: 77 T: 51 QT: 388 QTc: 448 Interpretive Statements SINUS RHYTHM Compared to ECG 10/24/2022 00:33:59 No significant changes Electronically Signed On 10-25-2022 11:34:47 COMPUTER TECH by Sebas Nava M.D. [id number]
[2022-10-24 06:24] LABS: Troponin 5 6HR 10.94 ng/L (0-10); Troponin 5 6HR Delta 0.94 ng/L (0-12)
[2022-10-24] MEDS: albuterol 2.5 mg/3 mL Neb INHALATION ×2 (07:56→14:09)
[2022-10-24] MEDS: gabapentin 300 mg Capsule PO ×3 (09:27→22:52)
[2022-10-24] MEDS: atenolol 50 mg Tablet 25 MG PO ×2 (09:27→22:51)
[2022-10-24] MEDS: azithromycin 250 mg Tablet 500 MG PO (09:27)
[2022-10-24] MEDS: losartan 50 mg Tablet 100 MG PO (09:27)
[2022-10-24] MEDS: levothyroxine 75 mcg Tablet PO (09:27)
[2022-10-24] MEDS: sertraline 50 mg Tablet PO (09:28)
[2022-10-24] MEDS: allopurinol 300 mg Tablet PO (09:28)
[2022-10-24] MEDS: pantoprazole DR 40 mg Tablet PO (09:28)
--- NOTE | 2022-10-24 10:27 | PM.MISC ---
Miscellaneous Note Note: Patient is complaining of left-sided pleuritic pain Currently on 3 L nasal cannula Does not use oxygen at home Hemodynamically stable Awake alert nonfocal neuro exam Not in any acute distress Pleuritic pain Abdomen soft No signs of CHF Assessment and plan Unprovoked PE no history of cancer, patient is endorsing sedentary lifestyle as well, will start Eliquis at the time of discharge Continue treatment for pneumonia, PE She is seeing Dr. Bowden for splenomegaly and thrombocytopenia, current platelet count is 100,000 Hemodynamic stable We will follow-up with echo Plan to discharge her over the weekend
[2022-10-24] MEDS: ketorolac 30 mg/mL INJ IVP (10:57)
[2022-10-24] MEDS: fixodent 39 gm Tube 1 APPLIC DENTAL (14:34)
[2022-10-24] MEDS: lidocaine 5% Patch 1 PATCH TOPICAL (20:55)
[2022-10-24] MEDS: TRAMadol 50 mg Tablet PO (22:51)
[2022-10-24] MEDS: amitriptyline 25 mg Tablet PO (22:51)
[2022-10-24] MEDS: cefTRIAXone 1,000 MG in sodium chloride 0.9% (plus) 50 ML 100 MG IV (23:48)
[2022-10-25] VITALS (9 sets, daily range): BP systolic 123–153; BP diastolic 68–80; PULSE 73–84; RESP 17–22; TEMP 36.6–36.7; O2SAT 86–98
[2022-10-25] MEDS: enoxaparin 100 mg/mL Syringe 90 MG SUBCUT (01:53)
[2022-10-25 05:38] LABS: Basophils % 0.5 %; Eosinophils # 0.2 10^3/uL (0.0-0.8); Eosinophils % 2.4 %; Hematocrit 39.6 % (37.0-47.0); Hemoglobin 13.2 g/dL (11.5-15.3); Lymphocytes # 1.3 10^3/uL (0.8-4.8); Lymphocytes % 14.8 %; Mean Corpuscular HGB Conc 33.3 g/dL (30.0-36.0); Mean Corpuscular Hemoglobin 30.1 pg (28.0-34.0); Mean Corpuscular Volume 90.4 fl (81-99); Mean Platelet Volume 10.4 fL (7.4-10.4); Monocytes # 0.7 10^3/uL (0.2-0.9); Monocytes % 8.2 %; Neutrophils # 6.36 10^3/uL (1.8-7.7); Neutrophils % 73.2 %; Nucleated Red Blood Cells % 0 %; Platelet Count 95 10^3/cmm (130-400); Red Blood Count 4.38 10^6/uL (4.1-5.3); Red Cell Distribution Width 14.6 % (12.1-15.1); White Blood Count 8.7 10^3/uL (4.0-10.0)
[2022-10-25 06:05] LABS: Alanine Aminotransferase 17 U/L (0-33); Albumin Level 3.1 g/dL (3.5-5.2); Alkaline Phosphatase 133 U/L (35-105); Anion Gap 11.6 (5-19); Aspartate Amino Transferase 28 U/L (0-32); Blood Urea Nitrogen 12 mg/dL (8-23); Calcium 8.6 mg/dL (8.5-10.5); Carbon Dioxide 26 mmol/L (22-29); Chloride 101 mmol/L (98-107); Glomerular Filtration Rate 123.1 mL/min (90-130); Glucose 100 mg/dL (65-115); Osmolality Calculated 280 mOsm/kg (285-295); Potassium 3.6 mmol/L (3.5-5.1); Sodium 135 mmol/L (136-145); Total Protein 7.1 g/dL (6.6-8.7)
[2022-10-25] MEDS: albuterol 2.5 mg/3 mL Neb INHALATION (08:33)
[2022-10-25] MEDS: allopurinol 300 mg Tablet PO (09:08)
[2022-10-25] MEDS: gabapentin 300 mg Capsule PO (09:08)
[2022-10-25] MEDS: pantoprazole DR 40 mg Tablet PO (09:08)
[2022-10-25] MEDS: azithromycin 250 mg Tablet 500 MG PO (09:08)
[2022-10-25] MEDS: sertraline 50 mg Tablet PO (09:08)
[2022-10-25] MEDS: lidocaine 5% Patch 1 PATCH TOPICAL (09:09)
[2022-10-25] MEDS: levothyroxine 75 mcg Tablet PO (09:09)
[2022-10-25] MEDS: atenolol 50 mg Tablet 25 MG PO (09:09)
[2022-10-25] MEDS: losartan 50 mg Tablet 100 MG PO (09:12)
--- NOTE | 2022-10-25 09:28 | PM.DCS ---
Discharge Providers Date of Admission: 10/24/22 02:03 Date of Discharge: October 25, 2022 Attending Provider at Admission: Stephanie Molina MD Attending Provider at Discharge: Thomas White MD Primary Care Provider: Samantha Wylie MD Diagnoses at Discharge Discharge Diagnosis (1) Pulmonary embolism: Status: Acute (2) Community acquired pneumonia: Status: Acute (3) Respiratory failure: Status: Acute Reason for Visit Reason for Visit: SOB\Left Arm Numb, Both Legs Numb\Cough Hospital Course Hospital Course 67-year female who was admitted for management of shortness of breath she was diagnosed with pneumonia and unprovoked PE, she is still endorsing left-sided pleuritic pain however feeling better with lidocaine patch, she is requiring 3 to 4 L of oxygen which is new, echo did not show significant right heart strain, no significant troponin delta, no active chest pain. No previous history of cancer she follows up with Dr. Bowden for splenomegaly. I have recommended her to use Eliquis 10 mg for 7 days and then 5 mg twice a day, home oxygen evaluation requested, she will get Levaquin 3-day regimen at the time of discharge along inhalers. Physical Exam Narrative: Pleasant and cooperative Respiratory rate improved Currently on 4 L nasal cannula Nonproductive cough S1, S2 Abdomen soft Nontender no edema Discharge Data Studies Completed and Pending Completed Studies During Hospitalization Category Date Time Status CT angio chest PE protcl [id number] Urgent Cat Scan 10/23/22 23:47 Completed XR chest 1V portable [id number] Stat Exams 10/23/22 22:00 [place] [id number] Routine Ultrasound 10/24/22 02:05 Completed CV. echo complete* [id number] Routine Ultrasound 10/24/22 02:05 Completed Pending at discharge Category Date Time Status Blood Culture Stat Lab 10/23/22 23:18 Results Sputum Culture and Gram Stain Routine Lab 10/24/22 18:56 Results Radiology Impressions Chest X-Ray 10/23/22 22:00 IMPRESSION: Bibasilar right greater than left atelectasis versus infiltrate along with minimal right upper lobe infiltrate. Chest CTA 10/23/22 23:47 IMPRESSION: 1. Left lower lobe somewhat equivocal nonocclusive segmental to subsegmental branch pulmonary emboli, for instance on series 16, image 358. Mild right heart strain is also suspected with the RV to LV ratio of 1.2. 2. Bibasilar atelectasis versus minimal infiltrate. 3. Hepatic steatosis. 4. Emphysematous changes. 5. Scattered prominent mediastinal lymph nodes measuring 10 mm, nonspecific. 6. Spleen borderline enlarged to nearly 13 cm. COMMENTS: In the absence of a history or active diagnosis of lung cancer, it is recommended that this patient with emphysema be evaluated for enrollment in a low dose CT lung cancer screening program. ADDENDUM: 10/24/22 0110 THIS REPORT CONTAINS FINDINGS THAT MAY BE CRITICAL TO PATIENT CARE. The findings were verbally communicated via telephone conference with Dr Molina at 1:08 AM YACHT CAPTAIN on 10/24/2022. The findings were acknowledged and understood. Venous Duplex 10/24/22 02:05 IMPRESSION: No evidence of deep vein thrombosis. Laboratory Results WBC 8.7 10^3/uL (4.0-10.0) 10/25/22 04:42 RBC 4.38 10^6/uL (4.1-5.3) 10/25/22 04:42 Hgb 13.2 g/dL (11.5-15.3) 10/25/22 04:42 Hct 39.6 % (37.0-47.0) 10/25/22 04:42 MCV 90.4 fl (81-99) 10/25/22 04:42 MCH 30.1 pg (28.0-34.0) 10/25/22 04:42 MCHC 33.3 g/dL (30.0-36.0) 10/25/22 04:42 RDW 14.6 % (12.1-15.1) 10/25/22 04:42 Plt Count 95 10^3/cmm (130-400) L 10/25/22 04:42 MPV 10.4 fL (7.4-10.4) 10/25/22 04:42 Neut % (Auto) 73.2 % 10/25/22 04:42 Lymph % (Auto) 14.8 % 10/25/22 04:42 George % (Auto) 8.2 % 10/25/22 04:42 Eos % (Auto) 2.4 % 10/25/22 04:42 Baso % (Auto) 0.5 % 10/25/22 04:42 Neut # (Auto) 6.36 10^3/uL (1.8-7.7) 10/25/22 04:42 Lymph # (Auto) 1.3 10^3/uL (0.8-4.8) 10/25/22 04:42 George # (Auto) 0.7 10^3/uL (0.2-0.9) 10/25/22 04:42 Eos # (Auto) 0.2 10^3/uL (0.0-0.8) 10/25/22 04:42 Baso # (Auto) 0.0 10^3/uL (0.0-0.1) 10/25/22 04:42 Nucleated RBC % (auto) 0 % 10/25/22 04:42 Nucleated RBCs # 0.0 /100WBC 10/25/22 04:42 PT 16.90 SECONDS (12.1-14.9) H 10/23/22 22:08 INR 1.34 (0.8-1.2) H 10/23/22 22:08 D-Dimer 3.87 ug/mIFEU (0-0.59) H 10/23/22 22:08 Specimen Type Arterial 10/23/22 22:29 Sample Site Radial, right 10/23/22 22:29 ABG pH 7.51 (7.35-7.45) H 10/23/22 22: ABG pCO2 29.1 mmHg (35-45) L 10/23/22 22: ABG pO2 55.6 mmHg (80.0-100.0) L 10/23/22 22: ABG HCO3 23.3 mmol/L (22-26) 10/23/22 22: ABG Base Excess 1.3 mmol/L (-2.0-2.0) 10/23/22 22: Arik Test Pos 10/23/22 22: Hematocrit 43.9 % (37-47) 10/23/22 22: Hgb O2 Saturation 90.6 % (95-100) L 10/23/22 22: Carboxyhemoglobin 2.0 %THgb (0.4-20.1) 10/23/22 22: Methemoglobin 0.5 % (0.4-1.5) 10/23/22 22: Total Hemoglobin 14.3 g/dL (12-16) 10/23/22 22:29 O2 Delivery Device Nc 10/23/22 22:29 O2 Liters/Min 2.0 % 10/23/22 22:29 [employer] ID John 10/23/22 22:29 Sodium 135 mmol/L (136-145) L 10/25/22 04:42 Potassium 3.6 mmol/L (3.5-5.1) 10/25/22 04:42 Chloride 101 mmol/L (98-107) 10/25/22 04:42 Carbon Dioxide 26 mmol/L (22-29) 10/25/22 04:42 Anion Gap 11.6 (5-19) 10/25/22 04:42 BUN 12 mg/dL (8-23) 10/25/22 04:42 Creatinine 0.5 mg/dL (0.5-0.9) 10/25/22 04:42 GFR Calculation 123.1 mL/min (90-130) 10/25/22 04:42 Glucose 100 mg/dL (65-115) 10/25/22 04:42 Calculated Osmolality 280 mOsm/kg (285-295) L 10/25/22 04:42 Lactic Acid 1.5 mmol/L (0.5-2.2) 10/23/22 22:08 Calcium 8.6 mg/dL (8.5-10.5) 10/25/22 04:42 Total Bilirubin 1.0 mg/dL (0.15-1.2) 10/25/22 04:42 AST 28 U/L (0-32) 10/25/22 04:42 ALT 17 U/L (0-33) 10/25/22 04:42 Alkaline Phosphatase 133 U/L (35-105) H 10/25/22 04:42 Troponin T Baseline 10 ng/L (0-10) 10/23/22 22:08 Troponin T 120 Minute 10.73 ng/L (0-10) H 10/24/22 02:00 Delta Troponin T 0.73 ABS# (0-10) 10/24/22 02:00 Troponin T Hi Sens 6Hr 10.94 ng/L (0-10) H 10/24/22 05:38 Troponin T Hi Sens 6Hr Delta 0.94 ng/L (0-12) 10/24/22 05:38 NT-Pro-B Natriuret Pep 492 pg/mL (0-125) H 10/23/22 22:08 Total Protein 7.1 g/dL (6.6-8.7) 10/25/22 04:42 Albumin 3.1 g/dL (3.5-5.2) L 10/25/22 04:42 Globulin 4.0 g/dL (1.3-4.6) 10/25/22 04:42 Influenza Type A Ag negative (Negative) 10/23/22 22:04 Influenza Type B Ag negative (Negative) 10/23/22 22:04 SARS-CoV-2 Ag (Rapid) negative (Negative) 10/23/22 22:20 Vitals Last Vital Signs Temp 97.8 F 10/25/22 07:43 Pulse 84 10/25/22 08:00 Resp 18 10/25/22 08:00 BP 153/80 10/25/22 09:12 Pulse Ox 86 L 10/25/22 09:20 O2 Del Method 10/25/22 08:00 O2 Flow Rate 4 10/25/22 09:20 Discharge Plan Discharge Patient Disposition: Home Condition: Stable Prescriptions: New lidocaine [Aspercreme (lidocaine)] 4 % adhesive patch,medicated 1 patch topical DAILY PRN (Reason: pain) Qty: 10 0RF Rx Instructions: may leave on for up to 12 hrs Robitussin Cough-Sore Throat 325-10 mg/10 mL liquid 20 ml PO Q4H PRN (Reason: cough symptoms) Qty: 118 0RF Trelegy Ellipta 100-62.5-25 mcg blister with device 1 inh inhalation DAILY Qty: 28 4RF levofloxacin 750 mg tablet 750 mg PO DAILY 5 Days Qty: 5 0RF Eliquis DVT-PE Treat 30D Start 5 mg (74 tabs) tablets,dose pack See Rx Instructions .ROUTE .COMPLEX Qty: 74 0RF Rx Instructions: orally per package directions Continued tizanidine 4 mg capsule 4 mg PO QID PRN (Reason: Muscle Spasm) atenolol 25 mg tablet 25 mg PO BID@0 amitriptyline 25 mg tablet 25 mg PO BEDTIME@0 tramadol 50 mg tablet 50 mg PO Q6H PRN (Reason: Pain) gabapentin 300 mg capsule 300 mg PO TID@08,12,22 omeprazole 40 mg capsule,delayed release(DR/EC) 40 mg PO DAILY@08 lorazepam 0.5 mg tablet 0.5 mg PO TID PRN (Reason: Anxiety) levothyroxine 50 mcg capsule 75 mcg PO DAILY@08 (DME) Night splint to right See Rx Instructions .Route .MEDSUPPLY Qty: 1 0RF Rx Instructions: As directed losartan 100 mg tablet 100 mg PO DAILY sertraline 50 mg tablet 50 mg PO DAILY (DME) Night Splint to the right foot See Rx Instructions .Route .MEDSUPPLY Qty: 1 0RF Rx Instructions: As directed allopurinol 300 mg tablet 300 mg PO DAILY nystatin 100,000 unit/mL suspension 5 ml PO QID Qty: 200 0RF Rx Instructions: swish and swallow benzonatate 200 mg capsule 200 mg PO BID PRN (Reason: cough) Qty: 20 0RF albuterol sulfate [Ventolin HFA] 90 mcg/actuation HFA aerosol inhaler 2 puff INHALATION QID PRN (Reason: Shortness Of Breath) Centrum Women 18-400 mg-mcg Tablet 1 tab PO DAILY@08 Discharge Orders: Discharge Order (Routine); Ordered 10/25/22 Ordered By: Thomas White Referrals: Samantha Wylie MD [Primary Care Provider] - 7-10 days Discharge Diet: Cardiac Patient Instructions: Opioid Safety Discharge Attestations Time Spent in Discharge Care*: less than 30 min Status at Discharge: Cognitive status at discharge: cognitively intact, Behavioral status at discharge: cooperative, Quality Metrics Clinical Quality Measures [ No reported AMI, CVA or VTE this stay] Coding Level of Care Code Acute Chg FW DC note Diagnoses Pulmonary embolism I26.99 Community acquired pneumonia J18.9 Respiratory failure J96.90
--- NOTE | 2022-10-25 10:59 | PC.NURSE ---
Julius with [facility] in with pt. Pt refusing Home O2 set up , accepting portable oxygen. Pt stated, at discharge a friend is taking me to [place] for a second opinion, I won't be home to set up home O2.
== END 2022-10-25 11:46 | disposition home or self-care (01) | DRG 175 ==
LOC: ER 23:52 → MEDSURG 10-24 00:24
PROVIDERS: Nurse Practitioner Family; Admitting Provider Student in an Organized Health Care Education/Training Program; Emergency Provider Family Medicine; PCP Family Medicine; Visit Provider Internal Medicine
DX: I26.93 Single subsegmental thrombotic pulmonary embolism without acute cor pulmonale (principal); J18.9 Pneumonia, unspecified organism; Z79.891 Long term (current) use of opiate analgesic; Z79.51 Long term (current) use of inhaled steroids; G89.29 Other chronic pain; M54.9 Dorsalgia, unspecified; I10 Essential (primary) hypertension; Z87.891 Personal history of nicotine dependence; R16.1 Splenomegaly, not elsewhere classified; D69.6 Thrombocytopenia, unspecified
CPT/HCPCS: 36415; 36600; 71045; 71275; 80053; 82805; 83605; 83880; 84484; 85025; 85378; 85610; 86403; 87040; 87070; 87205; 87426; 87804; 93005; 93306; 93970; 94002; 94640; 94760; 96365; 96372; 96375; 99285; J0456; J0696; J1650; J1885; J2270; J2405; J7050; J7613; J7644; Q0144; Q9967

== ENCOUNTER 2022-11-10 09:27 | Oncology outpatient (recurring) (ONCR) | payer MEDICARE, MEDICAID, SELFPAY ==
[2022-11-10 10:11] LABS: Basophils % 0.4 %; Eosinophils # 0.1 10^3/uL (0.0-0.8); Eosinophils % 2.1 %; Hematocrit 40.5 % (37.0-47.0); Hemoglobin 13.1 g/dL (11.5-15.3); Lymphocytes # 0.8 10^3/uL (0.8-4.8); Lymphocytes % 15.2 %; Mean Corpuscular HGB Conc 32.3 g/dL (30.0-36.0); Mean Corpuscular Hemoglobin 30.6 pg (28.0-34.0); Mean Corpuscular Volume 94.6 fl (81-99); Mean Platelet Volume 10.2 fL (7.4-10.4); Monocytes # 0.4 10^3/uL (0.2-0.9); Monocytes % 7.9 %; Neutrophils # 3.96 10^3/uL (1.8-7.7); Nucleated Red Blood Cells % 0 %; Platelet Count 88 10^3/cmm (130-400); Red Blood Count 4.28 10^6/uL (4.1-5.3); Red Cell Distribution Width 15.5 % (12.1-15.1); White Blood Count 5.3 10^3/uL (4.0-10.0)
== END 2022-11-24 23:59 | disposition home or self-care (01) ==
PROVIDERS: PCP Family Medicine; Visit Provider Internal Medicine Hematology & Oncology
DX: D69.6 Thrombocytopenia, unspecified (principal); Z79.01 Long term (current) use of anticoagulants; I26.99 Other pulmonary embolism without acute cor pulmonale
CPT/HCPCS: 36415; 85025; 99214

== ENCOUNTER → 2022-12-04 12:58 | Day surgery (SDC) | payer MEDICARE, MEDICAID, SELFPAY ==
[2022-12-04 15:15] VITALS: BP 172/87; PULSE 71; RESP 16; TEMP 36.2; O2SAT 97
[2022-12-04 15:20] VITALS: BMI 35.2
[2022-12-04] MEDS: acetaminophen 325 mg Tablet 650 MG PO (15:38)
[2022-12-04] MEDS: diphenhydrAMINE 25 mg Capsule PO (15:39)
[2022-12-04 16:15] VITALS: BP 188/96; PULSE 71; RESP 18; TEMP 36.4; O2SAT 97
--- NOTE | 2022-12-04 16:20 | PC.NURSE ---
Pt to OPS for transfusion of one unit platelets. Pt pre-medicated with tylenol, benadryl, and dexamethasone as ordered. Pt tolerated transfusion without reaction. Denies pain or SOB. Pt ambulated off unit with friend to go home via personal vehicle. Pt to follow up with oncology next week.
[2022-12-04 16:29] VITALS: BP 190/97; PULSE 90; RESP 18; TEMP 36.3; O2SAT 96
== END ==
PROVIDERS: PCP Family Medicine; Visit Provider Internal Medicine Hematology & Oncology
DX: D69.6 Thrombocytopenia, unspecified (principal)
CPT/HCPCS: 36415; 36430; 80503; 85025; 86900; 96365; 99214; J1100; P9040

== ENCOUNTER 2022-12-10 11:37 | Outpatient (CLI) | payer MEDICARE, MEDICAID, SELFPAY ==
--- NOTE | 2022-12-10 12:19 | XR_ITS ---
WS: [id number] XR ankle LT min 3V* [id number] REASON FOR EXAM: PAIN IN LEFT ANKLE JOINTS OF LEFT FOOT FINDINGS: No fracture or focal bone lesion. Sclerosis in the calcaneus secondary to previous surgical procedure . Joint spaces of the left ankle are intact and relatively well-preserved. Multiple small bony fragments adjacent to the medial and lateral malleolar most likely indicative of old medial and lateral collateral ligament injuries. XR/XR ankle LT min 3V* [id number] IMPRESSION: Postoperative and degenerative change with no acute abnormality identified.
--- NOTE | 2022-12-10 12:19 | US_ITS ---
WS: [id number] TRANSABDOMINAL PELVIC AND TRANSVAGINAL PELVIC ULTRASOUND HISTORY: L OVARIAN CYST COMPARISON: None available. No CT is available for comparison which described an ovarian cyst. Status post hysterectomy. No midline pelvic mass. The RIGHT ovary is not identified. No adnexal masses or cysts. Left ovary: 3.7 cm x 3.6 cm x 2.5 cm. Cystic mass in the LEFT adnexa measures 3.5 x 2.5 x 2.4 cm. Thi s is adjacent to the ovary. This cystic area does conform to the space and could be a peritoneal incl usion cyst related to prior surgery. No solid component. Free fluid: No free fluid. US/US pelv w/transvag [id number] IMPRESSION: 1. Status post hysterectomy. 2. RIGHT ovary not identified. 3. Fluid collection in the LEFT adnexa conforms to the space that is adjacent and inseparable from the ovary. This may be a small benign-appearing exophytic ovarian cyst or peritoneal inclusion cyst. O-RADS 2, almost certainly benign.
--- NOTE | 2022-12-10 12:19 | USCV_ITS ---
Ana Paula Higuera Age: 67 Gender: F : 1955 Exam Date: 12/10/2022 13:09 Ordering Phys: Samantha Wylie MD Technologist: Kesha Barrow [place] [facility] [place]: Pt had PE. Been on thinners for a while HISTORY: Pt had PE PROCEDURES: The venous duplex Doppler examination of both lower extremities was performed in the standard fashion. The following venous structures were evaluated: common femoral vein, profunda vein, proximal portion of the greater saphenous vein, superficial femoral vein, and the popliteal vein. In addition, the posterior tibial and peroneal trunk were evaluated. Serial compression, augmentation maneuvers, and spectral Doppler flow evaluation were performed. FINDINGS: Normal 2-D Doppler and augmentation and compressibility throughout the lower extremity venous structures. Additional imaging through the proximal calf veins also reveals no thrombus. Limited evaluation of the greater saphenous vein is patent with no thrombus. CONCLUSIONS No DVT bilateral lower extremities. Dr. Bella Johnson DO (Electronically Signed) Final Date: 10 December 2022 14:18 S
== END 2022-12-10 11:38 | disposition home or self-care (01) ==
PROVIDERS: PCP Family Medicine; Visit Provider Family Medicine
DX: M25.572 Pain in left ankle and joints of left foot (principal); I26.99 Other pulmonary embolism without acute cor pulmonale; N83.202 Unspecified ovarian cyst, left side; Z98.890 Other specified postprocedural states; Z79.01 Long term (current) use of anticoagulants; Z90.710 Acquired absence of both cervix and uterus
CPT/HCPCS: 73610; 76830; 76856; 93970

== ENCOUNTER → 2022-12-11 09:22 | Outpatient (BNVA) | payer MEDICARE, MEDICAID, SELFPAY | PROVIDERS: PCP Family Medicine; Visit Provider Internal Medicine Hematology & Oncology | DX: D69.6 Thrombocytopenia, unspecified (principal) | CPT/HCPCS: 99214 ==

== ENCOUNTER → 2022-12-18 10:04 | Outpatient (BNVA) | payer MEDICARE, MEDICAID, SELFPAY | PROVIDERS: PCP Family Medicine; Visit Provider Nurse Practitioner Family | DX: D69.6 Thrombocytopenia, unspecified (principal) | CPT/HCPCS: 99213 ==

== ENCOUNTER 2022-12-25 09:30 | Oncology outpatient (recurring) (ONCR) | payer MEDICARE, MEDICAID, SELFPAY ==
[2022-12-04 09:34] LABS: Basophils % 0.7 %; Eosinophils # 0.1 10^3/uL (0.0-0.8); Eosinophils % 2.1 %; Hematocrit 37.2 % (37.0-47.0); Hemoglobin 12.2 g/dL (11.5-15.3); Lymphocytes # 0.7 10^3/uL (0.8-4.8); Lymphocytes % 24.7 %; Mean Corpuscular HGB Conc 32.8 g/dL (30.0-36.0); Mean Corpuscular Hemoglobin 30.1 pg (28.0-34.0); Mean Corpuscular Volume 91.9 fl (81-99); Monocytes # 0.3 10^3/uL (0.2-0.9); Monocytes % 10.3 %; Neutrophils # 1.81 10^3/uL (1.8-7.7); Neutrophils % 61.9 %; Nucleated Red Blood Cells % 0 %; Red Blood Count 4.05 10^6/uL (4.1-5.3); Red Cell Distribution Width 14.3 % (12.1-15.1); White Blood Count 2.9 10^3/uL (4.0-10.0)
[2022-12-04 10:09] LABS: Slide Review Slide Review Perform
[2022-12-04 10:14] LABS: Platelet Count 11 10^3/cmm (130-400)
[2022-12-04 11:41] LABS: Basophils % 0.4 %; Eosinophils # 0.1 10^3/uL (0.0-0.8); Hematocrit 36.4 % (37.0-47.0); Hemoglobin 12.1 g/dL (11.5-15.3); Lymphocytes # 0.6 10^3/uL (0.8-4.8); Lymphocytes % 23.6 %; Mean Corpuscular HGB Conc 33.2 g/dL (30.0-36.0); Mean Corpuscular Hemoglobin 30.3 pg (28.0-34.0); Mean Corpuscular Volume 91.2 fl (81-99); Monocytes # 0.3 10^3/uL (0.2-0.9); Monocytes % 11.8 %; Neutrophils % 60.8 %; Nucleated Red Blood Cells % 0 %; Red Blood Count 3.99 10^6/uL (4.1-5.3); Red Cell Distribution Width 14.6 % (12.1-15.1); White Blood Count 2.6 10^3/uL (4.0-10.0)
[2022-12-04 11:54] LABS: Platelet Count 10 10^3/cmm (130-400); Slide Review Slide Review Perform
[2022-12-07 10:35] LABS: Basophils % 0.1 %; Hematocrit 41.8 % (37.0-47.0); Hemoglobin 13.9 g/dL (11.5-15.3); Lymphocytes # 0.5 10^3/uL (0.8-4.8); Lymphocytes % 5.8 %; Mean Corpuscular HGB Conc 33.3 g/dL (30.0-36.0); Mean Corpuscular Volume 90.1 fl (81-99); Mean Platelet Volume 12.3 fL (7.4-10.4); Monocytes # 0.4 10^3/uL (0.2-0.9); Monocytes % 4.6 %; Neutrophils # 7.39 10^3/uL (1.8-7.7); Neutrophils % 88.8 %; Nucleated Red Blood Cells % 0 %; Platelet Count 61 10^3/cmm (130-400); Red Blood Count 4.64 10^6/uL (4.1-5.3); Red Cell Distribution Width 14.6 % (12.1-15.1); White Blood Count 8.3 10^3/uL (4.0-10.0)
[2022-12-07 10:58] LABS: Alanine Aminotransferase 27 U/L (0-33); Albumin Level 3.7 g/dL (3.5-5.2); Alkaline Phosphatase 109 U/L (35-105); Anion Gap 15.9 (5-19); Aspartate Amino Transferase 28 U/L (0-32); Blood Urea Nitrogen 22 mg/dL (8-23); Calcium 8.9 mg/dL (8.5-10.5); Carbon Dioxide 25 mmol/L (22-29); Chloride 101 mmol/L (98-107); Globulin 3.1 g/dL (1.3-4.6); Glomerular Filtration Rate 83.5 mL/min (90-130); Glucose 268 mg/dL (65-115); Osmolality Calculated 299 mOsm/kg (285-295); Potassium 3.9 mmol/L (3.5-5.1); Sodium 138 mmol/L (136-145); Total Bilirubin 0.9 mg/dL (0.15-1.2); Total Protein 6.8 g/dL (6.6-8.7)
[2022-12-11 09:39] LABS: Basophils % 0.1 %; Hematocrit 45.3 % (37.0-47.0); Hemoglobin 15.3 g/dL (11.5-15.3); Lymphocytes # 0.6 10^3/uL (0.8-4.8); Lymphocytes % 5.9 %; Mean Corpuscular HGB Conc 33.8 g/dL (30.0-36.0); Mean Corpuscular Hemoglobin 30.2 pg (28.0-34.0); Mean Corpuscular Volume 89.3 fl (81-99); Monocytes # 0.7 10^3/uL (0.2-0.9); Monocytes % 6.9 %; Neutrophils # 8.09 10^3/uL (1.8-7.7); Neutrophils % 85.7 %; Nucleated Red Blood Cells % 0 %; Platelet Count 87 10^3/cmm (130-400); Red Blood Count 5.07 10^6/uL (4.1-5.3); White Blood Count 9.4 10^3/uL (4.0-10.0)
[2022-12-11 09:55] LABS: Alanine Aminotransferase 56 U/L (0-33); Albumin Level 3.5 g/dL (3.5-5.2); Alkaline Phosphatase 121 U/L (35-105); Blood Urea Nitrogen 26 mg/dL (8-23); Calcium 8.6 mg/dL (8.5-10.5); Carbon Dioxide 28 mmol/L (22-29); Chloride 100 mmol/L (98-107); Globulin 2.6 g/dL (1.3-4.6); Glomerular Filtration Rate 71.5 mL/min (90-130); Glucose 360 mg/dL (65-115); Osmolality Calculated 297 mOsm/kg (285-295); Sodium 134 mmol/L (136-145); Total Bilirubin 1.3 mg/dL (0.15-1.2); Total Protein 6.1 g/dL (6.6-8.7)
[2022-12-11 10:00] LABS: Anion Gap 10.4 (5-19); Aspartate Amino Transferase 39 U/L (0-32); Potassium 4.4 mmol/L (3.5-5.1)
[2022-12-14 10:08] LABS: Basophils % 0.1 %; Hematocrit 41.1 % (37.0-47.0); Hemoglobin 13.6 g/dL (11.5-15.3); Lymphocytes # 0.6 10^3/uL (0.8-4.8); Lymphocytes % 7.7 %; Mean Corpuscular HGB Conc 33.1 g/dL (30.0-36.0); Mean Corpuscular Hemoglobin 30.2 pg (28.0-34.0); Mean Corpuscular Volume 91.1 fl (81-99); Mean Platelet Volume 11.2 fL (7.4-10.4); Monocytes # 0.6 10^3/uL (0.2-0.9); Monocytes % 7.9 %; Neutrophils # 5.91 10^3/uL (1.8-7.7); Neutrophils % 83.2 %; Nucleated Red Blood Cells % 0 %; Platelet Count 64 10^3/cmm (130-400); Red Blood Count 4.51 10^6/uL (4.1-5.3); Red Cell Distribution Width 13.9 % (12.1-15.1); White Blood Count 7.1 10^3/uL (4.0-10.0)
[2022-12-18 10:55] LABS: Basophils % 0.1 %; Eosinophils % 0.1 %; Hemoglobin 14.6 g/dL (11.5-15.3); Lymphocytes # 0.6 10^3/uL (0.8-4.8); Lymphocytes % 4.5 %; Mean Corpuscular HGB Conc 34.8 g/dL (30.0-36.0); Mean Corpuscular Hemoglobin 30.9 pg (28.0-34.0); Mean Corpuscular Volume 88.8 fl (81-99); Mean Platelet Volume 11.2 fL (7.4-10.4); Monocytes % 7.3 %; Neutrophils # 11.65 10^3/uL (1.8-7.7); Neutrophils % 86.7 %; Nucleated Red Blood Cells % 0 %; Platelet Count 50 10^3/cmm (130-400); Red Blood Count 4.73 10^6/uL (4.1-5.3); Red Cell Distribution Width 13.8 % (12.1-15.1); White Blood Count 13.4 10^3/uL (4.0-10.0)
[2022-12-21 14:36] LABS: Basophils % 0.1 %; Hematocrit 41.6 % (37.0-47.0); Lymphocytes # 0.4 10^3/uL (0.8-4.8); Lymphocytes % 3.2 %; Mean Corpuscular HGB Conc 33.7 g/dL (30.0-36.0); Mean Corpuscular Hemoglobin 30.2 pg (28.0-34.0); Mean Corpuscular Volume 89.8 fl (81-99); Mean Platelet Volume 12.1 fL (7.4-10.4); Monocytes # 0.3 10^3/uL (0.2-0.9); Neutrophils % 92.6 %; Nucleated Red Blood Cells % 0 %; Red Blood Count 4.63 10^6/uL (4.1-5.3); Red Cell Distribution Width 14.4 % (12.1-15.1); White Blood Count 11.5 10^3/uL (4.0-10.0)
[2022-12-21 14:46] LABS: Platelet Count 24 10^3/cmm (130-400)
[2022-12-21 14:54] LABS: Alanine Aminotransferase 79 U/L (0-33); Albumin Level 3.2 g/dL (3.5-5.2); Alkaline Phosphatase 143 U/L (35-105); Blood Urea Nitrogen 22 mg/dL (8-23); Carbon Dioxide 23 mmol/L (22-29); Chloride 98 mmol/L (98-107); Globulin 2.4 g/dL (1.3-4.6); Glomerular Filtration Rate 83.5 mL/min (90-130); Glucose 237 mg/dL (65-115); Osmolality Calculated 283 mOsm/kg (285-295); Sodium 131 mmol/L (136-145); Total Bilirubin 0.8 mg/dL (0.15-1.2); Total Protein 5.6 g/dL (6.6-8.7)
[2022-12-21 14:55] LABS: Aspartate Amino Transferase 45 U/L (0-32)
[2022-12-23 11:21] LABS: Basophils % 0.1 %; Hematocrit 42.1 % (37.0-47.0); Hemoglobin 14.4 g/dL (11.5-15.3); Lymphocytes # 0.3 10^3/uL (0.8-4.8); Lymphocytes % 3.4 %; Mean Corpuscular HGB Conc 34.2 g/dL (30.0-36.0); Mean Corpuscular Hemoglobin 30.3 pg (28.0-34.0); Mean Corpuscular Volume 88.4 fl (81-99); Mean Platelet Volume 12.1 fL (7.4-10.4); Monocytes # 0.3 10^3/uL (0.2-0.9); Neutrophils # 8.79 10^3/uL (1.8-7.7); Neutrophils % 92.3 %; Nucleated Red Blood Cells % 0 %; Red Blood Count 4.76 10^6/uL (4.1-5.3); Red Cell Distribution Width 14.2 % (12.1-15.1); White Blood Count 9.5 10^3/uL (4.0-10.0)
[2022-12-23 11:24] LABS: Platelet Count 26 10^3/cmm (130-400)
[2022-12-23 12:41] LABS: Alanine Aminotransferase 75 U/L (0-33); Albumin Level 3.2 g/dL (3.5-5.2); Alkaline Phosphatase 140 U/L (35-105); Blood Urea Nitrogen 22 mg/dL (8-23); Calcium 8.5 mg/dL (8.5-10.5); Carbon Dioxide 24 mmol/L (22-29); Chloride 98 mmol/L (98-107); Globulin 2.4 g/dL (1.3-4.6); Glomerular Filtration Rate 71.5 mL/min (90-130); Glucose 268 mg/dL (65-115); Osmolality Calculated 287 mOsm/kg (285-295); Sodium 132 mmol/L (136-145); Total Protein 5.6 g/dL (6.6-8.7)
[2022-12-23 12:42] LABS: Anion Gap 14.8 (5-19); Aspartate Amino Transferase 36 U/L (0-32); Potassium 4.8 mmol/L (3.5-5.1)
[2022-12-25 07:48] LABS: Basophils % 0.1 %; Hematocrit 41.5 % (37.0-47.0); Lymphocytes # 0.3 10^3/uL (0.8-4.8); Lymphocytes % 3.7 %; Mean Corpuscular HGB Conc 33.7 g/dL (30.0-36.0); Mean Corpuscular Hemoglobin 30.6 pg (28.0-34.0); Mean Corpuscular Volume 90.8 fl (81-99); Mean Platelet Volume 11.3 fL (7.4-10.4); Monocytes # 0.5 10^3/uL (0.2-0.9); Monocytes % 5.6 %; Neutrophils # 7.66 10^3/uL (1.8-7.7); Neutrophils % 89.8 %; Nucleated Red Blood Cells % 0 %; Positive C 1; Red Blood Count 4.57 10^6/uL (4.1-5.3); Red Cell Distribution Width 14.3 % (12.1-15.1); White Blood Count 8.5 10^3/uL (4.0-10.0)
[2022-12-25 08:05] LABS: Alanine Aminotransferase 74 U/L (0-33); Albumin Level 2.9 g/dL (3.5-5.2); Alkaline Phosphatase 115 U/L (35-105); Anion Gap 12.4 (5-19); Aspartate Amino Transferase 33 U/L (0-32); Blood Urea Nitrogen 26 mg/dL (8-23); Calcium 8.1 mg/dL (8.5-10.5); Carbon Dioxide 25 mmol/L (22-29); Chloride 96 mmol/L (98-107); Globulin 2.2 g/dL (1.3-4.6); Glomerular Filtration Rate 62.5 mL/min (90-130); Glucose 333 mg/dL (65-115); Osmolality Calculated 286 mOsm/kg (285-295); Potassium 4.4 mmol/L (3.5-5.1); Sodium 129 mmol/L (136-145); Total Bilirubin 0.9 mg/dL (0.15-1.2); Total Protein 5.1 g/dL (6.6-8.7)
[2022-12-25 08:23] LABS: Platelet Count 28 10^3/cmm (130-400)
[2022-12-25] MEDS: insulin lispro 100 unit/1 mL 7 UNIT SUBCUT (09:34)
== END 2022-12-25 23:59 | disposition home or self-care (01) ==
PROVIDERS: Nurse Practitioner Family; PCP Family Medicine; Visit Provider Internal Medicine Hematology & Oncology
DX: D69.6 Thrombocytopenia, unspecified (principal); I26.99 Other pulmonary embolism without acute cor pulmonale; Z79.01 Long term (current) use of anticoagulants; Z79.52 Long term (current) use of systemic steroids; Z79.899 Other long term (current) drug therapy; Z87.891 Personal history of nicotine dependence
CPT/HCPCS: 36415; 80053; 80503; 85025; 99213; 99214; J1815

== ENCOUNTER 2022-12-25 14:31 | Outpatient (CLI) | payer MEDICARE, MEDICAID, SELFPAY ==
--- NOTE | 2022-12-25 15:00 | US_ITS ---
WS: [id number] Complete ABDOMINAL ULTRASOUND HISTORY: Special attention to Spleen and Liver COMPARISON: 11/14/2015 and 01/30/2022 Liver: 14.4 cm in length. Normal size liver. There is coarse echotexture with slight nodularity along the surface which suggests cirrhosis. Portal Vein: Normal hepatopetal flow with monophasic waveform. Gallbladder: Prior cholecystectomy. CBD: 0.5 cm Pancreas: Normal size and echogenicity. Right kidney: 9.5 cm x 4.8 x 3.7 cm. Cortex:1.2 cm. Normal size and echogenicity. No hydronephrosis or mass. Left kidney: 10.3 cm x 4.1 cm x 3.7 cm. Cortex: 1.1 cm. No mass, cortical thickening or hydronephrosis. Spleen: 13.5 cm in length by 5.6 cm AP. Mild splenomegaly. Nearly similar size to the prior study of 01/30/2022. Maximum diameter at that time was 14.9 cm. Aorta and IVC: Unremarkable abdominal aorta and IVC. US/US abdomen complete* [id number] Impression: 1. Mild splenomegaly. Spleen measures 13.5 cm in length as compared to 14.9 cm on the prior study. 2. Coarse echotexture throughout the liver. Consider changes of cirrhosis. No mass.
== END 2022-12-25 14:32 | disposition home or self-care (01) ==
PROVIDERS: PCP Family Medicine; Visit Provider Internal Medicine Hematology & Oncology
DX: D69.6 Thrombocytopenia, unspecified (principal); R16.1 Splenomegaly, not elsewhere classified
CPT/HCPCS: 76700

== ENCOUNTER → 2023-01-01 07:39 | Outpatient (BNVA) | payer MEDICARE, MEDICAID, SELFPAY | PROVIDERS: PCP Family Medicine; Visit Provider Nurse Practitioner Family | DX: D69.6 Thrombocytopenia, unspecified (principal) | CPT/HCPCS: 99213 ==

== ENCOUNTER 2023-01-04 09:56 | Day surgery (SDC) | payer MEDICARE, MEDICAID, SELFPAY ==
[2023-01-04 10:19] VITALS: BP 157/110; PULSE 80; RESP 16; TEMP 36.3; O2SAT 97; BMI 34.1
--- NOTE | 2023-01-04 10:39 | P.ANESASSM_ITS ---
Pre-Anesthetic Assessment Height/Weight: Height 1.65 m Weight 92.986 kg Temp Pulse Resp BP Pulse Ox O2 Del Method 97.4 F L 80 16 157/110 97 01/04/23 10:19 01/04/23 10:19 01/04/23 10:19 01/04/23 10:19 01/04/23 10:19 01/04/23 10:19 Operation Date: 01/04/23 12:00 Proposed Procedures p Bone Marrow Biospy With Aspiration(Not Applicable) - Dima Bowden MD Familial anesthetic complications: None Was Beta Manan taken within 24 hours: Yes Was Clonidine taken within 24 hours: N/A Last intake: Intake Last Liquid Date 01/03/23 Last Liquid Time 22:00 Last Solid Date 01/03/23 Last Solid Time 22:00 Social No alcohol and No tobacco Exam alert, oriented x 3, clear to auscultation bilaterally and regular rate & rhythm Airway Mallampati: Class II Dentition: partials Pulmonary Chronic Obstructive Pulmonary Disease CV/HEM Hypertension thrombocytopenia Hepatic GRIFFIN GI Gastroesophageal Reflux Disease Metabolic Diabetes Mellitus and Thyroid Disease Anesthetic Plan ASA status: 4 Anesthesia: MAC Risk of > 500 ml blood loss (7ml/kg in children): No Medications/Allergies Home Medications Medication Instructions Recorded Confirmed Last Taken Type amitriptyline 25 mg tablet 25 mg PO BEDTIME@219910/08/19 01/04/23 01/03/23 History atenolol 25 mg tablet 25 mg PO BID@10/08/19 01/04/23 01/03/23 History gabapentin 300 mg capsule 300 mg PO TID@,10/08/19 01/04/23 01/03/23 History lorazepam 0.5 mg tablet 0.5 mg PO TID PRN Anxiety 10/08/19 01/04/23 01/03/23 History omeprazole 40 mg capsule,delayed 40 mg PO DAILY@10/08/19 01/04/23 01/03/23 History release tizanidine 4 mg capsule 4 mg PO QID PRN Muscle Spasm 10/08/19 01/04/23 01/03/23 History tramadol 50 mg tablet 50 mg PO Q6H PRN Pain 10/08/19 01/04/23 01/03/23 History albuterol sulfate 90 mcg/actuation 2 puff inhalation QID PRN 10/24/20 01/04/23 01/03/23 History aerosol inhaler (Ventolin HFA) Shortness Of Breath multivitamin-ferrous 1 tab PO DAILY@10/24/20 01/04/23 01/03/23 History fumarate-folic acid 18 mg-400 mcg tablet (Centrum Women) losartan 100 mg tablet 100 mg PO DAILY 01/29/22 01/04/23 01/03/23 History sertraline 50 mg tablet 50 mg PO DAILY 01/29/22 01/04/23 01/03/23 History levothyroxine 50 mcg capsule 75 mcg PO DAILY@02/13/22 01/04/23 01/03/23 History allopurinol 300 mg tablet 300 mg PO DAILY 06/17/22 01/04/23 01/03/23 History nystatin 100,000 unit/mL oral 5 ml PO TID 1 week #105 mL 12/04/22 01/04/23 01/03/23 Rx suspension pen needle, diabetic 31 gauge x #50 ea 12/04/22 01/04/23 01/03/23 Rx 3/16 (Comfort EZ Pen [place]) furosemide 20 mg tablet 20 mg PO DAILY PRN edema #14 tabs 12/23/22 01/04/23 01/03/23 Rx insulin aspart U-100 100 unit/mL See Rx Instructions SUBCUT 12/25/22 01/04/23 01/03/23 Rx (3 mL) subcutaneous pen (Novolog .COMPLEX #15 mL FlexPen U-100 Insulin aspart) dexamethasone 4 mg tablet 20 mg PO DAILY #70 tabs 01/01/23 01/04/23 01/03/23 Rx Allergies Allergy/AdvReac Type Severity Reaction Status Date / Time aspirin Allergy ADR-Nausea Verified 01/04/23 10:15 [facility] Anesthesia Medical History Abnormal LFTs Chronic back pain Community acquired pneumonia COPD (chronic obstructive pulmonary disease) Hypertension Hyponatremia Kidney stones Pulmonary embolism Respiratory failure Surgical History H/O right wrist surgery Previous back surgery Previous section S/P cholecystectomy Family History Sister Cancer Bone marrow cancer in remission Grandmother Diabetes Mother Diabetes CAD (coronary artery disease) Father CAD (coronary artery disease) Other Family history non-contributory Hypertension Denies family history of Clotting disorder Dementia Hyperlipidemia Psychiatric illness Chronic kidney disease (CKD) Suicide Anesthesia complication Bleeding disorder Lung disease Stroke Social History Smoking and tobacco status: former smoker (smoked 20 years) Alcohol intake: never Data Anesthesia Cardiac Studies: Echocardiogram 10/24/22
[2023-01-04 10:58] LABS: Glucose Point of Care 140 mg/dL (70-110)
[2023-01-04 11:10] LABS: Basophils % 0.3 %; Eosinophils % 0.1 %; Hematocrit 47.9 % (37.0-47.0); Hemoglobin 16.3 g/dL (11.5-15.3); Lymphocytes # 0.9 10^3/uL (0.8-4.8); Lymphocytes % 7.6 %; Mean Corpuscular Hemoglobin 30.3 pg (28.0-34.0); Mean Platelet Volume 9.8 fL (7.4-10.4); Monocytes # 0.9 10^3/uL (0.2-0.9); Monocytes % 7.5 %; Neutrophils % 82.8 %; Nucleated Red Blood Cells % 0 %; Platelet Count 43 10^3/cmm (130-400); Red Blood Count 5.38 10^6/uL (4.1-5.3); Red Cell Distribution Width 14.5 % (12.1-15.1); White Blood Count 11.3 10^3/uL (4.0-10.0)
[2023-01-04] MEDS: midazolam 1 mg/mL INJ 2 mL 2 MG IVP (12:17)
--- NOTE | 2023-01-04 12:45 | W.PM.OPSUD ---
Surgery/Procedure H&P Update DATE OF PROCEDURE: January 04, 2023 DATE H&P PERFORMED: 01/04/23 CHANGES TO PREVIOUS DOCUMENTATION: Patient seen and examined, no obvious new changes since her last visit to the clinic PRIMARY INDICATION FOR PROCEDURE: Thrombocytopenia PLANNED PROCEDURE: Operation Date: 01/04/23 12:00 Proposed Procedures p Bone Marrow Biospy With Aspiration(Not Applicable) - Dima Bowden MD
--- NOTE | 2023-01-04 13:19 | P.PCN_ITS ---
Bone Marrow Biopsy Bone Marrow Biopsy: I was consulted by [] office regarding bone marrow biopsy on [Ana Paula Higuera]. Briefly, the patient is a [67] year old [Female] with [Thrombocytopenia]. In the Outpatient Services Department, with nursing staff and laboratory technologists in attendance, the procedure was discussed with the patient. Appropriate consent form had been signed. Appropriate alternatives, benefits and risks of procedure were discussed with the patient and she was pre- operatively assessed with a history and physical by myself and cleared for the biopsy procedure. The patient did request IV sedation and that was provided by the Anesthesia Department. Under aseptic condition right posterior iliac area was cleaned and prepped. Local anesthesia was given. About 15 cc of bone marrow aspirate with core biopsy was obtained, hemostasis was obtained patient tolerated procedure well. Specimen was sent for routine histopathology, flow cytometry, cytogenetic and FISH for MDS. Postprocedure nursing instructions were given. Thank you for allowing me to participate in this patient's care and diagnosis. Coding Level of Care Code Acute Code for Heide Fwcleve
[2023-01-04 13:21] VITALS: BP 118/87; PULSE 76; RESP 16; TEMP 36.1; O2SAT 98
[2023-01-04 13:32] VITALS: BP 147/70; PULSE 81; RESP 16; O2SAT 96
[2023-01-04] MEDS: sodium chloride 0.9% 1,000 ML 30 ML IV (13:32)
--- NOTE | 2023-01-04 14:06 | ANE.PACU2 ---
Inpatient post-anesthesia follow up: Airway intact: Yes Vital signs: Temperature 97.0 F Pulse Rate 81 Respiratory Rate 16 Blood Pressure 147/70 Pulse Oximetry 96 Oxygen Delivery Me thod Room Air Oxygen Flow Rate Fraction of Inspir ed Oxygen Hydration adequate: Yes Nausea and vomiting: No Pain level: 1 Mental status: Baseline
[2023-01-06 11:30] LABS: Leukemia Profile (BBPL) See Report; Lymphoma Profile (BBPL) See Report
[2023-01-13 11:00] LABS: Chromosome Analysis BBPL See Report; MDS Panel (BBPL) See Report
== END 2023-01-04 14:04 | disposition home or self-care (01) ==
PROVIDERS: Nurse Practitioner Family; PCP Family Medicine; Visit Provider Internal Medicine Hematology & Oncology
PROC: 07DT3ZX Extraction of Bone Marrow, Percutaneous Approach, Diagnostic (ICD-10-PCS; CPT 38222; principal; 2023-01-04 12:00)
DX: D69.6 Thrombocytopenia, unspecified (principal); D46.9 Myelodysplastic syndrome, unspecified; J44.9 Chronic obstructive pulmonary disease, unspecified; I10 Essential (primary) hypertension; K21.9 Gastro-esophageal reflux disease without esophagitis; E11.9 Type 2 diabetes mellitus without complications; Z79.4 Long term (current) use of insulin; K75.81 Nonalcoholic steatohepatitis (NASH); Z87.891 Personal history of nicotine dependence
CPT/HCPCS: 36415; 36416; 38222; 82962; 85025; 88184; 88185; 88237; 88264; 88291; 88305; 88311; 88367; 88374; J2250; J2704; J7030

== ENCOUNTER 2023-01-17 10:50 | Emergency (ER) | payer MEDICARE, MEDICAID, SELFPAY ==
[2023-01-17 10:55] VITALS: BP 130/84; PULSE 88; TEMP 36.8; O2SAT 94; BMI 32.5
--- NOTE | 2023-01-17 11:00 | CTR_ITS ---
PROCEDURE INFORMATION: Exam: CT Head Without Contrast Exam date and time: 01/17/2023 11:06 AM Age: 67 years old Clinical indication: Injury or trauma; Fall; Blunt trauma (contusions or hematomas) TECHNIQUE: Imaging protocol: Computed tomography of the head without contrast. Total images: 3 Radiation optimization: All CT scans at this facility use at least one of these dose optimization techniques: automated exposure control; mA and/or kV adjustment per patient size (includes targeted exams where dose is matched to clinical indication); or iterative reconstruction. REPORTING DATA: Count of CT and Cardiac NM exams in prior 12 months: This patient has received [address] and 0 known cardiac nuclear medicine studies in the 12 months prior to the current study. COMPARISON: CT head wo con* [id number] 09/09/2020 7:38 AM RADIATION DOSE METRICS: Total DLP (mGy-cm): 1152.2 FINDINGS: Brain: Normal. No hemorrhage. Unremarkable white matter. No mass effect. Cerebral ventricles: No ventriculomegaly. Paranasal sinuses: Visualized sinuses are unremarkable. No fluid levels. Mastoid air cells: Visualized mastoid air cells are well aerated. Bones/joints: Partially visualized inferior orbital wall blowout fracture. Soft tissues: Left supraorbital laceration/contusion with extension into the preseptal tissues of the left orbit. CT/CT head wo con* [id number] IMPRESSION: 1. No acute intracranial pathology detected. 2. Left supraorbital laceration/contusion with extension into the preseptal tissues of the left orbit. 3. Partially visualized inferior orbital wall blowout fracture.
--- NOTE | 2023-01-17 11:00 | CTR_ITS ---
PROCEDURE INFORMATION: Exam: CT Maxillofacial Without Contrast Exam date and time: 01/17/2023 11:06 AM Age: 67 years old Clinical indication: Injury or trauma; Blunt trauma (contusions or hematomas); Orbit/periorbital; Injury details: Patient reports she fell today when stepping off of the porch and landed on her face. Patient has a large hematoma above her left eye. PT reports a history of falling. Denies blood thinners. ; Additional info: Fall TECHNIQUE: Imaging protocol: Computed tomography of the face without contrast. Total images: 285 Radiation optimization: All CT scans at this facility use at least one of these dose optimization techniques: automated exposure control; mA and/or kV adjustment per patient size (includes targeted exams where dose is matched to clinical indication); or iterative reconstruction. REPORTING DATA: Count of CT and Cardiac NM exams in prior 12 months: This patient has received [address] and 0 known cardiac nuclear medicine studies in the 12 months prior to the current study. COMPARISON: CT head wo con* [id number] 09/09/2020 7:38 AM RADIATION DOSE METRICS: Total DLP (mGy-cm): 565.7 FINDINGS: Orbital cavities: See Bones/joints finding. Bones/joints: Nondisplaced fracture of the lateral orbital rim. Fracture of left orbital floor with extension through anterior inferior orbital rim. Inferior rectus muscle appears in normal position and no herniation of intraorbital fat detected. Comminuted fracture involving anterior and posterior leggett of the left maxillary sinus with debris/hemorrhage within left maxillary sinus. Paranasal sinuses: See Bones/joints finding. Soft tissues: Left supraorbital laceration/contusion with extension into the preseptal tissues. CT/CT facial bones wo con* [id number] IMPRESSION: 1. Left supraorbital laceration/contusion with extension into the preseptal tissues. 2. Nondisplaced fracture of the lateral orbital rim. 3. Fracture of left orbital floor with extension through anterior inferior orbital rim. Inferior rectus muscle appears in normal position and no herniation of intraorbital fat detected. 4. Comminuted fracture involving anterior and posterior leggett of the left maxillary sinus with debris/hemorrhage within left maxillary sinus.
--- NOTE | 2023-01-17 11:01 | CTR_ITS ---
PROCEDURE INFORMATION: Exam: CT Cervical Spine Without Contrast Exam date and time: 01/17/2023 11:06 AM Age: 67 years old Clinical indication: Injury or trauma; Blunt trauma; Patient HX: Patient reports she fell today when stepping off of the porch and landed on her face. Patient has a large hematoma above her left eye. PT reports a history of falling. Denies blood thinners. ; Additional info: Fall TECHNIQUE: Imaging protocol: Computed tomography of the cervical spine without contrast. Total images: 315 Radiation optimization: All CT scans at this facility use at least one of these dose optimization techniques: automated exposure control; mA and/or kV adjustment per patient size (includes targeted exams where dose is matched to clinical indication); or iterative reconstruction. REPORTING DATA: Count of CT and Cardiac NM exams in prior 12 months: This patient has received [address] and 0 known cardiac nuclear medicine studies in the 12 months prior to the current study. COMPARISON: CT cervical spin wo con* [id number] 09/09/2020 7:41 AM RADIATION DOSE METRICS: Total DLP (mGy-cm): 293.7 FINDINGS: Bones/joints: C4-7 degenerative disc disease with disc space narrowing and osteophyte formation. Uncovertebral joint degeneration is present. Lungs: Mild centrilobular emphysematous changes are present. Soft tissues: Unremarkable. CT/CT cervical spin wo con* [id number] IMPRESSION: No acute cervical spine pathology.
[2023-01-17 11:25] VITALS: BP 164/92; PULSE 88; RESP 16; O2SAT 95
--- NOTE | 2023-01-17 11:26 | W.ED.FALL ---
HPI - Fall General: Chief Complaint: Fall Stated Complaint: fall Time Seen by Provider: 01/17/23 11:01 History of Present Illness: Ms. Higuera is a 67-year-old lady with significant past medical history of ITP presenting to the emergency department for fall with face injury. She reports perhaps being more dizzy over the past few days and slipped stepped off the porch landing on her face. No loss of consciousness or prolonged downtime. Currently endorses moderate to severe intensity pain on the left side of her face. Worse with palpation and movement. Unsure of any visual disturbance postevent. She was able to ambulate. No other specific changes in health, exacerbating, or alleviating factors identified. Onset (ago): minute(s) Fall from: standing Fall witnessed: yes, by family Place fall occurred: home Loss of consciousness: None Prolonged down time: no Context: tripped/slipped Location of injury: head and face Severity: moderate Quality: aching Review of Systems General: Reports: 10 or more systems reviewed and unremarkable except in HPI and below PFSH ED PFSH: Medical History Abnormal LFTs Acute ITP Chronic back pain Community acquired pneumonia COPD (chronic obstructive pulmonary disease) Hypertension Hyponatremia Kidney stones Pulmonary embolism Respiratory failure Surgical History H/O right wrist surgery Previous back surgery Previous section S/P cholecystectomy Family History Sister Cancer Bone marrow cancer in remission Grandmother Diabetes Mother Diabetes CAD (coronary artery disease) Father CAD (coronary artery disease) Other Family history non-contributory Hypertension Denies family history of Clotting disorder Dementia Hyperlipidemia Psychiatric illness Chronic kidney disease (CKD) Suicide Anesthesia complication Bleeding disorder Lung disease Stroke Social History Smoking and tobacco status: former smoker (smoked 20 years) Alcohol intake: never Substance/Drug Use: never Physical Exam Const: COMMON NORMALS: alert GENERAL APPEARANCE: cooperative and well developed HENMT: COMMON NORMALS: normocephalic HEAD & SCALP: normocephalic THROAT: posterior oropharynx normal OTHER: Large left superior orbital and periorbital hematoma/ecchymosis. Eye: COMMON NORMALS: conjunctivae normal CONJUNCTIVA: Yes conjunctivae normal SCLERA: sclerae normal Neck/C-Spine: COMMON NORMALS: supple GENERAL: Yes trachea midline Resp: COMMON NORMALS: clear to auscultation bilaterally EFFORT & INSPECTION: Yes able to speak in complete sentences AUSCULTATION: clear to auscultation bilaterally Cardio: COMMON NORMALS: regular rate and regular rhythm RATE: regular rate RHYTHM: regular rhythm GI: COMMON NORMALS: Soft to palpation PALPATION: Yes Soft to palpation and No Tenderness to palpation present (GI) Extremity: NARRATIVE EXTREMITY EXAM: Bilateral knee abrasions, Tdap up-to-date. Right arm ecchymosis reportedly unchanged from prior lab draws/IVs. GENERAL: Yes normal exam except as noted and No edema Neuro: COMMON NORMALS: moves all extremities SENSORIUM/ORIENTATION: Yes alert and No Orientation impaired Psych: COMMON NORMALS: mental status grossly normal and Normal thought process present THOUGHT PROCESS: Normal thought process present Course Vital Signs: Vital signs: Vital Signs Temperature 98.3 F 01/17/23 10:55 Pulse Rate 80 01/17/23 14:30 Respiratory Rate 18 01/17/23 14:30 Blood Pressure 141/85 01/17/23 14:30 Pulse Oximetry 96 01/17/23 14:30 Oxygen Delivery Me thod Room Air 01/17/23 11:25 MDM - Fall Medical Decision Making 67-year-old lady presenting with symptoms related to fall including facial trauma. Head to toe exam performed and as noted above. Patient is nontoxic in appearance. No active hemorrhage on exam. EKG demonstrates sinus rhythm with normal axis and intervals, occasionally PVCs, no STEMI Labs with no leukocytosis, normal hemoglobin, platelet count of 63 which is mildly improved from prior. Coags normal. Metabolic panel with hyponatremia and hypochloremia. T. bili is mildly elevated also similar to prior with minimal transaminitis. Initial troponin elevated with negative range 2-hour delta. CT head demonstrates no acute intracranial pathology. CT facial bones as nondisplaced fracture of the orbital rim, blowout fracture and additional maxillary sinus fracture. Negative cervical spine imaging. On examination there is no change in vision, there is no evidence of ocular entrapment or proptosis. Patient treated with analgesia and IV fluids and feels improved. She will be treated with antibiotics for sinus fracture precaution. Discussed with OMFS who will follow patient. Most likely etiology of symptoms is mild dehydration with hyponatremia, abnormal LFTs/bilirubin without evidence of acute biliary pathology on clinical exam, and facial trauma with multiple fractures. Sinus precautions discussed. The results of ED evaluation were discussed with the patient including prescriptions and/or symptomatic cares (if applicable) including appropriate and responsible use, followup plan, and return precautions. The patient verbalized understanding and felt safe for discharge. Medical Records I reviewed the patient's medical records. Lab Data I reviewed the patient's lab results. 01/17/23 11:56 01/17/23 11:[address] 01/17/23 11:00 IMPRESSION: 1. Left supraorbital laceration/contusion with extension into the preseptal tissues. 2. Nondisplaced fracture of the lateral orbital rim. 3. Fracture of left orbital floor with extension through anterior inferior orbital rim. Inferior rectus muscle appears in normal position and no herniation of intraorbital fat detected. 4. Comminuted fracture involving anterior and posterior leggett of the left maxillary sinus with debris/hemorrhage within left maxillary sinus. Head CT 01/17/23 11:00 IMPRESSION: 1. No acute intracranial pathology detected. 2. Left supraorbital laceration/contusion with extension into the preseptal tissues of the left orbit. 3. Partially visualized inferior orbital wall blowout fracture. Cervical Spine CT 01/17/23 11:01 IMPRESSION: No acute cervical spine pathology. Laboratory Results WBC 6.6 10^3/uL (4.0-10.0) 01/17/23 11:56 RBC 4.61 10^6/uL (4.1-5.3) 01/17/23 11:56 Hgb 14.1 g/dL (11.5-15.3) 01/17/23 11:56 Hct 41.6 % (37.0-47.0) 01/17/23 11:56 MCV 90.2 fl (81-99) 01/17/23 11:56 MCH 30.6 pg (28.0-34.0) 01/17/23 11:56 MCHC 33.9 g/dL (30.0-36.0) 01/17/23 11:56 RDW 15.8 % (12.1-15.1) H 01/17/23 11:56 Plt Count 63 10^3/cmm (130-400) L 01/17/23 11:56 MPV 10.6 fL (7.4-10.4) H 01/17/23 11:56 Neut % (Auto) 77.7 % 01/17/23 11:56 Lymph % (Auto) 9.4 % 01/17/23 11:56 [facility] % (Auto) 8.2 % 01/17/23 11:56 Eos % (Auto) 0.6 % 01/17/23 11:56 Baso % (Auto) 0.3 % 01/17/23 11:56 Neut # (Auto) 5.12 10^3/uL (1.8-7.7) 01/17/23 11:56 Lymph # (Auto) 0.6 10^3/uL (0.8-4.8) L 01/17/23 11:56 [place] # (Auto) 0.5 10^3/uL (0.2-0.9) 01/17/23 11:56 Eos # (Auto) 0.0 10^3/uL (0.0-0.8) 01/17/23 11:56 Baso # (Auto) 0.0 10^3/uL (0.0-0.1) 01/17/23 11:56 Nucleated RBC % (auto) 0 % 01/17/23 11:56 Nucleated RBCs # 0.0 /100WBC 01/17/23 11:56 PT 14.10 SECONDS (12.1-14.9) 01/17/23 11:56 INR 1.06 (0.8-1.2) 01/17/23 11:56 APTT 26.5 SECONDS (23.9-36.7) 01/17/23 11:56 Sodium 127 mmol/L (136-145) L 01/17/23 11:56 Potassium 3.9 mmol/L (3.5-5.1) 01/17/23 11:56 Chloride 92 mmol/L (98-107) L 01/17/23 11:56 Carbon Dioxide 26 mmol/L (22-29) 01/17/23 11:56 Anion Gap 12.9 (5-19) 01/17/23 11:56 BUN 10 mg/dL (8-23) 01/17/23 11:56 Creatinine 0.6 mg/dL (0.5-0.9) 01/17/23 11:56 GFR Calculation 99.7 mL/min (90-130) 01/17/23 11:56 Glucose 152 mg/dL (65-115) H 01/17/23 11:56 Calculated Osmolality 266 mOsm/kg (285-295) L 01/17/23 11:56 Calcium 8.1 mg/dL (8.5-10.5) L 01/17/23 11:56 Total Bilirubin 1.4 mg/dL (0.15-1.2) H 01/17/23 11:56 AST 74 U/L (0-32) H 01/17/23 11:56 ALT 67 U/L (0-33) H 01/17/23 11:56 Alkaline Phosphatase 114 U/L (35-105) H 01/17/23 11:56 Troponin T Baseline 100 ng/L (0-10) H 01/17/23 11:56 Troponin T 120 Minute 75.81 ng/L (0-10) H 01/17/23 13:52 Delta Troponin T -24.19 ABS# (0-10) L 01/17/23 13:52 Total Protein 5.5 g/dL (6.6-8.7) L 01/17/23 11:56 Albumin 3.1 g/dL (3.5-5.2) L 01/17/23 11:56 Globulin 2.4 g/dL (1.3-4.6) 01/17/23 11:56 TSH 2.68 uIU/mL (0.27-4.20) 01/17/23 11:56 Discharge Plan Discharge Patient Disposition: Home Clinical Impression: Blunt trauma of face, Thrombocytopenia, Fall, Dehydration, Elevated bilirubin, Transaminitis, CHI (closed head injury), Frontal sinus fracture, Orbital floor fracture Condition: Stable Prescriptions: New ondansetron 4 mg tablet,disintegrating 4 mg PO Q8H PRN (Reason: nausea and vomiting) Qty: 30 0RF No Action tizanidine 4 mg capsule 4 mg PO QID PRN (Reason: Muscle Spasm) atenolol 25 mg tablet 25 mg PO BID@ amitriptyline 25 mg tablet 25 mg PO BEDTIME@2200 tramadol 50 mg tablet 50 mg PO Q6H PRN (Reason: Pain) gabapentin 300 mg capsule 300 mg PO TID@08,12,22 omeprazole 40 mg capsule,delayed release(DR/EC) 40 mg PO DAILY@08 lorazepam 0.5 mg tablet 0.5 mg PO TID PRN (Reason: Anxiety) levothyroxine 50 mcg capsule 75 mcg PO DAILY@08 losartan 100 mg tablet 100 mg PO DAILY sertraline 50 mg tablet 50 mg PO DAILY allopurinol 300 mg tablet 300 mg PO DAILY (DME) pen needle, diabetic [Comfort EZ Pen [place]] 31 gauge x 3/16 needle See Rx Instructions .Route Qty: 50 0RF Rx Instructions: As directed cefuroxime axetil 500 mg tablet 500 mg PO BID 10 Days Qty: 20 0RF albuterol sulfate [Ventolin HFA] 90 mcg/actuation HFA aerosol inhaler 2 puff INHALATION QID PRN (Reason: Shortness Of Breath) Centrum Women 18-400 mg-mcg Tablet 1 tab PO DAILY@08 metoprolol tartrate 25 mg tablet 25 mg PO BID prochlorperazine maleate [Compazine] 10 mg tablet 10 mg PO Q4H PRN (Reason: Mild Nausea) Qty: 30 3RF sulfamethoxazole-trimethoprim 800-160 mg tablet 1 tab PO BID Eliquis DVT-PE Treat 30D Start 5 mg (74 tabs) tablets,dose pack See Rx Instructions .ROUTE .COMPLEX Qty: 74 0RF Rx Instructions: orally per package directions Discharge Orders: Discharge ED (Routine); Ordered 01/17/23 Ordered By: Stevie Coe Referrals: Samantha Wylie MD [Primary Care Provider] - Discharge Diet: Usual diet Discharge Activity: Limit activity as instructed Patient Instructions: Fractures - Orbital, Facial Fracture (ED), Hematoma (ED), Opioid Safety Activity Restrictions/Additional Instructions: Thank you for visiting the emergency department. You were seen and evaluated for fall with facial injury. You were found to have multiple facial fractures including sinus fractures and orbit fractures that require follow-up. Please contact [facility] Wednesday morning and let them know that I spoke to Dr. Wilson regarding your case [address] [place] [address] You may use duip-lae-mmvbgsi medications such as acetaminophen and ibuprofen for pain however please do not exceed the daily recommended dosage as listed on the packaging and please keep in mind that many namebrand medications contain the same active ingredients. Please avoid these medications if previously instructed to do so by another physician due to other underlying medical condition. I will prescribe antinausea medication, antibiotics, pain medication. Use pain medication cautiously as it is an opioid. Please follow-up with your primary care provider. Your cardiac troponin was elevated greater than expected however I do not see evidence of active damage to the heart, this may require further outpatient testing which can be arranged by your primary care provider. Please ensure that you are staying hydrated. Please follow all sinus precautions as discussed. Return to the emergency department for uncontrolled symptoms, any evidence of infection, changes in vision, or anything else that you are concerned about and feel needs emergency department evaluation. Coding Level of Care Code ED Cocktail Server for Heide Batista
--- NOTE | 2023-01-17 11:39 | ECG_ITS ---
[facility] Test Date: 2023-01-17 Pat Name: Ana Paula Higuera Department: Room: Gender: Female Health Services Information Specialist: : 1955 Requested By: Stevie Coe Order Number: [id number] Estefania MD: Constantino Powell M.D. Measurements Intervals [place] Rate: 85 P: 31 MO: 150 QRS: 30 QRSD: 80 T: 38 QT: 366 QTc: 438 Interpretive Statements SINUS RHYTHM WITH OCCASIONAL VENTRICULAR PREMATURE COMPLEXES Compared to ECG 10/24/2022 03:53:17 Ventricular premature complex(es) now present Electronically Signed On 01-18-2023 14:24:06 CDT by Constantino Powell M.D. [id number]
[2023-01-17 12:07] LABS: Basophils % 0.3 %; Eosinophils % 0.6 %; Hematocrit 41.6 % (37.0-47.0); Hemoglobin 14.1 g/dL (11.5-15.3); Lymphocytes # 0.6 10^3/uL (0.8-4.8); Lymphocytes % 9.4 %; Mean Corpuscular HGB Conc 33.9 g/dL (30.0-36.0); Mean Corpuscular Hemoglobin 30.6 pg (28.0-34.0); Mean Corpuscular Volume 90.2 fl (81-99); Mean Platelet Volume 10.6 fL (7.4-10.4); Monocytes # 0.5 10^3/uL (0.2-0.9); Monocytes % 8.2 %; Neutrophils # 5.12 10^3/uL (1.8-7.7); Neutrophils % 77.7 %; Nucleated Red Blood Cells % 0 %; Platelet Count 63 10^3/cmm (130-400); Red Blood Count 4.61 10^6/uL (4.1-5.3); Red Cell Distribution Width 15.8 % (12.1-15.1); White Blood Count 6.6 10^3/uL (4.0-10.0)
[2023-01-17 12:18] LABS: INR 1.06 (0.8-1.2); Partial Thromboplastin Time 26.5 SECONDS (23.9-36.7)
[2023-01-17 12:25] VITALS: RESP 18; O2SAT 97
[2023-01-17] MEDS: fentaNYL 50 mcg/mL INJ 2mL IVP (12:25)
[2023-01-17 12:30] LABS: Troponin(5th) Baseline 100 ng/L (0-10)
[2023-01-17 12:39] LABS: Albumin Level 3.1 g/dL (3.5-5.2); Alkaline Phosphatase 114 U/L (35-105); Blood Urea Nitrogen 10 mg/dL (8-23); Calcium 8.1 mg/dL (8.5-10.5); Carbon Dioxide 26 mmol/L (22-29); Chloride 92 mmol/L (98-107); Globulin 2.4 g/dL (1.3-4.6); Glomerular Filtration Rate 99.7 mL/min (90-130); Glucose 152 mg/dL (65-115); Osmolality Calculated 266 mOsm/kg (285-295); Sodium 127 mmol/L (136-145); Thyroid Stimulating Hormone 2.68 uIU/mL (0.27-4.20); Total Bilirubin 1.4 mg/dL (0.15-1.2); Total Protein 5.5 g/dL (6.6-8.7)
[2023-01-17 12:56] LABS: Anion Gap 12.9 (5-19); Aspartate Amino Transferase 74 U/L (0-32); Potassium 3.9 mmol/L (3.5-5.1)
[2023-01-17 12:57] LABS: Alanine Aminotransferase 67 U/L (0-33)
[2023-01-17 13:16] VITALS: BP 170/74; PULSE 88; RESP 18; O2SAT 93
[2023-01-17] MEDS: sodium chloride 0.9% 1,000 ML 999 ML IV (13:41)
--- NOTE | 2023-01-17 13:53 | ECG_ITS ---
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 Measurements Intervals [place] Rate: 95 P: 70 UT: 162 QRS: 31 QRSD: 73 T: 11 QT: 351 QTc: 442 Interpretive Statements SINUS RHYTHM WITH FREQUENT SUPRAVENTRICULAR PREMATURE COMPLEXES MODERATE ST DEPRESSION [0.05+ mV ST DEPRESSION] Compared to ECG 01/17/2023 11:39:27 ST (T wave) deviation now present Ventricular premature complex(es) no longer present Electronically Signed On 01-18-2023 14:30:47 CDT by Constantino Powell M.D. [id number]
[2023-01-17] MEDS: morphine 4 mg/mL SDV 1 mL IVP (14:20)
[2023-01-17] MEDS: acetaminophen 500 mg Tablet 1000 MG PO (14:20)
[2023-01-17 14:28] LABS: Troponin 5 2HR 75.81 ng/L (0-10)
[2023-01-17 14:29] LABS: Troponin 5 2HR Delta -24.19 ABS# (0-10)
[2023-01-17 14:30] VITALS: BP 141/85; PULSE 80; RESP 18; O2SAT 96
[2023-01-17] MEDS: amoxicillin-clav 875-125 mg Tablet 1 TAB PO (15:03)
== END 2023-01-17 15:09 | disposition home or self-care (01) ==
PROVIDERS: Emergency Medicine; Emergency Provider Emergency Medicine; PCP Family Medicine
DX: S02.19XA Other fracture of base of skull, initial encounter for closed fracture (principal); S02.32XA Fracture of orbital floor, left side, initial encounter for closed fracture; S02.40DA Maxillary fracture, left side, initial encounter for closed fracture; Z87.891 Personal history of nicotine dependence; J44.9 Chronic obstructive pulmonary disease, unspecified; I10 Essential (primary) hypertension; W17.89XA Other fall from one level to another, initial encounter
CPT/HCPCS: 70450; 70486; 72125; 80053; 84443; 84484; 85025; 85610; 85730; 93005; 96361; 96374; 96375; 99285; J2270; J3010; J7030

== ENCOUNTER 2023-01-19 08:00 | Oncology outpatient (recurring) (ONCR) | payer MEDICARE, MEDICAID, SELFPAY ==
[2022-12-28 09:00] LABS: Hematocrit 40.6 % (37.0-47.0); Hemoglobin 13.8 g/dL (11.5-15.3); Lymphocytes # 0.3 10^3/uL (0.8-4.8); Lymphocytes % 4.4 %; Mean Corpuscular Hemoglobin 30.7 pg (28.0-34.0); Mean Corpuscular Volume 90.2 fl (81-99); Mean Platelet Volume 11.6 fL (7.4-10.4); Monocytes # 0.4 10^3/uL (0.2-0.9); Neutrophils # 6.31 10^3/uL (1.8-7.7); Neutrophils % 89.6 %; Nucleated Red Blood Cells % 0 %; Platelet Count 43 10^3/cmm (130-400); Red Cell Distribution Width 14.2 % (12.1-15.1)
[2023-01-01 07:59] LABS: Basophils % 0.2 %; Hematocrit 40.8 % (37.0-47.0); Hemoglobin 13.8 g/dL (11.5-15.3); Lymphocytes # 0.5 10^3/uL (0.8-4.8); Lymphocytes % 7.4 %; Mean Corpuscular HGB Conc 33.8 g/dL (30.0-36.0); Mean Corpuscular Hemoglobin 30.7 pg (28.0-34.0); Mean Corpuscular Volume 90.7 fl (81-99); Mean Platelet Volume 10.6 fL (7.4-10.4); Monocytes # 0.4 10^3/uL (0.2-0.9); Monocytes % 6.5 %; Neutrophils # 5.32 10^3/uL (1.8-7.7); Neutrophils % 84.2 %; Nucleated Red Blood Cells % 0 %; Platelet Count 34 10^3/cmm (130-400); Red Cell Distribution Width 14.3 % (12.1-15.1); White Blood Count 6.3 10^3/uL (4.0-10.0)
[2023-01-01 08:19] LABS: Alanine Aminotransferase 82 U/L (0-33); Albumin Level 3.1 g/dL (3.5-5.2); Alkaline Phosphatase 100 U/L (35-105); Anion Gap 13.8 (5-19); Aspartate Amino Transferase 35 U/L (0-32); Blood Urea Nitrogen 26 mg/dL (8-23); Calcium 8.2 mg/dL (8.5-10.5); Carbon Dioxide 27 mmol/L (22-29); Chloride 96 mmol/L (98-107); Glomerular Filtration Rate 71.5 mL/min (90-130); Glucose 211 mg/dL (65-115); Osmolality Calculated 287 mOsm/kg (285-295); Potassium 3.8 mmol/L (3.5-5.1); Sodium 133 mmol/L (136-145); Total Bilirubin 0.8 mg/dL (0.15-1.2); Total Protein 5.1 g/dL (6.6-8.7)
[2023-01-08 10:28] LABS: Hematocrit 41.8 % (37.0-47.0); Hemoglobin 14.5 g/dL (11.5-15.3); Lymphocytes # 0.2 10^3/uL (0.8-4.8); Lymphocytes % 2.9 %; Mean Corpuscular HGB Conc 34.7 g/dL (30.0-36.0); Mean Corpuscular Volume 89.3 fl (81-99); Mean Platelet Volume 10.3 fL (7.4-10.4); Monocytes # 0.4 10^3/uL (0.2-0.9); Monocytes % 5.4 %; Neutrophils # 6.89 10^3/uL (1.8-7.7); Neutrophils % 90.4 %; Nucleated Red Blood Cells % 0 %; Platelet Count 45 10^3/cmm (130-400); Red Blood Count 4.68 10^6/uL (4.1-5.3); Red Cell Distribution Width 14.6 % (12.1-15.1); White Blood Count 7.6 10^3/uL (4.0-10.0)
[2023-01-12 05:32] LABS: Leukemia Profile (BBPL) See Report; Lymphoma Profile (BBPL) See Report
== END 2023-01-24 23:59 | disposition home or self-care (01) ==
PROVIDERS: PCP Family Medicine; Visit Provider Internal Medicine Hematology & Oncology
DX: Z53.9 Procedure and treatment not carried out, unspecified reason (principal)
CPT/HCPCS: 36415; 80053; 85025; 88184; 88185; 99214

== ENCOUNTER 2023-01-27 13:32 | Emergency (ER) | payer MEDICARE, MEDICAID, SELFPAY ==
[2023-01-27] VITALS (8 sets, daily range): BP systolic 94–140; BP diastolic 67–84; PULSE 79–88; RESP 17–28; O2SAT 89–98
--- NOTE | 2023-01-27 13:41 | ECG_ITS ---
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 Measurements Intervals [place] Rate: 84 P: 49 PA: 162 QRS: 48 QRSD: 73 T: 46 QT: 348 QTc: 412 Interpretive Statements SINUS RHYTHM Compared to ECG 01/17/2023 13:53:39 ST (T wave) deviation no longer present Electronically Signed On 01-27-2023 14:20:47 CDT by Constantino Powell M.D. [id number]
--- NOTE | 2023-01-27 13:41 | XR_ITS ---
WS: [id number] Portable AP upright chest, 01/27/2023 Clinical Data: altered mental status Comparison: Portable chest, 10/23/2022 Findings: No nodules, masses or effusions are seen. The heart is normal. There is minimal patchy opac ity in the right lower lobe which could represent atelectasis and/or pneumonia. The pulmonary vascula rity is not increased. No pneumonia or pneumothorax is seen. The aortic arch and descending thoracic aorta show tortuosity. There are monitor leads on the chest wall. There is a recording device overlyi ng the left mid chest adjacent to the aortic arch. XR/XR chest 1V portable 42014 Impression: 1. Minimal patchy opacity in right lower lobe. 2. Atherosclerosis.
--- NOTE | 2023-01-27 13:48 | ED_ITS ---
HPI - Altered Mental Status General: Chief Complaint: Altered Mental Status Stated Complaint: AMS/ WEAKNESS Time Seen by Provider: 01/27/23 13:41 History of Present Illness: Patient arrives via EMS with chief complaint of altered mental status. Patient recently had a fall with facial fractures and was discharged from [facility] approximately 3 days ago. At this time patient was alert and oriented. Patient currently think she is in Dr. Bowden's office. Patient did realize she came from home in an ambulance. MD complaint: altered mental status Severity: mild Consistency of symptoms: Constant Associated symptoms: Reports no associated symptoms Review of Systems General: Reports: 10 or more systems reviewed and unremarkable except in HPI and below PFSH ED PFSH: Medical History Abnormal LFTs Acute ITP Chronic back pain Community acquired pneumonia COPD (chronic obstructive pulmonary disease) Hypertension Hyponatremia Kidney stones Pulmonary embolism Respiratory failure Surgical History H/O right wrist surgery Previous back surgery Previous section S/P cholecystectomy Family History Sister Cancer Bone marrow cancer in remission Grandmother Diabetes Mother Diabetes CAD (coronary artery disease) Father CAD (coronary artery disease) Other Family history non-contributory Hypertension Denies family history of Clotting disorder Dementia Hyperlipidemia Psychiatric illness Chronic kidney disease (CKD) Suicide Anesthesia complication Bleeding disorder Lung disease Stroke Social History Smoking and tobacco status: former smoker (smoked 20 years) Alcohol intake: never Substance/Drug Use: never Physical Exam Const: COMMON NORMALS: no limitations, healthy appearing, alert and well nourished HENMT: OTHER: Patient has multiple bruising on the left side of her face. Patient denies pain in this area. Eye: COMMON NORMALS: Equal, round and reactive pupils present, EOMs intact bilaterally, conjunctivae normal and no scleral icterus CONJUNCTIVA: Yes conjunctivae normal PUPIL: Yes Equal, round and reactive pupils present Neck/C-Spine: COMMON NORMALS: full ROM, no lymphadenopathy, supple, no meningeal signs, no JVD and Thyroid normal THYROID: Thyroid normal Lymph: LYMPHATIC: no lymphadenopathy noted Chest: COMMONS NORMALS: normal inspection of the chest and normal palpation of entire chest wall Resp: COMMON NORMALS: normal respiratory effort, No retractions, No use of accessory muscles and clear to auscultation bilaterally AUSCULTATION: clear to auscultation bilaterally Cardio: COMMON NORMALS: no JVD, regular rhythm, S1 normal heart sound present, S2 normal heart sound present, No gallops present (Cardio), No clicks present (Cardio), No murmurs present (Cardio) and No rub (Cardio) RHYTHM: regular rhythm HEART SOUNDS: S1 normal heart sound present and S2 normal heart sound present GI: COMMON NORMALS: Normal to inspection, nondistended, normoactive bowel sounds present, Soft to palpation, non-tender, No hepatosplenomegaly present and no masses PALPATION: Yes Soft to palpation and Yes No hepatosplenomegaly present : COMMON NORMALS: Yes no CVA tenderness BLADDER/KIDNEY EXAM: Yes no CVA tenderness Back/Pelvis: COMMON NORMALS: no CVA tenderness Neuro: SENSORIUM/ORIENTATION: Yes alert MENINGEAL SIGNS: Yes no meningeal signs Course Vital Signs: Vital signs: Vital Signs Pulse Rate 83 01/27/23 18:30 Respiratory Rate 22 H 01/27/23 16:30 Blood Pressure 113/81 01/27/23 18:00 Pulse Oximetry 96 01/27/23 18:30 Oxygen Delivery Me thod Nasal Cannula 01/27/23 17:30 Oxygen Flow Rate 2 01/27/23 17:30 MDM - Altered Mental Status Medical Decision Making Patient presents to the ER with complaints of altered mental status. However she is alert and oriented times at least 3 however she does think she is in Dr. Bowden's office. Upon history and physical exam as well as lab work and revealed that the patient has a urinary tract infection. Patient be discharged home on an antibiotic and is to follow-up within 1 week with her family practice doctor. Differential Diagnosis Likely altered mental status; Unlikely alcoholic intoxication, delirium, dementia, hypoglycemia, hyponatremia, subarachnoid hemorrhage or sepsis Medical Records I reviewed the patient's medical records. Lab Data I reviewed the patient's lab results. 01/27/23 13:25 01/27/23 13:25 Radiology Impressions Chest X-Ray 01/27/23 13:41 Impression: 1. Minimal patchy opacity in right lower lobe. 2. Atherosclerosis. Laboratory Results WBC 11.4 10^3/uL (4.0-10.0) H 01/27/23 13:25 RBC 3.90 10^6/uL (4.1-5.3) L 01/27/23 13:25 Hgb 12.1 g/dL (11.5-15.3) 01/27/23 13:25 Hct 35.6 % (37.0-47.0) L 01/27/23 13:25 MCV 91.3 fl (81-99) 01/27/23 13:25 MCH 31.0 pg (28.0-34.0) 01/27/23 13:25 MCHC 34.0 g/dL (30.0-36.0) 01/27/23 13:25 RDW 18.4 % (12.1-15.1) H 01/27/23 13:25 Plt Count 197 10^3/cmm (130-400) 01/27/23 13:25 MPV 10.3 fL (7.4-10.4) 01/27/23 13:25 Neut % (Auto) 76.5 % 01/27/23 13:25 Lymph % (Auto) 9.2 % 01/27/23 13:25 [place] % (Auto) 9.7 % 01/27/23 13:25 Eos % (Auto) 1.3 % 01/27/23 13:25 Baso % (Auto) 0.9 % 01/27/23 13:25 Neut # (Auto) 8.75 10^3/uL (1.8-7.7) H 01/27/23 13:25 Lymph # (Auto) 1.1 10^3/uL (0.8-4.8) 01/27/23 13:25 [place] # (Auto) 1.1 10^3/uL (0.2-0.9) H 01/27/23 13:25 Eos # (Auto) 0.2 10^3/uL (0.0-0.8) 01/27/23 13:25 Baso # (Auto) 0.1 10^3/uL (0.0-0.1) 01/27/23 13:25 Nucleated RBC % (auto) 0.3 % 01/27/23 13:25 Nucleated RBCs # 0.0 /100WBC 01/27/23 13:25 Sodium 131 mmol/L (136-145) L 01/27/23 13:25 Potassium 4.5 mmol/L (3.5-5.1) 01/27/23 13:25 Chloride 97 mmol/L (98-107) L 01/27/23 13:25 Carbon Dioxide 25 mmol/L (22-29) 01/27/23 13:25 Anion Gap 13.5 (5-19) 01/27/23 13:25 BUN 10 mg/dL (8-23) 01/27/23 13:25 Creatinine 0.5 mg/dL (0.5-0.9) 01/27/23 13:25 GFR Calculation 123.1 mL/min (90-130) 01/27/23 13:25 Glucose 139 mg/dL (65-115) H 01/27/23 13:25 Calculated Osmolality 273 mOsm/kg (285-295) L 01/27/23 13:25 Calcium 8.1 mg/dL (8.5-10.5) L 01/27/23 13:25 Total Bilirubin 1.3 mg/dL (0.15-1.2) H 01/27/23 13:25 AST 51 U/L (0-32) H 01/27/23 13:25 ALT 29 U/L (0-33) 01/27/23 13:25 Alkaline Phosphatase 116 U/L (35-105) H 01/27/23 13:25 Total Protein 5.6 g/dL (6.6-8.7) L 01/27/23 13:25 Albumin 2.5 g/dL (3.5-5.2) L 01/27/23 13:25 Globulin 3.1 g/dL (1.3-4.6) 01/27/23 13:25 TSH 1.61 uIU/mL (0.27-4.20) 01/27/23 13:25 Urine Color Dark yellow (Yellow) 01/27/23 16:37 Urine Appearance Sl hazy (CLEAR) A 01/27/23 16:37 Urine pH 7 (5-7) 01/27/23 16:37 Ur Specific [place] 1.005 (1.005-1.030) 01/27/23 16:37 Urine Protein 1+ (Negative) H 01/27/23 16:37 Urine Glucose (UA) Norm (Normal) 01/27/23 16:37 Urine Ketones 1+ (Negative) H 01/27/23 16:37 Urine Blood Neg (Negative) 01/27/23 16:37 Urine Nitrate Negative (Negative) 01/27/23 16:37 Urine Bilirubin 1+ (Negative) H 01/27/23 16:37 Urine Urobilinogen 8 mg/dL (Negative) H 01/27/23 16:37 Ur Leukocyte Esterase Trace (Negative) H 01/27/23 16:37 Urine RBC 0-4 /hpf (0-2) H 01/27/23 16:37 Urine WBC 0-4 /hpf (0-5) H 01/27/23 16:37 Ur Squamous Epith Cells 0-4 /hpf (0-5) H 01/27/23 16:37 Amorphous Sediment Not Reportable 01/27/23 16:37 Urine Bacteria 1+ /hpf (NONE) H 01/27/23 16:37 Urine Opiates Screen Negative ng/mL (Negative) 01/27/23 16:37 Ur Barbiturates Screen Negative ng/mL (Negative) 01/27/23 16:37 Ur Phencyclidine Scrn Negative ng/mL (Negative) 01/27/23 16:37 Ur Amphetamines Screen Negative ng/mL (Negative) 01/27/23 16:37 U Benzodiazepines Scrn Positive ng/mL (Negative) H 01/27/23 16:37 Urine Cocaine Screen Negative ng/mL (Negative) 01/27/23 16:37 U Marijuana (THC) Screen Negative ng/mL (Negative) 01/27/23 16:37 EKG Data EKG 1: I personally reviewed and interpreted this EKG as follows: EKG interpretation date: 01/27/23 EKG interpretation time: 13:45 Prior EKG tracings: not available for review Interpretation: EKG showed normal sinus rhythm with a ventricular rate of 84 bpm, NE interval 162, QRS duration 73, QTc 389, no ST-T wave changes Discharge Plan Discharge Patient Disposition: Home Clinical Impression: Urinary tract infection in female Condition: Stable Prescriptions: New sulfamethoxazole-trimethoprim [Bactrim DS] 800-160 mg tablet 1 tab PO BID 10 Days Qty: 20 0RF No Action tizanidine 4 mg capsule 4 mg PO QID PRN (Reason: Muscle Spasm) atenolol 25 mg tablet 25 mg PO BID@08,0 amitriptyline 25 mg tablet 25 mg PO BEDTIME@2200 tramadol 50 mg tablet 50 mg PO Q6H PRN (Reason: Pain) gabapentin 300 mg capsule 300 mg PO TID@08,12,22 omeprazole 40 mg capsule,delayed release(DR/EC) 40 mg PO DAILY@08 lorazepam 0.5 mg tablet 0.5 mg PO TID PRN (Reason: Anxiety) levothyroxine 50 mcg capsule 75 mcg PO DAILY@08 losartan 100 mg tablet 100 mg PO DAILY sertraline 50 mg tablet 50 mg PO DAILY allopurinol 300 mg tablet 300 mg PO DAILY (DME) pen needle, diabetic [Comfort EZ Pen [place]] 31 gauge x 3/16 needle See Rx Instructions .Route Qty: 50 0RF Rx Instructions: As directed dexamethasone 4 mg tablet 20 mg PO DAILY Qty: 70 0RF furosemide 20 mg tablet 20 mg PO DAILY PRN (Reason: edema) Qty: 14 1RF albuterol sulfate [Ventolin HFA] 90 mcg/actuation HFA aerosol inhaler 2 puff INHALATION QID PRN (Reason: Shortness Of Breath) Centrum Women 18-400 mg-mcg Tablet 1 tab PO DAILY@08 ondansetron 4 mg tablet,disintegrating 4 mg PO Q8H PRN (Reason: nausea and vomiting) Qty: 30 0RF metoprolol tartrate 25 mg tablet 25 mg PO BID prochlorperazine maleate [Compazine] 10 mg tablet 10 mg PO Q4H PRN (Reason: Mild Nausea) Qty: 30 3RF Discharge Orders: Discharge ED (Routine); Ordered 01/27/23 Ordered By: Aguila Rouse Referrals: Samantha Wylie MD [Primary Care Provider] - 1 week Patient Instructions: Urinary Tract Infection in Women (ED) Coding Level of Care Code ED Answering Service Agent for Heide Batista
[2023-01-27 13:51] LABS: Basophils # 0.1 10^3/uL (0.0-0.1); Basophils % 0.9 %; Eosinophils # 0.2 10^3/uL (0.0-0.8); Eosinophils % 1.3 %; Hematocrit 35.6 % (37.0-47.0); Hemoglobin 12.1 g/dL (11.5-15.3); Lymphocytes # 1.1 10^3/uL (0.8-4.8); Lymphocytes % 9.2 %; Mean Corpuscular Volume 91.3 fl (81-99); Mean Platelet Volume 10.3 fL (7.4-10.4); Monocytes # 1.1 10^3/uL (0.2-0.9); Monocytes % 9.7 %; Neutrophils # 8.75 10^3/uL (1.8-7.7); Neutrophils % 76.5 %; Nucleated Red Blood Cells % 0.3 %; Platelet Count 197 10^3/cmm (130-400); Red Cell Distribution Width 18.4 % (12.1-15.1); White Blood Count 11.4 10^3/uL (4.0-10.0)
[2023-01-27 14:29] LABS: Alanine Aminotransferase 29 U/L (0-33); Albumin Level 2.5 g/dL (3.5-5.2); Alkaline Phosphatase 116 U/L (35-105); Blood Urea Nitrogen 10 mg/dL (8-23); Calcium 8.1 mg/dL (8.5-10.5); Carbon Dioxide 25 mmol/L (22-29); Chloride 97 mmol/L (98-107); Globulin 3.1 g/dL (1.3-4.6); Glomerular Filtration Rate 123.1 mL/min (90-130); Glucose 139 mg/dL (65-115); Osmolality Calculated 273 mOsm/kg (285-295); Sodium 131 mmol/L (136-145); Thyroid Stimulating Hormone 1.61 uIU/mL (0.27-4.20); Total Bilirubin 1.3 mg/dL (0.15-1.2); Total Protein 5.6 g/dL (6.6-8.7)
[2023-01-27 14:37] LABS: Anion Gap 13.5 (5-19); Potassium 4.5 mmol/L (3.5-5.1)
[2023-01-27 14:38] LABS: Aspartate Amino Transferase 51 U/L (0-32)
[2023-01-27 17:01] LABS: Amphetamines Screen Urine Negative (Negative); Barbiturates Screen Urine Negative (Negative); Benzodiazepines Screen Urine Positive (Negative); Cocaine Screen Urine Negative (Negative); Opiate Screen Urine Negative (Negative); PCP Screen Urine Negative (Negative); THC Screen Urine Negative (Negative)
[2023-01-27 18:02] LABS: Add Urine Microscopic? YES; Bilirubin Urine 1+ (Negative); Blood Urine Neg (Negative); Glucose Urine UA Norm (Normal); Ketones Urine 1+ (Negative); Leukocyte Esterase Urine Trace (Negative); Nitrate Urine Negative (Negative); Protein Urine 1+ (Negative); Specific Gravity, Urine 1.005 (1.005-1.030); Urine Appearance SL Hazy (CLEAR); Urine Color Dark Yellow (Yellow); Urobilinogen Urine 8 mg/dL (Negative); pH Urine 7 (5-7)
[2023-01-27 18:04] LABS: Bacteria Urine 1+ /hpf; RBC Urine 0-4 /hpf (0-2); Squamous Epithelial Cell Urine 0-4 /hpf (0-5); WBC Urine 0-4 /hpf (0-5)
[2023-01-27] MEDS: cefTRIAXone 1,000 MG in sodium chloride 0.9% (plus) 50 ML 100 MG IV (18:41)
--- NOTE | 2023-01-27 19:44 | PC.NURSE ---
Pt report received from Pavel Arnett RN. Pt A&Ox4 for this nurse and answers questions appropriately for provider. family at bedside. VSS. Discharge instructions coming.
== END 2023-01-27 20:15 | disposition home or self-care (01) ==
PROVIDERS: Emergency Provider Emergency Medicine; PCP Family Medicine
DX: N39.0 Urinary tract infection, site not specified (principal); Z87.891 Personal history of nicotine dependence; J44.9 Chronic obstructive pulmonary disease, unspecified; I10 Essential (primary) hypertension; Z87.442 Personal history of urinary calculi
CPT/HCPCS: 36415; 71045; 80053; 80306; 81001; 84443; 85025; 93005; 96365; 99285; J0696

== ENCOUNTER 2023-02-01 08:30 | Emergency (ER) | payer MEDICARE, MEDICAID, SELFPAY ==
--- NOTE | 2023-02-01 08:46 | XRR_ITS ---
PROCEDURE INFORMATION: Exam: XR Chest Exam date and time: 02/01/2023 9:44 AM Age: 67 years old Clinical indication: Cough and dyspnea; Additional info: Dyspnea/cough TECHNIQUE: Imaging protocol: Radiologic exam of the chest. Views: 1 view. COMPARISON: CR XR chest 1V portable [id number] 01/27/2023 2:09 PM FINDINGS: Lungs: Unremarkable. No consolidation. Pleural spaces: Unremarkable. No pleural effusion. No pneumothorax. Heart/Mediastinum: Unremarkable. No cardiomegaly. Bones/joints: Unremarkable. XR/XR chest 1V portable [id number] IMPRESSION: No acute findings.
--- NOTE | 2023-02-01 08:51 | ECG_ITS ---
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 Measurements Intervals [place] Rate: 121 P: 75 [place]: 152 QRS: 54 QRSD: 69 T: 57 QT: 305 QTc: 433 Interpretive Statements SINUS TACHYCARDIA ABNORMAL RHYTHM ECG Compared to ECG 01/27/2023 13:45:02 Sinus rhythm no longer present Electronically Signed On 02-01-2023 17:08:26 CDT by Constantino Powell M.D. [id number]
[2023-02-01 08:58] VITALS: BP 164/107; PULSE 116; RESP 20; TEMP 36.9; O2SAT 95
--- NOTE | 2023-02-01 09:00 | W.ED.SOB ---
HPI - SOB/Dyspnea General: Chief Complaint: Shortness of Breath/Dyspnea Stated Complaint: chest heaviness, SOB Time Seen by Provider: 02/01/23 08:45 Source: patient Mode of arrival: ambulatory History of Present Illness: HPI Narrative: 67-year-old female presents to the emergency room complaining of chest heaviness and shortness of breath. She states she has had a cough for the last 2 weeks is now getting chest discomfort and she has noticed orthopnea. Orthopnea has been going on for at least several weeks if not longer she has had an increase in discolored sputum during that time as well. She has some moderate chest discomfort. No radiation of pain to the neck arms or back. She has a history of Idiopathic thrombocytopenia. According to Dr. Bowden's note I did not think she had any underlying myelodysplasia. She recently has fallen and had a large amount of bruising on the left side of her face there was some facial fractures associated with it and that required any intervention. No previously known pulmonary embolism. Reviewing Dr. Bowden's notes had been treating the patient for thrombocytopenia there is no diagnosis confirmed of lymphoma. Her platelet count has been improving. MD elicited complaint: shortness of breath and cough Severity: mild Exacerbating factors: nothing Relieving factors: nothing Associated symptoms: Deny abdominal pain, chest congestion, chest pain, cough, diaphoresis, dizziness, extremity pain, fever(s), hemoptysis, lightheadedness, myalgias, nausea, orthopnea, palpitations, paresthesias, polydipsia, polyuria, rash, sense of impending doom, syncope or vomiting Review of Systems Const: Denies: fever(s), chills, fatigue, malaise or diaphoresis ENMT: Denies: throat pain, ear or mastoid pain, nasal discharge or nasal congestion Card: Denies: chest pain, palpitations, lightheadedness, syncope or orthopnea Resp: Reports: dyspnea and productive cough; Denies: hemoptysis or chest congestion GI: Denies: abdominal pain, nausea or vomiting : Denies: flank pain, difficulty voiding, dysuria, urinary frequency or urinary urgency Musc: Denies: extremity pain Skin/Breast: Denies: rash or pruritus Neuro: Denies: dizziness Endo: Denies: polyuria or polydipsia PFS ED PFSH: Medical History Abnormal LFTs Acute ITP Chronic back pain Community acquired pneumonia COPD (chronic obstructive pulmonary disease) Hypertension Hyponatremia Kidney stones Pulmonary embolism Respiratory failure Surgical History H/O right wrist surgery Previous back surgery Previous section S/P cholecystectomy Family History Sister Cancer Bone marrow cancer in remission Grandmother Diabetes Mother Diabetes CAD (coronary artery disease) Father CAD (coronary artery disease) Other Family history non-contributory Hypertension Denies family history of Clotting disorder Dementia Hyperlipidemia Psychiatric illness Chronic kidney disease (CKD) Suicide Anesthesia complication Bleeding disorder Lung disease Stroke Social History Smoking and tobacco status: former smoker (smoked 20 years) Alcohol intake: never Substance/Drug Use: never Physical Exam Const: GENERAL APPEARANCE: cooperative and comfortable ORIENTATION/CONSCIOUSNESS: Yes awake, Yes oriented to person, Yes oriented to place and Yes oriented to time HENMT: COMMON NORMALS: normocephalic, atraumatic and hearing grossly normal bilaterally HEAD & SCALP: normocephalic and atraumatic Resp: COMMON NORMALS: normal respiratory effort, No retractions, No use of accessory muscles and clear to auscultation bilaterally AUSCULTATION: clear to auscultation bilaterally Cardio: COMMON NORMALS: regular rate, regular rhythm and No murmurs present (Cardio) RATE: regular rate RHYTHM: regular rhythm GI: COMMON NORMALS: Soft to palpation and No hepatosplenomegaly present AUSCULTATION: Yes normoactive bowel sounds PALPATION: Yes Soft to palpation, No Tenderness to palpation present (GI), No Guarding due to palpation present (GI) and Yes No hepatosplenomegaly present Extremity: COMMON NORMALS: normal to inspection and capillary refill normal GENERAL: Yes edema Neuro: SENSORIUM/ORIENTATION: Yes oriented to person, Yes oriented to place and Yes oriented to time Skin: COMMON NORMALS: no rashes or lesions noted GENERAL SKIN EXAM: no rashes or lesions noted Course Vital Signs: Vital signs: Vital Signs Temperature 98.5 F 02/01/23 08:58 Pulse Rate 115 H 02/01/23 13:11 Respiratory Rate 20 H 02/01/23 08:58 Blood Pressure 143/93 02/01/23 13:11 Pulse Oximetry 93 02/01/23 13:11 Oxygen Delivery Me thod Room Air 02/01/23 12:02 MDM - SOB/Dyspnea Medical Decision Making Platelets markedly improved from previous. Patient does have pulmonary embolism without significant right heart strain. This time states she is feeling better we will give her Lovenox start her on Eliquis and have her follow-up with Dr. Bowden return if she has further problems chest x-ray did not show signs of pneumonia significant mass or pneumothorax. EKG cardiac enzymes are negative. No evidence of acute coronary syndrome. Medical Records I reviewed the patient's medical records. Lab Data I reviewed the patient's lab results. 02/01/23 09:30 02/01/23 09:30 Labs/Radiology: Radiology Impressions Chest X-Ray 02/01/23 08:46 IMPRESSION: No acute findings. Chest CTA 02/01/23 10:53 IMPRESSION: 1. Proximal main pulmonary arteries are normal. A few small filling defects in the segmental and subsegmental pulmonary arteries in the RIGHT middle lobe and RIGHT upper lobe suspicious for acute pulmonary embolus. 2. Additional tapering of multiple subsegmental pulmonary artery branches likely due to chronic sequelae of pulmonary emboli. 3. Hazy ground less infiltrates throughout the RIGHT and LEFT lower lobe improved compared to October 24, 2022. These may be infectious or inflammatory. 4. No pleural fluid. Notified Charles Kaufman DO at 02/01/2023 12:00 PM. Laboratory Results WBC 11.9 10^3/uL (4.0-10.0) H 02/01/23 09:30 RBC 4.49 10^6/uL (4.1-5.3) 02/01/23 09:30 Hgb 13.7 g/dL (11.5-15.3) 02/01/23 09:30 Hct 41.2 % (37.0-47.0) 02/01/23 09:30 MCV 91.8 fl (81-99) 02/01/23 09:30 MCH 30.5 pg (28.0-34.0) 02/01/23 09:30 MCHC 33.3 g/dL (30.0-36.0) 02/01/23 09:30 RDW 18.8 % (12.1-15.1) H 02/01/23 09:30 Plt Count 261 10^3/cmm (130-400) 02/01/23 09:30 MPV 9.9 fL (7.4-10.4) 02/01/23 09:30 Neut % (Auto) 77.1 % 02/01/23 09:30 Lymph % (Auto) 7.5 % 02/01/23 09:30 [place] % (Auto) 9.3 % 02/01/23 09:30 Eos % (Auto) 0.4 % 02/01/23 09:30 Baso % (Auto) 1.0 % 02/01/23 09:30 Neut # (Auto) 9.15 10^3/uL (1.8-7.7) H 02/01/23 09:30 Lymph # (Auto) 0.9 10^3/uL (0.8-4.8) 02/01/23 09:30 [place] # (Auto) 1.1 10^3/uL (0.2-0.9) H 02/01/23 09:30 Eos # (Auto) 0.1 10^3/uL (0.0-0.8) 02/01/23 09:30 Baso # (Auto) 0.1 10^3/uL (0.0-0.1) 02/01/23 09:30 Nucleated RBC % (auto) 0 % 02/01/23 09:30 Nucleated RBCs # 0.0 /100WBC 02/01/23 09:30 Sodium 135 mmol/L (136-145) L 02/01/23 09:30 Potassium 4.0 mmol/L (3.5-5.1) 02/01/23 09:30 Chloride 99 mmol/L (98-107) 02/01/23 09:30 Carbon Dioxide 24 mmol/L (22-29) 02/01/23 09:30 Anion Gap 16.0 (5-19) 02/01/23 09:30 BUN 8 mg/dL (8-23) 02/01/23 09:30 Creatinine 0.5 mg/dL (0.5-0.9) 02/01/23 09:30 GFR Calculation 123.1 mL/min (90-130) 02/01/23 09:30 Glucose 103 mg/dL (65-115) 02/01/23 09:30 Calculated Osmolality 279 mOsm/kg (285-295) L 02/01/23 09:30 Calcium 8.2 mg/dL (8.5-10.5) L 02/01/23 09:30 Total Bilirubin 1.1 mg/dL (0.15-1.2) 02/01/23 09:30 AST 44 U/L (0-32) H 02/01/23 09:30 ALT 29 U/L (0-33) 02/01/23 09:30 Alkaline Phosphatase 122 U/L (35-105) H 02/01/23 09:30 Troponin T Baseline 21 ng/L (0-10) H 02/01/23 09:30 Troponin T 120 Minute 19.76 ng/L (0-10) H 02/01/23 11:29 Delta Troponin T -1.24 ABS# (0-10) L 02/01/23 11:29 NT-Pro-B Natriuret Pep 537 pg/mL (0-125) H 02/01/23 09:30 Total Protein 6.2 g/dL (6.6-8.7) L 02/01/23 09:30 Albumin 2.5 g/dL (3.5-5.2) L 02/01/23 09:30 Globulin 3.7 g/dL (1.3-4.6) 02/01/23 09:30 Discharge Plan Discharge Patient Disposition: Home Clinical Impression: Pulmonary embolism, Thrombocytopenia, unspecified Condition: Stable [facility] 30D Start 5 mg (74 tabs) tablets,dose pack See Rx Instructions .ROUTE .COMPLEX Qty: 74 0RF Rx Instructions: orally per package directions No Action tizanidine 4 mg capsule 4 mg PO QID PRN (Reason: Muscle Spasm) atenolol 25 mg tablet 25 mg PO BID@,0 amitriptyline 25 mg tablet 25 mg PO BEDTIME@2199 tramadol 50 mg tablet 50 mg PO Q6H PRN (Reason: Pain) gabapentin 300 mg capsule 300 mg PO TID@08,12,22 omeprazole 40 mg capsule,delayed release(DR/EC) 40 mg PO DAILY@08 lorazepam 0.5 mg tablet 0.5 mg PO TID PRN (Reason: Anxiety) levothyroxine 50 mcg capsule 75 mcg PO DAILY@08 losartan 100 mg tablet 100 mg PO DAILY sertraline 50 mg tablet 50 mg PO DAILY allopurinol 300 mg tablet 300 mg PO DAILY (DME) pen needle, diabetic [Comfort EZ Pen [place]] 31 gauge x 3/16 needle See Rx Instructions .Route Qty: 50 0RF Rx Instructions: As directed cefuroxime axetil 500 mg tablet 500 mg PO BID 10 Days Qty: 20 0RF albuterol sulfate [Ventolin HFA] 90 mcg/actuation HFA aerosol inhaler 2 puff INHALATION QID PRN (Reason: Shortness Of Breath) Centrum Women 18-400 mg-mcg Tablet 1 tab PO DAILY@08 ondansetron 4 mg tablet,disintegrating 4 mg PO Q8H PRN (Reason: nausea and vomiting) Qty: 30 0RF metoprolol tartrate 25 mg tablet 25 mg PO BID prochlorperazine maleate [Compazine] 10 mg tablet 10 mg PO Q4H PRN (Reason: Mild Nausea) Qty: 30 3RF sulfamethoxazole-trimethoprim 800-160 mg tablet 1 tab PO BID Discharge Orders: Discharge ED (Routine); Ordered 02/01/23 Ordered By: Charles Kaufman Referrals: Samantha Wylie MD [Primary Care Provider] - Discharge Diet: Usual diet Discharge Activity: Limit activity as instructed Patient Instructions: Opioid Safety, Pain Management Activity Restrictions/Additional Instructions: You were seen today for shortness of breath CT of your chest that showed a pulmonary embolism. You were discharged home after receiving a shot of Lovenox and started on Eliquis. Follow-up with Dr. Bowden as previously scheduled. Coding Level of Care Code ED Orthopedics Teacher for Heide Batista
[2023-02-01] MEDS: aspirin 81 mg Chew Tablet 324 MG PO (09:10)
[2023-02-01] MEDS: FUROsemide 10 mg/mL SDV 4mL 40 MG IVP (09:34)
--- NOTE | 2023-02-01 09:43 | ECG_ITS ---
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 Measurements Intervals [place] Rate: 120 P: 78 VA: 144 QRS: 69 QRSD: 71 T: 75 QT: 310 QTc: 438 Interpretive Statements SINUS TACHYCARDIA ABNORMAL RHYTHM ECG Compared to ECG 02/01/2023 09:43:40 Atrial-paced complex(es) or rhythm no longer present Ventricular-paced complex(es) or rhythm no longer present Electronically Signed On 02-01-2023 17:12:44 CDT by Constantino Powell M.D. [id number]
[2023-02-01 09:53] LABS: Basophils # 0.1 10^3/uL (0.0-0.1); Eosinophils # 0.1 10^3/uL (0.0-0.8); Eosinophils % 0.4 %; Hematocrit 41.2 % (37.0-47.0); Hemoglobin 13.7 g/dL (11.5-15.3); Lymphocytes # 0.9 10^3/uL (0.8-4.8); Lymphocytes % 7.5 %; Mean Corpuscular HGB Conc 33.3 g/dL (30.0-36.0); Mean Corpuscular Hemoglobin 30.5 pg (28.0-34.0); Mean Corpuscular Volume 91.8 fl (81-99); Mean Platelet Volume 9.9 fL (7.4-10.4); Monocytes # 1.1 10^3/uL (0.2-0.9); Monocytes % 9.3 %; Neutrophils # 9.15 10^3/uL (1.8-7.7); Neutrophils % 77.1 %; Nucleated Red Blood Cells % 0 %; Platelet Count 261 10^3/cmm (130-400); Red Blood Count 4.49 10^6/uL (4.1-5.3); Red Cell Distribution Width 18.8 % (12.1-15.1); White Blood Count 11.9 10^3/uL (4.0-10.0)
[2023-02-01 09:58] VITALS: BP 139/102; PULSE 121; O2SAT 94
[2023-02-01 10:13] LABS: Troponin(5th) Baseline 21 ng/L (0-10)
[2023-02-01 10:19] LABS: Alanine Aminotransferase 29 U/L (0-33); Albumin Level 2.5 g/dL (3.5-5.2); Alkaline Phosphatase 122 U/L (35-105); Aspartate Amino Transferase 44 U/L (0-32); Blood Urea Nitrogen 8 mg/dL (8-23); Calcium 8.2 mg/dL (8.5-10.5); Carbon Dioxide 24 mmol/L (22-29); Chloride 99 mmol/L (98-107); Globulin 3.7 g/dL (1.3-4.6); Glomerular Filtration Rate 123.1 mL/min (90-130); Glucose 103 mg/dL (65-115); NT Pro B Type Natriuretic Pept 537 pg/mL (0-125); Osmolality Calculated 279 mOsm/kg (285-295); Sodium 135 mmol/L (136-145); Total Bilirubin 1.1 mg/dL (0.15-1.2); Total Protein 6.2 g/dL (6.6-8.7)
--- NOTE | 2023-02-01 10:53 | CT_ITS ---
WS: [id number] CTA OF THE CHEST WITH PULMONARY EMBOLISM PROTOCOL TECHNIQUE: High-resolution contrast enhanced CTA of the chest with coronal and sagittal reformatted i mages with pulmonary embolism protocol. MIP images are also reviewed. CLINICAL INFORMATION: dyspnea, chest pain COMPARISON: December 16, 2021 DLP: 396.[address] scans at [facility] use at least one of these dose optimization techniques: automated e xposure control; mA and/or kV adjustment per patient size (includes targeted exams where dose is matc hed to clinical indication); or iterative reconstruction. FINDINGS: Proximal main pulmonary arteries are normal. A few small filling defects in the RIGHT upper lobe and RIGHT middle lobe segmental pulmonary arteries suspicious for pulmonary embolus. Evidence of poor sylvia ling in the Segmental and subsegmental pulmonary arteries bilaterally likely chronic sequelae of pulmonary emboli . Bilateral pulmonary infiltrates have improved compared to October 16, 2022. Slight hazy groundglass i nfiltrates more prominent in the RIGHT upper lobe and LEFT lower lobe may be infectious or inflammato ry. No focal pneumonia or pleural fluid. Normal caliber thoracic aorta. No mediastinal or hilar lymphadenopathy. Adrenal glands are normal. Sm all amount of perihepatic ascites. Small esophageal hiatal hernia. Fatty atrophy of the pancreas. No mediastinal or hilar lymphadenopathy. CT/CT angio chest PE protcl [id number] IMPRESSION: 1. Proximal main pulmonary arteries are normal. A few small filling defects in the segmental and subsegmental pulmonary arteries in the RIGHT middle lobe and RIGHT upper lobe suspicious for acute pulmonary embolus. 2. Additional tapering of multiple subsegmental pulmonary artery branches like ly due to chronic sequelae of pulmonary emboli. 3. Hazy ground less infiltrates throughout the RIGHT and LEFT lower lobe improved compared to October 24, 2022. These may be infecti ous or inflammatory. 4. No pleural fluid. Notified Charles Kaufman DO at 02/01/2023 12:00 PM.
[2023-02-01] MEDS: iohexol 350 mg/mL 500 mL Btl (per mL) IV (11:15)
[2023-02-01 11:55] LABS: Troponin 5 2HR 19.76 ng/L (0-10); Troponin 5 2HR Delta -1.24 ABS# (0-10)
[2023-02-01 12:02] VITALS: BP 155/89; PULSE 111; O2SAT 91
[2023-02-01] MEDS: enoxaparin 100 mg/mL Syringe 90 MG SUBCUT (12:52)
[2023-02-01 13:11] VITALS: BP 143/93; PULSE 115; O2SAT 93
== END 2023-02-01 13:12 | disposition home or self-care (01) ==
PROVIDERS: Emergency Provider Family Medicine; PCP Family Medicine
DX: I26.99 Other pulmonary embolism without acute cor pulmonale (principal); D69.6 Thrombocytopenia, unspecified; Z87.891 Personal history of nicotine dependence; J44.9 Chronic obstructive pulmonary disease, unspecified; I10 Essential (primary) hypertension; Z86.711 Personal history of pulmonary embolism; D69.3 Immune thrombocytopenic purpura
CPT/HCPCS: 36415; 71045; 71275; 80053; 82784; 83880; 84484; 85025; 87040; 93005; 96372; 96374; 99285; J1650; J1940; Q9967

== ENCOUNTER → 2023-02-19 08:44 | Outpatient (BNVA) | payer MEDICARE, MEDICAID, SELFPAY | PROVIDERS: PCP Family Medicine; Visit Provider Otolaryngology | DX: S02.40DA Maxillary fracture, left side, initial encounter for closed fracture (principal); S02.32XA Fracture of orbital floor, left side, initial encounter for closed fracture; J34.2 Deviated nasal septum; W13.8XXA Fall from, out of or through other building or structure, initial encounter | CPT/HCPCS: 99204 ==

== ENCOUNTER 2023-02-19 09:57 | Emergency (ER) | payer MEDICARE, MEDICAID, SELFPAY ==
[2023-02-19 10:08] VITALS: BP 105/65; PULSE 80; RESP 16; TEMP 36.7; O2SAT 94; BMI 33.3
[2023-02-19 10:36] VITALS: BP 118/66; PULSE 78; O2SAT 95
--- NOTE | 2023-02-19 10:38 | ECG_ITS ---
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 Measurements Intervals [place] Rate: 78 P: 80 MS: 163 QRS: 75 QRSD: 78 T: 77 QT: 358 QTc: 410 Interpretive Statements SINUS RHYTHM Compared to ECG 02/01/2023 10:44:58 Sinus tachycardia no longer present Electronically Signed On 02-19-2023 12:30:18 CDT by Lyubov Alonso M.D. [id number]
--- NOTE | 2023-02-19 10:39 | W.ED.DIZZY ---
HPI - Dizziness General: Chief Complaint: Dizziness Stated Complaint: Low B/P sent by ENT Time Seen by Provider: 02/19/23 10:30 History of Present Illness: HPI Narrative: Patient presents to the ER with complaints of low blood pressure and dizziness. When patient was at her ENT appointment earlier today her blood pressure was 80/40 and she was dizzy. By time the patient got to the ER blood pressure was 125/79 and she says she feels fine now. Patient says she does have a history of dizziness and low blood pressure this is not unusual for her. MD elicited complaint: dizziness Onset (ago): minute(s) Timing: intermittent and episodic Severity: mild Context: change in medication History of similar symptoms: Yes Exacerbating factors: movement/ambulation Relieving factors: nothing Associated symptoms: Reports no associated symptoms; Denies chest pain, chills, nausea, palpitations or vomiting Associated neuro symptoms: Reports no associated symptoms Review of Systems General: Reports: 10 or more systems reviewed and unremarkable except in HPI and below Const: Denies: fever(s) or chills Eyes: Denies: change in vision or photophobia ENMT: Denies: throat pain or odynophagia Card: Denies: chest pain, palpitations or irregular heart rhythm Resp: Denies: dyspnea, productive cough or non-productive cough GI: Denies: abdominal pain, nausea, vomiting or diarrhea : Denies: flank pain or dysuria Musc: Denies: neck pain or back pain Skin/Breast: Denies: rash or pruritus PFSH ED PFSH: Medical History Abnormal LFTs Acute ITP Chronic back pain Community acquired pneumonia COPD (chronic obstructive pulmonary disease) Hypertension Hyponatremia Kidney stones Pulmonary embolism Respiratory failure Thrombosis of pulmonary valve Surgical History H/O right wrist surgery Previous back surgery Previous section S/P cholecystectomy Family History Sister Cancer Bone marrow cancer in remission Grandmother Diabetes Mother Diabetes CAD (coronary artery disease) Father CAD (coronary artery disease) Other Family history non-contributory Hypertension Denies family history of Clotting disorder Dementia Hyperlipidemia Psychiatric illness Chronic kidney disease (CKD) Suicide Anesthesia complication Bleeding disorder Lung disease Stroke Social History Smoking and tobacco status: former smoker (smoked 20 years) Alcohol intake: never Substance/Drug Use: never Physical Exam Const: COMMON NORMALS: no acute distress, average body habitus, patient oriented x3, no limitations, healthy appearing, alert and well nourished HENMT: COMMON NORMALS: normocephalic, atraumatic, hearing grossly normal bilaterally, external ears normal, Normal external nose present and moist oral mucous membranes HEAD & SCALP: normocephalic and atraumatic NOSE: Normal external nose present EXTERNAL EAR: Yes external ears normal Eye: COMMON NORMALS: Equal, round and reactive pupils present, EOMs intact bilaterally, conjunctivae normal and no scleral icterus CONJUNCTIVA: Yes conjunctivae normal PUPIL: Yes Equal, round and reactive pupils present Neck/C-Spine: COMMON NORMALS: full ROM, no lymphadenopathy, supple, no meningeal signs and no JVD Chest: COMMONS NORMALS: normal inspection of the chest and normal palpation of entire chest wall Resp: COMMON NORMALS: normal respiratory effort, No retractions and No use of accessory muscles Cardio: COMMON NORMALS: no JVD GI: COMMON NORMALS: Normal to inspection, nondistended, normoactive bowel sounds present, Soft to palpation and non-tender PALPATION: Yes Soft to palpation Neuro: COMMON NORMALS: patient oriented x3 SENSORIUM/ORIENTATION: Yes alert MENINGEAL SIGNS: Yes no meningeal signs Course Vital Signs: Vital signs: Vital Signs Temperature 98.0 F 02/19/23 10:08 Pulse Rate 79 02/19/23 12:31 Respiratory Rate 16 02/19/23 10:08 Blood Pressure 152/93 02/19/23 12:31 Pulse Oximetry 94 02/19/23 12:31 Oxygen Delivery Me thod Room Air 02/19/23 10:08 MDM - Dizziness Medical Decision Making Patient presented to the ER with complaints of dizziness and orthostatic hypotension with both and resolved by time she got here. Lab work was obtained on the patient which showed her platelets had dropped to 23,000. 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 Dr. Higuera was called he said to keep the patient on Eliquis but stop it if any bleeding occurs over the weekend did restart the dexamethasone 20 mg daily and to follow-up on Wednesday in their office for repeat check and lab work. This was explained to the patient and her family. Patient be discharged home on dexamethasone Differential Diagnosis Likely orthostatic hypotension; Unlikely adverse reaction to drug, benign paroxysmal positional vertigo, vertebral basilar insufficiency, cerebrovascular accident, acute vestibular neuronitis or transient cerebral ischemia Medical Records I reviewed the patient's medical records. Lab Data I reviewed the patient's lab results. 02/19/23 10:53 02/19/23 10:53 Laboratory Results WBC 5.1 10^3/uL (4.0-10.0) 02/19/23 10:53 RBC 3.72 10^6/uL (4.1-5.3) L 02/19/23 10:53 Hgb 11.5 g/dL (11.5-15.3) 02/19/23 10:53 Hct 36.8 % (37.0-47.0) L 02/19/23 10:53 MCV 98.9 fl (81-99) 02/19/23 10:53 MCH 30.9 pg (28.0-34.0) 02/19/23 10:53 MCHC 31.3 g/dL (30.0-36.0) 02/19/23 10:53 RDW 17.7 % (12.1-15.1) H 02/19/23 10:53 Plt Count 23 10^3/cmm (130-400) L* 02/19/23 10:53 MPV 11.8 fL (7.4-10.4) H 02/19/23 10:53 Neut % (Auto) 66.7 % 02/19/23 10:53 Lymph % (Auto) 19.7 % 02/19/23 10:53 [place] % (Auto) 9.1 % 02/19/23 10:53 Eos % (Auto) 3.3 % 02/19/23 10:53 Baso % (Auto) 0.6 % 02/19/23 10:53 Neut # (Auto) 3.39 10^3/uL (1.8-7.7) 02/19/23 10:53 Lymph # (Auto) 1.0 10^3/uL (0.8-4.8) 02/19/23 10:53 [place] # (Auto) 0.5 10^3/uL (0.2-0.9) 02/19/23 10:53 Eos # (Auto) 0.2 10^3/uL (0.0-0.8) 02/19/23 10:53 Baso # (Auto) 0.0 10^3/uL (0.0-0.1) 02/19/23 10:53 Nucleated RBC % (auto) 0 % 02/19/23 10:53 Nucleated RBCs # 0.0 /100WBC 02/19/23 10:53 Sodium 137 mmol/L (136-145) 02/19/23 10:53 Potassium 3.9 mmol/L (3.5-5.1) 02/19/23 10:53 Chloride 103 mmol/L (98-107) 02/19/23 10:53 Carbon Dioxide 27 mmol/L (22-29) 02/19/23 10:53 Anion Gap 10.9 (5-19) 02/19/23 10:53 BUN 9 mg/dL (8-23) 02/19/23 10:53 Creatinine 0.6 mg/dL (0.5-0.9) 02/19/23 10:53 GFR Calculation 99.7 mL/min (90-130) 02/19/23 10:53 Glucose 96 mg/dL (65-115) 02/19/23 10:53 Calculated Osmolality 283 mOsm/kg (285-295) L 02/19/23 10:53 Calcium 8.0 mg/dL (8.5-10.5) L 02/19/23 10:53 Total Bilirubin 0.7 mg/dL (0.15-1.2) 02/19/23 10:53 AST 37 U/L (0-32) H 02/19/23 10:53 ALT 19 U/L (0-33) 02/19/23 10:53 Alkaline Phosphatase 108 U/L (35-105) H 02/19/23 10:53 Total Protein 6.3 g/dL (6.6-8.7) L 02/19/23 10:53 Albumin 2.5 g/dL (3.5-5.2) L 02/19/23 10:53 Globulin 3.8 g/dL (1.3-4.6) 02/19/23 10:53 Urine Color Yellow (Yellow) 02/19/23 10:42 Urine Appearance Clear (CLEAR) 02/19/23 10:42 Urine pH 7 (5-7) 02/19/23 10:42 Ur Specific [place] 1.005 (1.005-1.030) 02/19/23 10:42 Urine Protein Neg (Negative) 02/19/23 10:42 Urine Glucose (UA) Norm (Normal) 02/19/23 10:42 Urine Ketones Negative (Negative) 02/19/23 10:42 Urine Blood Neg (Negative) 02/19/23 10:42 Urine Nitrate Negative (Negative) 02/19/23 10:42 Urine Bilirubin Neg (Negative) 02/19/23 10:42 Urine Urobilinogen Norm mg/dL (Negative) 02/19/23 10:42 Ur Leukocyte Esterase Trace (Negative) H 02/19/23 10:42 Urine RBC Rare /hpf (0-2) 02/19/23 10:42 Urine WBC 0-4 /hpf (0-5) H 02/19/23 10:42 Ur Squamous Epith Cells 5-10 /hpf (0-5) H 02/19/23 10:42 Amorphous Sediment Not Reportable 02/19/23 10:42 Urine Bacteria Trace /hpf (NONE) 02/19/23 10:42 Urine Mucus Trace /hpf 02/19/23 10:42 EKG Data EKG 1: I personally reviewed and interpreted this EKG as follows: EKG interpretation date: 02/19/23 EKG interpretation time: 10:59 Prior EKG tracings: not available for review Interpretation: EKG showed ventricular rate of 70 bpm, MN interval 163, QRS duration 78, QTc of 392, no ST-T wave changes Discharge Plan Discharge Patient Disposition: Home Clinical Impression: Orthostatic hypotension, Thrombocytopenia, Acute ITP Condition: Stable Prescriptions: New dexamethasone 4 mg tablet 20 mg PO DAILY Qty: 60 0RF No Action tizanidine 4 mg capsule 4 mg PO QID PRN (Reason: Muscle Spasm) atenolol 25 mg tablet 25 mg PO BID@08,0 amitriptyline 25 mg tablet 25 mg PO BEDTIME@0 tramadol 50 mg tablet 50 mg PO Q6H PRN (Reason: Pain) gabapentin 300 mg capsule 300 mg PO TID@08,12, omeprazole 40 mg capsule,delayed release(DR/EC) 40 mg PO DAILY@08 lorazepam 0.5 mg tablet 0.5 mg PO TID PRN (Reason: Anxiety) levothyroxine 50 mcg capsule 75 mcg PO DAILY@08 losartan 100 mg tablet 100 mg PO DAILY sertraline 50 mg tablet 50 mg PO DAILY allopurinol 300 mg tablet 300 mg PO DAILY (DME) pen needle, diabetic [Comfort EZ Pen Craig] 31 gauge x 3/16 needle See Rx Instructions .Route Qty: 50 0RF Rx Instructions: As directed albuterol sulfate [Ventolin HFA] 90 mcg/actuation HFA aerosol inhaler 2 puff INHALATION QID PRN (Reason: Shortness Of Breath) Centrum Women 18-400 mg-mcg Tablet 1 tab PO DAILY@08 ondansetron 4 mg tablet,disintegrating 4 mg PO Q8H PRN (Reason: nausea and vomiting) Qty: 30 0RF metoprolol tartrate 25 mg tablet 25 mg PO BID prochlorperazine maleate [Compazine] 10 mg tablet 10 mg PO Q4H PRN (Reason: Mild Nausea) Qty: 30 3RF sulfamethoxazole-trimethoprim 800-160 mg tablet 1 tab PO BID Eliquis DVT-PE Treat 30D Start 5 mg (74 tabs) tablets,dose pack See Rx Instructions .ROUTE .COMPLEX Qty: 74 0RF Rx Instructions: orally per package directions Discharge Orders: Discharge ED (Routine); Ordered 02/19/23 Ordered By: Aguila Rouse Referrals: Samantha Wylie MD [Primary Care Provider] - 1 week Patient Instructions: Immune Thrombocytopenia (ED) Activity Restrictions/Additional Instructions: Please restart your dexamethasone at 20 mg daily, please hold your Eliquis if you have any active signs of bruising or bleeding. Please follow-up with Dr. Bowden and Dr. Higuera in their office on Wednesday for reevaluation and lab work. Coding Level of Care Code ED Communications Engineering Technician for Heide Batista
[2023-02-19 11:05] LABS: Specific Gravity, Urine 1.005 (1.005-1.030); Urine Appearance Clear (CLEAR); Urine Color Yellow (Yellow); pH Urine 7 (5-7)
[2023-02-19 11:06] LABS: Add Urine Microscopic? YES; Bacteria Urine TRACE /hpf; Bilirubin Urine Neg (Negative); Blood Urine Neg (Negative); Glucose Urine UA Norm (Normal); Ketones Urine Negative (Negative); Leukocyte Esterase Urine Trace (Negative); Mucus Urine TRACE /hpf; Nitrate Urine Negative (Negative); Protein Urine Neg (Negative); RBC Urine RARE /hpf (0-2); Urobilinogen Urine Norm (Negative); WBC Urine 0-4 /hpf (0-5)
[2023-02-19 11:07] VITALS: BP 123/84; PULSE 76; O2SAT 96
[2023-02-19 11:17] LABS: Basophils % 0.6 %; Eosinophils # 0.2 10^3/uL (0.0-0.8); Eosinophils % 3.3 %; Hematocrit 36.8 % (37.0-47.0); Hemoglobin 11.5 g/dL (11.5-15.3); Lymphocytes % 19.7 %; Mean Corpuscular HGB Conc 31.3 g/dL (30.0-36.0); Mean Corpuscular Hemoglobin 30.9 pg (28.0-34.0); Mean Corpuscular Volume 98.9 fl (81-99); Mean Platelet Volume 11.8 fL (7.4-10.4); Monocytes # 0.5 10^3/uL (0.2-0.9); Monocytes % 9.1 %; Neutrophils # 3.39 10^3/uL (1.8-7.7); Neutrophils % 66.7 %; Nucleated Red Blood Cells % 0 %; Red Blood Count 3.72 10^6/uL (4.1-5.3); Red Cell Distribution Width 17.7 % (12.1-15.1); White Blood Count 5.1 10^3/uL (4.0-10.0)
[2023-02-19 11:34] LABS: Alanine Aminotransferase 19 U/L (0-33); Albumin Level 2.5 g/dL (3.5-5.2); Alkaline Phosphatase 108 U/L (35-105); Anion Gap 10.9 (5-19); Aspartate Amino Transferase 37 U/L (0-32); Blood Urea Nitrogen 9 mg/dL (8-23); Carbon Dioxide 27 mmol/L (22-29); Chloride 103 mmol/L (98-107); Globulin 3.8 g/dL (1.3-4.6); Glomerular Filtration Rate 99.7 mL/min (90-130); Glucose 96 mg/dL (65-115); Osmolality Calculated 283 mOsm/kg (285-295); Potassium 3.9 mmol/L (3.5-5.1); Sodium 137 mmol/L (136-145); Total Bilirubin 0.7 mg/dL (0.15-1.2); Total Protein 6.3 g/dL (6.6-8.7)
[2023-02-19 11:45] LABS: Slide Review Slide Review Perform
[2023-02-19 11:47] LABS: Platelet Count 23 10^3/cmm (130-400)
[2023-02-19 12:20] VITALS: BP 152/93; PULSE 80; O2SAT 94
[2023-02-19 12:31] VITALS: BP 152/93; PULSE 79; O2SAT 94
== END 2023-02-19 12:31 | disposition home or self-care (01) ==
PROVIDERS: Emergency Provider Emergency Medicine; PCP Family Medicine
DX: I95.1 Orthostatic hypotension (principal); D69.6 Thrombocytopenia, unspecified; D69.3 Immune thrombocytopenic purpura; Z87.891 Personal history of nicotine dependence; J44.9 Chronic obstructive pulmonary disease, unspecified; I10 Essential (primary) hypertension; Z86.711 Personal history of pulmonary embolism; R42 Dizziness and giddiness; S02.40DA Maxillary fracture, left side, initial encounter for closed fracture; S02.32XA Fracture of orbital floor, left side, initial encounter for closed fracture; J34.2 Deviated nasal septum; W13.8XXA Fall from, out of or through other building or structure, initial encounter
CPT/HCPCS: 36415; 80053; 81001; 85025; 93005; 99204; 99284

== ENCOUNTER 2023-02-23 08:18 | Oncology outpatient (recurring) (ONCR) | payer MEDICARE, MEDICAID, SELFPAY ==
[2023-02-02 08:31] LABS: Immunoglobulin IGG 1683 mg/dL (700-1600)
[2023-02-04 08:13] LABS: Basophils # 0.1 10^3/uL (0.0-0.1); Basophils % 0.9 %; Eosinophils # 0.4 10^3/uL (0.0-0.8); Hematocrit 39.8 % (37.0-47.0); Lymphocytes # 1.1 10^3/uL (0.8-4.8); Lymphocytes % 9.5 %; Mean Corpuscular HGB Conc 32.7 g/dL (30.0-36.0); Mean Corpuscular Hemoglobin 31.1 pg (28.0-34.0); Mean Corpuscular Volume 95.2 fl (81-99); Mean Platelet Volume 9.7 fL (7.4-10.4); Monocytes # 1.1 10^3/uL (0.2-0.9); Monocytes % 9.6 %; Neutrophils # 8.61 10^3/uL (1.8-7.7); Neutrophils % 74.2 %; Nucleated Red Blood Cells % 0 %; Platelet Count 183 10^3/cmm (130-400); Red Blood Count 4.18 10^6/uL (4.1-5.3); Red Cell Distribution Width 19.2 % (12.1-15.1); White Blood Count 11.6 10^3/uL (4.0-10.0)
[2023-02-04 08:31] LABS: Alanine Aminotransferase 23 U/L (0-33); Albumin Level 2.2 g/dL (3.5-5.2); Alkaline Phosphatase 155 U/L (35-105); Anion Gap 12.9 (5-19); Aspartate Amino Transferase 42 U/L (0-32); Blood Urea Nitrogen 14 mg/dL (8-23); Calcium 8.2 mg/dL (8.5-10.5); Carbon Dioxide 24 mmol/L (22-29); Chloride 102 mmol/L (98-107); Globulin 3.8 g/dL (1.3-4.6); Glomerular Filtration Rate 71.5 mL/min (90-130); Glucose 135 mg/dL (65-115); Osmolality Calculated 283 mOsm/kg (285-295); Potassium 3.9 mmol/L (3.5-5.1); Sodium 135 mmol/L (136-145); Total Bilirubin 0.8 mg/dL (0.15-1.2)
[2023-02-04 09:08] LABS: Hepatitis A Antibody IgM Non-Reactive (Nonreactive); Hepatitis B Core AB, Total Non-Reactive (Nonreactive); Hepatitis B Surface Antigen Non-Reactive (Nonreactive); Hepatitis C Virus Antibody Non-Reactive (Nonreactive)
[2023-02-04 09:09] LABS: Hepatitis B Surface AB < 3.5 (11.5-1000)
[2023-02-11 14:23] LABS: Basophils # 0.1 10^3/uL (0.0-0.1); Basophils % 0.7 %; Eosinophils # 0.4 10^3/uL (0.0-0.8); Eosinophils % 5.5 %; Hematocrit 38.9 % (37.0-47.0); Hemoglobin 12.3 g/dL (11.5-15.3); Lymphocytes # 1.4 10^3/uL (0.8-4.8); Lymphocytes % 21.3 %; Mean Corpuscular HGB Conc 31.6 g/dL (30.0-36.0); Mean Corpuscular Hemoglobin 31.1 pg (28.0-34.0); Mean Corpuscular Volume 98.2 fl (81-99); Mean Platelet Volume 11.4 fL (7.4-10.4); Monocytes # 0.7 10^3/uL (0.2-0.9); Monocytes % 10.7 %; Neutrophils # 4.09 10^3/uL (1.8-7.7); Neutrophils % 60.9 %; Nucleated Red Blood Cells % 0 %; Red Blood Count 3.96 10^6/uL (4.1-5.3); Red Cell Distribution Width 19.1 % (12.1-15.1); White Blood Count 6.7 10^3/uL (4.0-10.0)
[2023-02-11 14:49] LABS: Platelet Count 158 10^3/cmm (130-400); Slide Review Slide Review Perform
[2023-02-23 08:49] LABS: Basophils % 0.1 %; Hematocrit 37.4 % (37.0-47.0); Lymphocytes # 0.7 10^3/uL (0.8-4.8); Lymphocytes % 9.3 %; Mean Corpuscular HGB Conc 32.1 g/dL (30.0-36.0); Mean Corpuscular Hemoglobin 30.8 pg (28.0-34.0); Mean Corpuscular Volume 96.1 fl (81-99); Mean Platelet Volume 11.5 fL (7.4-10.4); Monocytes # 0.5 10^3/uL (0.2-0.9); Monocytes % 7.6 %; Neutrophils # 5.72 10^3/uL (1.8-7.7); Neutrophils % 81.9 %; Nucleated Red Blood Cells % 0.3 %; Platelet Count 56 10^3/cmm (130-400); Red Blood Count 3.89 10^6/uL (4.1-5.3); Red Cell Distribution Width 16.5 % (12.1-15.1)
[2023-02-23 09:15] LABS: Alanine Aminotransferase 90 U/L (0-33); Alkaline Phosphatase 162 U/L (35-105); Anion Gap 12.4 (5-19); Aspartate Amino Transferase 116 U/L (0-32); Blood Urea Nitrogen 16 mg/dL (8-23); Carbon Dioxide 25 mmol/L (22-29); Chloride 101 mmol/L (98-107); Globulin 3.8 g/dL (1.3-4.6); Glomerular Filtration Rate 99.7 mL/min (90-130); Glucose 248 mg/dL (65-115); Osmolality Calculated 289 mOsm/kg (285-295); Potassium 3.4 mmol/L (3.5-5.1); Sodium 135 mmol/L (136-145); Total Bilirubin 0.7 mg/dL (0.15-1.2); Total Protein 6.8 g/dL (6.6-8.7)
[2023-02-23 09:33] LABS: Slide Review Slide Review Perform
== END 2023-02-24 23:59 | disposition home or self-care (01) ==
PROVIDERS: Internal Medicine Medical Oncology; Nurse Practitioner Family; PCP Family Medicine; Visit Provider Internal Medicine Hematology & Oncology
DX: D69.3 Immune thrombocytopenic purpura (principal)
CPT/HCPCS: 36415; 80053; 82784; 85025; 86705; 86706; 86709; 86803; 87340; 99214

== ENCOUNTER 2023-03-16 07:32 | Oncology outpatient (recurring) (ONCR) | payer MEDICARE, MEDICAID, SELFPAY ==
[2023-03-03 10:45] VITALS: BP 167/99; PULSE 105; RESP 18; TEMP 35.8; O2SAT 98
[2023-03-04 15:31] VITALS: BP 111/70; PULSE 76; RESP 16; TEMP 36.1; O2SAT 95
[2023-03-04 15:33] LABS: Basophils % 0.2 %; Eosinophils # 0.1 10^3/uL (0.0-0.8); Eosinophils % 0.4 %; Hematocrit 43.9 % (37.0-47.0); Hemoglobin 14.3 g/dL (11.5-15.3); Lymphocytes % 5.2 %; Mean Corpuscular HGB Conc 32.6 g/dL (30.0-36.0); Mean Corpuscular Hemoglobin 31.3 pg (28.0-34.0); Mean Corpuscular Volume 96.1 fl (81-99); Mean Platelet Volume 12.7 fL (7.4-10.4); Monocytes # 1.5 10^3/uL (0.2-0.9); Monocytes % 7.6 %; Neutrophils # 16.09 10^3/uL (1.8-7.7); Neutrophils % 84.3 %; Nucleated Red Blood Cells % 0 %; Platelet Count 61 10^3/cmm (130-400); Red Blood Count 4.57 10^6/uL (4.1-5.3); Red Cell Distribution Width 15.1 % (12.1-15.1); White Blood Count 19.1 10^3/uL (4.0-10.0)
[2023-03-05 07:54] VITALS: BP 105/63; PULSE 78; RESP 16; TEMP 35.9; O2SAT 98
[2023-03-05 07:57] LABS: Basophils % 0.1 %; Eosinophils # 0.1 10^3/uL (0.0-0.8); Hematocrit 43.3 % (37.0-47.0); Hemoglobin 14.1 g/dL (11.5-15.3); Lymphocytes # 1.1 10^3/uL (0.8-4.8); Lymphocytes % 7.7 %; Mean Corpuscular HGB Conc 32.6 g/dL (30.0-36.0); Mean Corpuscular Hemoglobin 31.1 pg (28.0-34.0); Mean Corpuscular Volume 95.4 fl (81-99); Mean Platelet Volume 12.1 fL (7.4-10.4); Monocytes # 0.8 10^3/uL (0.2-0.9); Monocytes % 5.8 %; Neutrophils # 11.48 10^3/uL (1.8-7.7); Neutrophils % 83.7 %; Nucleated Red Blood Cells % 0 %; Platelet Count 58 10^3/cmm (130-400); Red Blood Count 4.54 10^6/uL (4.1-5.3); Red Cell Distribution Width 15.1 % (12.1-15.1); White Blood Count 13.7 10^3/uL (4.0-10.0)
[2023-03-09] VITALS (10 sets, daily range): BP systolic 96–152; BP diastolic 61–93; PULSE 71–83; RESP 16–18; TEMP 35.6–36.8; O2SAT 97–99
[2023-03-09 07:51] LABS: Basophils % 0.2 %; Eosinophils # 0.1 10^3/uL (0.0-0.8); Eosinophils % 2.2 %; Hematocrit 36.5 % (37.0-47.0); Lymphocytes # 0.7 10^3/uL (0.8-4.8); Lymphocytes % 13.2 %; Mean Corpuscular HGB Conc 32.9 g/dL (30.0-36.0); Mean Corpuscular Hemoglobin 30.8 pg (28.0-34.0); Mean Corpuscular Volume 93.8 fl (81-99); Monocytes # 0.4 10^3/uL (0.2-0.9); Monocytes % 8.2 %; Neutrophils # 3.76 10^3/uL (1.8-7.7); Neutrophils % 75.2 %; Nucleated Red Blood Cells % 0 %; Red Blood Count 3.89 10^6/uL (4.1-5.3); Red Cell Distribution Width 14.4 % (12.1-15.1)
[2023-03-09 08:12] LABS: Platelet Count 25 10^3/cmm (130-400)
[2023-03-09 08:17] LABS: Alanine Aminotransferase 81 U/L (0-33); Albumin Level 2.6 g/dL (3.5-5.2); Alkaline Phosphatase 180 U/L (35-105); Anion Gap 10.2 (5-19); Aspartate Amino Transferase 47 U/L (0-32); Blood Urea Nitrogen 8 mg/dL (8-23); Calcium 7.9 mg/dL (8.5-10.5); Carbon Dioxide 26 mmol/L (22-29); Chloride 100 mmol/L (98-107); Globulin 2.8 g/dL (1.3-4.6); Glomerular Filtration Rate 159.2 mL/min (90-130); Glucose 136 mg/dL (65-115); Osmolality Calculated 276 mOsm/kg (285-295); Potassium 3.2 mmol/L (3.5-5.1); Sodium 133 mmol/L (136-145); Total Bilirubin 0.6 mg/dL (0.15-1.2); Total Protein 5.4 g/dL (6.6-8.7)
[2023-03-09] MEDS: sodium chloride 0.9% 250 ML 100 ML IV (09:06)
[2023-03-09] MEDS: diphenhydrAMINE 50 mg/mL SDV 1mL 25 MG IVP (09:08)
[2023-03-09] MEDS: acetaminophen 325 mg Tablet 650 MG PO (09:08)
[2023-03-09] MEDS: rituximab-abbs 500 MG, rituximab-abbs 240 MG in sodium chloride 0.9% 500 ML 50 MG IV (09:24)
[2023-03-09] MEDS: dexamethasone 10 mg/mL INJ IVP (11:14)
[2023-03-09] MEDS: sodium chloride 0.9% 500 ML 50 ML IV (13:24)
[2023-03-09] MEDS: famotidine 20 mg Tablet PO (16:01)
[2023-03-10 13:58] VITALS: BP 126/81; PULSE 68; RESP 18; TEMP 35.8; O2SAT 100
[2023-03-10 14:22] LABS: Basophils % 0.1 %; Eosinophils % 0.1 %; Hemoglobin 11.8 g/dL (11.5-15.3); Lymphocytes # 0.7 10^3/uL (0.8-4.8); Lymphocytes % 8.1 %; Mean Corpuscular HGB Conc 33.7 g/dL (30.0-36.0); Mean Corpuscular Hemoglobin 31.6 pg (28.0-34.0); Mean Corpuscular Volume 93.8 fl (81-99); Monocytes # 0.4 10^3/uL (0.2-0.9); Neutrophils # 7.01 10^3/uL (1.8-7.7); Neutrophils % 86.1 %; Nucleated Red Blood Cells % 0 %; Platelet Count 30 10^3/cmm (130-400); Red Blood Count 3.73 10^6/uL (4.1-5.3); Red Cell Distribution Width 14.3 % (12.1-15.1); White Blood Count 8.2 10^3/uL (4.0-10.0)
[2023-03-16] VITALS (9 sets, daily range): BP systolic 99–153; BP diastolic 66–89; PULSE 69–82; RESP 18; TEMP 35.9–36.6; O2SAT 96–99
[2023-03-16 07:45] LABS: Basophils % 0.3 %; Eosinophils # 0.1 10^3/uL (0.0-0.8); Hematocrit 33.7 % (37.0-47.0); Hemoglobin 10.8 g/dL (11.5-15.3); Lymphocytes # 0.8 10^3/uL (0.8-4.8); Lymphocytes % 26.3 %; Mean Corpuscular Hemoglobin 30.2 pg (28.0-34.0); Mean Corpuscular Volume 94.1 fl (81-99); Monocytes # 0.4 10^3/uL (0.2-0.9); Monocytes % 13.5 %; Neutrophils % 55.9 %; Nucleated Red Blood Cells % 0 %; Red Blood Count 3.58 10^6/uL (4.1-5.3); Red Cell Distribution Width 14.2 % (12.1-15.1)
[2023-03-16 08:00] LABS: Alanine Aminotransferase 34 U/L (0-33); Albumin Level 2.4 g/dL (3.5-5.2); Alkaline Phosphatase 134 U/L (35-105); Anion Gap 14.7 (5-19); Aspartate Amino Transferase 30 U/L (0-32); Blood Urea Nitrogen 9 mg/dL (8-23); Calcium 7.8 mg/dL (8.5-10.5); Carbon Dioxide 24 mmol/L (22-29); Chloride 103 mmol/L (98-107); Globulin 2.7 g/dL (1.3-4.6); Glomerular Filtration Rate 99.7 mL/min (90-130); Glucose 201 mg/dL (65-115); Osmolality Calculated 290 mOsm/kg (285-295); Potassium 3.7 mmol/L (3.5-5.1); Sodium 138 mmol/L (136-145); Total Bilirubin 0.8 mg/dL (0.15-1.2); Total Protein 5.1 g/dL (6.6-8.7)
[2023-03-16 08:40] LABS: Slide Review Slide Review Perform
[2023-03-16 08:44] LABS: Platelet Count 25 10^3/cmm (130-400)
[2023-03-16] MEDS: sodium chloride 0.9% 250 ML 75 ML IV (10:40)
[2023-03-16 10:43] LABS: D Dimer 3.56 ug/mIFEU (0-0.59)
[2023-03-16] MEDS: acetaminophen 325 mg Tablet 650 MG PO (10:43)
[2023-03-16] MEDS: diphenhydrAMINE 50 mg/mL SDV 1mL 25 MG IVP (10:44)
[2023-03-16] MEDS: rituximab-abbs 500 MG, rituximab-abbs 240 MG in sodium chloride 0.9% 500 ML 50 MG IV (11:04)
== END 2023-03-16 23:59 | disposition home or self-care (01) ==
PROVIDERS: PCP Family Medicine; Visit Provider Internal Medicine Hematology & Oncology
DX: D69.6 Thrombocytopenia, unspecified (principal)
CPT/HCPCS: 96375 ×3; 96413 ×3; 96415 ×3; 96376; 96361 ×2; 96372; 36415; 80053; 85025; 85378; 96417; 99214; 99215; J1100; J1200; J7040; J7050; Q5115

== ENCOUNTER 2023-03-23 07:30 | Oncology outpatient (recurring) (ONCR) | payer MEDICARE, MEDICAID, SELFPAY ==
[2023-03-23] VITALS (10 sets, daily range): BP systolic 86–128; BP diastolic 48–85; PULSE 72–85; RESP 16–18; TEMP 35.7–36.4; O2SAT 95–99
[2023-03-23 07:57] LABS: Basophils # 0.1 10^3/uL (0.0-0.1); Basophils % 1.3 %; Eosinophils # 0.1 10^3/uL (0.0-0.8); Eosinophils % 2.1 %; Hematocrit 32.2 % (37.0-47.0); Hemoglobin 10.4 g/dL (11.5-15.3); Lymphocytes # 0.9 10^3/uL (0.8-4.8); Lymphocytes % 23.9 %; Mean Corpuscular HGB Conc 32.3 g/dL (30.0-36.0); Mean Corpuscular Hemoglobin 30.5 pg (28.0-34.0); Mean Corpuscular Volume 94.4 fl (81-99); Mean Platelet Volume 12.4 fL (7.4-10.4); Monocytes # 0.8 10^3/uL (0.2-0.9); Monocytes % 19.9 %; Neutrophils # 1.98 10^3/uL (1.8-7.7); Nucleated Red Blood Cells % 0 %; Platelet Count 35 10^3/cmm (130-400); Red Blood Count 3.41 10^6/uL (4.1-5.3); White Blood Count 3.8 10^3/uL (4.0-10.0)
[2023-03-23 08:14] LABS: Alanine Aminotransferase 25 U/L (0-33); Albumin Level 2.4 g/dL (3.5-5.2); Alkaline Phosphatase 143 U/L (35-105); Blood Urea Nitrogen 7 mg/dL (8-23); Calcium 8.1 mg/dL (8.5-10.5); Carbon Dioxide 26 mmol/L (22-29); Chloride 99 mmol/L (98-107); Globulin 2.9 g/dL (1.3-4.6); Glomerular Filtration Rate 123.1 mL/min (90-130); Glucose 183 mg/dL (65-115); Osmolality Calculated 281 mOsm/kg (285-295); Sodium 134 mmol/L (136-145); Total Bilirubin 0.8 mg/dL (0.15-1.2); Total Protein 5.3 g/dL (6.6-8.7)
[2023-03-23 08:19] LABS: Anion Gap 12.7 (5-19); Aspartate Amino Transferase 38 U/L (0-32); Potassium 3.7 mmol/L (3.5-5.1)
[2023-03-23] MEDS: acetaminophen 325 mg Tablet 650 MG PO (09:37)
[2023-03-23] MEDS: sodium chloride 0.9% 250 ML 75 ML IV (09:38)
[2023-03-23] MEDS: diphenhydrAMINE 50 mg/mL SDV 1mL 25 MG IVP (09:39)
[2023-03-23] MEDS: rituximab-abbs 500 MG, rituximab-abbs 240 MG in sodium chloride 0.9% 500 ML 40.5 MG IV (09:58)
== END 2023-03-26 23:59 | disposition home or self-care (01) ==
PROVIDERS: PCP Family Medicine; Visit Provider Internal Medicine Hematology & Oncology
DX: Z51.12 Encounter for antineoplastic immunotherapy (principal); D69.3 Immune thrombocytopenic purpura; R60.0 Localized edema; K13.0 Diseases of lips; Z79.52 Long term (current) use of systemic steroids; Z79.899 Other long term (current) drug therapy; Z79.01 Long term (current) use of anticoagulants
CPT/HCPCS: 80053; 85025; 96375; 96413; 96415; 99214; J1200; J7040; J7050; Q5115

== ENCOUNTER 2023-03-30 15:03 | Inpatient (IN) | payer MEDICARE, MEDICAID, SELFPAY ==
[2023-03-30] VITALS (70 sets, daily range): BP systolic 67–157; BP diastolic 37–113; PULSE 75–117; RESP 8–33; TEMP 36.2–36.7; O2SAT 92–100
--- NOTE | 2023-03-30 | CTR_ITS ---
PROCEDURE INFORMATION: Exam: CT Cervical Spine Without Contrast Exam date and time: 03/30/2023 4:29 PM Age: 67 years old Clinical indication: Injury or trauma; Fall; Blunt trauma; Injury date: 03/30/2023 TECHNIQUE: Imaging protocol: Computed tomography of the cervical spine without contrast. Radiation optimization: All CT scans at this facility use at least one of these dose optimization techniques: automated exposure control; mA and/or kV adjustment per patient size (includes targeted exams where dose is matched to clinical indication); or iterative reconstruction. REPORTING DATA: Count of CT and Cardiac NM exams in prior 12 months: This patient has received 5 known CTs and 0 known cardiac nuclear medicine studies in the 12 months prior to the current study. COMPARISON: CT cervical spin wo con* [id number] 01/17/2023 11:06 AM RADIATION DOSE METRICS: Total DLP (mGy-cm): 283.67 FINDINGS: Bones/joints: Cervical vertebral body heights appear maintained. Mild straightening of the cervical curvature on the sagittal images. Spondylotic change noted with component of disc space narrowing or degenerative disc disease C4 through C7 levels as noted with prior exam. No significant or severe spinal stenosis. No fracture or acute osseous abnormality. Lungs: Partially visualized lung apices demonstrate emphysematous change with component of apical pleural thickening. Soft tissues: Paravertebral soft tissues show no significant abnormality. CT/CT cervical spin wo con* [id number] IMPRESSION: 1. Mild straightening of the cervical curvature on the sagittal images, which can be associated with muscle spasm or tension. 2. No fracture or acute osseous abnormality.
--- NOTE | 2023-03-30 15:06 | XRR_ITS ---
PROCEDURE INFORMATION: Exam: XR Chest Exam date and time: 03/30/2023 3:10 PM Age: 67 years old Clinical indication: Cough and dyspnea; Additional info: Dyspnea/cough TECHNIQUE: Imaging protocol: Radiologic exam of the chest. Views: 1 view. COMPARISON: CR XR chest 1V portable [id number] 02/01/2023 9:44 AM FINDINGS: Lungs: Slight increased markings within the right lung base, particularly mid to medially. This is similar in appearance to previous exam suggestive of mild chronic lung markings. No focal infiltrate or consolidation, otherwise. Pleural spaces: Unremarkable. No pleural effusion. No pneumothorax. Heart/Mediastinum: Unremarkable. No cardiomegaly. Bones/joints: Visualized osseous structures show no acute abnormality. XR/XR chest 1V portable [id number] IMPRESSION: No acute findings.
--- NOTE | 2023-03-30 15:06 | CTR_ITS ---
PROCEDURE INFORMATION: Exam: CT Head Without Contrast Exam date and time: 03/30/2023 4:19 PM Age: 67 years old Clinical indication: Altered mental status/memory loss; Confusion or disorientation; Additional info: AMS TECHNIQUE: Imaging protocol: Computed tomography of the head without contrast. Radiation optimization: All CT scans at this facility use at least one of these dose optimization techniques: automated exposure control; mA and/or kV adjustment per patient size (includes targeted exams where dose is matched to clinical indication); or iterative reconstruction. REPORTING DATA: Count of CT and Cardiac NM exams in prior 12 months: This patient has received 5 known CTs and 0 known cardiac nuclear medicine studies in the 12 months prior to the current study. COMPARISON: CT head wo con* [id number] 01/17/2023 11:06 AM RADIATION DOSE METRICS: Total DLP (mGy-cm): 1223.73 FINDINGS: Brain: Normal. No hemorrhage. Unremarkable white matter. No mass effect. No significant change from prior exam. Cerebral ventricles: No ventriculomegaly. Paranasal sinuses: Visualized sinuses are unremarkable. No fluid levels. Mastoid air cells: Partial opacity left mastoid air cells. Bones/joints: No acute findings. Prior fracture deformities of the left maxillary sinus leggett with prior exam. Soft tissues: Unremarkable. CT/CT head wo con* [id number] IMPRESSION: No acute intracranial abnormality.
--- NOTE | 2023-03-30 15:18 | ECG_ITS ---
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 Measurements Intervals [place] Rate: 79 P: 55 CO: 164 QRS: 32 QRSD: 80 T: 43 QT: 381 QTc: 439 Interpretive Statements SINUS RHYTHM Compared to ECG 02/19/2023 10:47:19 No significant changes Electronically Signed On 03-30-2023 19:23:38 CDT by Sebas Nava M.D. [id number]
[2023-03-30 15:32] LABS: Glucose Point of Care 192 mg/dL (70-110)
--- NOTE | 2023-03-30 15:43 | CTR_ITS ---
PROCEDURE INFORMATION: Exam: CTA Chest With Contrast Exam date and time: 03/30/2023 4:22 PM Age: 67 years old Clinical indication: Dyspnea; Additional info: Pe not on anticoagulation TECHNIQUE: Imaging protocol: Computed tomographic angiography of the chest with contrast. Exam focused on the arteries. 3D rendering (Not supervised by radiologist): MIP and/or 3D reconstructed images were created by the technologist. Radiation optimization: All CT scans at this facility use at least one of these dose optimization techniques: automated exposure control; mA and/or kV adjustment per patient size (includes targeted exams where dose is matched to clinical indication); or iterative reconstruction. Contrast material: OMNI 350; Contrast volume: 100 ml; Contrast route: INTRAVENOUS (IV); REPORTING DATA: Count of CT and Cardiac NM exams in prior 12 months: This patient has received 5 known CTs and 0 known cardiac nuclear medicine studies in the 12 months prior to the current study. COMPARISON: CT angio chest PE protcl [id number] 02/01/2023 11:05 AM RADIATION DOSE METRICS: Total DLP (mGy-cm): 435.86 FINDINGS: Pulmonary arteries: There is no pulmonary embolism. Aorta: Unremarkable. No aortic aneurysm. No aortic dissection. Lungs: There is poor inspiration with diffuse volume loss, vascular crowding and basilar atelectasis. Diffuse mild interstitial and ground-glass opacity is noted in the lungs compatible with probable mild edema. There are mild emphysematous changes. There is peribronchial thickening and mild mucous plugging in the lower lobes with distal ground-glass opacity concerning for mild pneumonitis. Pleural spaces: Unremarkable. No pneumothorax. No pleural effusion. Heart: Unremarkable. No cardiomegaly. No pericardial effusion. Lymph nodes: Unremarkable. No enlarged lymph nodes. Bones/joints: Old right rib fracture deformities are noted. No acute bony abnormality. Soft tissues: Unremarkable. CT/CT angio chest PE protcl [id number] IMPRESSION: 1. There is no pulmonary embolism. 2. Diffuse mild interstitial and ground-glass opacity is noted in the lungs compatible with probable mild edema. 3. There is peribronchial thickening and mild mucous plugging in the lower lobes with distal ground-glass opacity concerning for mild pneumonitis. COMMENTS: In the absence of a history or active diagnosis of lung cancer, it is recommended that this patient with emphysema be evaluated for enrollment in a low dose CT lung cancer screening program.
--- NOTE | 2023-03-30 15:49 | ED_ITS ---
HPI - General Adult General: Chief complaint: Altered Mental Status Stated complaint: AMS/ Acute weakness Time Seen by Provider: 03/30/23 15:04 Source: patient and EMS Mode of arrival: EMS History of Present Illness: 67-year-old female presents emergency room via EMS. EMS was called she was seem to be altered. She was still in bed at 1:00 family reported he was very lethargic. Family is concerned that several medications are missing from box and she may have overdosed the missing Lasix and some of her diabetic medications. She has a history of idiopathic thrombocytopenia and has had pulmonary emboli in the past she is currently off of all her anticoagulation. She is denying any shortness of breath she does have little swelling in her lower extremities she denies chest pain or abdominal pain she did fall yesterday at the doctor's office but did not strike her head and there is no loss consciousness. She is severely hypotensive on arrival here. EMS reports having done a rapid stroke screening exam did not find any deficits repeat exam on arrival here does not show any acute deficits suggestive of CVA. Onset (ago): hour(s) Relieving factors: none Exacerbating factors: none Associated symptoms: Reports confusion; Deny chest pain, cough, diaphoresis, decreased appetite, dyspnea, fevers/chills, headache(s), malaise, nausea, rash, palpitations, seizures, short of breath, syncope, vomiting or weakness Review of Systems Const: Denies: fever(s), chills, malaise or diaphoresis Card: Denies: chest pain, palpitations or syncope Resp: Denies: dyspnea GI: Denies: abdominal pain, nausea or vomiting : Denies: flank pain, difficulty voiding, dysuria, urinary frequency or urinary urgency Musc: Denies: neck pain or back pain Skin/Breast: Denies: rash Neuro: Reports: confusion; Denies: headache(s) PFSH ED PFSH: Medical History Abnormal LFTs Acute ITP Chronic back pain Community acquired pneumonia COPD (chronic obstructive pulmonary disease) Hypertension Hyponatremia Kidney stones Pulmonary embolism Respiratory failure Thrombosis of pulmonary valve Surgical History H/O right wrist surgery Previous back surgery Previous section S/P cholecystectomy Family History Sister Cancer Bone marrow cancer in remission Grandmother Diabetes Mother Diabetes CAD (coronary artery disease) Father CAD (coronary artery disease) Other Family history non-contributory Hypertension Denies family history of Clotting disorder Dementia Hyperlipidemia Psychiatric illness Chronic kidney disease (CKD) Suicide Anesthesia complication Bleeding disorder Lung disease Stroke Social History Smoking and tobacco status: former smoker (smoked 20 years) Alcohol intake: never Substance/Drug Use: never Physical Exam Const: GENERAL APPEARANCE: cooperative and comfortable ORIENTATION/CONSCIOUSNESS: Yes awake HENMT: COMMON NORMALS: normocephalic, atraumatic and hearing grossly normal bilaterally HEAD & SCALP: normocephalic and atraumatic Resp: COMMON NORMALS: normal respiratory effort, No retractions, No use of accessory muscles and clear to auscultation bilaterally AUSCULTATION: clear to auscultation bilaterally Cardio: COMMON NORMALS: regular rate, regular rhythm and No murmurs present (Cardio) RATE: regular rate RHYTHM: regular rhythm GI: COMMON NORMALS: Soft to palpation and No hepatosplenomegaly present AUSCULTATION: Yes normoactive bowel sounds PALPATION: Yes Soft to palpation, No Tenderness to palpation present (GI), No Guarding due to palpation present (GI) and Yes No hepatosplenomegaly present Extremity: COMMON NORMALS: normal to inspection, capillary refill normal, no clubbing, cyanosis or edema, no calf tenderness and no pedal edema Skin: COMMON NORMALS: no rashes or lesions noted GENERAL SKIN EXAM: no rashes or lesions noted Course Vital Signs: Vital signs: Vital Signs Temperature 98.0 F 03/30/23 15:33 Pulse Rate 93 03/30/23 17:10 Respiratory Rate 16 03/30/23 17:10 Blood Pressure 114/66 03/30/23 17:10 Pulse Oximetry 99 03/30/23 17:10 Oxygen Delivery Me thod Room Air 03/30/23 15:10 Oxygen Flow Rate 3 03/30/23 17:10 Fraction of Inspir ed Oxygen 3 03/30/23 16:45 MDM - General Adult Medical Decision Making Patient presents in septic shock she did respond well to initial fluid boluses a nd Levophed. Were able to already start titrating Levophed down. Additionally we gave her hydrocortisone she had mild adrenal crisis. She has not been taking dexamethasone according to her and the family. She was on 20 mg daily. She has cystitis and pneumonia with some mucous plugging she is requiring 3 L/min of oxygen. She has some mild anemia which has been chronic and acute kidney injury. We did place a Pizano and immediately got 850 mL out and then she did have some urinary retention. Her CPK is elevated she had been laying in bed for about 18 hours. This will need to be monitored. Discussed all these things with Dr. Solomon orders written. Medical Records I reviewed the patient's medical records. Lab Data I reviewed the patient's lab results. 03/30/23 15:25 03/30/23 15:25 Radiology Impressions Cervical Spine CT 03/30/23 00:00 IMPRESSION: 1. Mild straightening of the cervical curvature on the sagittal images, which can be associated with muscle spasm or tension. 2. No fracture or acute osseous abnormality. Chest X-Ray 03/30/23 15:06 IMPRESSION: No acute findings. Head CT 03/30/23 15:06 IMPRESSION: No acute intracranial abnormality. Chest CTA 03/30/23 15:43 IMPRESSION: 1. There is no pulmonary embolism. 2. Diffuse mild interstitial and ground-glass opacity is noted in the lungs compatible with probable mild edema. 3. There is peribronchial thickening and mild mucous plugging in the lower lobes with distal ground-glass opacity concerning for mild pneumonitis. COMMENTS: In the absence of a history or active diagnosis of lung cancer, it is recommended that this patient with emphysema be evaluated for enrollment in a low dose CT lung cancer screening program. Laboratory Results WBC 14.6 10^3/uL (4.0-10.0) H 03/30/23 15:25 RBC 2.99 10^6/uL (4.1-5.3) L 03/30/23 15:25 Hgb 9.1 g/dL (11.5-15.3) L 03/30/23 15:25 Hct 28.5 % (37.0-47.0) L 03/30/23 15:25 MCV 95.3 fl (81-99) 03/30/23 15:25 MCH 30.4 pg (28.0-34.0) 03/30/23 15:25 MCHC 31.9 g/dL (30.0-36.0) 03/30/23 15:25 RDW 14.9 % (12.1-15.1) 03/30/23 15:25 Plt Count 114 10^3/cmm (130-400) L 03/30/23 15:25 MPV 11.9 fL (7.4-10.4) H 03/30/23 15:25 Neut % (Auto) 75.4 % 03/30/23 15:25 Lymph % (Auto) 11.3 % 03/30/23 15:25 Granite % (Auto) 11.8 % 03/30/23 15:25 Eos % (Auto) 0.1 % 03/30/23 15:25 Baso % (Auto) 0.4 % 03/30/23 15:25 Neut # (Auto) 10.97 10^3/uL (1.8-7.7) H 03/30/23 15:25 Lymph # (Auto) 1.7 10^3/uL (0.8-4.8) 03/30/23 15:25 Granite # (Auto) 1.7 10^3/uL (0.2-0.9) H 03/30/23 15:25 Eos # (Auto) 0.0 10^3/uL (0.0-0.8) 03/30/23 15:25 Baso # (Auto) 0.1 10^3/uL (0.0-0.1) 03/30/23 15:25 Nucleated RBC % (auto) 0 % 03/30/23 15:25 Nucleated RBCs # 0.0 /100WBC 03/30/23 15:25 Sodium 132 mmol/L (136-145) L 03/30/23 15:25 Potassium 4.2 mmol/L (3.5-5.1) 03/30/23 15:25 Chloride 96 mmol/L (98-107) L 03/30/23 15:25 Carbon Dioxide 24 mmol/L (22-29) 03/30/23 15:25 Anion Gap 16.2 (5-19) 03/30/23 15:25 BUN 12 mg/dL (8-23) 03/30/23 15:25 Creatinine 2.5 mg/dL (0.5-0.9) H 03/30/23 15:25 GFR Calculation 19.2 mL/min (90-130) L 03/30/23 15:25 Glucose 178 mg/dL (65-115) H 03/30/23 15:25 POC Glucose 192 mg/dL (70-110) H 03/30/23 15:26 Calculated Osmolality 278 mOsm/kg (285-295) L 03/30/23 15:25 Lactic Acid 3.1 mmol/L (0.5-2.2) H 03/30/23 15:56 Calcium 8.1 mg/dL (8.5-10.5) L 03/30/23 15:25 Magnesium 1.8 mg/dL (1.7-2.3) 03/30/23 15:25 Total Bilirubin 1.1 mg/dL (0.15-1.2) 03/30/23 15:25 AST 267 U/L (0-32) H 03/30/23 15:25 ALT 86 U/L (0-33) H 03/30/23 15:25 Alkaline Phosphatase 105 U/L (35-105) 03/30/23 15:25 Creatine Kinase 4761 U/L (26-192) H* 03/30/23 15:25 Troponin T Baseline 67 ng/L (0-10) H 03/30/23 15:25 Total Protein 5.0 g/dL (6.6-8.7) L 03/30/23 15:25 Albumin 2.8 g/dL (3.5-5.2) L 03/30/23 15:25 Globulin 2.2 g/dL (1.3-4.6) 03/30/23 15:25 Lipase 45 U/L (13-60) 03/30/23 15:25 TSH 9.13 uIU/mL (0.27-4.20) H 03/30/23 15:25 Random Cortisol 23.61 ug/dL (2.47-19.5) H 03/30/23 15:25 Urine Color Yellow (Yellow) 03/30/23 17:00 Urine Appearance Cloudy (CLEAR) A 03/30/23 17:00 Urine pH 7 (5-7) 03/30/23 17:00 Ur Specific [place] 1.010 (1.005-1.030) 03/30/23 17:00 Urine Protein Neg (Negative) 03/30/23 17:00 Urine Glucose (UA) Norm (Normal) 03/30/23 17:00 Urine Ketones Negative (Negative) 03/30/23 17:00 Urine Blood 3+ (Negative) H 03/30/23 17:00 Urine Nitrate Negative (Negative) 03/30/23 17:00 Urine Bilirubin Neg (Negative) 03/30/23 17:00 Urine Urobilinogen Norm mg/dL (Negative) 03/30/23 17:00 Ur Leukocyte Esterase Trace (Negative) H 03/30/23 17:00 Urine RBC 5-10 /hpf (0-2) H 03/30/23 17:00 Urine WBC >100 /hpf (0-5) H 03/30/23 17:00 Ur Squamous Epith Cells 5-10 /hpf (0-5) H 03/30/23 17:00 Amorphous Sediment Not Reportable 03/30/23 17:00 Urine Bacteria 1+ /hpf (NONE) H 03/30/23 17:00 Hyaline Casts 0-4 /lpf H 03/30/23 17:00 Urine Mucus 1+ /hpf 03/30/23 17:00 Discharge Plan Discharge Patient Disposition: Admitted As Inpatient Clinical Impression: Septic shock, Thrombocytopenia, unspecified, COPD (chronic obstructive pulmonary disease), Cystitis, Pneumonia, Adrenal crisis, MONTY (acute kidney injury), Anemia, Rhabdomyolysis Condition: Stable Prescriptions: No Action tizanidine 4 mg capsule 4 mg PO QID PRN (Reason: Muscle Spasm) atenolol 25 mg tablet 25 mg PO BID@0 amitriptyline 25 mg tablet 25 mg PO BEDTIME@2200 tramadol 50 mg tablet 50 mg PO Q6H PRN (Reason: Pain) gabapentin 300 mg capsule 300 mg PO TID@08,12,22 omeprazole 40 mg capsule,delayed release(DR/EC) 40 mg PO DAILY@08 lorazepam 0.5 mg tablet 0.5 mg PO TID PRN (Reason: Anxiety) levothyroxine 50 mcg capsule 75 mcg PO DAILY@08 losartan 100 mg tablet 100 mg PO DAILY sertraline 50 mg tablet 50 mg PO DAILY allopurinol 300 mg tablet 300 mg PO DAILY nystatin 100,000 unit/mL suspension 5 ml PO BID 7 Days Qty: 70 0RF Rx Instructions: swish and spit furosemide [Lasix] 20 mg tablet 20 mg PO DAILY Qty: 20 0RF Rx Instructions: Once then as needed (DME) pen needle, diabetic [Comfort EZ Pen [place]] 31 gauge x 3/16 needle See Rx Instructions .Route Qty: 50 0RF Rx Instructions: As directed albuterol sulfate [Ventolin HFA] 90 mcg/actuation HFA aerosol inhaler 2 puff INHALATION QID PRN (Reason: Shortness Of Breath) Centrum Women 18-400 mg-mcg Tablet 1 tab PO DAILY@08 ondansetron 4 mg tablet,disintegrating 4 mg PO Q8H PRN (Reason: nausea and vomiting) Qty: 30 0RF metoprolol tartrate 25 mg tablet 25 mg PO BID prochlorperazine maleate [Compazine] 10 mg tablet 10 mg PO Q4H PRN (Reason: Mild Nausea) Qty: 30 3RF dexamethasone 4 mg tablet 20 mg PO DAILY Qty: 60 0RF Referrals: Samantha Wylie MD [Primary Care Provider] - Patient Instructions: Hyponatremia (ED), Benzodiazepine Use Disorder (ED), Dementia (ED), Non-diabetic Hypoglycemia (ED), Hypoglycemia in a Person with Diabetes (ED), Concussion (ED), Alcohol Intoxication (ED), Subarachnoid Hemorrhage (GEN), Altered Mental Status (ED) Coding Level of Care Code ED Power[employer] for Heide Batista
[2023-03-30 15:55] LABS: Basophils # 0.1 10^3/uL (0.0-0.1); Basophils % 0.4 %; Eosinophils % 0.1 %; Hematocrit 28.5 % (37.0-47.0); Hemoglobin 9.1 g/dL (11.5-15.3); Lymphocytes # 1.7 10^3/uL (0.8-4.8); Lymphocytes % 11.3 %; Mean Corpuscular HGB Conc 31.9 g/dL (30.0-36.0); Mean Corpuscular Hemoglobin 30.4 pg (28.0-34.0); Mean Corpuscular Volume 95.3 fl (81-99); Mean Platelet Volume 11.9 fL (7.4-10.4); Monocytes # 1.7 10^3/uL (0.2-0.9); Monocytes % 11.8 %; Neutrophils # 10.97 10^3/uL (1.8-7.7); Neutrophils % 75.4 %; Nucleated Red Blood Cells % 0 %; Platelet Count 114 10^3/cmm (130-400); Red Blood Count 2.99 10^6/uL (4.1-5.3); Red Cell Distribution Width 14.9 % (12.1-15.1); White Blood Count 14.6 10^3/uL (4.0-10.0)
[2023-03-30 16:21] LABS: Troponin(5th) Baseline 67 ng/L (0-10)
[2023-03-30 16:23] LABS: Lactic Sepsis W/Reflex 3.1 mmol/L (0.5-2.2)
[2023-03-30 16:24] LABS: Slide Review Slide Review Perform
[2023-03-30 16:26] LABS: Cortisol Random 23.61 ug/dL (2.47-19.5)
[2023-03-30] MEDS: iohexol 350 mg/mL 500 mL Btl (per mL) IV (16:27)
[2023-03-30 16:31] LABS: Alanine Aminotransferase 86 U/L (0-33); Albumin Level 2.8 g/dL (3.5-5.2); Alkaline Phosphatase 105 U/L (35-105); Anion Gap 16.2 (5-19); Aspartate Amino Transferase 267 U/L (0-32); Blood Urea Nitrogen 12 mg/dL (8-23); Calcium 8.1 mg/dL (8.5-10.5); Carbon Dioxide 24 mmol/L (22-29); Chloride 96 mmol/L (98-107); Globulin 2.2 g/dL (1.3-4.6); Glomerular Filtration Rate 19.2 mL/min (90-130); Glucose 178 mg/dL (65-115); Lipase 45 U/L (13-60); Magnesium 1.8 mg/dL (1.7-2.3); Osmolality Calculated 278 mOsm/kg (285-295); Potassium 4.2 mmol/L (3.5-5.1); Sodium 132 mmol/L (136-145); Thyroid Stimulating Hormone 9.13 uIU/mL (0.27-4.20); Total Bilirubin 1.1 mg/dL (0.15-1.2)
[2023-03-30 16:46] LABS: Creatine Phosphokinase 4761 U/L (26-192)
[2023-03-30 17:06] LABS: Add Urine Microscopic? YES; Bilirubin Urine Neg (Negative); Blood Urine 3+ (Negative); Glucose Urine UA Norm (Normal); Ketones Urine Negative (Negative); Leukocyte Esterase Urine Trace (Negative); Nitrate Urine Negative (Negative); Protein Urine Neg (Negative); Urine Appearance Cloudy (CLEAR); Urine Color Yellow (Yellow); Urobilinogen Urine Norm (Negative); pH Urine 7 (5-7)
[2023-03-30] MEDS: hydrocortisone 100 mg/2 mL SDV IVP (17:14)
[2023-03-30] MEDS: levofloxacin-dextrose 5 % 500 MG/100 ML PREMIX 100 MG IV (17:14)
[2023-03-30 17:20] LABS: Bacteria Urine 1+ /hpf; Hyaline Casts Urine 0-4 /lpf; Mucus Urine 1+ /hpf; WBC Urine >100 /hpf (0-5)
[2023-03-30 17:21] LABS: Add Urine Culture? Yes
--- NOTE | 2023-03-30 17:38 | ECG_ITS ---
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 Measurements Intervals [place] Rate: 87 P: 75 [place]: 156 QRS: 55 QRSD: 78 T: 62 QT: 365 QTc: 440 Interpretive Statements SINUS RHYTHM Compared to ECG 03/30/2023 15:18:10 No significant changes Electronically Signed On 03-30-2023 19:23:56 CDT by Sebas Nava M.D. [id number]
[2023-03-30 17:47] LABS: Troponin 5 2HR 43.64 ng/L (0-10)
[2023-03-30 17:53] LABS: Reflex Lactate Order REFLEX LACTIC ORDERD
--- NOTE | 2023-03-30 18:14 | PM.HP ---
Providers/Chief Complaint Admitting Physician: Segundo Solomon MD Primary Care Provider: Samantha Wylie MD Chief Complaint: AMS/ Acute weakness History of Present Illness Ana Paula Higuera is a 67 year old female with 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 When she arrived here in the ER today she was found to be extremely hypotensive, for which she received fluid resuscitation initially, followed by being placed on Levophed. when I interacted with the patient, she was able to answer questions for most part appropriately, she has difficulty hearing. Pertinent imaging studies include: CT head without contrast:No acute intracranial abnormality. CTA chest: No pulmonary embolism, Diffuse mild interstitial and ground-glass opacity is noted in the lungs compatible with probable mild edema. There is peribronchial thickening and mild mucous plugging in the lower lobes with distal ground-glass opacity concerning for mild pneumonitis. CT Cervical Spine Without Contrast: No acute findings Pertinent labs: WBC 14.6, H&H 9.1/28 , PLT : 114 , serum sodium 132 serum potassium 4.2, BUN 12, serum creatinine 2.5, random blood sugar 178, lactic acid 3.1, repeat lactic acid 2.3, AST 267, ALT 86 ALP 105, CK:4761 , Troponin trend:67-43- Serum albumin 2.8, urinalysis : Dirty Review of Systems General: Reports: 10 or more systems reviewed and unremarkable except in HPI and below Const: Denies: fever(s), chills, body aches, change in appetite or diaphoresis Card: Denies: palpitations, edema, swelling of feet/ankles, dyspnea on exertion, orthopnea or leg pain with exertion Resp: Denies: dyspnea, productive cough, wheezing or pain on inspiration GI: Denies: abdominal pain, nausea, vomiting, diarrhea or constipation : Denies: flank pain Musc: Denies: back pain, extremity pain or extremity swelling Neuro: Denies: headache(s) or difficulty walking Medications/Allergies Home Medications Medication Instructions Recorded Confirmed Last Taken Type amitriptyline 25 mg tablet 25 mg PO BEDTIME@219910/08/19 03/23/23 01/31/23 History atenolol 25 mg tablet 25 mg PO BID@10/08/19 03/23/23 01/31/23 History gabapentin 300 mg capsule 300 mg PO TID@10/08/19 03/23/23 01/31/23 History lorazepam 0.5 mg tablet 0.5 mg PO TID PRN Anxiety 10/08/19 03/23/23 01/03/23 History omeprazole 40 mg capsule,delayed 40 mg PO DAILY@10/08/19 03/23/23 01/31/23 History release tizanidine 4 mg capsule 4 mg PO QID PRN Muscle Spasm 10/08/19 03/23/23 01/03/23 History tramadol 50 mg tablet 50 mg PO Q6H PRN Pain 10/08/19 03/23/23 01/31/23 History albuterol sulfate 90 mcg/actuation 2 puff inhalation QID PRN 10/24/20 03/23/23 01/03/23 History aerosol inhaler (Ventolin HFA) Shortness Of Breath multivitamin-ferrous 1 tab PO DAILY@10/24/20 03/23/23 01/31/23 History fumarate-folic acid 18 mg-400 mcg tablet (Centrum Women) losartan 100 mg tablet 100 mg PO DAILY 01/29/22 03/23/23 01/31/23 History sertraline 50 mg tablet 50 mg PO DAILY 01/29/22 03/23/23 01/31/23 History levothyroxine 50 mcg capsule 75 mcg PO DAILY@02/13/22 03/23/23 01/31/23 History allopurinol 300 mg tablet 300 mg PO DAILY 06/17/22 03/23/23 01/31/23 History pen needle, diabetic 31 gauge x #50 ea 12/04/22 03/23/23 01/03/23 Rx 3/16 (Comfort EZ Pen [place]) prochlorperazine maleate 10 mg 10 mg PO Q4H PRN Mild Nausea #30 01/15/23 03/23/23 01/31/23 Rx tablet (Compazine) tabs ondansetron 4 mg disintegrating 4 mg PO Q8H PRN nausea and 01/17/23 03/23/23 Unknown Rx tablet vomiting #30 tabs metoprolol tartrate 25 mg tablet 25 mg PO BID 01/27/23 03/23/23 01/31/23 History dexamethasone 4 mg tablet 20 mg PO DAILY #60 tabs 02/19/23 03/23/23 Unknown Rx nystatin 100,000 unit/mL oral 5 ml PO BID 7 days #70 mL 03/05/23 03/23/23 Unknown Rx suspension furosemide 20 mg tablet (Lasix) 20 mg PO DAILY #20 tabs 03/16/23 03/23/23 Unknown Rx Allergies Allergy/AdvReac Type Severity Reaction Status Date / Time aspirin Allergy ADR-Nausea Verified 03/30/23 15:33 PFSH Acute PFSH: Medical History Abnormal LFTs Acute ITP Chronic back pain Community acquired pneumonia COPD (chronic obstructive pulmonary disease) Hypertension Hyponatremia Kidney stones Pulmonary embolism Respiratory failure Thrombosis of pulmonary valve Surgical History H/O right wrist surgery Previous back surgery Previous section S/P cholecystectomy Family History Sister Cancer Bone marrow cancer in remission Grandmother Diabetes Mother Diabetes CAD (coronary artery disease) Father CAD (coronary artery disease) Other Family history non-contributory Hypertension Denies family history of Clotting disorder Dementia Hyperlipidemia Psychiatric illness Chronic kidney disease (CKD) Suicide Anesthesia complication Bleeding disorder Lung disease Stroke Social History Smoking and tobacco status: former smoker (smoked 20 years) Alcohol intake: never Substance/Drug Use: never Vitals/I&O/Wt Last Vital Signs Temp 98.0 F 03/30/23 15:33 Pulse 85 03/30/23 18:00 Resp 13 03/30/23 18:00 BP 118/78 03/30/23 18:00 Pulse Ox 99 03/30/23 18:00 O2 Del Method Room Air 03/30/23 15:10 O2 Flow Rate 3 03/30/23 18:00 FiO2 3 03/30/23 16:45 03/30/23 03/30/23 03/30/23 06:59 14:59 22:59 Intake Total 3012.07 / 3012.07 Output Total 1200 / 1200 Balance 1812.07 / 1812.07 Weight last 48 hrs Weight 97.069 kg Physical Exam HENMT: COMMON NORMALS: normocephalic and atraumatic HEAD & SCALP: normocephalic and atraumatic Resp: COMMON NORMALS: clear to auscultation bilaterally AUSCULTATION: clear to auscultation bilaterally Cardio: COMMON NORMALS: regular rate, regular rhythm, S1 normal heart sound present, S2 normal heart sound present, No gallops present (Cardio), No murmurs present (Cardio), No rub (Cardio) and Peripheral pulses 2+ throughout RATE: regular rate RHYTHM: regular rhythm HEART SOUNDS: S1 normal heart sound present and S2 normal heart sound present PERIPHERAL PULSES: Peripheral pulses 2+ throughout GI: COMMON NORMALS: Normal to inspection, nondistended, normoactive bowel sounds present, Soft to palpation, non-tender, No hepatosplenomegaly present and no masses AUSCULTATION: Yes normoactive bowel sounds PALPATION: Yes Soft to palpation and Yes No hepatosplenomegaly present RECTAL EXAM: deferred Extremity: NARRATIVE EXTREMITY EXAM: 2 + B/L Pitting edema Urinary Catheter Management: Pizano: Cath Placed During This Visit: yes Reason for Continuing Indwelling Catheter: Accurate Measurement of Urinary Output in Critically Ill Patients Urinary Catheter Date of Insertion: 03/30/23 Urinary Catheter Time of Insertion: 16:55 Data 03/30/23 15:25 03/30/23 15:25 Micro: Microbiology 03/30/23 16:01 Blood Culture - Preliminary Blood SPECIMEN COLLECTED 03/30/23 15:56 Blood Culture - Preliminary Blood SPECIMEN COLLECTED A&P Assessment and plan (1) Septic shock: (2) Pneumonia: (3) UTI (urinary tract infection): (4) MONTY (acute kidney injury): (5) Rhabdomyolysis: (6) COPD (chronic obstructive pulmonary disease): (7) Hypertension: (8) AMS (altered mental status): Plan 67 year old female with 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 When she arrived here in the ER today she was found to be extremely hypotensive, for which she received fluid resuscitation initially, followed by being placed on Levophed. when I interacted with the patient, she was able to answer questions for most part appropriately, she has difficulty hearing. Assessment: Septic shock possibly secondary to UTI pneumonia: Currently patient meets criteria for septic shock, she has elevated white cell count, elevated lactic acid, came in severely hypotensive, had to be started on, vasopressors, after appropriate fluid resuscitation. Possible source includes UTI and pneumonia, currently has MONTY and altered mental status, also has transaminitis (some elevation in AST could be coming from rhabdo) CT head without contrast:No acute intracranial abnormality. CTA chest: No pulmonary embolism, Diffuse mild interstitial and ground-glass opacity is noted in the lungs compatible with probable mild edema. There is peribronchial thickening and mild mucous plugging in the lower lobes with distal ground-glass opacity concerning for mild pneumonitis. CT Cervical Spine Without Contrast: No acute findings lactic acid 3.1, repeat lactic acid 2.3 Follow blood culture Urine culture Procalcitonin Sputum Gram stain and culture Urine Legionella urine bacterial antigen panel MRSA PCR Currently she has been empirically started on broad-spectrum antibiotic vancomycin and Zosyn, She is also on stress dose of hydrocortisone. Continue Levophed DuoNebs, Mucomyst inhalation Supplemental oxygen as needed MONTY: Likely prerenal MONTY secondary to sepsis. Follow random urine sodium Random urine creatinine Random urine protein FENA UPCR Monitor intake output charting Avoid nephrotoxic's Monitor BMP Pneumonia: Plan as 1 UTI: Plan as 1 Rhabdomyolysis: Possibly secondary to fall Admission CK: [place] 4761 Continue IV hydration Follow repeat CK Transaminitis: Monitor CMP for now Continue IV hydration If needed will do ultrasound abdomen Some elevation AST is possibly coming from rhabdo Bilateral lower extremity swelling: Could be coming from hypoalbuminemia, as well as from steroid Follow-up 2D echo History of ITP: She is on dexamethasone oral at home Currently on hydrocortisone Monitor platelet count for now History of hypothyroidism: TSH:9.13 Follow repeat TSH Continue levothyroxine CODE STATUS: Full code DVT prophylaxis on antiembolic stockings Attestations Medical Necessity Statement*: Patient is to be in hospital management of sepsis.Anticipated length of stay greater than 2 midnights Critical Care Time: The high probability of a clinically significant, sudden or life threatening deterioration of the patient's [] system(s) required my full and direct attention, intervention and personal management. The critical care time is as shown. This time is in addition to time spent performing any reported procedures but includes the following: [x] Data and vital sign review and interpretation [x] Patient assessment, examination and intervention [x] Documentation [x] Medication orders and management Critical Care Time (min): 45 Coding Level of Care Code Acute Code for Chg Fwd Diagnoses Septic shock A41.9; R65.21 Pneumonia J18.9 UTI (urinary tract infection) N39.0 MONTY (acute kidney injury) N17.9 Rhabdomyolysis M62.82 COPD (chronic obstructive pulmonary disease) J44.9 Hypertension I10 AMS (altered mental status) R41.82
--- NOTE | 2023-03-30 18:33 | PC.NURSE ---
Arrived from ED, AO x4, no complaints
--- NOTE | 2023-03-30 18:47 | PC.PHAR ---
Pharmacokinetic dosing service Date: 03/30/23 Time: 1846 Objective: Patient: Ana Paula Higuera Floor: ICU-12 Age: 67 yo Serum creatinine: 2.5 mg/dL Height: 65.0 Inches Weight (kg): 97.069 Diagnosis: Relevant medical/social history: Cultures and sensitivities: Other labs: Assessment: IBW (kg): 57.00 Dosing wt(kg): 97.069 Estimated Creatinine clearance (ml/min): 19.6 CRCL method: Cockcroft and Gault using ibw(default). Drug selected: Vancomycin Loading dose (mg): 0 Vd (liters): 87.4 (factor used: 0.9 L/kg) Khanh (hr-1): 0.021 Half life (hrs): 33.01 Recommended dose: 1500 mg Interval: 36 hrs Infusion time (hrs): 1.5 Predicted peak (mcg/mL): 31.8 Predicted trough (mcg/mL): 15.41 Total body weight is being used for vancomycin dosing. Renal function is stable [ ] /unstable [ ] Recommendations: Give Vancomycin 1500 mg q 36 hrs with an expected Cpeak of 31.8 mcg/ml and an expected Ctrough of 15.41 mcg/ml Renal dosing of other antibiotics (review renal dosing of other medications and list guidelines here): Thank you for the consult, will continue to follow. Signature: Natalya Lamar [facility]
[2023-03-30] MEDS: sodium chloride 0.9% 1,000 ML 100 ML IV (18:56)
[2023-03-30] MEDS: vancomycin 1,500 MG/300 ML PIGGYBACK 200 MG IV (18:57)
[2023-03-30 19:04] LABS: Lactic Acid level (Lactate) 2.3 mmol/L (0.5-2.2)
--- NOTE | 2023-03-30 19:14 | USCV_ITS ---
Ana Paula Higuera Age: 67 Gender: F : 1955 Exam Date: 03/30/2023 19:27 Ordering Phys: Segundo Solomon MD Technologist: JUAN MANUEL Exam Location: [facility] [place] [facility] Indication: SOB, BLE edema. No history of cardiac intervention per patient. BP: 118 / 78 HR: 79 Rhythm: Sinus Technical Quality: Adequate MEASUREMENTS (Male / Female) Normal Values 2D ECHO LV Diastolic Diameter PLAX 4.1 cm 4.2 - 5.9 / 3.9 - 5.3 cm LV Systolic Diameter PLAX 2.4 cm IVS Diastolic Thickness 1.1 cm 0.6 - 1.0 / 0.6 - 0.9 cm IVS Systolic Thickness 1.7 cm LVPW Diastolic Thickness 1.4 cm 0.6 - 1.0 / 0.6 - 0.9 cm LVPW Systolic Thickness 1.2 cm LVOT Diameter 1.8 cm LV Ejection Fraction 2D Teich 72.6 % LV Ejection Fraction MOD 2C 65.1 % LV Ejection Fraction 2C AL 65.8 % LA Diameter 3.3 cm LA Width 3.5 cm LA Height 5.1 cm RA Width 3.4 cm RA Height 5.1 cm Aorta at Sinotubular Diameter 3.3 cm IVC Diameter 2.2 cm M-MODE Aortic Annulus Diameter 2.9 cm LA Ao Ratio MM 1.3 MV E Point Septal Separation 0.3 cm DOPPLER AV Peak Velocity 120.0 cm/s LVOT Peak Velocity 85.0 cm/s AV Area Cont Eq vti 2.0 cm squared AV Area Cont Eq pk 1.9 cm squared MV Area PHT 4.4 cm squared Mitral E to A Ratio 1.6 MV E' Velocity 51.0 cm/s Mitral E to MV E' Ratio 7.5 Mitral E to LV E' Lateral Ratio 6.7 Mitral E to LV E' Septal Ratio 8.5 TR Peak Velocity 222.0 cm/s TR Peak Gradient 19.7 mmHg TV Peak E Velocity 60.0 cm/s Right Atrial Pressure 5.0 mmHg Pulmonary Artery Systolic Pressu 24.7 mmHg PV Peak Velocity 99.0 cm/s RV Acceleration Time 0.1 s RV Ejection Time 0.5 s RV AcT/ET 0.2 FINDINGS Left Ventricle Normal left ventricular size, systolic function and wall thickness, with no regional wall motion abnormalities. Left ventricular ejection fraction is estimated at 70 %. Normal diastolic function. Right Ventricle Normal right ventricular size and systolic function. RVSP could not be calculated due to incomplete tricuspid regurgitation velocity profile. Right Atrium Normal right atrial size. Left Atrium Normal left atrial size. Mitral Valve Structurally normal mitral valve. No mitral valve stenosis. Trace mitral valve regurgitation. Aortic Valve Structurally normal trileaflet aortic valve. No aortic valve stenosis. No aortic valve regurgitation. Tricuspid Valve Structurally normal tricuspid valve. No tricuspid valve stenosis. Trace tricuspid valve regurgitation. Pulmonic Valve Structurally normal pulmonic valve. No pulmonary valve stenosis. Trace pulmonary valve regurgitation. Pericardium No pericardial effusion. Aorta Normal size aortic root and proximal ascending aorta. IVC Normal IVC dimension with >50% respiratory change of the inferior vena cava. CONCLUSIONS 1. Normal left ventricular size, systolic function and wall thickness, with no regional wall motion abnormalities. Left ventricular ejection fraction is estimated at 70 %. Normal diastolic function. 2. No significant valvular abnormality. 3. No change when compared to study dated 10/24/2022. Lyubov Alonso MD (Electronically Signed) Final Date: 31 March 2023 11:07 S
[2023-03-30 19:47] LABS: Creatinine Urine, Random 13 mg/dL (28-217)
[2023-03-30 19:52] LABS: Urine Protein Random 11 mg/dL; Urine Random Sodium 64 mmol/L
--- NOTE | 2023-03-30 21:01 | ECG_ITS ---
[facility] Test Date: 2023-03-30 Pat Name: Ana Paula Higuera Department: Room: ICU12 Gender: Female [employer]: : 1955 Requested By: Charles Alvarado Order Number: [id number] Estefania MD: Lyubov Alonso M.D. Measurements Intervals [place] Rate: 79 P: 62 VT: 173 QRS: 62 QRSD: 88 T: 55 QT: 394 QTc: 454 Interpretive Statements SINUS RHYTHM Compared to ECG 03/30/2023 18:06:09 No significant changes Electronically Signed On 03-31-2023 4:18:00 CDT by Lyubov Alonso M.D. [id number]
[2023-03-30] MEDS: piperacillin-tazobactam 3.375 GM in sodium chloride 0.9% (plus) 50 ML IV (21:16)
[2023-03-30 22:04] LABS: Troponin 5 6HR 49.63 ng/L (0-10)
[2023-03-31] VITALS (113 sets, daily range): BP systolic 94–190; BP diastolic 58–103; PULSE 75–143; RESP 7–31; TEMP 35.9–36.4; O2SAT 90–100
--- NOTE | 2023-03-31 00:24 | PC.NURSE ---
Patient restarted on Levo after becoming hypotensive. Good response to 2mics. Patient's sons in room at start of shift. AOX4.
[2023-03-31] MEDS: hydrocortisone 100 mg/2 mL SDV IVP ×3 (01:18→17:28)
[2023-03-31] MEDS: acetylcysteine 200 mg/mL MDV 10 mL 100 MG INHALATION ×4 (01:34→20:23)
[2023-03-31] MEDS: ipratropium-albuterol 3 mL Neb INHALATION ×3 (01:34→14:10)
[2023-03-31] MEDS: sodium chloride 0.9% 1,000 ML 100 ML IV ×2 (04:11→16:43)
[2023-03-31] MEDS: piperacillin-tazobactam 3.375 GM in sodium chloride 0.9% (plus) 50 ML IV ×3 (04:38→20:58)
[2023-03-31 07:00] LABS: INR 1.39 (0.8-1.2)
[2023-03-31 07:01] LABS: Partial Thromboplastin Time 28.9 SECONDS (23.9-36.7)
[2023-03-31 07:04] LABS: Lactic Sepsis W/Reflex 2.1 mmol/L (0.5-2.2)
[2023-03-31 07:15] LABS: Procalcitonin 0.33 ng/mL (0-0.5)
[2023-03-31 07:16] LABS: Alanine Aminotransferase 154 U/L (0-33); Albumin Level 2.5 g/dL (3.5-5.2); Alkaline Phosphatase 113 U/L (35-105); Aspartate Amino Transferase 408 U/L (0-32); Blood Urea Nitrogen 11 mg/dL (8-23); Calcium 7.8 mg/dL (8.5-10.5); Carbon Dioxide 25 mmol/L (22-29); Chloride 104 mmol/L (98-107); Globulin 2.8 g/dL (1.3-4.6); Glucose 182 mg/dL (65-115); Magnesium 1.7 mg/dL (1.7-2.3); Osmolality Calculated 292 mOsm/kg (285-295); Sodium 139 mmol/L (136-145); Thyroid Stimulating Hormone 1.98 uIU/mL (0.27-4.20); Total Bilirubin 0.9 mg/dL (0.15-1.2); Total Protein 5.3 g/dL (6.6-8.7)
[2023-03-31 07:28] LABS: Creatine Phosphokinase 3089 U/L (26-192)
[2023-03-31 07:36] LABS: Cortisol Random 96.36 ug/dL (2.47-19.5)
[2023-03-31] MEDS: levothyroxine 75 mcg Tablet PO (08:15)
[2023-03-31] MEDS: acetaminophen 325 mg Tablet 650 MG PO ×2 (08:15→18:34)
[2023-03-31 08:29] LABS: Reflex Lactate Order REFLEX LACTIC ORDERD
[2023-03-31 09:03] LABS: Basophils % 0.2 %; Hematocrit 31.9 % (37.0-47.0); Hemoglobin 10.3 g/dL (11.5-15.3); Mean Corpuscular HGB Conc 32.3 g/dL (30.0-36.0); Mean Corpuscular Hemoglobin 30.3 pg (28.0-34.0); Mean Corpuscular Volume 93.8 fl (81-99); Mean Platelet Volume 10.6 fL (7.4-10.4); Monocytes # 0.8 10^3/uL (0.2-0.9); Monocytes % 4.8 %; Neutrophils # 13.86 10^3/uL (1.8-7.7); Nucleated Red Blood Cells % 0 %; Platelet Count 94 10^3/cmm (130-400); Red Cell Distribution Width 14.8 % (12.1-15.1); White Blood Count 15.8 10^3/uL (4.0-10.0)
[2023-03-31 09:33] LABS: Lactic Acid level (Lactate) 2.7 mmol/L (0.5-2.2)
--- NOTE | 2023-03-31 16:27 | P.PN_ITS ---
Subjective Subjective: Patient was seen and examined this morning she has remained afebrile overnight, she is maintaining a decent MAP Levophed has been turned off, serum creatinine is improving, CK is trending down, Unfortunately AST, ALT and alk phos, is going up, T. bili is normal. patient has denied any abdominal pain nausea vomiting tolerating diet. Platelet count has dropped slightly today it is at 94,000. TSH has normalized. Patient is working with physical therapy. Medications: Medication Review Details: Generic Name Dose Route Start Last Admin Trade Name Freq PRN Reason Stop Dose Admin Acetaminophen 650 mg 03/30/23 18:04 03/31/23 08:15 Acetaminophen 32 5 Mg Tablet PO 650 mg Q6H PRN Administration Mild/Mod Pain Or Temp >/= 101 Acetylcysteine 100 mg 03/30/23 20:00 03/31/23 14:10 Acetylcysteine 2 00 Mg/Ml Mdv 10 Ml INHALATION 100 mg Q6H.RESP KY Administration Albuterol/Ipratrop ium 3 ml 03/30/23 20:00 03/31/23 14:10 Ipratropium-Albu terol 3 Ml Neb INHALATION 3 ml Q6H.RESP KY Administration Hydrocortisone Sod ium Succinate 100 mg 03/31/23 01:00 03/31/23 08:19 Hydrocortisone 1 00 Mg/2 Ml Sdv IVP 100 mg Q8H KY Administration Norepinephrine Bit artrate 4 mg 254 mls @ 0 mls/h r 03/30/23 15:45 03/31/23 08:12 / Dextrose IV 0 mcg/min .Q0M KY 0 mls/hr Titration Protocol Per Protocol Sodium Chloride 1,000 mls @ 100 m ls/hr 03/30/23 18:15 03/31/23 04:11 Sodium Chloride 0.9% IV 100 mls/hr .Q10H KY Administration Piperacillin Sod/T azobactam 50 mls @ 12.5 mls /hr 03/30/23 21:00 03/31/23 12:53 Sod 3.375 gm/ So dium Chloride IV 12.5 mls/hr Q8H KY Administration Protocol Levothyroxine Sodi um 75 mcg 03/31/23 08:00 03/31/23 08:15 Levothyroxine 75 Mcg Tablet PO 75 mcg DAILY@08 KY Administration Vitals/I&O/Wt Last Vital Signs Temp 96.7 F L 03/31/23 07:15 Pulse 116 H 03/31/23 14:18 Resp 14 03/31/23 14:15 BP 180/74 03/31/23 14:15 Pulse Ox 97 03/31/23 14:11 O2 Del Method Nasal Cannula 03/31/23 14:11 O2 Flow Rate 1 03/31/23 14:11 FiO2 3 03/31/23 06:00 03/31/23 03/31/23 03/31/23 06:59 14:59 22:59 Intake Total 975 / 4378.51 701.663 / 701.663 Output Total 2600 / 3800 Balance -1625 / 578.51 701.663 / 701.663 Weight last 48 hrs Weight 100.924 kg Weight 97.069 kg Physical Exam HENMT: COMMON NORMALS: normocephalic and atraumatic HEAD & SCALP: normocephalic and atraumatic Resp: COMMON NORMALS: normal respiratory effort, No retractions, No use of accessory muscles and clear to auscultation bilaterally EFFORT & INSPECTION: Yes symmetric chest movement AUSCULTATION: clear to auscultation bilaterally Cardio: COMMON NORMALS: regular rate, regular rhythm, S1 normal heart sound present, S2 normal heart sound present, No gallops present (Cardio), No murmurs present (Cardio), No rub (Cardio) and Peripheral pulses 2+ throughout RATE: regular rate RHYTHM: regular rhythm HEART SOUNDS: S1 normal heart sound present and S2 normal heart sound present PERIPHERAL PULSES: Peripheral pulses 2+ throughout GI: COMMON NORMALS: Normal to inspection, nondistended, normoactive bowel sounds present, Soft to palpation, non-tender, No hepatosplenomegaly present and no masses AUSCULTATION: Yes normoactive bowel sounds PALPATION: Yes Soft to palpation and Yes No hepatosplenomegaly present RECTAL EXAM: deferred Extremity: COMMON NORMALS: no clubbing, cyanosis or edema and no pedal edema NARRATIVE EXTREMITY EXAM: 2 + B/L Pitting edema Urinary Catheter Management: Pizano: Cath Placed During This Visit: yes Reason for Continuing Indwelling Catheter: Accurate Measurement of Urinary Output in Critically Ill Patients Urinary Catheter Date of Insertion: 03/30/23 Urinary Catheter Time of Insertion: 16:55 Data 03/31/23 08:42 03/31/23 06:18 Micro: Microbiology 03/30/23 16:01 Blood Culture - Preliminary Blood NEGATIVE TO DATE 03/30/23 15:56 Blood Culture - Preliminary Blood NEGATIVE TO DATE 03/30/23 17:00 Urine Culture - Preliminary Urine,Clean Catch Gram Negative Rods 03/30/23 18:40 Bacterial Antigens - Final Urine,Voided 03/30/23 18:40 Legionella Urinary Antigen - Final Urine Catheterized A&P Assessment and plan (1) Septic shock: (2) Pneumonia: (3) UTI (urinary tract infection): (4) MONTY (acute kidney injury): (5) Rhabdomyolysis: (6) COPD (chronic obstructive pulmonary disease): (7) Hypertension: (8) AMS (altered mental status): Plan 67 year old female with 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 When she arrived here in the ER today she was found to be extremely hypotensive, for which she received fluid resuscitation initially, followed by being placed on Levophed. when I interacted with the patient, she was able to answer questions for most part appropriately, she has difficulty hearing. Assessment: Septic shock possibly secondary to UTI pneumonia: Currently patient meets criteria for septic shock, she has elevated white cell count, elevated lactic acid, came in severely hypotensive, had to be started on, vasopressors, after appropriate fluid resuscitation. Possible source includes UTI and pneumonia, currently has MONTY and altered mental status, also has transaminitis (some elevation in AST could be coming from rhabdo) CT head without contrast:No acute intracranial abnormality. CTA chest: No pulmonary embolism, Diffuse mild interstitial and ground-glass opacity is noted in the lungs compatible with probable mild edema. There is peribronchial thickening and mild mucous plugging in the lower lobes with distal ground-glass opacity concerning for mild pneumonitis. CT Cervical Spine Without Contrast: No acute findings lactic acid 3.1, repeat lactic acid 2.3 Follow blood culture Urine culture:GNR Procalcitonin: 0.33 Sputum Gram stain and culture Urine Legionella antigen : Negative AND urine bacterial antigen panel: MRSA PCR: Negative Currently she has been empirically started on broad-spectrum antibiotic vancomycin and Zosyn, She is also on stress dose of hydrocortisone. Continue Levophed DuoNebs, Mucomyst inhalation Supplemental oxygen as needed MONTY: Likely prerenal MONTY secondary to sepsis. Follow random urine sodium:64 Random urine creatinine: 13 Random urine protein:11 FENA UPCR Monitor intake output charting Avoid nephrotoxic's Monitor BMP Pneumonia: Plan as 1 UTI: Plan as 1 Rhabdomyolysis: Possibly secondary to fall Admission CK: Is 4761 Continue IV hydration Follow repeat CK Transaminitis: Monitor CMP for now Continue IV hydration If needed will do ultrasound abdomen Some elevation AST is possibly coming from rhabdo Bilateral lower extremity swelling: Could be coming from hypoalbuminemia, as well as from steroid 2D echo: Normal LV size and systolic function, no RWMA, LVEF 70%, normal diastolic function. History of ITP: She is on dexamethasone oral at home Currently on hydrocortisone Monitor platelet count for now Patient is due for rituximab infusion as outpatient History of hypothyroidism: TSH:9.13 Repeat TSH: 1.98 Continue levothyroxine CODE STATUS: Full code DVT prophylaxis on antiembolic stockings Attestations Medical Necessity Statement*: Needs to be in hospital for IV antibiotic. Coding Level of Care Code Acute Code for [facility] Fwd Diagnoses Septic shock A41.9; R65.21 Pneumonia J18.9 UTI (urinary tract infection) N39.0 MONTY (acute kidney injury) N17.9 Rhabdomyolysis M62.82 COPD (chronic obstructive pulmonary disease) J44.9 Hypertension I10 AMS (altered mental status) R41.82
[2023-03-31] MEDS: vancomycin 1,500 MG/300 ML PIGGYBACK 200 MG IV (18:33)
[2023-03-31] MEDS: metoprolol tartrate 25 mg Tablet PO (18:43)
--- NOTE | 2023-03-31 19:05 | PC.NURSE ---
Shift summary: Pt very chatty and giggling. She is alert. She does have problems with short term memory but her son Byron stated that was nothing new. Levophed gtt stopped this am. Pt is now in sinus tachy above 120 and hypertensive. Home metoprolol dose restarted this evening. She does still have edema up to her abdomen , it is non pitting. Pt very willing to work with PT today, she needs to use a walker. Family stated she had just been lying around and not getting up moving since moving in with her son, Flex. SHe has been encouraged by staff and family to move around more. 700ml of yellow urine output noted this shift. She did have 2 small BMs this shift. Pt now NPO until NE, for abdominal US.
[2023-03-31] MEDS: levalbuterol 1.25 mg/3 mL Neb INHALATION (20:22)
[2023-03-31] MEDS: ipratropium 0.5 mg/2.5 mL Neb INHALATION (20:23)
[2023-04-01] VITALS (92 sets, daily range): BP systolic 132–185; BP diastolic 79–112; PULSE 87–115; RESP 17–29; TEMP 36.4–36.6; O2SAT 90–99
[2023-04-01] MEDS: acetaminophen 325 mg Tablet 650 MG PO ×2 (01:07→20:33)
[2023-04-01] MEDS: levalbuterol 1.25 mg/3 mL Neb INHALATION ×4 (01:57→20:52)
[2023-04-01] MEDS: acetylcysteine 200 mg/mL MDV 10 mL 100 MG INHALATION (01:57)
[2023-04-01] MEDS: ipratropium 0.5 mg/2.5 mL Neb INHALATION ×4 (01:58→20:53)
[2023-04-01] MEDS: sodium chloride 0.9% 1,000 ML 100 ML IV (04:58)
[2023-04-01] MEDS: piperacillin-tazobactam 3.375 GM in sodium chloride 0.9% (plus) 50 ML IV ×3 (04:58→20:34)
[2023-04-01 06:25] LABS: Basophils % 0.1 %; Hematocrit 29.4 % (37.0-47.0); Hemoglobin 9.6 g/dL (11.5-15.3); Mean Corpuscular HGB Conc 32.7 g/dL (30.0-36.0); Mean Corpuscular Hemoglobin 30.8 pg (28.0-34.0); Mean Corpuscular Volume 94.2 fl (81-99); Mean Platelet Volume 11.3 fL (7.4-10.4); Monocytes # 1.6 10^3/uL (0.2-0.9); Monocytes % 10.5 %; Neutrophils # 11.93 10^3/uL (1.8-7.7); Neutrophils % 80.4 %; Nucleated Red Blood Cells % 0.2 %; Platelet Count 83 10^3/cmm (130-400); Red Blood Count 3.12 10^6/uL (4.1-5.3); Red Cell Distribution Width 14.8 % (12.1-15.1); White Blood Count 14.8 10^3/uL (4.0-10.0)
[2023-04-01 06:43] LABS: Alanine Aminotransferase 126 U/L (0-33); Albumin Level 2.5 g/dL (3.5-5.2); Alkaline Phosphatase 128 U/L (35-105); Anion Gap 14.1 (5-19); Aspartate Amino Transferase 204 U/L (0-32); Blood Urea Nitrogen 16 mg/dL (8-23); Carbon Dioxide 23 mmol/L (22-29); Chloride 108 mmol/L (98-107); Globulin 2.8 g/dL (1.3-4.6); Glomerular Filtration Rate 55.3 mL/min (90-130); Glucose 204 mg/dL (65-115); Osmolality Calculated 301 mOsm/kg (285-295); Potassium 3.1 mmol/L (3.5-5.1); Sodium 142 mmol/L (136-145); Total Bilirubin 0.7 mg/dL (0.15-1.2); Total Protein 5.3 g/dL (6.6-8.7)
[2023-04-01 06:44] LABS: Ammonia 39 umol/L (11-51)
[2023-04-01] MEDS: hydrocortisone 100 mg/2 mL SDV 50 MG IVP ×3 (06:54→23:41)
[2023-04-01 07:07] LABS: Creatine Phosphokinase 794 U/L (26-192)
[2023-04-01] MEDS: levothyroxine 75 mcg Tablet PO (08:24)
[2023-04-01] MEDS: metoprolol tartrate 25 mg Tablet PO ×2 (08:24→20:33)
[2023-04-01] MEDS: gabapentin 300 mg Capsule PO ×3 (09:15→20:33)
[2023-04-01] MEDS: amlodipine 5 mg Tablet PO ×2 (09:15→18:39)
[2023-04-01] MEDS: lidocaine 1% 5 ML in potassium chloride premix 100 ML 26.25 ML IV (09:15)
[2023-04-01] MEDS: vancomycin 1,250 MG/250 ML PIGGYBACK 250 MG IV (11:37)
[2023-04-01] MEDS: TRAMadol 50 mg Tablet PO ×2 (12:51→18:39)
--- NOTE | 2023-04-01 16:31 | US_ITS ---
WS: [id number] ULTRASOUND ABDOMEN LIMITED CLINICAL INFORMATION: Transaminitis COMPARISON: None. FINDINGS: Liver Size: Enlarged Craniocaudal length: 16.4 cm. Echogenicity: Coarse and echogenic Surface nodularity: Present Mass (size and location): None. Bile ducts Intrahepatic ducts: Normal. Common bile duct diameter: 0.8 cm. Gallbladder Prior cholecystectomy Pancreas Normal as visualized. Right kidney: Normal. Hydronephrosis: None. Size: 10.3 cm x 5.4 cm x 3.9 cm. Abdominal aorta and IVC Visualized portions are normal. Ascites: Perihepatic ascites US/US abdomen limited [id number] IMPRESSION: 1. Mild hepatomegaly with cirrhotic liver contour with coarse echogenicity. 2. Prior cholecystectomy. 3. Prominent common bile duct measuring 8 mm likely physiologic postcholecyste ctomy. This can be further evaluated with MRCP if concern for common bile duct obstruction. Recommend correlation with biliary function studies. 4. No hydronephrosis in RIGHT kidney.
--- NOTE | 2023-04-01 18:21 | P.PN_ITS ---
Subjective Subjective: Patient was seen and examined this morning, overall she is doing better afebrile, AST ALT has trended down, though ALP: Has increased slightly when compared to yesterday, ammonia is normal, CK is significantly improved, IV fluids have been discontinued. Shortness of breath is improved. Medications: Medication Review Details: Generic Name Dose Route Start Last Admin Trade Name Rogerq PRN Reason Stop Dose Admin Acetaminophen 650 mg 03/30/23 18:04 03/31/23 08:15 Acetaminophen 32 5 Mg Tablet PO 650 mg Q6H PRN Administration Mild/Mod Pain Or Temp >/= 101 Acetylcysteine 100 mg 03/30/23 20:00 03/31/23 14:10 Acetylcysteine 2 00 Mg/Ml Mdv 10 Ml INHALATION 100 mg Q6H.RESP KY Administration Albuterol/Ipratrop ium 3 ml 03/30/23 20:00 03/31/23 14:10 Ipratropium-Albu terol 3 Ml Neb INHALATION 3 ml Q6H.RESP KY Administration Hydrocortisone Sod ium Succinate 100 mg 03/31/23 01:00 03/31/23 08:19 Hydrocortisone 1 00 Mg/2 Ml Sdv IVP 100 mg Q8H KY Administration Norepinephrine Bit artrate 4 mg 254 mls @ 0 mls/h r 03/30/23 15:45 03/31/23 08:12 / Dextrose IV 0 mcg/min .Q0M KY 0 mls/hr Titration Protocol Per Protocol Sodium Chloride 1,000 mls @ 100 m ls/hr 03/30/23 18:15 03/31/23 04:11 Sodium Chloride 0.9% IV 100 mls/hr .Q10H KY Administration Piperacillin Sod/T azobactam 50 mls @ 12.5 mls /hr 03/30/23 21:00 03/31/23 12:53 Sod 3.375 gm/ So dium Chloride IV 12.5 mls/hr Q8H KY Administration Protocol Levothyroxine Sodi um 75 mcg 03/31/23 08:00 03/31/23 08:15 Levothyroxine 75 Mcg Tablet PO 75 mcg DAILY@08 KY Administration Vitals/I&O/Wt Last Vital Signs Temp 97.9 F 04/01/23 07:40 Pulse 112 H 04/01/23 16:15 Resp 19 H 04/01/23 16:15 BP 161/96 04/01/23 16:15 Pulse Ox 96 04/01/23 16:15 O2 Del Method Room Air 04/01/23 16:15 O2 Flow Rate 1 04/01/23 01:58 FiO2 3 03/31/23 06:00 04/01/23 04/01/23 04/01/23 06:59 14:59 22:59 Intake Total 1350 / 4201.663 1460 / 1460 50 / 1510 Output Total 650 / 1350 Balance 700 / 2851.663 1460 / 1460 50 / 1510 Weight last 48 hrs Weight 99.79 kg Weight 100.924 kg Physical Exam HENMT: COMMON NORMALS: normocephalic and atraumatic HEAD & SCALP: normocephalic and atraumatic Resp: COMMON NORMALS: normal respiratory effort, No retractions, No use of accessory muscles and clear to auscultation bilaterally EFFORT & INSPECTION: Yes symmetric chest movement AUSCULTATION: clear to auscultation bilaterally Cardio: COMMON NORMALS: regular rate, regular rhythm, S1 normal heart sound pr esent, S2 normal heart sound present, No gallops present (Cardio), No murmurs present (Cardio), No rub (Cardio) and Peripheral pulses 2+ throughout RATE: regular rate RHYTHM: regular rhythm HEART SOUNDS: S1 normal heart sound present and S2 normal heart sound present PERIPHERAL PULSES: Peripheral pulses 2+ throughout GI: COMMON NORMALS: Normal to inspection, nondistended, normoactive bowel sounds present, Soft to palpation, non-tender, No hepatosplenomegaly present and no masses AUSCULTATION: Yes normoactive bowel sounds PALPATION: Yes Soft to palpation and Yes No hepatosplenomegaly present RECTAL EXAM: deferred Extremity: COMMON NORMALS: no clubbing, cyanosis or edema and no pedal edema NARRATIVE EXTREMITY EXAM: 2 + B/L Pitting edema Urinary Catheter Management: Pizano: Cath Placed During This Visit: yes Reason for Continuing Indwelling Catheter: Accurate Measurement of Urinary Output in Critically Ill Patients Urinary Catheter Date of Insertion: 03/30/23 Urinary Catheter Time of Insertion: 16:55 Data 04/01/23 06:13 04/01/23 06:13 Micro: Microbiology 03/30/23 17:00 Urine Culture - Final Urine,Clean Catch Proteus mirabilis 03/30/23 18:40 MRSA Culture - Final Nose 03/30/23 16:01 Blood Culture - Preliminary Blood NEGATIVE TO DATE 03/30/23 15:56 Blood Culture - Preliminary Blood NEGATIVE TO DATE A&P Assessment and plan (1) Septic shock: (2) Pneumonia: (3) UTI (urinary tract infection): (4) MONTY (acute kidney injury): (5) Rhabdomyolysis: (6) COPD (chronic obstructive pulmonary disease): (7) Hypertension: (8) AMS (altered mental status): Plan 67 year old female with 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 When she arrived here in the ER today she was found to be extremely hypotensive, for which she received fluid resuscitation initially, followed by being placed on Levophed. when I interacted with the patient, she was able to answer questions for most part appropriately, she has difficulty hearing. Assessment: Septic shock possibly secondary to UTI pneumonia: Currently patient meets crite natalee for septic shock, she has elevated white cell count, elevated lactic acid, came in severely hypotensive, had to be started on, vasopressors, after appropriate fluid resuscitation. Possible source includes UTI and pneumonia, currently has MONTY and altered mental status, also has transaminitis (some elevation in AST could be coming from rhabdo) CT head without contrast:No acute intracranial abnormality. CTA chest: No pulmonary embolism, Diffuse mild interstitial and ground-glass opacity is noted in the lungs compatible with probable mild edema. There is peribronchial thickening and mild mucous plugging in the lower lobes with distal ground-glass opacity concerning for mild pneumonitis. CT Cervical Spine Without Contrast: No acute findings lactic acid 3.1, repeat lactic acid 2.3 Follow blood culture Urine culture:PM Procalcitonin: 0.33 Sputum Gram stain and culture Urine Legionella antigen : Negative AND urine bacterial antigen panel: MRSA PCR: Negative Currently she has been empirically started on broad-spectrum antibiotic vancomycin and Zosyn, She is also on stress dose of hydrocortisone. Continue Levophed DuoNebs, Mucomyst inhalation Supplemental oxygen as needed MONTY: Likely prerenal MONTY secondary to sepsis. Follow random urine sodium:64 Random urine creatinine: 13 Random urine protein:11 FENA UPCR Monitor intake output charting Avoid nephrotoxic's Monitor BMP Pneumonia: Plan as 1 UTI: Plan as 1 Rhabdomyolysis: Possibly secondary to fall Admission CK: Is 4761 Continue IV hydration Follow repeat CK Transaminitis: Monitor CMP for now Ultrasound abdomen has shown: Cirrhotic liver, with dilated CBD of 8 mm, likely physiologic postcholecystectomy. T. bili is normal, AST ALT has trended down, patient is currently not complaining of any abdominal pain nausea vomiting tolerating diet well. Continue to monitor CMP, if needed will pursue MRCP. Bilateral lower extremity swelling: Could be coming from hypoalbuminemia, as well as from steroid 2D echo: Normal LV size and systolic function, no RWMA, LVEF 70%, normal diastolic function. History of ITP: She is on dexamethasone oral at home Currently on hydrocortisone Monitor platelet count for now Patient is due for rituximab infusion as outpatient History of hypothyroidism: TSH:9.13 Repeat TSH: 1.98 Continue levothyroxine CODE STATUS: Full code DVT prophylaxis on antiembolic stockings Disposition: SNF placement is being attempted due to history of recurrent fall, Attestations Medical Necessity Statement*: Needs to be hospital for IV antibiotics. Coding Level of Care Code Acute Code for [facility] Fwd Diagnoses Septic shock A41.9; R65.21 Pneumonia J18.9 UTI (urinary tract infection) N39.0 MONTY (acute kidney injury) N17.9 Rhabdomyolysis M62.82 COPD (chronic obstructive pulmonary disease) J44.9 Hypertension I10 AMS (altered mental status) R41.82
[2023-04-01] MEDS: lanolin oint 7 gm 1 APPLIC TOPICAL (20:32)
--- NOTE | 2023-04-01 23:45 | PC.NURSE ---
Pain 8/10: Pt reporting 8/10 pain in bilateral hips and legs. Dr. Morfin notified. New order for 1mg IVP Morphine ONCE.
[2023-04-01] MEDS: morphine 4 mg/mL SDV 1 mL 1 MG IVP (23:50)
[2023-04-02] VITALS (42 sets, daily range): BP systolic 139–167; BP diastolic 78–110; PULSE 80–112; RESP 12–28; TEMP 37; O2SAT 91–98
[2023-04-02 05:01] LABS: Basophils % 0.1 %; Hematocrit 33.2 % (37.0-47.0); Hemoglobin 10.2 g/dL (11.5-15.3); Lymphocytes # 0.7 10^3/uL (0.8-4.8); Lymphocytes % 9.4 %; Mean Corpuscular HGB Conc 30.7 g/dL (30.0-36.0); Mean Corpuscular Hemoglobin 30.4 pg (28.0-34.0); Mean Corpuscular Volume 98.8 fl (81-99); Mean Platelet Volume 11.6 fL (7.4-10.4); Monocytes # 0.5 10^3/uL (0.2-0.9); Monocytes % 6.7 %; Neutrophils # 5.81 10^3/uL (1.8-7.7); Neutrophils % 82.4 %; Nucleated Red Blood Cells % 0.4 %; Platelet Count 52 10^3/cmm (130-400); Red Blood Count 3.36 10^6/uL (4.1-5.3); Red Cell Distribution Width 14.9 % (12.1-15.1); White Blood Count 7.1 10^3/uL (4.0-10.0)
[2023-04-02 05:25] LABS: Alanine Aminotransferase 105 U/L (0-33); Albumin Level 2.6 g/dL (3.5-5.2); Alkaline Phosphatase 119 U/L (35-105); Anion Gap 12.3 (5-19); Aspartate Amino Transferase 125 U/L (0-32); Blood Urea Nitrogen 13 mg/dL (8-23); Calcium 7.9 mg/dL (8.5-10.5); Carbon Dioxide 24 mmol/L (22-29); Chloride 108 mmol/L (98-107); Globulin 2.9 g/dL (1.3-4.6); Glomerular Filtration Rate 83.5 mL/min (90-130); Glucose 199 mg/dL (65-115); Osmolality Calculated 298 mOsm/kg (285-295); Potassium 3.3 mmol/L (3.5-5.1); Sodium 141 mmol/L (136-145); Total Bilirubin 0.8 mg/dL (0.15-1.2); Total Protein 5.5 g/dL (6.6-8.7)
[2023-04-02 05:39] LABS: Creatine Phosphokinase 349 U/L (26-192)
[2023-04-02] MEDS: piperacillin-tazobactam 3.375 GM in sodium chloride 0.9% (plus) 50 ML IV ×2 (05:39→12:07)
[2023-04-02] MEDS: levothyroxine 75 mcg Tablet PO (07:36)
[2023-04-02] MEDS: hydrocortisone 100 mg/2 mL SDV 50 MG IVP ×2 (07:36→14:57)
[2023-04-02] MEDS: metoprolol tartrate 25 mg Tablet PO ×2 (08:37→20:50)
[2023-04-02] MEDS: gabapentin 300 mg Capsule PO ×3 (08:37→20:49)
[2023-04-02] MEDS: amlodipine 10 mg Tablet PO (08:37)
[2023-04-02] MEDS: ipratropium 0.5 mg/2.5 mL Neb INHALATION ×3 (09:11→20:53)
[2023-04-02] MEDS: levalbuterol 1.25 mg/3 mL Neb INHALATION ×3 (09:11→20:53)
--- NOTE | 2023-04-02 09:30 | PC.NURSE ---
noted hypertension this am blood pressure medications given also noted severe bruising noted left leg no scd's on at this time.. up to chair with assist .
[2023-04-02] MEDS: TRAMadol 50 mg Tablet PO ×2 (10:16→19:32)
--- NOTE | 2023-04-02 12:08 | PC.SOCIAL ---
IMM Update pg 2 of IMM updated and reviewed w/ patient. Copy provided and copy dated, initialed and placed in chart.
--- NOTE | 2023-04-02 15:36 | PM.PN ---
Subjective Subjective: Patient was seen and examined this morning, overall she is doing better afebrile, AST ALT ALP has trended down, though ALP: Unfortunately her platelet count is also trending down: It is 52,000 today. No active bleeding for now. Medications: Medication Review Details: Generic Name Dose Route Start Last Admin Trade Name Freq PRN Reason Stop Dose Admin Acetaminophen 650 mg 03/30/23 18:04 04/01/23 20:33 Acetaminophen 32 5 Mg Tablet PO 650 mg Q6H PRN Administration Mild/Mod Pain Or Temp >/= 101 Amlodipine Besylat e 10 mg 04/02/23 09:00 04/02/23 08:37 Amlodipine 10 Mg Tablet PO 10 mg DAILY [place] Administration Gabapentin 300 mg 04/01/23 09:00 04/02/23 14:57 Gabapentin 300 M g Capsule PO 300 mg TID [place] Administration Hydrocortisone Sod ium Succinate 50 mg 04/01/23 07:00 04/02/23 14:57 Hydrocortisone 1 00 Mg/2 Ml Sdv IVP 50 mg Q8H [place] Administration Norepinephrine Bit artrate 4 mg 254 mls @ 0 mls/h r 03/30/23 15:45 04/01/23 08:19 / Dextrose IV Infused .Q0M [place] Titration Protocol Per Protocol Piperacillin Sod/T azobactam 50 mls @ 12.5 mls /hr 03/30/23 21:00 04/02/23 12:07 Sod 3.375 gm/ So dium Chloride IV 12.5 mls/hr Q8H [place] Administration Protocol Ipratropium Bromid e 0.5 mg 03/31/23 20:00 04/02/23 14:04 Ipratropium 0.5 Mg/2.5 Ml Neb INHALATION 0.5 mg Q6H.RESP [place] Administration Lanolin 1 applic 04/01/23 19:35 04/01/23 20:32 Lanolin Oint 7 G m TOPICAL 1 applic PRN PRN Administration DRYNESS Levalbuterol HCl 1.25 mg 03/31/23 20:00 04/02/23 14:04 Levalbuterol 1.2 5 Mg/3 Ml Neb INHALATION 1.25 mg Q6H.RESP [place] Administration Levothyroxine Sodi um 75 mcg 03/31/23 08:00 04/02/23 07:36 Levothyroxine 75 Mcg Tablet PO 75 mcg DAILY@08 [place] Administration Metoprolol Tartrat e 25 mg 03/31/23 18:15 04/02/23 08:37 Metoprolol Tartr ate 25 Mg Tablet PO 25 mg BID@0900,2100 [facility] Administration Tramadol HCl 50 mg 04/01/23 12:07 04/02/23 10:16 Tramadol 50 Mg T ablet PO 50 mg Q6H PRN Administration MODERATE PAIN Vitals/I&O/Wt Last Vital Signs Temp 97.9 F 04/01/23 07:40 Pulse 89 04/02/23 14:07 Resp 21 H 04/02/23 14:00 BP 151/91 04/02/23 14:00 Pulse Ox 96 04/02/23 14:00 O2 Del Method Room Air 04/02/23 14:00 O2 Flow Rate 1 04/01/23 01:58 FiO2 3 03/31/23 06:00 04/02/23 04/02/23 04/02/23 06:59 14:59 22:59 Intake Total 50 / 1800 500 / 500 Output Total 1100 / 2400 450 / 450 Balance -1050 / -600 50 / 50 Weight last 48 hrs Weight 104.689 kg Weight 99.79 kg Physical Exam HENMT: COMMON NORMALS: normocephalic and atraumatic HEAD & SCALP: normocephalic and atraumatic Resp: COMMON NORMALS: normal respiratory effort, No retractions, No use of accessory muscles and clear to auscultation bilaterally EFFORT & INSPECTION: Yes symmetric chest movement AUSCULTATION: clear to auscultation bilaterally Cardio: COMMON NORMALS: regular rate, regular rhythm, S1 normal heart sound present, S2 normal heart sound present, No gallops present (Cardio), No murmurs present (Cardio), No rub (Cardio) and Peripheral pulses 2+ throughout RATE: regular rate RHYTHM: regular rhythm HEART SOUNDS: S1 normal heart sound present and S2 normal heart sound present PERIPHERAL PULSES: Peripheral pulses 2+ throughout GI: COMMON NORMALS: Normal to inspection, nondistended, normoactive bowel sounds present, Soft to palpation, non-tender, No hepatosplenomegaly present and no masses AUSCULTATION: Yes normoactive bowel sounds PALPATION: Yes Soft to palpation and Yes No hepatosplenomegaly present RECTAL EXAM: deferred Extremity: COMMON NORMALS: no clubbing, cyanosis or edema and no pedal edema NARRATIVE EXTREMITY EXAM: 2 + B/L Pitting edema Urinary Catheter Management: Pizano: Cath Placed During This Visit: yes Reason for Continuing Indwelling Catheter: Accurate Measurement of Urinary Output in Critically Ill Patients Urinary Catheter Date of Insertion: 03/30/23 Urinary Catheter Time of Insertion: 16:55 Data 04/02/23 04:40 04/02/23 04:40 A&P Assessment and plan (1) Septic shock: (2) Pneumonia: (3) UTI (urinary tract infection): (4) MONTY (acute kidney injury): (5) Rhabdomyolysis: (6) COPD (chronic obstructive pulmonary disease): (7) Hypertension: (8) AMS (altered mental status): Plan 67 year old female with 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 When she arrived here in the ER today she was found to be extremely hypotensive, for which she received fluid resuscitation initially, followed by being placed on Levophed. when I interacted with the patient, she was able to answer questions for most part appropriately, she has difficulty hearing. Assessment: Septic shock possibly secondary to UTI pneumonia: Currently patient meets criteria for septic shock, she has elevated white cell count, elevated lactic acid, came in severely hypotensive, had to be started on, vasopressors, after appropriate fluid resuscitation. Possible source includes UTI and pneumonia, currently has MONTY and altered mental status, also has transaminitis (some elevation in AST could be coming from rhabdo) CT head without contrast:No acute intracranial abnormality. CTA chest: No pulmonary embolism, Diffuse mild interstitial and ground-glass opacity is noted in the lungs compatible with probable mild edema. There is peribronchial thickening and mild mucous plugging in the lower lobes with distal ground-glass opacity concerning for mild pneumonitis. CT Cervical Spine Without Contrast: No acute findings lactic acid 3.1, repeat lactic acid 2.3 Follow blood culture Urine culture:PM Procalcitonin: 0.33 Sputum Gram stain and culture Urine Legionella antigen : Negative AND urine bacterial antigen panel: MRSA PCR: Negative Currently she has been empirically started on broad-spectrum antibiotic vancomycin and Zosyn, She is also on stress dose of hydrocortisone. Continue Levophed DuoNebs, Mucomyst inhalation Supplemental oxygen as needed MONTY: Likely prerenal MONTY secondary to sepsis. Follow random urine sodium:64 Random urine creatinine: 13 Random urine protein:11 FENA UPCR Monitor intake output charting Avoid nephrotoxic's Monitor BMP Pneumonia: Plan as 1 UTI: Plan as 1 Rhabdomyolysis: Possibly secondary to fall Admission CK: Is 4761 Continue IV hydration Follow repeat CK Transaminitis: Monitor CMP for now Ultrasound abdomen has shown: Cirrhotic liver, with dilated CBD of 8 mm, likely physiologic postcholecystectomy. T. bili is normal, AST ALT has trended down, patient is currently not complaining of any abdominal pain nausea vomiting tolerating diet well. Continue to monitor CMP, if needed will pursue MRCP. Bilateral lower extremity swelling: Could be coming from hypoalbuminemia, as well as from steroid 2D echo: Normal LV size and systolic function, no RWMA, LVEF 70%, normal diastolic function. History of ITP: She is on dexamethasone oral at home Currently on hydrocortisone Monitor platelet count for now Patient is due for rituximab infusion as outpatient History of hypothyroidism: TSH:9.13 Repeat TSH: 1.98 Continue levothyroxine CODE STATUS: Full code DVT prophylaxis on antiembolic stockings Disposition: SNF placement is being attempted due to history of recurrent fall, Attestations Medical Necessity Statement*: Needs to be in hospital for IV antibiotic, safe placement. Coding Level of Care Code Acute Code for Chg Fwd Diagnoses Septic shock A41.9; R65.21 Pneumonia J18.9 UTI (urinary tract infection) N39.0 MONTY (acute kidney injury) N17.9 Rhabdomyolysis M62.82 COPD (chronic obstructive pulmonary disease) J44.9 Hypertension I10 AMS (altered mental status) R41.82
[2023-04-03] VITALS (14 sets, daily range): BP systolic 149–167; BP diastolic 80–100; PULSE 68–113; RESP 16–18; TEMP 36.1–37.1; O2SAT 94–98
[2023-04-03] MEDS: levalbuterol 1.25 mg/3 mL Neb INHALATION ×4 (01:53→20:40)
[2023-04-03] MEDS: ipratropium 0.5 mg/2.5 mL Neb INHALATION ×4 (01:53→20:40)
[2023-04-03] MEDS: acetaminophen 325 mg Tablet 650 MG PO ×2 (02:09→20:15)
[2023-04-03] MEDS: TRAMadol 50 mg Tablet PO ×3 (02:09→20:15)
[2023-04-03] MEDS: cefTRIAXone 1,000 MG in sodium chloride 0.9% (plus) 50 ML 100 MG IV (06:03)
[2023-04-03] MEDS: dexamethasone 10 mg/mL INJ 6 MG IVP (06:57)
[2023-04-03 08:15] LABS: Alanine Aminotransferase 91 U/L (0-33); Albumin Level 2.5 g/dL (3.5-5.2); Alkaline Phosphatase 125 U/L (35-105); Blood Urea Nitrogen 14 mg/dL (8-23); Calcium 7.9 mg/dL (8.5-10.5); Carbon Dioxide 20 mmol/L (22-29); Chloride 106 mmol/L (98-107); Globulin 3.1 g/dL (1.3-4.6); Glomerular Filtration Rate 123.1 mL/min (90-130); Glucose 113 mg/dL (65-115); Osmolality Calculated 289 mOsm/kg (285-295); Sodium 139 mmol/L (136-145); Total Bilirubin 0.8 mg/dL (0.15-1.2); Total Protein 5.6 g/dL (6.6-8.7)
[2023-04-03 08:19] LABS: Anion Gap 16.4 (5-19); Potassium 3.4 mmol/L (3.5-5.1)
[2023-04-03 08:20] LABS: Aspartate Amino Transferase 102 U/L (0-32)
[2023-04-03] MEDS: amlodipine 10 mg Tablet PO (09:29)
[2023-04-03] MEDS: levothyroxine 75 mcg Tablet PO (09:29)
[2023-04-03] MEDS: gabapentin 300 mg Capsule PO ×3 (09:29→20:15)
[2023-04-03] MEDS: metoprolol tartrate 25 mg Tablet PO ×2 (09:29→20:15)
[2023-04-03] MEDS: potassium chloride ER 20 mEq Tablet 40 MEQ PO (09:29)
[2023-04-03 11:01] LABS: Basophils % 0.4 %; Eosinophils % 0.1 %; Hematocrit 39.2 % (37.0-47.0); Hemoglobin 12.1 g/dL (11.5-15.3); Lymphocytes # 0.4 10^3/uL (0.8-4.8); Lymphocytes % 4.4 %; Mean Corpuscular HGB Conc 30.9 g/dL (30.0-36.0); Mean Corpuscular Hemoglobin 30.2 pg (28.0-34.0); Mean Corpuscular Volume 97.8 fl (81-99); Mean Platelet Volume 10.5 fL (7.4-10.4); Monocytes # 0.5 10^3/uL (0.2-0.9); Monocytes % 5.7 %; Neutrophils # 7.21 10^3/uL (1.8-7.7); Neutrophils % 88.2 %; Nucleated Red Blood Cells % 0.4 %; Platelet Count 93 10^3/cmm (130-400); Red Blood Count 4.01 10^6/uL (4.1-5.3); Red Cell Distribution Width 15.3 % (12.1-15.1); White Blood Count 8.2 10^3/uL (4.0-10.0)
--- NOTE | 2023-04-03 15:30 | PM.PN ---
Subjective Subjective: Patient was seen and examined this morning, no acute events. Medications: Medication Review Details: Generic Name Dose Route Start Last Admin Trade Name Freq PRN Reason Stop Dose Admin Acetaminophen 650 mg 03/30/23 18:04 04/03/23 02:09 Acetaminophen 32 5 Mg Tablet PO 650 mg Q6H PRN Administration Mild/Mod Pain Or Temp >/= 101 Amlodipine Besylat e 10 mg 04/02/23 09:00 04/03/23 09:29 Amlodipine 10 Mg Tablet PO 10 mg DAILY [place] Administration Dexamethasone 6 mg 04/03/23 07:00 04/03/23 06:57 Dexamethasone 10 Mg/Ml Inj IVP 6 mg Q24H [place] Administration Gabapentin 300 mg 04/01/23 09:00 04/03/23 09:29 Gabapentin 300 M g Capsule PO 300 mg TID [place] Administration Ceftriaxone Sodium 1,000 mg/ 50 mls @ 100 mls/ hr 04/03/23 07:00 04/03/23 08:22 Sodium Chloride IV Infused Q24H [place] Infusion Protocol Ipratropium Bromid e 0.5 mg 03/31/23 20:00 04/03/23 14:06 Ipratropium 0.5 Mg/2.5 Ml Neb INHALATION 0.5 mg Q6H.RESP [place] Administration Lanolin 1 applic 04/01/23 19:35 04/01/23 20:32 Lanolin Oint 7 G m TOPICAL 1 applic PRN PRN Administration DRYNESS Levalbuterol HCl 1.25 mg 03/31/23 20:00 04/03/23 14:06 Levalbuterol 1.2 5 Mg/3 Ml Neb INHALATION 1.25 mg Q6H.RESP [place] Administration Levothyroxine Sodi um 75 mcg 03/31/23 08:00 04/03/23 09:29 Levothyroxine 75 Mcg Tablet PO 75 mcg DAILY@08 [place] Administration Metoprolol Tartrat e 25 mg 03/31/23 18:15 04/03/23 09:29 Metoprolol Tartr ate 25 Mg Tablet PO 25 mg BID@0900,2100 [place] Administration Tramadol HCl 50 mg 04/01/23 12:07 04/03/23 09:29 Tramadol 50 Mg T ablet PO 50 mg Q6H PRN Administration MODERATE PAIN Vitals/I&O/Wt Last Vital Signs Temp 98 F 04/03/23 12:00 Pulse 98 04/03/23 14:19 Resp 18 04/03/23 14:00 BP 167/93 04/03/23 12:00 Pulse Ox 95 04/03/23 14:00 O2 Del Method Room Air 04/03/23 14:00 O2 Flow Rate 1 04/01/23 01:58 FiO2 3 03/31/23 06:00 04/03/23 04/03/23 04/03/23 06:59 14:59 22:59 Intake Total 700 / 700 Output Total 1000 / 1700 Balance -1000 / -960 700 / 700 Weight last 48 hrs Weight 101.746 kg Weight 104.689 kg Physical Exam HENMT: COMMON NORMALS: normocephalic and atraumatic HEAD & SCALP: normocephalic and atraumatic Resp: COMMON NORMALS: normal respiratory effort, No retractions, No use of accessory muscles and clear to auscultation bilaterally EFFORT & INSPECTION: Yes symmetric chest movement AUSCULTATION: clear to auscultation bilaterally Cardio: COMMON NORMALS: regular rate, regular rhythm, S1 normal heart sound present, S2 normal heart sound present, No gallops present (Cardio), No murmurs present (Cardio), No rub (Cardio) and Peripheral pulses 2+ throughout RATE: regular rate RHYTHM: regular rhythm HEART SOUNDS: S1 normal heart sound present and S2 normal heart sound present PERIPHERAL PULSES: Peripheral pulses 2+ throughout GI: COMMON NORMALS: Normal to inspection, nondistended, normoactive bowel sounds present, Soft to palpation, non-tender, No hepatosplenomegaly present and no masses AUSCULTATION: Yes normoactive bowel sounds PALPATION: Yes Soft to palpation and Yes No hepatosplenomegaly present RECTAL EXAM: deferred Extremity: COMMON NORMALS: no clubbing, cyanosis or edema and no pedal edema NARRATIVE EXTREMITY EXAM: 2 + B/L Pitting edema Urinary Catheter Management: Pizano: Cath Placed During This Visit: yes Reason for Continuing Indwelling Catheter: Other Urinary Catheter Date of Insertion: 03/30/23 Urinary Catheter Time of Insertion: 16:55 Data 04/03/23 10:49 04/03/23 06:57 A&P Assessment and plan (1) Septic shock: (2) Pneumonia: (3) UTI (urinary tract infection): (4) MONTY (acute kidney injury): (5) Rhabdomyolysis: (6) COPD (chronic obstructive pulmonary disease): (7) Hypertension: (8) AMS (altered mental status): Plan 67 year old female with 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 When she arrived here in the ER today she was found to be extremely hypotensive, for which she received fluid resuscitation initially, followed by being placed on Levophed. when I interacted with the patient, she was able to answer questions for most part appropriately, she has difficulty hearing. Assessment: Septic shock possibly secondary to UTI pneumonia: Currently patient meets criteria for septic shock, she has elevated white cell count, elevated lactic acid, came in severely hypotensive, had to be started on, vasopressors, after appropriate fluid resuscitation. Possible source includes UTI and pneumonia, currently has MONTY and altered mental status, also has transaminitis (some elevation in AST could be coming from rhabdo) CT head without contrast:No acute intracranial abnormality. CTA chest: No pulmonary embolism, Diffuse mild interstitial and ground-glass opacity is noted in the lungs compatible with probable mild edema. There is peribronchial thickening and mild mucous plugging in the lower lobes with distal ground-glass opacity concerning for mild pneumonitis. CT Cervical Spine Without Contrast: No acute findings lactic acid 3.1, repeat lactic acid 2.3 Follow blood culture Urine culture:PM Procalcitonin: 0.33 Sputum Gram stain and culture Urine Legionella antigen : Negative AND urine bacterial antigen panel: MRSA PCR: Negative Currently she has been empirically started on broad-spectrum antibiotic vancomycin and Zosyn, She is also on stress dose of hydrocortisone. Continue Levophed DuoNebs, Mucomyst inhalation Supplemental oxygen as needed MONTY: Likely prerenal MONTY secondary to sepsis. Follow random urine sodium:64 Random urine creatinine: 13 Random urine protein:11 FENA UPCR Monitor intake output charting Avoid nephrotoxic's Monitor BMP Pneumonia: Plan as 1 UTI: Plan as 1 Rhabdomyolysis: Possibly secondary to fall Admission CK: Is 4761 Was on IV hydration Monitor CK Transaminitis: Monitor CMP for now Ultrasound abdomen has shown: Cirrhotic liver, with dilated CBD of 8 mm, likely physiologic postcholecystectomy. T. bili is normal, AST ALT has trended down, patient is currently not complaining of any abdominal pain nausea vomiting tolerating diet well. Continue to monitor CMP, if needed will pursue MRCP. Bilateral lower extremity swelling: Could be coming from hypoalbuminemia, as well as from steroid 2D echo: Normal LV size and systolic function, no RWMA, LVEF 70%, normal diastolic function. History of ITP: She is on dexamethasone oral at home Currently on hydrocortisone Monitor platelet count for now Patient is due for rituximab infusion as outpatient History of hypothyroidism: TSH:9.13 Repeat TSH: 1.98 Continue levothyroxine CODE STATUS: Full code DVT prophylaxis on antiembolic stockings Disposition: SNF placement is being attempted due to history of recurrent fall, Attestations Medical Necessity Statement*: Currently awaiting discharge to [facility]. Coding Level of Care Code Acute Code for Chg Fwd Diagnoses Septic shock A41.9; R65.21 Pneumonia J18.9 UTI (urinary tract infection) N39.0 MONTY (acute kidney injury) N17.9 Rhabdomyolysis M62.82 COPD (chronic obstructive pulmonary disease) J44.9 Hypertension I10 AMS (altered mental status) R41.82
[2023-04-03] MEDS: hyDRALAzine 20 mg/mL INJ 1 mL 5 MG IVP (17:31)
[2023-04-04] VITALS (14 sets, daily range): BP systolic 151–176; BP diastolic 82–103; PULSE 82–102; RESP 16–20; TEMP 36.1–36.4; O2SAT 95–97
[2023-04-04] MEDS: levalbuterol 1.25 mg/3 mL Neb INHALATION ×4 (02:28→21:22)
[2023-04-04] MEDS: ipratropium 0.5 mg/2.5 mL Neb INHALATION ×4 (02:28→21:21)
[2023-04-04] MEDS: acetaminophen 325 mg Tablet 650 MG PO (04:10)
[2023-04-04] MEDS: TRAMadol 50 mg Tablet PO ×2 (04:11→17:54)
[2023-04-04 05:53] LABS: Basophils % 0.1 %; Hemoglobin 11.8 g/dL (11.5-15.3); Lymphocytes # 0.7 10^3/uL (0.8-4.8); Lymphocytes % 10.3 %; Mean Corpuscular HGB Conc 31.9 g/dL (30.0-36.0); Mean Corpuscular Hemoglobin 30.6 pg (28.0-34.0); Mean Corpuscular Volume 95.9 fl (81-99); Mean Platelet Volume 10.4 fL (7.4-10.4); Monocytes # 0.7 10^3/uL (0.2-0.9); Monocytes % 9.6 %; Neutrophils # 5.43 10^3/uL (1.8-7.7); Neutrophils % 78.6 %; Nucleated Red Blood Cells % 0.3 %; Platelet Count 78 10^3/cmm (130-400); Red Blood Count 3.86 10^6/uL (4.1-5.3); Red Cell Distribution Width 15.2 % (12.1-15.1); White Blood Count 6.9 10^3/uL (4.0-10.0)
[2023-04-04 06:06] LABS: Alanine Aminotransferase 82 U/L (0-33); Albumin Level 2.9 g/dL (3.5-5.2); Alkaline Phosphatase 155 U/L (35-105); Anion Gap 10.2 (5-19); Aspartate Amino Transferase 69 U/L (0-32); Blood Urea Nitrogen 13 mg/dL (8-23); Calcium 8.3 mg/dL (8.5-10.5); Carbon Dioxide 26 mmol/L (22-29); Chloride 105 mmol/L (98-107); Globulin 2.9 g/dL (1.3-4.6); Glomerular Filtration Rate 159.2 mL/min (90-130); Glucose 189 mg/dL (65-115); Osmolality Calculated 291 mOsm/kg (285-295); Potassium 3.2 mmol/L (3.5-5.1); Sodium 138 mmol/L (136-145); Total Bilirubin 0.8 mg/dL (0.15-1.2); Total Protein 5.8 g/dL (6.6-8.7)
[2023-04-04] MEDS: cefTRIAXone 1,000 MG in sodium chloride 0.9% (plus) 50 ML 100 MG IV (06:08)
[2023-04-04] MEDS: dexamethasone 10 mg/mL INJ 6 MG IVP (06:11)
[2023-04-04] MEDS: amlodipine 10 mg Tablet PO (08:05)
[2023-04-04] MEDS: gabapentin 300 mg Capsule PO ×3 (08:05→20:32)
[2023-04-04] MEDS: losartan 50 mg Tablet 100 MG PO (08:05)
[2023-04-04] MEDS: levothyroxine 75 mcg Tablet PO (08:05)
[2023-04-04] MEDS: metoprolol tartrate 25 mg Tablet PO ×2 (08:06→20:33)
[2023-04-04] MEDS: FUROsemide 10 mg/mL SDV 4mL 40 MG IVP (11:56)
--- NOTE | 2023-04-04 11:57 | PC.SOCIAL ---
IMM Update pg 2 of IMM updated and reviewed w/ patient. Copy provided and Copy dated, initialed and placed in chart.
[2023-04-04 13:57] LABS: SARS Covid-2 Antigen negative (Negative)
--- NOTE | 2023-04-04 15:30 | PM.PN ---
Subjective Subjective: Patient was seen and examined this morning, significant bilateral lower extremity swelling, will give her 1 dose of IV Lasix and start on p.o. Lasix from tomorrow, hypokalemia: Potassium replacement is being done. Medications: Medication Review Details: Generic Name Dose Route Start Last Admin Trade Name Freq PRN Reason Stop Dose Admin Acetaminophen 650 mg 03/30/23 18:04 04/04/23 04:10 Acetaminophen 32 5 Mg Tablet PO 650 mg Q6H PRN Administration Mild/Mod Pain Or Temp >/= 101 Amlodipine Besylat e 10 mg 04/02/23 09:00 04/04/23 08:05 Amlodipine 10 Mg Tablet PO 10 mg DAILY [place] Administration Dexamethasone 6 mg 04/03/23 07:00 04/04/23 06:11 Dexamethasone 10 Mg/Ml Inj IVP 6 mg Q24H [place] Administration Gabapentin 300 mg 04/01/23 09:00 04/04/23 15:05 Gabapentin 300 M g Capsule PO 300 mg TID [place] Administration Ceftriaxone Sodium 1,000 mg/ 50 mls @ 100 mls/ hr 04/03/23 07:00 04/04/23 06:42 Sodium Chloride IV Infused Q24H [place] Infusion Protocol Ipratropium Bromid e 0.5 mg 03/31/23 20:00 04/04/23 14:46 Ipratropium 0.5 Mg/2.5 Ml Neb INHALATION 0.5 mg Q6H.RESP [place] Administration Lanolin 1 applic 04/01/23 19:35 04/01/23 20:32 Lanolin Oint 7 G m TOPICAL 1 applic PRN PRN Administration DRYNESS Levalbuterol HCl 1.25 mg 03/31/23 20:00 04/04/23 14:47 Levalbuterol 1.2 5 Mg/3 Ml Neb INHALATION 1.25 mg Q6H.RESP [place] Administration Levothyroxine Sodi um 75 mcg 03/31/23 08:00 04/04/23 08:05 Levothyroxine 75 Mcg Tablet PO 75 mcg DAILY@08 [place] Administration Losartan Potassium 100 mg 04/04/23 09:00 04/04/23 08:05 Losartan 50 Mg T ablet PO 100 mg DAILY [place] Administration Metoprolol Tartrat e 25 mg 03/31/23 18:15 04/04/23 08:06 Metoprolol Tartr ate 25 Mg Tablet PO 25 mg BID@0900,2100 [place] Administration Tramadol HCl 50 mg 04/01/23 12:07 04/04/23 04:11 Tramadol 50 Mg T ablet PO 50 mg Q6H PRN Administration MODERATE PAIN Vitals/I&O/Wt Last Vital Signs Temp 97.3 F L 04/04/23 11:36 Pulse 98 04/04/23 14:00 Resp 18 04/04/23 14:00 BP 155/90 04/04/23 11:36 Pulse Ox 96 04/04/23 14:00 O2 Del Method Room Air 04/04/23 14:00 O2 Flow Rate 1 04/03/23 08:00 FiO2 3 03/31/23 06:00 04/04/23 04/04/23 04/04/23 06:59 14:59 22:59 Intake Total 50 / 990 960 / 960 Output Total 1350 / 2170 Balance -1300 / -1180 960 / 960 Weight last 48 hrs Weight 101.559 kg Weight 101.746 kg Physical Exam HENMT: COMMON NORMALS: normocephalic and atraumatic HEAD & SCALP: normocephalic and atraumatic Resp: COMMON NORMALS: normal respiratory effort, No retractions, No use of accessory muscles and clear to auscultation bilaterally EFFORT & INSPECTION: Yes symmetric chest movement AUSCULTATION: clear to auscultation bilaterally Cardio: COMMON NORMALS: regular rate, regular rhythm, S1 normal heart sound present, S2 normal heart sound present, No gallops present (Cardio), No murmurs present (Cardio), No rub (Cardio) and Peripheral pulses 2+ throughout RATE: regular rate RHYTHM: regular rhythm HEART SOUNDS: S1 normal heart sound present and S2 normal heart sound present PERIPHERAL PULSES: Peripheral pulses 2+ throughout GI: COMMON NORMALS: Normal to inspection, nondistended, normoactive bowel sounds present, Soft to palpation, non-tender, No hepatosplenomegaly present and no masses AUSCULTATION: Yes normoactive bowel sounds PALPATION: Yes Soft to palpation and Yes No hepatosplenomegaly present RECTAL EXAM: deferred Extremity: COMMON NORMALS: no clubbing, cyanosis or edema and no pedal edema NARRATIVE EXTREMITY EXAM: 3 + B/L Pitting edema up to the knees Urinary Catheter Management: Pizano: Cath Placed During This Visit: yes Reason for Continuing Indwelling Catheter: Other Urinary Catheter Date of Insertion: 03/30/23 Urinary Catheter Time of Insertion: 16:55 Data 04/04/23 05:38 04/04/23 05:38 A&P Assessment and plan (1) Septic shock: (2) Pneumonia: (3) UTI (urinary tract infection): (4) MONTY (acute kidney injury): (5) Rhabdomyolysis: (6) COPD (chronic obstructive pulmonary disease): (7) Hypertension: (8) AMS (altered mental status): Plan 67 year old female with 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 When she arrived here in the ER today she was found to be extremely hypotensive, for which she received fluid resuscitation initially, followed by being placed on Levophed. when I interacted with the patient, she was able to answer questions for most part appropriately, she has difficulty hearing. Assessment: Septic shock possibly secondary to UTI, pneumonia: Currently patient meets criteria for septic shock, she has elevated white cell count, elevated lactic acid, came in severely hypotensive, had to be started on, vasopressors, after appropriate fluid resuscitation. Possible source includes UTI and pneumonia, currently has MONTY and altered mental status, also has transaminitis (some elevation in AST could be coming from rhabdo) CT head without contrast:No acute intracranial abnormality. CTA chest: No pulmonary embolism, Diffuse mild interstitial and ground-glass opacity is noted in the lungs compatible with probable mild edema. There is peribronchial thickening and mild mucous plugging in the lower lobes with distal ground-glass opacity concerning for mild pneumonitis. CT Cervical Spine Without Contrast: No acute findings lactic acid 3.1, repeat lactic acid 2.3 Follow blood culture Urine culture:PM Procalcitonin: 0.33 Sputum Gram stain and culture Urine Legionella antigen : Negative AND urine bacterial antigen panel: MRSA PCR: Negative Currently she has been empirically started on broad-spectrum antibiotic vancomycin and Zosyn, She is also on stress dose of hydrocortisone. Continue Levophed DuoNebs, Mucomyst inhalation Supplemental oxygen as needed MONTY: Likely prerenal MONTY secondary to sepsis. Resolved Follow random urine sodium:64 Random urine creatinine: 13 Random urine protein:11 FENA UPCR Monitor intake output charting Avoid nephrotoxic's Monitor BMP Pneumonia: Plan as 1 UTI: Plan as 1 Rhabdomyolysis: Possibly secondary to fall Admission CK: Is 4761 Was on IV hydration Monitor CK Transaminitis: Monitor CMP for now Ultrasound abdomen has shown: Cirrhotic liver, with dilated CBD of 8 mm, likely physiologic postcholecystectomy. T. bili is normal, AST ALT has trended down, patient is currently not complaining of any abdominal pain nausea vomiting tolerating diet well. Continue to monitor CMP, if needed will pursue MRCP. Bilateral lower extremity swelling: Could be coming from hypoalbuminemia, as well as from steroid 2D echo: Normal LV size and systolic function, no RWMA, LVEF 70%, normal diastolic function. In view of significant bilateral lower extremity swelling, she has been started on p.o. Lasix, from tomorrow will give her 1 dose of IV Lasix today. History of ITP: She is on dexamethasone oral at home Currently on hydrocortisone Monitor platelet count for now Patient is due for rituximab infusion as outpatient History of hypothyroidism: TSH:9.13 Repeat TSH: 1.98 Continue levothyroxine CODE STATUS: Full code DVT prophylaxis on antiembolic stockings Disposition: Has been accepted to [facility] for rehab. Attestations Medical Necessity Statement*: Awaiting SNF placement. Coding Level of Care Code Acute Code for Chg Fwd Diagnoses Septic shock A41.9; R65.21 Pneumonia J18.9 UTI (urinary tract infection) N39.0 MONTY (acute kidney injury) N17.9 Rhabdomyolysis M62.82 COPD (chronic obstructive pulmonary disease) J44.9 Hypertension I10 AMS (altered mental status) R41.82
[2023-04-05] VITALS (15 sets, daily range): BP systolic 135–172; BP diastolic 75–124; PULSE 84–103; RESP 16–19; TEMP 36.3–36.7; O2SAT 95–99
[2023-04-05] MEDS: TRAMadol 50 mg Tablet PO (01:37)
[2023-04-05] MEDS: dexamethasone 10 mg/mL INJ 6 MG IVP (06:04)
[2023-04-05] MEDS: cefTRIAXone 1,000 MG in sodium chloride 0.9% (plus) 50 ML 100 MG IV (06:20)
[2023-04-05 06:40] LABS: Basophils % 0.2 %; Eosinophils % 0.1 %; Hematocrit 40.1 % (37.0-47.0); Hemoglobin 12.5 g/dL (11.5-15.3); Lymphocytes # 1.1 10^3/uL (0.8-4.8); Lymphocytes % 11.2 %; Mean Corpuscular HGB Conc 31.2 g/dL (30.0-36.0); Mean Corpuscular Hemoglobin 30.2 pg (28.0-34.0); Mean Corpuscular Volume 96.9 fl (81-99); Mean Platelet Volume 10.7 fL (7.4-10.4); Monocytes # 0.8 10^3/uL (0.2-0.9); Monocytes % 8.6 %; Neutrophils # 7.36 10^3/uL (1.8-7.7); Neutrophils % 78.4 %; Nucleated Red Blood Cells % 0 %; Platelet Count 107 10^3/cmm (130-400); Positive C 1; Red Blood Count 4.14 10^6/uL (4.1-5.3); Red Cell Distribution Width 15.1 % (12.1-15.1); White Blood Count 9.4 10^3/uL (4.0-10.0)
[2023-04-05 06:56] LABS: Alanine Aminotransferase 91 U/L (0-33); Albumin Level 2.9 g/dL (3.5-5.2); Alkaline Phosphatase 188 U/L (35-105); Anion Gap 15.3 (5-19); Aspartate Amino Transferase 74 U/L (0-32); Blood Urea Nitrogen 13 mg/dL (8-23); Calcium 8.8 mg/dL (8.5-10.5); Carbon Dioxide 26 mmol/L (22-29); Chloride 105 mmol/L (98-107); Globulin 3.3 g/dL (1.3-4.6); Glomerular Filtration Rate 123.1 mL/min (90-130); Glucose 151 mg/dL (65-115); Osmolality Calculated 299 mOsm/kg (285-295); Potassium 3.3 mmol/L (3.5-5.1); Sodium 143 mmol/L (136-145); Total Bilirubin 0.8 mg/dL (0.15-1.2); Total Protein 6.2 g/dL (6.6-8.7)
[2023-04-05] MEDS: levalbuterol 1.25 mg/3 mL Neb INHALATION ×3 (07:18→20:43)
[2023-04-05] MEDS: ipratropium 0.5 mg/2.5 mL Neb INHALATION ×3 (07:18→20:42)
[2023-04-05] MEDS: potassium chloride ER 20 mEq Tablet 40 MEQ PO ×2 (07:50→15:14)
[2023-04-05] MEDS: levothyroxine 75 mcg Tablet PO (07:51)
[2023-04-05] MEDS: amlodipine 10 mg Tablet PO (07:51)
[2023-04-05] MEDS: FUROsemide 40 mg Tablet PO ×2 (07:51→15:16)
[2023-04-05] MEDS: losartan 50 mg Tablet 100 MG PO (07:51)
[2023-04-05] MEDS: gabapentin 300 mg Capsule PO ×3 (07:51→20:04)
[2023-04-05] MEDS: metoprolol tartrate 25 mg Tablet PO (07:52)
--- NOTE | 2023-04-05 08:45 | ECG_ITS ---
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 Measurements Intervals [place] Rate: 84 P: 23 OR: 154 QRS: 20 QRSD: 76 T: 38 QT: 377 QTc: 447 Interpretive Statements SINUS RHYTHM Compared to ECG 03/30/2023 21:01:43 No significant changes Electronically Signed On 04-05-2023 16:17:32 CDT by Constantino Powell M.D. [email or web address]
[2023-04-05 09:21] LABS: Iron 42 ug/dL (37-145); Percent Saturation 14.8 % (20-50); Total Iron Binding Capacity 282 mcg/dl; Unsaturated Iron Binding 240 ug/dL (112-347)
[2023-04-05 09:35] LABS: Vitamin B12 928 pg/mL (232-1245)
[2023-04-05] MEDS: hyDRALAzine 20 mg/mL INJ 1 mL 10 MG IVP (10:09)
[2023-04-05] MEDS: acetaminophen 325 mg Tablet 650 MG PO ×2 (12:53→20:04)
--- NOTE | 2023-04-05 15:04 | P.PN_ITS ---
Subjective Subjective: Hospital course, labs appreciated. On examination patient lying comfortably in bed. Denies any nausea, vomiting, headache currently. Today morning patient did have left-sided chest pain localized to fifth rib. During that time patient blood pressure less than 180 systolics. On review patient's blood pressure has been on the higher side with mostly running over 155 systolics. After that patient received 1 dose of IV hydralazine her blood pressures have remained less than 145 systolics. Patient still complaining of swelling in bilateral lower limbs though states swelling around the knee has gone away now. No documented urine output as she has been passing urine and commode. Blood work states stable CBC with no leukocytosis, stable hemoglobin and stable thrombocytopenia. BMP showing mild hypokalemia with potassium down to 3.3, stable transaminitis. Vitals/I&O/Wt Last Vital Signs Temp 98.1 F 04/05/23 11:28 Pulse 95 04/05/23 13:59 Resp 16 04/05/23 13:59 BP 149/86 04/05/23 11:28 Pulse Ox 97 04/05/23 13:59 O2 Del Method Room Air 04/05/23 13:59 O2 Flow Rate 1 04/03/23 08:00 FiO2 3 03/31/23 06:00 04/05/23 04/05/23 04/05/23 06:59 14:59 22:59 Intake Total 1270 / 1270 Balance 1270 / 1270 Weight last 48 hrs Weight 98.883 kg Weight 101.559 kg Physical Exam Narrative: General: No acute distress, AO x3, HEENT: PERRLA, pupils bilaterally equal and reactive Chest: Bilateral Novosel breath sounds all over lung bender with occasional rhonchi CVS: S1-S2 regular, no murmurs, no tachycardia, no gallops, no rubs Abdomen: Soft, nontender, no organomegaly, bowel sounds present, morbidly obese Neuro: No focal deficits, no facial deformity, AO x3, power 5/5 in all limbs Extremities: Bilateral 2+ pitting edema to the knee Urinary Catheter Management: Pizano: Cath Placed During This Visit: yes, but has since been removed by the nurse Reason for Continuing Indwelling Catheter: Other Urinary Catheter Date of Insertion: 03/30/23 Urinary Catheter Time of Insertion: 16:55 Date Urinary Catheter Removed: 04/04/23 Time Urinary Catheter Discontinued: 12:35 Data 04/05/23 06:22 04/05/23 06:22 Micro: Microbiology 03/30/23 16:01 Blood Culture - Final Blood NO GROWTH AFTER 5 DAYS 03/30/23 15:56 Blood Culture - Final Blood NO GROWTH AFTER 5 DAYS A&P Assessment and plan (1) Septic shock: (2) Pneumonia: (3) UTI (urinary tract infection): (4) MONTY (acute kidney injury): (5) Rhabdomyolysis: (6) COPD (chronic obstructive pulmonary disease): (7) Hypertension: (8) AMS (altered mental status): Plan Septic shock possibly secondary to pneumonia/UTI: Septic shock is resolved. Blood cultures remain negative, urine culture growing Proteus. Patient has been on appropriate IV antibiotics for more than 7 days. Stop IV ceftriaxone. MONTY: Most likely in setting of rhabdomyolysis and septic shock on admission. Resolved. Monitor urine output. Hypertension: Uncontrolled. Goal blood pressure less than 140/90 mmHg. Continue with home dose of losartan. Switch metoprolol to Coreg 6.25 mg twice daily. Continue with amlodipine 10 mg oral daily. Add hydralazine 10 mg 3 times daily. Echocardiogram done shows an EF of 70% without regional wall motion for diastolic dysfunction. Lower limb edema: Bilateral: Lasix 40 mg twice daily. Monitor potassium. Replete 40 mg one-time. Patient already on 40 mg of oral potassium daily. 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 Steroid as an outpatient has been weaned off. Hold off on dexamethasone. Patient on rituximab as an outpatient. Follows up with hematology. Plan to have Transaminitis: Monitor CMP for now Ultrasound abdomen has shown: Cirrhotic liver, with dilated CBD of 8 mm, likely physiologic postcholecystectomy. T. bili is normal, AST ALT has trended down, patient is currently not complaining of any abdominal pain nausea vomiting tolerating diet well. Continue to monitor CMP, if needed will pursue MRCP. Full code. SCDs for DVT prophylaxis Regular diet. Discharge plan: Case management on case. Patient wants to go to SNF for rehabilitation though doing better with physical therapy. Has been accepted to SNF. Awaiting authorization. Requesting peer-to -peer. Attestations Medical Necessity Statement*: Requires further hospitalization for management of uncontrolled hypertension, bilateral lower limb edema in a patient with resolving sepsis in setting of UTI, monitor electrolytes in setting of diuresis while discharge planning is sought Diagnoses Septic shock A41.9; R65.21 Pneumonia J18.9 UTI (urinary tract infection) N39.0 MONTY (acute kidney injury) N17.9 Rhabdomyolysis M62.82 COPD (chronic obstructive pulmonary disease) J44.9 Hypertension I10 AMS (altered mental status) R41.82
[2023-04-05] MEDS: hyDRALAzine 10 mg Tablet PO ×2 (15:14→20:04)
[2023-04-05] MEDS: pantoprazole 40 mg SDV IVP (15:23)
[2023-04-05] MEDS: carvedilol 6.25 mg Tablet PO (18:50)
--- NOTE | 2023-04-05 23:37 | PC.NURSE ---
Addendum entered by Bibi Saldivar RN 04/06/23 00:40: Order received to renew Tramadol order. Original Note: Patient asking for her PRN Tramdol. It appears patient had PRN Tramadol, but it did not get renewed. Dr. Molina notified.
[2023-04-06] VITALS (7 sets, daily range): BP systolic 144–170; BP diastolic 90–96; PULSE 86–106; RESP 16–18; TEMP 36.1–36.8; O2SAT 94–97
[2023-04-06] MEDS: TRAMadol 50 mg Tablet PO (00:44)
[2023-04-06 07:18] LABS: Alanine Aminotransferase 96 U/L (0-33); Albumin Level 2.9 g/dL (3.5-5.2); Alkaline Phosphatase 188 U/L (35-105); Anion Gap 12.8 (5-19); Aspartate Amino Transferase 85 U/L (0-32); Blood Urea Nitrogen 16 mg/dL (8-23); Calcium 8.6 mg/dL (8.5-10.5); Carbon Dioxide 26 mmol/L (22-29); Chloride 105 mmol/L (98-107); Globulin 2.9 g/dL (1.3-4.6); Glomerular Filtration Rate 123.1 mL/min (90-130); Glucose 149 mg/dL (65-115); Osmolality Calculated 294 mOsm/kg (285-295); Potassium 3.8 mmol/L (3.5-5.1); Sodium 140 mmol/L (136-145); Total Bilirubin 0.7 mg/dL (0.15-1.2); Total Protein 5.8 g/dL (6.6-8.7)
[2023-04-06 07:33] LABS: Folate Level 12.6 ng/mL (4.8-37.3)
[2023-04-06 07:48] LABS: Chol HDL Ratio 1.62 mg/dL (0.0-4.40); Cholesterol 118 mg/dL (0-200); Estmated Average Glucose 146; HDL Cholesterol 73 mg/dL (60-100); Hemoglobin A1C 6.7 % (4.0-6.0); LDL Cholesterol Calculated 36 mg/dL (50-129); Triglycerides 45 mg/dL (0-150); VLDL Cholestrol Calculation 9 mg/dL (0-30)
[2023-04-06 08:18] LABS: Eosinophils % 0.3 %; Hematocrit 37.6 % (37.0-47.0); Hemoglobin 12.1 g/dL (11.5-15.3); Lymphocytes # 0.9 10^3/uL (0.8-4.8); Lymphocytes % 11.9 %; Mean Corpuscular HGB Conc 32.2 g/dL (30.0-36.0); Mean Corpuscular Hemoglobin 30.2 pg (28.0-34.0); Mean Corpuscular Volume 93.8 fl (81-99); Mean Platelet Volume 10.2 fL (7.4-10.4); Monocytes # 0.6 10^3/uL (0.2-0.9); Monocytes % 8.5 %; Neutrophils # 5.82 10^3/uL (1.8-7.7); Neutrophils % 78.4 %; Nucleated Red Blood Cells % 0 %; Red Blood Count 4.01 10^6/uL (4.1-5.3); Red Cell Distribution Width 14.9 % (12.1-15.1); White Blood Count 7.4 10^3/uL (4.0-10.0)
[2023-04-06] MEDS: ipratropium 0.5 mg/2.5 mL Neb INHALATION (08:19)
[2023-04-06] MEDS: levalbuterol 1.25 mg/3 mL Neb INHALATION (08:19)
[2023-04-06] MEDS: levothyroxine 75 mcg Tablet PO (08:27)
[2023-04-06] MEDS: losartan 50 mg Tablet 100 MG PO (08:27)
[2023-04-06] MEDS: gabapentin 300 mg Capsule PO (08:27)
[2023-04-06] MEDS: potassium chloride ER 20 mEq Tablet 40 MEQ PO (08:27)
[2023-04-06] MEDS: hyDRALAzine 10 mg Tablet PO (08:27)
[2023-04-06] MEDS: carvedilol 6.25 mg Tablet PO (08:27)
[2023-04-06] MEDS: FUROsemide 40 mg Tablet PO (08:27)
[2023-04-06] MEDS: amlodipine 10 mg Tablet PO (08:27)
[2023-04-06 09:32] LABS: Platelet Count 75 10^3/cmm (130-400); Slide Review Slide Review Perform
[2023-04-06] MEDS: pantoprazole DR 40 mg Tablet PO (09:45)
--- NOTE | 2023-04-06 09:49 | P.DS_ITS ---
Discharge Providers Date of Admission: 03/30/23 17:52 Date of Discharge: April 06, 2023 Attending Provider at Admission: Segundo Solomon MD Attending Provider at Discharge: Yimi Nino MD Primary Care Provider: Samantha Wylie MD Diagnoses at Discharge Discharge Diagnosis (1) Septic shock: Status: Acute (2) Pneumonia: Status: Acute (3) UTI (urinary tract infection): Status: Acute (4) MONTY (acute kidney injury): Status: Acute (5) Rhabdomyolysis: Status: Acute (6) COPD (chronic obstructive pulmonary disease): Status: Acute (7) Hypertension: Status: Acute (8) AMS (altered mental status): Status: Acute Reason for Visit Reason for Visit: AMS/ Acute weakness Brief History: History as per HPI: Ana Paula Higuera is a 67 year old female with 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 When she arrived here in the ER today she was found to be extremely hypotensive, for which she received fluid resuscitation initially, followed by being placed on Levophed. when I interacted with the patient, she was able to answer questions for most part appropriately, she has difficulty hearing. Hospital Course Hospital Course Patient was admitted to the ICU for further evaluation and management of septic shock, acute kidney injury along with hyponatremia with concerns for UTI. She was started on vasopressors and broad-spectrum antibiotics along with IV fluid resuscitation. Urine culture came back positive for Proteus though blood cultures remain negative. Patient responded well to the treatment and her s eptic shock resolved. Eventually she was transitioned to floor. During hospitalization echocardiogram was done which showed a normal EF without diastolic dysfunction. Hospitalization once patient has stabilized was complicated by her having uncontrolled hypertension for which multiple antihypertensives were adjusted. Safe discharge planning was discussed in detail with the patient. Patient opted to go to SNF. Patient continued to do better and has been walking well with physical therapy though she requested to be transitioned to SNF even after improved movement for further rehabitation. She has been discharged to SNF in hemodynamically stable condition on oral antihypertensives. She is to monitor her blood pressure daily at home maintain a blood pressure diary and follow-up with a primary care provider within next 10 days for further adjustment of antihypertensives. Care plan discussed in detail with patient's family at bedside. Physical Exam Narrative: General: No acute distress, AO x3, HEENT: PERRLA, pupils bilaterally equal and reactive Chest: Bilateral Novosel breath sounds all over lung bender with occasional rhonchi CVS: S1-S2 regular, no murmurs, no tachycardia, no gallops, no rubs Abdomen: Soft, nontender, no organomegaly, bowel sounds present, morbidly obese Neuro: No focal deficits, no facial deformity, AO x3, power 5/5 in all limbs Extremities: Bilateral 2+ pitting edema to the knee Urinary Catheter Management: Pizano: Cath Placed During This Visit: yes, but has since been removed by the nurse Reason for Continuing Indwelling Catheter: Other Urinary Catheter Date of Insertion: 03/30/23 Urinary Catheter Time of Insertion: 16:55 Date Urinary Catheter Removed: 04/04/23 Time Urinary Catheter Discontinued: 12:35 Discharge Data Studies Completed and Pending Completed Studies During Hospitalization Category Date Time Status CT angio chest PE protcl [id number] Stat Cat Scan 03/30/23 15:[address] cervical spin wo con* [id number] Stat Cat Scan 03/30/[address] head wo con* [id number] Stat Cat Scan 03/30/23 15:06 Completed XR chest 1V portable [id number] Stat Exams 03/30/23 15:06 Completed CV. echo complete* [id number] Routine Ultrasound 03/30/23 19:14 Completed US abdomen limited [id number] Routine Ultrasound 04/01/23 16:31 Completed Pending at discharge Category Date Time Status Sputum Culture and Gram Stain Routine Lab 03/30/23 18:10 Uncollected Radiology Impressions Cervical Spine CT 03/30/23 00:00 IMPRESSION: 1. Mild straightening of the cervical curvature on the sagittal images, which can be associated with muscle spasm or tension. 2. No fracture or acute osseous abnormality. Chest X-Ray 03/30/23 15:06 IMPRESSION: No acute findings. Head CT 03/30/23 15:06 IMPRESSION: No acute intracranial abnormality. Chest CTA 03/30/23 15:43 IMPRESSION: 1. There is no pulmonary embolism. 2. Diffuse mild interstitial and ground-glass opacity is noted in the lungs compatible with probable mild edema. 3. There is peribronchial thickening and mild mucous plugging in the lower lobes with distal ground-glass opacity concerning for mild pneumonitis. COMMENTS: In the absence of a history or active diagnosis of lung cancer, it is recommended that this patient with emphysema be evaluated for enrollment in a low dose CT lung cancer screening program. Abdomen Ultrasound 04/01/23 16:31 IMPRESSION: 1. Mild hepatomegaly with cirrhotic liver contour with coarse echogenicity. 2. Prior cholecystectomy. 3. Prominent common bile duct measuring 8 mm likely physiologic postcholecystectomy. This can be further evaluated with MRCP if concern for common bile duct obstruction. Recommend correlation with biliary function studies. 4. No hydronephrosis in RIGHT kidney. Echocardiogram: ?CONCLUSIONS ?1. Normal left ventricular size, systolic function and wall ?thickness, with no regional wall motion abnormalities. Left ?ventricular ejection fraction is estimated at 70 %. Normal ?diastolic function. ?2. No significant valvular abnormality. ?3.? No change when compared to study dated 10/24/2022. ?Lyubov Alonso MD ?(Electronically Signed) ?Final Date:? ? ? 31 March 2023 ? 11:07 Laboratory Results WBC 7.4 10^3/uL (4.0-10.0) 04/06/23 07:48 Corrected WBC Cancelled 04/06/23 04:52 RBC 4.01 10^6/uL (4.1-5.3) L 04/06/23 07:48 Hgb 12.1 g/dL (11.5-15.3) 04/06/23 07:48 Hct 37.6 % (37.0-47.0) 04/06/23 07:48 MCV 93.8 fl (81-99) 04/06/23 07:48 MCH 30.2 pg (28.0-34.0) 04/06/23 07:48 MCHC 32.2 g/dL (30.0-36.0) 04/06/23 07:48 RDW 14.9 % (12.1-15.1) 04/06/23 07:48 Plt Count 75 10^3/cmm (130-400) L 04/06/23 07:48 MPV 10.2 fL (7.4-10.4) 04/06/23 07:48 Gran % Cancelled 04/06/23 04:52 Neut % (Auto) 78.4 % 04/06/23 07:48 Lymph % (Auto) 11.9 % 04/06/23 07:48 [place] % (Auto) 8.5 % 04/06/23 07:48 Eos % (Auto) 0.3 % 04/06/23 07:48 Baso % (Auto) 0.0 % 04/06/23 07:48 Neut # (Auto) 5.82 10^3/uL (1.8-7.7) 04/06/23 07:48 Lymph # (Auto) 0.9 10^3/uL (0.8-4.8) 04/06/23 07:48 [place] # (Auto) 0.6 10^3/uL (0.2-0.9) 04/06/23 07:48 Eos # (Auto) 0.0 10^3/uL (0.0-0.8) 04/06/23 07:48 Baso # (Auto) 0.0 10^3/uL (0.0-0.1) 04/06/23 07:48 Absolute Gran (auto) Cancelled 04/06/23 04:52 Nucleated RBC % (auto) 0 % 04/06/23 07:48 Nucleated RBCs # 0.0 /100WBC 04/06/23 07:48 PT 17.50 SECONDS (12.1-14.9) H 03/31/23 06:18 INR 1.39 (0.8-1.2) H 03/31/23 06:18 APTT 28.9 SECONDS (23.9-36.7) 03/31/23 06:18 Sodium 140 mmol/L (136-145) 04/06/23 06:17 Potassium 3.8 mmol/L (3.5-5.1) 04/06/23 06:17 Chloride 105 mmol/L (98-107) 04/06/23 06:17 Carbon Dioxide 26 mmol/L (22-29) 04/06/23 06:17 Anion Gap 12.8 (5-19) 04/06/23 06:17 BUN 16 mg/dL (8-23) 04/06/23 06:17 Creatinine 0.5 mg/dL (0.5-0.9) 04/06/23 06:17 GFR Calculation 123.1 mL/min (90-130) 04/06/23 06:17 Glucose 149 mg/dL (65-115) H 04/06/23 06:17 POC Glucose 192 mg/dL (70-110) H 03/30/23 15:26 Estimat Average Glucose 146 04/06/23 06:17 Hemoglobin A1c 6.7 % (4.0-6.0) H 04/06/23 06:17 Calculated Osmolality 294 mOsm/kg (285-295) 04/06/23 06:17 Lactic Acid 2.1 mmol/L (0.5-2.2) 03/31/23 06:18 Lactic Acid (Sepsis) 2.7 mmol/L (0.5-2.2) H 03/31/23 08:42 Calcium 8.6 mg/dL (8.5-10.5) 04/06/23 06:17 Magnesium 1.7 mg/dL (1.7-2.3) 03/31/23 06:18 Iron 42 ug/dL (37-145) 04/05/23 06:22 TIBC 282 mcg/dl 04/05/23 06:22 % Saturation 14.8 % (20-50) L 04/05/23 06:22 Unsat Iron Binding 240 ug/dL (112-347) 04/05/23 06:22 Total Bilirubin 0.7 mg/dL (0.15-1.2) 04/06/23 06:17 AST 85 U/L (0-32) H 04/06/23 06:17 ALT 96 U/L (0-33) H 04/06/23 06:17 Alkaline Phosphatase 188 U/L (35-105) H 04/06/23 06:17 Ammonia 39 umol/L (11-51) 04/01/23 06:13 Creatine Kinase 349 U/L (26-192) H* 04/02/23 04:40 Troponin T Baseline 67 ng/L (0-10) H 03/30/23 15:25 Troponin T 120 Minute 43.64 ng/L (0-10) H 03/30/23 17:22 Delta Troponin T -23.36 ABS# (0-10) L 03/30/23 17:22 Troponin T Hi Sens 6Hr 49.63 ng/L (0-10) H 03/30/23 21:25 Troponin T Hi Sens 6Hr Delta -17.37 ng/L (0-12) L 03/30/23 21:25 Total Protein 5.8 g/dL (6.6-8.7) L 04/06/23 06:17 Albumin 2.9 g/dL (3.5-5.2) L 04/06/23 06:17 Globulin 2.9 g/dL (1.3-4.6) 04/06/23 06:17 Triglycerides 45 mg/dL (0-150) 04/06/23 06:17 Cholesterol 118 mg/dL (0-200) 04/06/23 06:17 LDL Cholesterol, Calc 36 mg/dL (50-129) L 04/06/23 06:17 Total VLDL Cholesterol 9 mg/dL (0-30) 04/06/23 06:17 HDL Cholesterol 73 mg/dL (60-100) 04/06/23 06:17 Cholesterol/HDL Ratio 1.62 mg/dL (0.0-4.40) 04/06/23 06:17 Lipase 45 U/L (13-60) 03/30/23 15:25 Vitamin B12 928 pg/mL (232-1245) 04/05/23 06:22 Folate 12.6 ng/mL (4.8-37.3) 04/06/23 06:17 Procalcitonin 0.33 ng/mL (0-0.5) 03/31/23 06:18 TSH 1.98 uIU/mL (0.27-4.20) 03/31/23 06:18 Random Cortisol 96.36 ug/dL (2.47-19.5) H 03/31/23 06:18 Urine Color Yellow (Yellow) 03/30/23 17:00 Urine Appearance Cloudy (CLEAR) A 03/30/23 17:00 Urine pH 7 (5-7) 03/30/23 17:00 Ur Specific [place] 1.010 (1.005-1.030) 03/30/23 17:00 Urine Protein Neg (Negative) 03/30/23 17:00 Urine Glucose (UA) Norm (Normal) 03/30/23 17:00 Urine Ketones Negative (Negative) 03/30/23 17:00 Urine Blood 3+ (Negative) H 03/30/23 17:00 Urine Nitrate Negative (Negative) 03/30/23 17:00 Urine Bilirubin Neg (Negative) 03/30/23 17:00 Urine Urobilinogen Norm mg/dL (Negative) 03/30/23 17:00 Ur Leukocyte Esterase Trace (Negative) H 03/30/23 17:00 Urine RBC 5-10 /hpf (0-2) H 03/30/23 17:00 Urine WBC >100 /hpf (0-5) H 03/30/23 17:00 Ur Squamous Epith Cells 5-10 /hpf (0-5) H 03/30/23 17:00 Amorphous Sediment Not Reportable 03/30/23 17:00 Urine Bacteria 1+ /hpf (NONE) H 03/30/23 17:00 Hyaline Casts 0-4 /lpf H 03/30/23 17:00 Urine Mucus 1+ /hpf 03/30/23 17:00 U Random Total Protein 11 mg/dL 03/30/23 18:40 Ur Random Sodium 64 mmol/L 03/30/23 18:40 Urine Creatinine 13 mg/dL (28-217) L 03/30/23 18:40 SARS-CoV-2 Ag (Rapid) negative (Negative) 04/04/23 13:05 Vitals Last Vital Signs Temp 98.3 F 04/06/23 07:19 Pulse 106 H 04/06/23 08:21 Resp 16 04/06/23 08:21 BP 170/93 04/06/23 08:27 Pulse Ox 95 04/06/23 08:21 O2 Del Method Room Air 04/06/23 08:21 O2 Flow Rate 1 04/03/23 08:00 FiO2 3 03/31/23 06:00 Discharge Plan Discharge Patient Disposition: Xfer SNF Condition: Stable Prescriptions: New carvedilol 6.25 mg Tablet 12.5 mg PO BID 30 Days Qty: 120 0RF amlodipine 10 mg Tablet 10 mg PO DAILY 30 Days Qty: 30 0RF hydralazine 10 mg tablet 10 mg PO TID Qty: 90 0RF Continued tizanidine 4 mg capsule 4 mg PO QID PRN (Reason: Muscle Spasm) amitriptyline 25 mg tablet 25 mg PO BEDTIME@0 tramadol 50 mg tablet 50 mg PO Q6H PRN (Reason: Pain) gabapentin 300 mg capsule 300 mg PO TID@08,12, omeprazole 40 mg capsule,delayed release(DR/EC) 40 mg PO DAILY@08 lorazepam 0.5 mg tablet 0.5 mg PO TID PRN (Reason: Anxiety) levothyroxine 50 mcg capsule 75 mcg PO DAILY@08 losartan 100 mg tablet 100 mg PO DAILY sertraline 50 mg tablet 50 mg PO DAILY allopurinol 300 mg tablet 300 mg PO DAILY nystatin 100,000 unit/mL suspension 5 ml PO BID 7 Days Qty: 70 0RF Rx Instructions: swish and spit furosemide [Lasix] 20 mg tablet 20 mg PO DAILY Qty: 20 0RF Rx Instructions: Once then as needed (DME) pen needle, diabetic [Comfort EZ Pen [place]] 31 gauge x 3/16 needle See Rx Instructions .Route Qty: 50 0RF Rx Instructions: As directed albuterol sulfate [Ventolin HFA] 90 mcg/actuation HFA aerosol inhaler 2 puff INHALATION QID PRN (Reason: Shortness Of Breath) Centrum Women 18-400 mg-mcg Tablet 1 tab PO DAILY@08 ondansetron 4 mg tablet,disintegrating 4 mg PO Q8H PRN (Reason: nausea and vomiting) Qty: 30 0RF prochlorperazine maleate [Compazine] 10 mg tablet 10 mg PO Q4H PRN (Reason: Mild Nausea) Qty: 30 3RF Discontinued atenolol 25 mg tablet 25 mg PO BID@080 metoprolol tartrate 25 mg tablet 25 mg PO BID bumetanide 2 mg tablet 2 mg PO DAILY Discharge Orders: Discharge Order (Routine); Ordered 04/06/23 Ordered By: Yimi Nino Referrals: [facility] [Outside] Dima Bowden MD [Staff Physician] - 1 month (PLEASE CALL FOR APPOINTMENT) Trina Ramirez FNP [Nurse Practitioner] - 7-10 days (Appointment has already been made by family) Discharge Diet: Cardiac Discharge Activity: Resume usual activity and Increase activity as tolerated Patient Instructions: Hyponatremia (ED), Benzodiazepine Use Disorder (ED), Dementia (ED), Non-diabetic Hypoglycemia (ED), Hypoglycemia in a Person with Diabetes (ED), Concussion (ED), Alcohol Intoxication (ED), Subarachnoid Hemorrhage (GEN), Altered Mental Status (ED), Opioid Safety Activity Restrictions/Additional Instructions: Please check BP daily and maintain a BP diary. Follow up with PCP in next 10 days for further adjustment of meds. Discharge Attestations Time Spent in Discharge Care*: greater than 30 min Specific Discharge Activities: educating patient, educating and/or supporting family/caregiver, discussing with pcp/other providers, discussing with mattress spring encaser/social workers/dc planners, documenting/other paperwork and evaluating patient/reviewing data Status at Discharge: Cognitive status at discharge: cognitively intact , Behavioral status at discharge: cooperative , Quality Metrics Clinical Quality Measures [ No reported AMI, CVA or VTE this stay] Coding Level of Care Code 53540 Total time (in minutes) for Discharge: 60 Diagnoses Septic shock A41.9; R65.21 Pneumonia J18.9 UTI (urinary tract infection) N39.0 MONTY (acute kidney injury) N17.9 Rhabdomyolysis M62.82 COPD (chronic obstructive pulmonary disease) J44.9 Hypertension I10 AMS (altered mental status) R41.82
--- NOTE | 2023-04-06 10:27 | PC.SOCIAL ---
IMM Updated Updated pt on IMM. No questions voiced. Provided pt a copy. Initialed, dated, & timed copy in chart.
== END 2023-04-06 15:00 | disposition skilled nursing facility (03) | DRG 871 ==
LOC: ER 17:26 → ICU 17:53 → MEDSURG 04-02 19:51
PROVIDERS: Admitting Provider Internal Medicine; Emergency Provider Family Medicine; PCP Family Medicine; Visit Provider Student in an Organized Health Care Education/Training Program
DX: A41.9 Sepsis, unspecified organism (principal); J18.9 Pneumonia, unspecified organism; R65.21 Severe sepsis with septic shock; N39.0 Urinary tract infection, site not specified; D69.3 Immune thrombocytopenic purpura; J44.0 Chronic obstructive pulmonary disease with (acute) lower respiratory infection; N17.9 Acute kidney failure, unspecified; E87.1 Hypo-osmolality and hyponatremia; M62.82 Rhabdomyolysis; B96.4 Proteus (mirabilis) (morganii) as the cause of diseases classified elsewhere; I10 Essential (primary) hypertension; E03.9 Hypothyroidism, unspecified; Z86.711 Personal history of pulmonary embolism; R29.6 Repeated falls; I95.9 Hypotension, unspecified; Z79.891 Long term (current) use of opiate analgesic; Z79.51 Long term (current) use of inhaled steroids; Z87.01 Personal history of pneumonia (recurrent); Z87.891 Personal history of nicotine dependence; R41.82 Altered mental status, unspecified; E87.6 Hypokalemia
CPT/HCPCS: 36415; 36416; 51702; 70450; 71045; 71275; 72125; 76705; 80053; 80061; 81001; 82140; 82533; 82550; 82575; 82607; 82746; 82962; 83036; 83540; 83550; 83605; 83690; 83735; 84145; 84156; 84300; 84443; 84484; 85025; 85610; 85730; 86403; 87040; 87077; 87086; 87186; 87426; 87449; 87641; 93005; 93306; 94640; 96365; 96375; 96376; 97110; 97116; 97161; 97530; 99291; 99292; C9113; J0360; J0696; J1100; J1720; J1940; J1956; J2270; J2543; J3370; J3480; J7030; J7060; J7608; J7614; J7644; Q9967

== ENCOUNTER → 2023-05-03 10:55 | Outpatient (BNVA) | payer MEDICARE, MEDICAID, SELFPAY | PROVIDERS: PCP Family Medicine; Visit Provider Family Medicine | DX: R30.0 Dysuria (principal) | CPT/HCPCS: 81000 ==

== ENCOUNTER 2023-05-05 09:17 | Oncology outpatient (recurring) (ONCR) | payer MEDICARE, MEDICAID, SELFPAY ==
[2023-04-28] VITALS (9 sets, daily range): BP systolic 92–141; BP diastolic 60–82; PULSE 78–101; RESP 16–18; TEMP 36.2–36.6; O2SAT 96–99; BMI 33.4
[2023-04-28 08:05] LABS: Basophils % 0.8 %; Eosinophils # 0.2 10^3/uL (0.0-0.8); Eosinophils % 4.8 %; Hemoglobin 12.2 g/dL (11.5-15.3); Lymphocytes # 0.7 10^3/uL (0.8-4.8); Lymphocytes % 18.1 %; Mean Corpuscular HGB Conc 32.1 g/dL (30.0-36.0); Mean Corpuscular Hemoglobin 29.1 pg (28.0-34.0); Mean Corpuscular Volume 90.7 fl (81-99); Mean Platelet Volume 11.5 fL (7.4-10.4); Monocytes # 0.5 10^3/uL (0.2-0.9); Monocytes % 14.1 %; Neutrophils # 2.33 10^3/uL (1.8-7.7); Neutrophils % 61.9 %; Nucleated Red Blood Cells % 0 %; Platelet Count 64 10^3/cmm (130-400); Red Blood Count 4.19 10^6/uL (4.1-5.3); Red Cell Distribution Width 13.4 % (12.1-15.1); White Blood Count 3.8 10^3/uL (4.0-10.0)
[2023-04-28 08:31] LABS: Alanine Aminotransferase 25 U/L (0-33); Albumin Level 3.3 g/dL (3.5-5.2); Alkaline Phosphatase 140 U/L (35-105); Anion Gap 13.4 (5-19); Aspartate Amino Transferase 39 U/L (0-32); Blood Urea Nitrogen 11 mg/dL (8-23); Calcium 8.9 mg/dL (8.5-10.5); Carbon Dioxide 22 mmol/L (22-29); Chloride 106 mmol/L (98-107); Globulin 2.8 g/dL (1.3-4.6); Glomerular Filtration Rate 99.7 mL/min (90-130); Glucose 182 mg/dL (65-115); Osmolality Calculated 290 mOsm/kg (285-295); Potassium 3.4 mmol/L (3.5-5.1); Sodium 138 mmol/L (136-145); Total Bilirubin 0.6 mg/dL (0.15-1.2); Total Protein 6.1 g/dL (6.6-8.7)
[2023-04-28] MEDS: sodium chloride 0.9% 250 ML 75 ML IV (10:40)
[2023-04-28] MEDS: acetaminophen 325 mg Tablet 650 MG PO (10:40)
[2023-04-28] MEDS: diphenhydrAMINE 50 mg/mL SDV 1mL 25 MG IVP (10:41)
[2023-04-28] MEDS: rituximab-abbs 500 MG, rituximab-abbs 240 MG in sodium chloride 0.9% 500 ML 40.5 MG IV (11:35)
[2023-05-05 09:16] VITALS: BP 120/77; PULSE 89; RESP 18; TEMP 36.2; O2SAT 95
[2023-05-05 09:19] VITALS: BMI 33.6
[2023-05-05 09:37] LABS: Basophils % 0.6 %; Eosinophils # 0.1 10^3/uL (0.0-0.8); Eosinophils % 2.9 %; Hemoglobin 12.9 g/dL (11.5-15.3); Lymphocytes % 21.2 %; Mean Corpuscular HGB Conc 32.3 g/dL (30.0-36.0); Mean Corpuscular Hemoglobin 29.2 pg (28.0-34.0); Mean Corpuscular Volume 90.5 fl (81-99); Monocytes # 0.7 10^3/uL (0.2-0.9); Monocytes % 14.3 %; Neutrophils # 2.99 10^3/uL (1.8-7.7); Neutrophils % 60.8 %; Nucleated Red Blood Cells % 0 %; Platelet Count 70 10^3/cmm (130-400); Red Blood Count 4.42 10^6/uL (4.1-5.3); Red Cell Distribution Width 13.4 % (12.1-15.1); White Blood Count 4.9 10^3/uL (4.0-10.0)
[2023-05-05 10:13] LABS: Slide Review Slide Review Perform
[2023-05-05 10:19] LABS: Alanine Aminotransferase 29 U/L (0-33); Albumin Level 3.6 g/dL (3.5-5.2); Alkaline Phosphatase 148 U/L (35-105); Aspartate Amino Transferase 50 U/L (0-32); Blood Urea Nitrogen 11 mg/dL (8-23); Carbon Dioxide 23 mmol/L (22-29); Chloride 106 mmol/L (98-107); Globulin 2.8 g/dL (1.3-4.6); Glomerular Filtration Rate 83.5 mL/min (90-130); Glucose 173 mg/dL (65-115); Osmolality Calculated 292 mOsm/kg (285-295); Sodium 139 mmol/L (136-145); Total Bilirubin 0.6 mg/dL (0.15-1.2); Total Protein 6.4 g/dL (6.6-8.7)
[2023-05-05] MEDS: sodium chloride 0.9% 250 ML 75 ML IV (11:53)
[2023-05-05] MEDS: acetaminophen 325 mg Tablet 650 MG PO (11:54)
[2023-05-05] MEDS: diphenhydrAMINE 50 mg/mL SDV 1mL 25 MG IVP (11:55)
[2023-05-05] MEDS: rituximab-abbs 500 MG, rituximab-abbs 240 MG in sodium chloride 0.9% 500 ML 191.33 MG IV (12:24)
[2023-05-05 12:30] VITALS: BP 101/66; PULSE 74; RESP 18; TEMP 35.9; O2SAT 99
[2023-05-05 13:00] VITALS: BP 99/55; PULSE 74; RESP 18; TEMP 36.3; O2SAT 98
[2023-05-05 13:30] VITALS: BP 110/67; PULSE 77; RESP 18; TEMP 36.2; O2SAT 98
[2023-05-05 14:00] VITALS: BP 123/67; PULSE 76; RESP 18; TEMP 36.6; O2SAT 98
[2023-05-05 15:40] VITALS: BP 121/72; PULSE 73; RESP 18; TEMP 36.2; O2SAT 97
== END 2023-05-05 23:59 | disposition home or self-care (01) ==
PROVIDERS: Internal Medicine Medical Oncology; Nurse Practitioner Family; PCP Family Medicine; Visit Provider Internal Medicine Hematology & Oncology
DX: D69.6 Thrombocytopenia, unspecified (principal); Z86.711 Personal history of pulmonary embolism; Z79.01 Long term (current) use of anticoagulants; Z79.52 Long term (current) use of systemic steroids; Z79.899 Other long term (current) drug therapy; Z87.891 Personal history of nicotine dependence; Z51.12 Encounter for antineoplastic immunotherapy; R07.89 Other chest pain
CPT/HCPCS: 36415; 80053; 85025; 96375; 96413; 96415; 99214; 99215; J1200; J7040; J7050; Q5115

== ENCOUNTER 2023-05-24 08:00 | Oncology outpatient (recurring) (ONCR) | payer MEDICARE, MEDICAID, SELFPAY ==
[2023-05-17] VITALS (8 sets, daily range): BP systolic 100–124; BP diastolic 57–73; PULSE 62–77; RESP 16–18; TEMP 35.7–36.6; O2SAT 96–98; BMI 34.2
[2023-05-17 09:28] LABS: Basophils % 0.7 %; Eosinophils # 0.1 10^3/uL (0.0-0.8); Eosinophils % 3.1 %; Hemoglobin 12.1 g/dL (11.5-15.3); Lymphocytes # 0.9 10^3/uL (0.8-4.8); Mean Corpuscular HGB Conc 32.7 g/dL (30.0-36.0); Mean Corpuscular Volume 88.7 fl (81-99); Mean Platelet Volume 11.4 fL (7.4-10.4); Monocytes # 0.5 10^3/uL (0.2-0.9); Neutrophils # 2.56 10^3/uL (1.8-7.7); Nucleated Red Blood Cells % 0 %; Platelet Count 81 10^3/cmm (130-400); Red Blood Count 4.17 10^6/uL (4.1-5.3); White Blood Count 4.1 10^3/uL (4.0-10.0)
[2023-05-17 10:03] LABS: Alanine Aminotransferase 22 U/L (0-33); Albumin Level 3.3 g/dL (3.5-5.2); Alkaline Phosphatase 145 U/L (35-105); Anion Gap 13.8 (5-19); Aspartate Amino Transferase 32 U/L (0-32); Blood Urea Nitrogen 16 mg/dL (8-23); Calcium 8.7 mg/dL (8.5-10.5); Carbon Dioxide 23 mmol/L (22-29); Chloride 109 mmol/L (98-107); Globulin 2.4 g/dL (1.3-4.6); Glomerular Filtration Rate 123.1 mL/min (90-130); Glucose 132 mg/dL (65-115); Osmolality Calculated 297 mOsm/kg (285-295); Potassium 3.8 mmol/L (3.5-5.1); Sodium 142 mmol/L (136-145); Total Bilirubin 0.6 mg/dL (0.15-1.2); Total Protein 5.7 g/dL (6.6-8.7)
[2023-05-17] MEDS: sodium chloride 0.9% 250 ML 75 ML IV (12:08)
[2023-05-17] MEDS: acetaminophen 325 mg Tablet 650 MG PO (12:13)
[2023-05-17] MEDS: diphenhydrAMINE 50 mg/mL SDV 1mL 25 MG IVP (12:14)
[2023-05-17] MEDS: rituximab-abbs 500 MG, rituximab-abbs 240 MG in sodium chloride 0.9% 500 ML 77.6 MG IV (12:45)
[2023-05-24 08:35] LABS: Alanine Aminotransferase 25 U/L (0-33); Albumin Level 3.6 g/dL (3.5-5.2); Alkaline Phosphatase 134 U/L (35-105); Aspartate Amino Transferase 45 U/L (0-32); Blood Urea Nitrogen 10 mg/dL (8-23); Calcium 8.7 mg/dL (8.5-10.5); Carbon Dioxide 24 mmol/L (22-29); Chloride 108 mmol/L (98-107); Globulin 2.8 g/dL (1.3-4.6); Glomerular Filtration Rate 123.1 mL/min (90-130); Glucose 137 mg/dL (65-115); Osmolality Calculated 293 mOsm/kg (285-295); Sodium 141 mmol/L (136-145); Total Bilirubin 0.8 mg/dL (0.15-1.2); Total Protein 6.4 g/dL (6.6-8.7)
[2023-05-24 08:36] LABS: Anion Gap 12.6 (5-19); Potassium 3.6 mmol/L (3.5-5.1)
[2023-05-24 09:08] LABS: Basophils % 0.7 %; Eosinophils # 0.2 10^3/uL (0.0-0.8); Eosinophils % 4.1 %; Hematocrit 39.2 % (36-47); Lymphocytes # 0.9 10^3/uL (0.8-4.8); Lymphocytes % 21.4 %; Mean Corpuscular HGB Conc 33.2 g/dL (30-55); Mean Corpuscular Volume 87.5 fl (85-98); Monocytes # 0.5 10^3/uL (0.2-0.9); Monocytes % 11.8 %; Neutrophils # 2.68 10^3/uL (1.8-7.7); Neutrophils % 61.8 %; Nucleated Red Blood Cells % 0 %; Platelet Count 72 10^3/cmm (157-399); Red Blood Count 4.48 10^6/uL (3.85-5.65); Red Cell Distribution Width 13.7 % (12.1-15.1); White Blood Count 4.34 10^3/uL (3.29-11.43)
== END 2023-05-27 23:59 | disposition home or self-care (01) ==
PROVIDERS: Nurse Practitioner Family; PCP Family Medicine; Visit Provider Internal Medicine Hematology & Oncology
DX: D69.6 Thrombocytopenia, unspecified (principal); D69.3 Immune thrombocytopenic purpura; Z86.711 Personal history of pulmonary embolism; R73.9 Hyperglycemia, unspecified; K74.60 Unspecified cirrhosis of liver; K76.6 Portal hypertension; R16.1 Splenomegaly, not elsewhere classified; Z79.01 Long term (current) use of anticoagulants; Z79.52 Long term (current) use of systemic steroids; Z79.891 Long term (current) use of opiate analgesic; Z79.899 Other long term (current) drug therapy
CPT/HCPCS: 80053; 85025; 96374; 96375; 96413; 96415; 99214; 99215; J1200; J7040; J7050; Q5115

== ENCOUNTER 2023-06-21 08:45 | Oncology outpatient (recurring) (ONCR) | payer MEDICARE, MEDICAID, SELFPAY ==
[2023-06-07 08:47] VITALS: BP 107/68; PULSE 91; RESP 18; TEMP 36.3; O2SAT 96; BMI 32.1
[2023-06-07 09:06] LABS: Basophils % 0.6 %; Eosinophils # 0.1 10^3/uL (0.0-0.8); Hematocrit 40.8 % (36-47); Lymphocytes # 0.9 10^3/uL (0.8-4.8); Lymphocytes % 19.3 %; Mean Corpuscular HGB Conc 33.1 g/dL (30-55); Mean Corpuscular Hemoglobin 28.5 pg (27-33); Mean Corpuscular Volume 86.1 fl (85-98); Mean Platelet Volume 11.4 fL (7.4-10.4); Monocytes # 0.6 10^3/uL (0.2-0.9); Monocytes % 13.4 %; Neutrophils # 2.99 10^3/uL (1.8-7.7); Neutrophils % 63.5 %; Nucleated Red Blood Cells % 0 %; Platelet Count 89 10^3/cmm (157-399); Red Blood Count 4.74 10^6/uL (3.85-5.65); White Blood Count 4.71 10^3/uL (3.29-11.43)
[2023-06-07 09:25] LABS: Alanine Aminotransferase 23 U/L (0-33); Albumin Level 3.9 g/dL (3.5-5.2); Alkaline Phosphatase 139 U/L (35-105); Anion Gap 15.3 (5-19); Aspartate Amino Transferase 38 U/L (0-32); Blood Urea Nitrogen 12 mg/dL (8-23); Calcium 9.2 mg/dL (8.5-10.5); Carbon Dioxide 24 mmol/L (22-29); Chloride 106 mmol/L (98-107); Creatinine Clr Calc Pharmacy 73.5433; Globulin 2.8 g/dL (1.3-4.6); Glomerular Filtration Rate 83.2 mL/min (90-130); Glucose 144 mg/dL (65-115); Osmolality Calculated 296 mOsm/kg (285-295); Potassium 3.3 mmol/L (3.5-5.1); Sodium 142 mmol/L (136-145); Total Bilirubin 0.9 mg/dL (0.15-1.2); Total Protein 6.7 g/dL (6.6-8.7)
[2023-06-07 11:07] LABS: Ferritin 64 ng/mL (15-150); Iron 139 ug/dL (37-145); Percent Saturation 35.7 % (20-50); Total Iron Binding Capacity 389 mcg/dl; Unsaturated Iron Binding 250 ug/dL (112-347)
[2023-06-21 08:49] VITALS: BP 125/71; PULSE 89; RESP 16; TEMP 36.3; O2SAT 95
[2023-06-21 09:02] LABS: Basophils % 0.7 %; Eosinophils # 0.1 10^3/uL (0.0-0.8); Eosinophils % 2.5 %; Hematocrit 40.4 % (36-47); Lymphocytes # 0.9 10^3/uL (0.8-4.8); Lymphocytes % 19.5 %; Mean Corpuscular HGB Conc 33.7 g/dL (30-55); Mean Corpuscular Hemoglobin 28.7 pg (27-33); Mean Corpuscular Volume 85.2 fl (85-98); Mean Platelet Volume 10.2 fL (7.4-10.4); Monocytes # 0.6 10^3/uL (0.2-0.9); Monocytes % 12.6 %; Neutrophils % 64.5 %; Nucleated Red Blood Cells % 0 %; Platelet Count 83 10^3/cmm (157-399); Red Blood Count 4.74 10^6/uL (3.85-5.65); Red Cell Distribution Width 13.9 % (12.1-15.1); White Blood Count 4.35 10^3/uL (3.29-11.43)
[2023-06-21 09:22] LABS: Alanine Aminotransferase 22 U/L (0-33); Alkaline Phosphatase 116 U/L (35-105); Aspartate Amino Transferase 46 U/L (0-32); Blood Urea Nitrogen 13 mg/dL (8-23); Calcium 9.2 mg/dL (8.5-10.5); Carbon Dioxide 23 mmol/L (22-29); Chloride 105 mmol/L (98-107); Creatinine Clr Calc Pharmacy 73.5433; Globulin 2.7 g/dL (1.3-4.6); Glomerular Filtration Rate 83.2 mL/min (90-130); Glucose 124 mg/dL (65-115); Osmolality Calculated 292 mOsm/kg (285-295); Sodium 140 mmol/L (136-145); Total Bilirubin 1.1 mg/dL (0.15-1.2); Total Protein 6.7 g/dL (6.6-8.7)
[2023-06-21 09:23] LABS: Anion Gap 15.5 (5-19); Potassium 3.5 mmol/L (3.5-5.1)
== END 2023-06-26 23:59 | disposition home or self-care (01) ==
PROVIDERS: Nurse Practitioner Family; PCP Family Medicine; Visit Provider Internal Medicine Medical Oncology
DX: D69.6 Thrombocytopenia, unspecified (principal)
CPT/HCPCS: 36415; 80053; 82728; 83540; 83550; 85025; 99214

== ENCOUNTER 2023-08-23 09:42 | Oncology outpatient (recurring) (ONCR) | payer MEDICARE, MEDICAID, SELFPAY ==
[2023-08-23 09:52] VITALS: BP 126/75; PULSE 90; RESP 16; TEMP 36.1; O2SAT 96
[2023-08-23 10:16] LABS: Basophils % 0.5 %; Eosinophils # 0.1 10^3/uL (0.0-0.8); Eosinophils % 3.3 %; Hematocrit 41.6 % (36-47); Lymphocytes # 0.8 10^3/uL (0.8-4.8); Lymphocytes % 19.3 %; Mean Corpuscular HGB Conc 33.7 g/dL (30-55); Mean Corpuscular Volume 86.1 fl (85-98); Mean Platelet Volume 10.2 fL (7.4-10.4); Monocytes # 0.4 10^3/uL (0.2-0.9); Monocytes % 10.3 %; Neutrophils # 2.85 10^3/uL (1.8-7.7); Neutrophils % 66.4 %; Nucleated Red Blood Cells % 0 %; Platelet Count 131 10^3/cmm (157-399); Red Blood Count 4.83 10^6/uL (3.85-5.65); Red Cell Distribution Width 15.1 % (12.1-15.1); White Blood Count 4.29 10^3/uL (3.29-11.43)
[2023-08-23 10:46] LABS: Alanine Aminotransferase 32 U/L (0-33); Albumin Level 3.9 g/dL (3.5-5.2); Alkaline Phosphatase 134 U/L (35-105); Blood Urea Nitrogen 8 mg/dL (8-23); Calcium 9.4 mg/dL (8.5-10.5); Carbon Dioxide 23 mmol/L (22-29); Chloride 105 mmol/L (98-107); Globulin 2.8 g/dL (1.3-4.6); Glomerular Filtration Rate 122.7 mL/min (90-130); Glucose 124 mg/dL (65-115); Osmolality Calculated 288 mOsm/kg (285-295); Sodium 139 mmol/L (136-145); Thyroid Stimulating Hormone 1.77 uIU/mL (0.27-4.20); Total Bilirubin 0.8 mg/dL (0.15-1.2); Total Protein 6.7 g/dL (6.6-8.7)
[2023-08-23 10:49] LABS: Anion Gap 15.1 (5-19); Potassium 4.1 mmol/L (3.5-5.1)
[2023-08-23 10:50] LABS: Aspartate Amino Transferase 67 U/L (0-32)
== END 2023-08-26 23:59 | disposition home or self-care (01) ==
LOC: ONCMED 09:43
PROVIDERS: PCP Family Medicine; Visit Provider Internal Medicine Medical Oncology
DX: D69.6 Thrombocytopenia, unspecified (principal); D69.3 Immune thrombocytopenic purpura; I26.99 Other pulmonary embolism without acute cor pulmonale; Z79.01 Long term (current) use of anticoagulants; Z79.52 Long term (current) use of systemic steroids; Z79.899 Other long term (current) drug therapy; Z87.891 Personal history of nicotine dependence
CPT/HCPCS: 36415; 80053; 84443; 85025; 99213

== ENCOUNTER 2023-11-24 10:52 | Oncology outpatient (recurring) (ONCR) | payer MEDICARE, MEDICAID, SELFPAY ==
[2023-11-24 11:21] LABS: Basophils # 0.1 10^3/uL (0.0-0.1); Basophils % 0.8 %; Eosinophils # 0.2 10^3/uL (0.0-0.8); Eosinophils % 3.2 %; Hematocrit 42.7 % (36-47); Lymphocytes # 1.2 10^3/uL (0.8-4.8); Mean Corpuscular Hemoglobin 30.4 pg (27-33); Mean Corpuscular Volume 89.5 fl (85-98); Monocytes # 0.5 10^3/uL (0.2-0.9); Neutrophils # 3.88 10^3/uL (1.8-7.7); Neutrophils % 65.7 %; Nucleated Red Blood Cells % 0 %; Platelet Count 118 10^3/cmm (157-399); Red Blood Count 4.77 10^6/uL (3.85-5.65); White Blood Count 5.91 10^3/uL (3.29-11.43)
[2023-11-24 11:37] LABS: LAB Peripheral Smear Sent for Review
[2023-11-24 11:43] LABS: Alanine Aminotransferase 29 U/L (0-33); Alkaline Phosphatase 140 U/L (35-105); Anion Gap 13.3 (5-19); Aspartate Amino Transferase 49 U/L (0-32); Blood Urea Nitrogen 14 mg/dL (8-23); Calcium 9.3 mg/dL (8.5-10.5); Carbon Dioxide 24 mmol/L (22-29); Chloride 107 mmol/L (98-107); Globulin 3.2 g/dL (1.3-4.6); Glomerular Filtration Rate 122.7 mL/min (90-130); Glucose 121 mg/dL (65-115); Lactate Dehydrogenase 205 U/L (135-214); Osmolality Calculated 292 mOsm/kg (285-295); Potassium 4.3 mmol/L (3.5-5.1); Sodium 140 mmol/L (136-145); Total Bilirubin 0.8 mg/dL (0.15-1.2); Total Protein 7.2 g/dL (6.6-8.7)
== END 2023-11-25 23:59 | disposition home or self-care (01) ==
PROVIDERS: PCP Family Medicine; Visit Provider Internal Medicine Medical Oncology
DX: D69.3 Immune thrombocytopenic purpura (principal); K74.60 Unspecified cirrhosis of liver; G62.9 Polyneuropathy, unspecified; Z92.25 Personal history of immunosuppression therapy; Z79.899 Other long term (current) drug therapy
CPT/HCPCS: 36415; 80053; 83615; 85025; 99214

== ENCOUNTER 2024-02-22 10:33 | Oncology outpatient (recurring) (ONCR) | payer MEDICARE, MEDICAID, SELFPAY ==
[2024-02-22 11:21] LABS: Basophils % 0.8 %; Eosinophils # 0.1 10^3/uL (0.0-0.8); Eosinophils % 3.5 %; Hematocrit 41.6 % (36-47); Lymphocytes # 0.9 10^3/uL (0.8-4.8); Mean Corpuscular HGB Conc 33.7 g/dL (30-55); Mean Corpuscular Hemoglobin 30.7 pg (27-33); Mean Corpuscular Volume 91.2 fl (85-98); Mean Platelet Volume 10.6 fL (7.4-10.4); Monocytes # 0.4 10^3/uL (0.2-0.9); Monocytes % 10.4 %; Neutrophils # 2.24 10^3/uL (1.8-7.7); Nucleated Red Blood Cells % 0 %; Platelet Count 105 10^3/cmm (157-399); Red Blood Count 4.56 10^6/uL (3.85-5.65); Red Cell Distribution Width 14.2 % (12.1-15.1); White Blood Count 3.67 10^3/uL (3.29-11.43)
[2024-02-22 11:40] LABS: Alanine Aminotransferase 34 U/L (0-33); Albumin Level 3.7 g/dL (3.5-5.2); Alkaline Phosphatase 120 U/L (35-105); Anion Gap 14.7 (5-19); Aspartate Amino Transferase 53 U/L (0-32); Blood Urea Nitrogen 10 mg/dL (8-23); Carbon Dioxide 24 mmol/L (22-29); Chloride 107 mmol/L (98-107); Glomerular Filtration Rate 83.2 mL/min (90-130); Glucose 159 mg/dL (65-115); Osmolality Calculated 296 mOsm/kg (285-295); Potassium 3.7 mmol/L (3.5-5.1); Sodium 142 mmol/L (136-145); Total Bilirubin 0.9 mg/dL (0.15-1.2); Total Protein 6.7 g/dL (6.6-8.7)
== END 2024-02-25 23:59 | disposition home or self-care (01) ==
LOC: ONCMED 10:33
PROVIDERS: PCP Family Medicine; Visit Provider Internal Medicine Medical Oncology
DX: D69.3 Immune thrombocytopenic purpura
CPT/HCPCS: 36415; 80053; 85025

== ENCOUNTER 2024-06-05 10:32 | Oncology outpatient (recurring) (ONCR) | payer MEDICARE, MEDICAID, SELFPAY ==
--- OUTSIDE RECORDS SUMMARY | 2024-06-05 10:35 | XMS_ITS ---
Author Name Unknown Organization [facility] ALLERGIES AND ADVERSE REACTIONS No information ASSESSMENT No information CHIEF COMPLAINT No information Vital Signs Bpsitting Date Temperature Weight Height Spo2 Respiration Bmi Ti merecorded Pulse 154/90 023 00:00:0 0 null 198,16.0 0 5,3 98 18 34.7 00:00 55 180/80 023 00:00:0 0 97.4 215,16.0 0 5,9 95 20 31.9 00:00 91 null 023 00:00:0 0 99 188,0.00 5,9 99 18 27.8 00:00 105 OBJECTIVE DATA No information PHYSICAL EXAMINATION No information TREATMENT PLAN No information PROBLEMS No information RESULTS No information REVIEW OF SYSTEMS No information SUBJECTIVE DATA No information MEDICATIONS No information
[2024-06-05 10:56] LABS: Basophils % 0.8 %; Eosinophils # 0.2 10^3/uL (0.0-0.8); Eosinophils % 4.2 %; Hematocrit 40.7 % (36-47); Lymphocytes % 26.7 %; Mean Corpuscular HGB Conc 33.4 g/dL (30-55); Mean Corpuscular Hemoglobin 30.6 pg (27-33); Mean Corpuscular Volume 91.7 fl (85-98); Mean Platelet Volume 10.2 fL (7.4-10.4); Monocytes # 0.4 10^3/uL (0.2-0.9); Monocytes % 9.7 %; Neutrophils % 58.3 %; Nucleated Red Blood Cells % 0 %; Platelet Count 86 10^3/cmm (157-399); Red Blood Count 4.44 10^6/uL (3.85-5.65)
[2024-06-05 11:16] LABS: Alanine Aminotransferase 28 U/L (0-33); Albumin Level 3.6 g/dL (3.5-5.2); Alkaline Phosphatase 166 U/L (35-105); Anion Gap 13.2 (5-19); Aspartate Amino Transferase 58 U/L (0-32); Blood Urea Nitrogen 12 mg/dL (8-23); Calcium 8.5 mg/dL (8.5-10.5); Carbon Dioxide 25 mmol/L (22-29); Chloride 108 mmol/L (98-107); Globulin 3.2 g/dL (1.3-4.6); Glomerular Filtration Rate 99.1 mL/min (90-130); Glucose 153 mg/dL (65-115); Osmolality Calculated 297 mOsm/kg (285-295); Potassium 4.2 mmol/L (3.5-5.1); Sodium 142 mmol/L (136-145); Total Bilirubin 0.6 mg/dL (0.15-1.2); Total Protein 6.8 g/dL (6.6-8.7)
== END 2024-06-26 23:59 | disposition home or self-care (01) ==
PROVIDERS: Nurse Practitioner Family; PCP Family Medicine; Visit Provider Internal Medicine Medical Oncology
DX: D69.3 Immune thrombocytopenic purpura (principal)
CPT/HCPCS: 36415; 80053; 85025; 99214

== ENCOUNTER 2024-07-11 13:01 | Oncology outpatient (recurring) (ONCR) | payer MEDICARE, MEDICAID, SELFPAY ==
[2024-07-11 13:41] LABS: Eosinophils # 0.1 10^3/uL (0.0-0.8); Hematocrit 42.9 % (36-47); Lymphocytes # 1.1 10^3/uL (0.8-4.8); Lymphocytes % 26.7 %; Mean Corpuscular HGB Conc 32.4 g/dL (30-55); Mean Corpuscular Hemoglobin 29.8 pg (27-33); Mean Corpuscular Volume 91.9 fl (85-98); Mean Platelet Volume 10.6 fL (7.4-10.4); Monocytes # 0.4 10^3/uL (0.2-0.9); Monocytes % 9.9 %; Neutrophils # 2.43 10^3/uL (1.8-7.7); Neutrophils % 60.2 %; Nucleated Red Blood Cells % 0 %; Platelet Count 93 10^3/cmm (157-399); Red Blood Count 4.67 10^6/uL (3.85-5.65); Red Cell Distribution Width 13.9 % (12.1-15.1); White Blood Count 4.04 10^3/uL (3.29-11.43)
[2024-07-11 14:01] LABS: Alanine Aminotransferase 27 U/L (0-33); Albumin Level 3.8 g/dL (3.5-5.2); Alkaline Phosphatase 135 U/L (35-105); Anion Gap 13.7 (5-19); Aspartate Amino Transferase 58 U/L (0-32); Blood Urea Nitrogen 12 mg/dL (8-23); Calcium 8.9 mg/dL (8.5-10.5); Carbon Dioxide 24 mmol/L (22-29); Chloride 108 mmol/L (98-107); Globulin 2.9 g/dL (1.3-4.6); Glomerular Filtration Rate 99.1 mL/min (90-130); Glucose 176 mg/dL (65-115); Osmolality Calculated 298 mOsm/kg (285-295); Potassium 3.7 mmol/L (3.5-5.1); Sodium 142 mmol/L (136-145); Total Bilirubin 0.8 mg/dL (0.15-1.2); Total Protein 6.7 g/dL (6.6-8.7)
== END 2024-07-27 23:59 | disposition home or self-care (01) ==
PROVIDERS: Nurse Practitioner Family; PCP Family Medicine; Visit Provider Internal Medicine Hematology & Oncology
DX: D69.3 Immune thrombocytopenic purpura (principal); Z87.891 Personal history of nicotine dependence; Z79.899 Other long term (current) drug therapy
CPT/HCPCS: 36415; 80053; 85025; 99214

== ENCOUNTER 2024-10-11 10:38 | Oncology outpatient (recurring) (ONCR) | payer MEDICARE, MEDICAID, SELFPAY ==
[2024-10-11 11:00] LABS: Basophils # 0.1 10^3/uL (0.0-0.1); Eosinophils # 0.2 10^3/uL (0.0-0.8); Eosinophils % 3.5 %; Hematocrit 42.9 % (36-47); Lymphocytes # 1.4 10^3/uL (0.8-4.8); Lymphocytes % 23.2 %; Mean Corpuscular HGB Conc 33.6 g/dL (30-55); Mean Corpuscular Hemoglobin 31.2 pg (27-33); Mean Corpuscular Volume 92.9 fl (85-98); Mean Platelet Volume 10.3 fL (7.4-10.4); Monocytes # 0.7 10^3/uL (0.2-0.9); Monocytes % 11.4 %; Neutrophils % 60.6 %; Nucleated Red Blood Cells % 0 %; Platelet Count 107 10^3/cmm (157-399); Red Blood Count 4.62 10^6/uL (3.85-5.65); Red Cell Distribution Width 14.2 % (12.1-15.1); White Blood Count 5.95 10^3/uL (3.29-11.43)
[2024-10-11 12:55] LABS: Alanine Aminotransferase 37 U/L (0-33); Albumin Level 3.7 g/dL (3.5-5.2); Alkaline Phosphatase 126 U/L (35-105); Anion Gap 17.1 (5-19); Aspartate Amino Transferase 77 U/L (0-32); Blood Urea Nitrogen 13 mg/dL (8-23); Calcium 8.6 mg/dL (8.5-10.5); Carbon Dioxide 20 mmol/L (22-29); Chloride 103 mmol/L (98-107); Creatinine Clr Calc Pharmacy 78.2249; Globulin 3.4 g/dL (1.3-4.6); Glucose 218 mg/dL (65-115); Osmolality Calculated 289 mOsm/kg (285-295); Potassium 4.1 mmol/L (3.5-5.1); Sodium 136 mmol/L (136-145); Total Bilirubin 1.1 mg/dL (0.15-1.2); Total Protein 7.1 g/dL (6.6-8.7)
== END 2024-10-27 23:59 | disposition home or self-care (01) ==
PROVIDERS: Nurse Practitioner; PCP Family Medicine; Visit Provider Internal Medicine
DX: D69.3 Immune thrombocytopenic purpura (principal); Z87.891 Personal history of nicotine dependence; Z79.899 Other long term (current) drug therapy
CPT/HCPCS: 36415; 80053; 85025; 99213

== ENCOUNTER → 2025-01-03 13:34 | Outpatient (BNVA) | payer MEDICARE, MEDICAID, SELFPAY | PROVIDERS: PCP Family Medicine; Visit Provider Family Medicine | DX: I10 Essential (primary) hypertension (principal); E11.9 Type 2 diabetes mellitus without complications; E03.9 Hypothyroidism, unspecified; R60.0 Localized edema; R74.01 Elevation of levels of liver transaminase levels | CPT/HCPCS: 80053; 83036; 83880; 84443; 85025 ==

== ENCOUNTER 2025-01-10 08:58 | Oncology outpatient (recurring) (ONCR) | payer MEDICARE, MEDICAID, SELFPAY ==
[2025-01-10 09:18] LABS: Reticulocyte % 2.3 % (0.5-2.0)
[2025-01-10 09:20] LABS: Basophils % 0.8 %; Eosinophils # 0.1 10^3/uL (0.0-0.8); Eosinophils % 2.8 %; Hematocrit 43.2 % (36-47); Lymphocytes # 1.3 10^3/uL (0.8-4.8); Lymphocytes % 26.9 %; Mean Corpuscular HGB Conc 33.6 g/dL (30-55); Mean Corpuscular Hemoglobin 31.6 pg (27-33); Mean Corpuscular Volume 94.1 fl (85-98); Mean Platelet Volume 10.2 fL (7.4-10.4); Monocytes # 0.5 10^3/uL (0.2-0.9); Monocytes % 9.7 %; Neutrophils # 2.79 10^3/uL (1.8-7.7); Neutrophils % 59.2 %; Nucleated Red Blood Cells % 0 %; Platelet Count 84 10^3/cmm (157-399); Red Blood Count 4.59 10^6/uL (3.85-5.65); Red Cell Distribution Width 14.3 % (12.1-15.1); White Blood Count 4.72 10^3/uL (3.29-11.43)
[2025-01-10 09:23] LABS: Erythrocyte Sedimentation Rate 14 mm/hr (0-15)
[2025-01-10 09:41] LABS: Alanine Aminotransferase 40 U/L (0-33); Albumin Level 3.7 g/dL (3.5-5.2); Alkaline Phosphatase 167 U/L (35-105); Aspartate Amino Transferase 54 U/L (0-32); Blood Urea Nitrogen 16 mg/dL (8-23); Calcium 8.3 mg/dL (8.5-10.5); Carbon Dioxide 25 mmol/L (22-29); Chloride 107 mmol/L (98-107); Globulin 3.3 g/dL (1.3-4.6); Glomerular Filtration Rate 99.1 mL/min (90-130); Glucose 130 mg/dL (65-115); Lactate Dehydrogenase 205 U/L (135-214); Osmolality Calculated 295 mOsm/kg (285-295); Sodium 141 mmol/L (136-145); Total Bilirubin 0.8 mg/dL (0.15-1.2)
== END 2025-01-24 23:59 | disposition home or self-care (01) ==
PROVIDERS: Internal Medicine; PCP Family Medicine; Visit Provider Internal Medicine Medical Oncology
DX: D69.3 Immune thrombocytopenic purpura (principal); K74.60 Unspecified cirrhosis of liver; Z87.891 Personal history of nicotine dependence; Z92.25 Personal history of immunosuppression therapy
CPT/HCPCS: 36415; 80053; 83615; 85025; 85045; 85651; 86140; 99214

== ENCOUNTER 2025-04-10 11:42 | Oncology outpatient (recurring) (ONCR) | payer MEDICARE, MEDICAID, SELFPAY ==
[2025-04-10 12:15] LABS: Hematocrit 42.7 % (36-47); Hemoglobin 14.20 g/dL (11.27-16.99); Mean Corpuscular HGB Conc 33.3 g/dL (30-55); Mean Corpuscular Hemoglobin 31.7 pg (27-33); Mean Corpuscular Volume 95.3 fl (85-98); Nucleated Red Blood Cells % 0 %; Platelet Count 99 10^3/cmm (157-399); Red Blood Count 4.48 10^6/uL (3.85-5.65); White Blood Count 5.78 10^3/uL (3.29-11.43)
[2025-04-10 12:30] LABS: Alanine Aminotransferase 33 U/L (0-33); Albumin Level 3.6 g/dL (3.5-5.2); Alkaline Phosphatase 119 U/L (35-105); Anion Gap 15.1 (5-19); Aspartate Amino Transferase 70 U/L (0-32); Blood Urea Nitrogen 9 mg/dL (8-23); Calcium 8.9 mg/dL (8.5-10.5); Carbon Dioxide 25 mmol/L (22-29); Chloride 101 mmol/L (98-107); Creatinine Clr Calc Pharmacy 80.1259; Globulin 3.5 g/dL (1.3-4.6); Glucose 119 mg/dL (65-115); Osmolality Calculated 284 mOsm/kg (285-295); Potassium 4.1 mmol/L (3.5-5.1); Sodium 137 mmol/L (136-145); Total Protein 7.1 g/dL (6.6-8.7)
== END 2025-04-26 23:59 | disposition home or self-care (01) ==
PROVIDERS: PCP Family Medicine; Visit Provider Internal Medicine Medical Oncology
DX: D69.3 Immune thrombocytopenic purpura (principal); K74.60 Unspecified cirrhosis of liver
CPT/HCPCS: 36415; 80053; 85025; 99213

== ENCOUNTER 2025-06-11 07:26 | Oncology outpatient (recurring) (ONCR) | payer MEDICARE, MEDICAID, SELFPAY ==
--- NOTE | 2025-06-11 07:45 | US_ITS ---
WS: [id number] RIGHT UPPER QUADRANT ULTRASOUND HISTORY: f/u per GI (Joseph) COMPARISON: 04/01/2023 Liver: 15.7 cm in length. Normal size liver. Cirrhotic appearance. Undulating surface liver and coarse echotexture throughout. No mass is identified but the liver is poorly visualized throughout its entirety. Portal Vein: Normal hepatopetal flow with monophasic waveform. Gallbladder: Prior cholecystectomy. There is a small hypoechoic area in the hector hepatis measuring 2.3 x 2.1 x 1.5 cm. This does have the appearance of a gallbladder but patient has provided history of a prior cholecystectomy. There is no increased vascularity to this collection. CBD: 0.9 cm Pancreas: Poorly visualized. Visualized portion is echogenic. Right kidney: 10.3 cm in length. Normal size and echogenicity. No hydronephrosis or mass. Aorta and IVC: Unremarkable abdominal aorta and IVC. No ascites. US/US liver [id number] IMPRESSION: 1. Prior cholecystectomy. 2. In the gallbladder fossa is a hypoechoic collection measuring 2.3 x 2.1 x 1 .5 cm. This may be related to the common bile duct. There is no increased vascu larity to suggest this is the portal vein. Consider further evaluation by CT wi th IV and oral contrast. 3. Cirrhotic liver.
== END 2025-06-26 23:59 | disposition home or self-care (01) ==
LOC: ONCMED 07:27
PROVIDERS: PCP Family Medicine; Visit Provider Internal Medicine Medical Oncology
DX: D69.3 Immune thrombocytopenic purpura (principal); K74.60 Unspecified cirrhosis of liver
CPT/HCPCS: 76705

== ENCOUNTER 2025-06-27 09:25 | Outpatient (CLI) | payer MEDICARE, MEDICAID, SELFPAY ==
--- NOTE | 2025-06-27 09:37 | CT_ITS ---
WS: [id number] CT ABDOMEN WITH CONTRAST HISTORY: ABNORMAL FINDINGS ON DIAGNOSTIC IMAGING Contiguous single phase 3 mm axial imaging performed to the abdomen. Oral contrast has been provided. Coronal and sagittal reformats are submitted. All CT scans at [facility] use at least one of these dose optimization techniques: automated exposure control; mA and/or kV adjustment per patient size (includes targeted exams where dose is matched to clinical indication); or iterative reconstruction. IV CONTRAST: Omnipaque 350; 100 mL IV. Oral contrast: Yes. DLP: 636.47 mGy.cm COMPARISON: CT 07/13/2020, ultrasound 06/11/2025 Lower thorax: 9 mm nodule at the RIGHT lung base along the diaphragmatic surface stable since 03/30/2023. Heart is normal size. No hiatal hernia. Liver/biliary system: Normal size liver. Cirrhotic appearing liver with a nodular surface. Caudate and LEFT lobes are enlarged. Normal portal vein. There is no mass identified in the gallbladder fossa. The previously described cystic area is not identified by CT. The common bile duct is normal size. Gallbladder: Prior cholecystectomy. Pancreas: Mild atrophy. Spleen: Enlarged spleen measuring 13.2 cm in length. 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 Adrenal glands: Normal. Right kidney: Normal. Left kidney: Normal. Aorta: Mild atherosclerosis. Calcified plaque at the origin of the celiac axis. Lymphadenopathy: Enlarged celiac axis and hector hepatis lymph nodes measuring up to 17 mm in diameter. These lymph nodes were also present on the prior CT from 2019 and are likely related to cirrhosis. Free fluid: None. GI tract: No obstruction or colitis. Normal appendix. Abdominal wall: Fat containing umbilical hernia. Visualized osseous structures: Degenerative disc base narrowing at L4-5 and L5- S1. Facet joint arthropathy throughout the lumbar spine. CT/CT abdomen w con* [id number] IMPRESSION: 1. No cystic mass or fluid collection in the hector hepatis. 2. Prior cholecystectomy. 3. Cirrhosis with changes of portal venous hypertension. 4. Enlarged spleen. 5. Gastrosplenic varices.
[2025-06-27] MEDS: iohexol 350 mg/mL 500 mL Btl (per mL) PO (10:36)
[2025-06-27] MEDS: iohexol 350 mg/mL 500 mL Btl (per mL) IV (10:36)
[2025-06-27 14:52] LABS: Blood Urea Nitrogen 23 mg/dL (8-23)
== END 2025-06-27 09:26 | disposition home or self-care (01) ==
LOC: RAD 09:29
PROVIDERS: Radiology Diagnostic Radiology; PCP Family Medicine; Visit Provider Nurse Practitioner Family
DX: R93.5 Abnormal findings on diagnostic imaging of other abdominal regions, including retroperitoneum (principal); R16.0 Hepatomegaly, not elsewhere classified; K86.89 Other specified diseases of pancreas; I70.0 Atherosclerosis of aorta; I70.8 Atherosclerosis of other arteries; R59.1 Generalized enlarged lymph nodes; Z90.49 Acquired absence of other specified parts of digestive tract; K74.69 Other cirrhosis of liver; K76.6 Portal hypertension; I86.4 Gastric varices
CPT/HCPCS: 74160; 82565; 84520

== ENCOUNTER → 2025-07-05 08:24 | Outpatient (BNVA) | payer MEDICARE, MEDICAID, SELFPAY | PROVIDERS: PCP Family Medicine; Visit Provider Nurse Practitioner Family | DX: L30.9 Dermatitis, unspecified (principal); H01.139 Eczematous dermatitis of unspecified eye, unspecified eyelid; L28.0 Lichen simplex chronicus; L98.1 Factitial dermatitis; L82.1 Other seborrheic keratosis; D22.5 Melanocytic nevi of trunk | CPT/HCPCS: 11104; 99204 ==

== ENCOUNTER → 2025-07-19 10:51 | Outpatient (BNVA) | payer MEDICARE, MEDICAID, SELFPAY | PROVIDERS: PCP Family Medicine; Visit Provider Nurse Practitioner Family | DX: L30.8 Other specified dermatitis (principal); S30.860A Insect bite (nonvenomous) of lower back and pelvis, initial encounter; L28.0 Lichen simplex chronicus; L98.1 Factitial dermatitis; X58.XXXA Exposure to other specified factors, initial encounter | CPT/HCPCS: 99213 ==

== ENCOUNTER 2025-07-24 14:15 | Outpatient (CLI) | payer MEDICARE, MEDICAID, SELFPAY ==
--- NOTE | 2025-07-24 14:23 | MM_ITS ---
WS: [id number] BILATERAL 3D TOMOSYNTHESIS DIGITAL SCREENING MAMMOGRAPHY WITH CAD CLINICAL INFORMATION: SCREENING HISTORY: Screening mammogram. No current complaints. COMPARISON: 2021 TECHNIQUE: Bilateral CC and MLO views. FINDINGS: The breasts are composed of heterogeneous fibroglandular density tissue, which can limit the detection of small underlying mass lesions. No suspicious mass, asymmetry, calcifications, or architectural distortion. No evidence of malignancy. Incidental punctate and lucent centered calcifications. MM/MM [facility] tomosynthesis [id number] IMPRESSION: DENSITY: The breasts are heterogeneously dense, which may obscure small masses. BI-RADS: 2 - Benign FOLLOW UP: 1 Year Follow-up Recommend return to annual screening mammography.
== END 2025-07-24 14:16 | disposition home or self-care (01) ==
LOC: RAD 14:17
PROVIDERS: PCP Family Medicine; Visit Provider Family Medicine
DX: Z12.31 Encounter for screening mammogram for malignant neoplasm of breast (principal); R92.333 Mammographic heterogeneous density, bilateral breasts; R92.323 Mammographic fibroglandular density, bilateral breasts; R92.1 Mammographic calcification found on diagnostic imaging of breast
CPT/HCPCS: 77063; 77067

== ENCOUNTER → 2025-09-05 15:04 | Outpatient (BNVA) | payer MEDICARE, MEDICAID, SELFPAY | PROVIDERS: PCP Family Medicine; Visit Provider Family Medicine | DX: K74.60 Unspecified cirrhosis of liver (principal) | CPT/HCPCS: 80053; 85025 ==